=== PATIENT | female | born 1935 | race Caucasian/White ===

== ENCOUNTER 2016-07-31 12:46 | Inpatient (IN) | payer OTHER ==
--- NOTE | 2016-07-31 14:31 | PDOC ---
[id number], VOMITING Time Seen by Provider: 07/31/16 13:59 History Source: Patient Exam Limitations: No Limitations - History of Present Illness Initial Comments: 07/31/16 14:30 CHIEF COMPLAINT: Cough HISTORY OF PRESENT ILLNESS: This is an 81 year old female with a history of NIDDM, HTN, ovarian ca (s/p chemo in 2007 and 2011, s/p hysterectomy and bilateral oophrectomy), and anemia who presents complaining of cough since April and nausea/vomiting since June, with inability to eat or tolerate fluids over the weekend. She feels that her abdomen is distended. Last BM was 2 days ago (she states it is normal for her to go 2-3 days without a BM); she is able to pass flatus. She is complaining of generalized weakness and dyspnea on exertion. She is sent by her PCP for further workup and admission. V/s on arrival are unremarkable. PCP is Dr. Gonsalez Oncologist is Dr. Velarde REVIEW OF SYSTEMS: GENERAL/CONSTITUTIONAL: Chills, no fever. Generalized weakness. No weight change. HEAD, EYES, EARS, NOSE AND THROAT: No change in vision. No ear pain or discharge. No sore throat. CARDIOVASCULAR: No chest pain or palpitations. Dyspnea on exertion. RESPIRATORY: No cough, wheezing, or shortness of breath. GASTROINTESTINAL: Nausea/vomiting, abdominal "bloating". Last BM 2 days ago. + Flatus. GENITOURINARY: No dysuria, frequency, or change in urination. MUSCULOSKELETAL: No joint or muscle swelling or pain. No neck or back pain. SKIN: No rash or easy bruising. NEUROLOGIC: No headache, vertigo, loss of consciousness, or loss of sensation. PSYCHIATRIC: No depression or anxiety. ENDOCRINE: No increased thirst. No abnormal weight change. HEMATOLOGIC/LYMPHATIC: No anemia, easy bleeding, or history of blood clots. ALLERGIC/IMMUNOLOGIC: No hives or skin allergy. No latex allergy. PHYSICAL EXAM: GENERAL: The patient is awake, alert, and fully oriented, in no acute distress. HEAD: Normal with no signs of trauma. ENT: Pupils equal, round and reactive to light, extraocular movements intact, sclera anicteric, conjunctiva clear. Neck supple. LUNGS: Clear to auscultation bilaterally. Normal excursion. No respiratory distress or use of accessory muscles. CV: RRR, S1/S2, no MRG. Cap refill < 2 sec. ABDOMEN: Soft, non-distended, non-tender. EXTREMITIES: Normal range of motion. Trace LE edema bilaterally. NEUROLOGICAL: Normal speech, normal gait. CN II-XII grossly intact. PSYCH: Normal mood, normal affect. SKIN: Warm, dry, normal turgor, no rashes or lesions noted. RECTAL: Normal external exam. One small internal mass at 12 o'clock position. Guaiac negative light brown stool. Past History - Past Medical History Allergies/Adverse Reactions: Allergies Allergy/AdvReac Type Severity Reaction Status Date / Time No Known Drug Allergies Allergy Verified 07/31/16 13:12 Home Medications: Ambulatory Orders Acetaminophen [Tylenol .Regular Strength -] 650 mg PO Q6H PRN #0 tablet Furosemide [Lasix -] 40 mg PO DAILY tablet 08/22/16 Magnesium Oxide [Mag-Ox -] 400 mg PO BID tablet 08/22/16 Metoclopramide HCl [Reglan -] 10 mg PO TIDAC tablet 08/22/16 Polyethylene Glycol 3350 [Miralax 119 gm Btl -] 17 gm PO DAILY bottle 08/22/16 Potassium Chloride [K-Dur -] 20 meq PO DAILY tab.sr 08/22/16 Ranitidine [Zantac -] 150 mg PO BID tablet 08/22/16 Aa/Hydrolyzed Collagen, Whey [Lps 15-30 Liquid] 30 ml PO TID 08/26/16 Allopurinol 300 mg PO DAILY 08/26/16 Imatinib Mesylate [Gleevec] 100 mg PO DAILY 08/26/16 Multivitamin [Poly-Vitamin] 1 each PO DAILY 08/26/16 Anemia: Yes (H/O) Asthma: No Cancer: Yes (OVARIAN AND SKIN CA) Cardiac Disorders: No CVA: No COPD: No CHF: No Dementia: No Diabetes: No GI Disorders: Yes (hernia) Disorders: Yes HTN: Yes Hypercholesterolemia: No Liver Disease: No Seizures: No Thyroid Disease: No - Surgical History Abdominal Surgery: Yes (COLONOSCOPY) Appendectomy: No Cardiac Surgery: No Cholecystectomy: No Lung Surgery: No Neurologic Surgery: No Orthopedic Surgery: No - Psycho/Social/Smoking Cessation Hx Anxiety: No Suicidal Ideation: No Smoking History: Never smoked Have you smoked in the past 12 months: No Information on smoking cessation initiated: No Hx Alcohol Use: No Drug/Substance Use Hx: No Substance Use Type: None Hx Substance Use Treatment: No *Physical Exam - Vital Signs Last Vital Signs Temp Pulse Resp BP Pulse Ox 98.5 F 84 18 131/57 95 07/31/16 13:09 07/31/16 13:09 07/31/16 13:09 07/31/16 13:09 07/31/16 13:09 Heart Score/ECG Review - ECG Intrepretation Comment:: 07/31/16 14:31 EKG: NSR at 74bpm, no ST or T wave changes ED Treatment Course - LABORATORY CBC & Chemistry Diagram: 08/22/16 06:00 08/21/16 06:50 - RADIOLOGY Radiology Studies Ordered: Category Date Time Status CHEST PA & LAT [RAD] Stat Radiology 07/31/16 13:59 Completed Medical Decision Making - Medical Decision Making 07/31/16 14:30 A/P: 81 year old female with history of ovarian ca presenting with abdominal bloating, nausea/vomiting/inability to tolerate po, and dyspnea on exertion. 1. EKG: NSR 2. CXR: no infiltrate 3. Cardiac and abdominal labs 4. Zofran 4mg IVP 5. CTAP with PO/IV contrast 07/31/16 15:41 Hgb today is 8.2; discussed with Dr. Gonsalez and was 10.5 on 06/26 Will give 1 unit PRBCs since patient is symptomatic (PACHECO) Plt 98 INR 1.3 Stool for occult blood is negative BUN Cr 23/0.7 - gentle IV hydration *DC/Admit/Observation/Transfer Diagnosis at time of Disposition: Abdominal pain Qualifiers: Abdominal location: generalized Qualified Code(s): R10.84 - Generalized abdominal pain Anemia Qualifiers: Anemia type: unspecified type Qualified Code(s): D64.9 - Anemia, unspecified - Discharge Dispostion [facility]position[facility] Condition at time of disposition: Stable
[2016-07-31 15:08] LABS: BASOPHIL 0.6 % (0-2.0); EOSINOPHIL 0.5 % (0-4.5); MCH 33.8 pg (25.7-33.7); MCHC 34.2 g/dl (32.0-36.0); MEAN CELL VOLUME 98.9 fl (80-96); MEAN PLT VOLUME 7.1 fl (7.5-11.1); NEUTROPHILS 64.2 % (42.8-82.8); PLATELET COUNT 98 K/MM3 (134-434); WHITE BLOOD COUNT 5.1 K/mm3 (4.0-10.0)
[2016-07-31 15:18] LABS: URINE APPEARANCE CLEAR; URINE BILIRUBIN NEGATIVE (NEGATIVE); URINE BLOOD NEGATIVE (NEGATIVE); URINE COLOR YELLOW; URINE GLUCOSE (UA) NEGATIVE (NEGATIVE); URINE KETONE NEGATIVE (NEGATIVE); URINE LEUK ESTERASE NEGATIVE (NEGATIVE); URINE NITRITE NEGATIVE (NEGATIVE); URINE PROTEIN NEGATIVE (NEGATIVE); URINE UROBILINOGEN 2.0 E.U/dl E.U./dl (0.2-1.0)
[2016-07-31 15:24] LABS: INR 1.31 (0.82-1.09); PROTHROMBIN TIME (PATIENT) 14.5 SEC (9.98-11.88)
[2016-07-31 15:31] LABS: ALBUMIN 3.3 g/dl (3.4-5.0); ANION GAP 9 (8-16); CALCIUM 8.8 mg/dL (8.5-10.1); CO2 30 mmol/L (21-32); CREATININE 0.7 mg/dL (0.55-1.02); GLUCOSE,RANDOM 98 mg/dL (74-106); SGOT/AST 22 U/L (15-37); SGPT/ALT 32 U/L (12-78); TOT PROT 6.2 g/dl (6.4-8.2)
[2016-07-31 15:34] LABS: TROPONIN I < 0.02 ng/ml (0.00-0.05)
[2016-07-31 15:36] LABS: ALK PHOS 121 U/L (45-117); BILIRUBIN,TOTAL 0.9 mg/dL (0.2-1.0)
[2016-07-31] MEDS ORDERED: ONDANSETRON 4 MG/2 ML VIAL IVPUSH ONE (15:43)
[2016-07-31] MEDS ORDERED: SODIUM CHLORIDE 1,000 ML IV SCH ×2 (15:45→23:30)
[2016-07-31] MEDS ORDERED: ONDANSETRON 4 MG/2 ML VIAL ONE (16:30)
--- NOTE | 2016-07-31 20:50 | PDOC ---
*Physical Exam - Vital Signs Last Vital Signs Temp Pulse Resp BP Pulse Ox 98.5 F 84 18 131/57 95 07/31/16 13:09 07/31/16 13:09 07/31/16 13:09 07/31/16 13:09 07/31/16 13:09 ED Treatment Course - LABORATORY CBC & Chemistry Diagram: 08/03/16 06:00 08/03/16 08:10 - ADDITIONAL ORDERS Additional order review: Laboratory Results 07/31/16 07/31/16 07/31/16 14:53 14:46 14:46 INR 1.31 H Sodium Potassium Chloride Carbon Dioxide Anion Gap BUN Creatinine Creat Clearance w eGFR Random Glucose Calcium Total Bilirubin AST ALT Alkaline Phosphatase Creatine Kinase 31 Troponin I < 0.02 B-Natriuretic Peptide 455.26 H Total Protein Albumin Lipase 336 Urine Color Urine Appearance Urine pH Ur Specific Holcomb Urine Protein Urine Glucose (UA) Urine Ketones Urine Blood Urine Nitrite Urine Bilirubin Urine Urobilinogen Ur Leukocyte Esterase Stool Occult Blood Negative 07/31/16 07/31/16 14:46 14:46 INR Sodium 133 L Potassium 3.9 Chloride 94 L Carbon Dioxide 30 Anion Gap 9 BUN 23 H D Creatinine 0.7 Creat Clearance w eGFR > 60 Random Glucose 98 D Calcium 8.8 Total Bilirubin 0.9 D AST 22 D ALT 32 D Alkaline Phosphatase 121 H Creatine Kinase Troponin I B-Natriuretic Peptide Total Protein 6.2 L Albumin 3.3 L Lipase Urine Color Yellow Urine Appearance Clear Urine pH 5.0 D Ur Specific Holcomb 1.017 Urine Protein Negative Urine Glucose (UA) Negative Urine Ketones Negative Urine Blood Negative Urine Nitrite Negative Urine Bilirubin Negative Urine Urobilinogen 2.0 e.u/dl H Ur Leukocyte Esterase Negative Stool Occult Blood 07/31/16 14:46 RBC 2.43 L D MCV 98.9 H MCHC 34.2 RDW 15.0 MPV 7.1 L Neutrophils % 64.2 D Lymphocytes % 26.9 D Monocytes % 7.8 Eosinophils % 0.5 D Basophils % 0.6 - Medications Given in the ED: ED Medications Discontinued Medications Generic Name Dose Route Start Last Admin Trade Name Freq PRN Reason Stop Dose Admin Ondansetron HCl 4 mg 07/31/16 15:43 07/31/16 16:33 Zofran Injection IVPUSH 07/31/16 15:44 4 mg ONCE ONE Administration Medical Decision Making - Medical Decision Making 07/31/16 20:24 CT AP : Several Mildly dilated bowel loops within the abdomen and pelvis. it is uncertain whether this finding is due to early/d developing SBO vs ileus. Hospitalist paged. Patient is c/o generalized abdominal pain Left > right. 07/31/16 21:22 patient signed out to Dr. farah for further management of care. *DC/Admit/Observation/Transfer Diagnosis at time of Disposition: Abdominal pain Qualifiers: Abdominal location: generalized Qualified Code(s): R10.84 - Generalized abdominal pain Anemia Qualifiers: Anemia type: unspecified type Qualified Code(s): D64.9 - Anemia, unspecified - Discharge Dispostion Admit: Yes - Referrals
--- NOTE | 2016-07-31 23:21 | HP ---
CHIEF COMPLAINT: "Vomiting x 3 weeks and abdominal pain" PCP: Dr. Wallace Merrill HISTORY OF PRESENT ILLNESS: Patient is a 81-year-old female presented with the chief complaints of vomiting x 3 weeks and abdominal pain. As per the patient, she has been having nausea associated with vomiting since 3 weeks, non projectile, non bilious, mainly containing food particles, mostly 3times/day or less; not related to food. Has had decreased appetite and not tolerating food, even water. Has had dry cough on/off since April. Was given Robitussin in April which didn't help. No h/o chest pain, palpitation. Has Shortness of breath at baseline and able to walk 10 blocks without SOB. Denies orthopnea and PND. Complaints of left upper quadrant pain, dull aching in nature, since 3 weeks, non radiating, 5/10 in intensity, intermittent, aggravated on coughing, no relieving factors. Has bloating of abdomen since admission. Last bowel movements 3 days ago. Has been passing flatus. Patient has a h/o hiatal hernia diagnosed in [facility] and work up was done last year. Bladder habit normal. No urinary symptoms. Sleep normal. ED physician spoke with patient's primary physician and found out patient's hemoglobin in 06/26/2016 was 10.5 and which dropped to 8.2/24.1 today. ER course was notable for: (1) Afebrile, hemodynamically stable, hyponatremia 133; Troponin x 1 negative, stool occult blood negative; H/H 8.2/24.1 (2) Abdominal/Pelvic CT scan: SBO vs Ileus. (3) IV NS @ 125ml/hr; Zofran Recent Travel: PAST MEDICAL HISTORY: NIDDM, HTN, ovarian ca (s/p chemo in 2007 and 2012, s/p hysterectomy and bilateral oophrectomy 2007), and anemia; Hiatal hernia, osteoarthritis, Macular degeneration, cataract removal; Hernia repair PAST SURGICAL HISTORY: As mentioned above Social History: Smoking: Denies Alcohol:Denies Drugs: Denies Family History: Unknown Allergies No Known Drug Allergies Allergy (Verified 07/31/16 13:12) HOME MEDICATIONS: Home Medications Medication Instructions Recorded Amlodipine Besylate 5 mg PO DAILY 07/31/16 Atenolol [Tenormin -] 50 mg PO DAILY 07/31/16 Chlorthalidone 25 mg PO DAILY 07/31/16 Glipizide [Glipizide ER] 2.5 mg PO DAILY 07/31/16 Metformin HCl 500 mg PO DAILY 07/31/16 Ondansetron HCl [Zofran] 8 mg PO PRN PRN 07/31/16 REVIEW OF SYSTEMS CONSTITUTIONAL: Present: generalized weakness, loss of appetite Absent: fever, chills, diaphoresis, malaise,weight change HEENT: Absent: rhinorrhea, nasal congestion, throat pain, throat swelling, difficulty swallowing, mouth swelling, ear pain, eye pain, visual changes CARDIOVASCULAR: Absent: chest pain, syncope, palpitations, irregular heart rate, lightheadedness , peripheral edema RESPIRATORY: Present: cough, shortness of breath, dyspnea with exertion Absent: orthopnea, wheezing, stridor, hemoptysis GASTROINTESTINAL: Present: abdominal pain, abdominal distension, nausea, vomiting Absent: diarrhea, constipation, melena, hematochezia GENITOURINARY: Absent: dysuria, frequency, urgency, hesitancy, hematuria, flank pain, genital pain MUSCULOSKELETAL: Absent: myalgia, arthralgia, joint swelling, back pain, neck pain SKIN: Absent: rash, itching, pallor HEMATOLOGIC/IMMUNOLOGIC: Absent: easy bleeding, easy bruising, lymphadenopathy, frequent infections ENDOCRINE: Absent: unexplained weight gain, unexplained weight loss, heat intolerance, cold intolerance NEUROLOGIC: Absent: headache, focal weakness or paresthesias, dizziness, unsteady gait, seizure, mental status changes, bladder or bowel incontinence PSYCHIATRIC: Absent: anxiety, depression, suicidal or homicidal ideation, hallucinations. PHYSICAL EXAMINATION GENERAL: Elderly female, lying comfortably in bed, Awake, alert, and fully oriented, in no acute distress. HEAD: Normal with no signs of trauma. EYES: EOM intact, no pallor or icterus. EARS, NOSE, THROAT: Ears normal. Moist mucous membranes. NECK: Supple LUNGS: Breath sounds equal, clear to auscultation bilaterally. No wheezes, and no crackles. No accessory muscle use. HEART: Regular rate and rhythm, normal S1 and S2 without murmur, rub or gallop. ABDOMEN: Soft, nontender, not distended, normoactive bowel sounds, no guarding, no rebound, no masses. No hepatomegaly or splenomegaly. MUSCULOSKELETAL: Normal range of motion at all joints. No bony deformities or tenderness. No CVA tenderness. UPPER EXTREMITIES: 2+ pulses, warm, well-perfused. No cyanosis. No clubbing. No peripheral edema. LOWER EXTREMITIES: 2+ pulses, warm, well-perfused. No calf tenderness. No peripheral edema. NEUROLOGICAL: Cranial nerves II-XII intact. Normal speech. Gait not observed. PSYCHIATRIC: Cooperative. Good eye contact. Appropriate mood and affect. SKIN: Warm, dry, normal turgor, no rashes or lesions noted, normal capillary refill. Abdominal/Pelvic CT scan IMPRESSION: Several mildly dilated bowel loops are seen within the abdomen and pelvis as discussed. On the basis of this exam it is uncertain whether this finding due to early/developing small bowel obstruction versus an ileus. Correlate clinically and with close follow-up CT or radiography. Interval development of splenomegaly is noted. Partial resolution of diffuse hepatic steatosis is seen. The remainder of the study demonstrates no definite interval change. Stable mildly enlarged 1.9 cm left inguinal lymph node. 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 Small midline supraumbilical hernia containing fat only. Small stable right lower lung field pulmonary nodules. ASSESSMENT/PLAN: Patient is a 81-year-old female with significant past medical history of NIDDM, HTN, ovarian ca (s/p chemo in 2007 and 2012, s/p hysterectomy and bilateral oophrectomy 2007), and anemia; osteoarthritis, Macular degeneration, cataract removal; Hernia repair presented with the chief complaints of vomiting x 3 weeks and abdominal pain. # Abdominal pain-Small Bowel Obstruction vs Ileus Patient presented with Left upper quadrant pain, 5/10 in intensity, intermittent, aggravated on coughing, associated with nausea and vomiting x 3 weeks. On arrival, Afebrile, hemodynamically stable, no leukocytosis CT abdomen/pelvis report mentioned as above In the ED, patient was given IV NS @ 125ml/hr; Zofran Admitted in Med-Surg NPO IV NS @ 100mls/hr IV Reglan 10mg PRN No pain medication as patient hasn't complained of abdominal pain # Macrocytic anemia Patient's recent Hb in May was 10.5 and today's H/H H/H 8.2/24.1 1 PRBC transfused, repeat CBC tomorrow morning Monitor H/H No signs of bleeding and asymptomatic anemia at this time. Heme/Onc consult placed # Hypertension 5mg Amlodipine, 50mg Atenolol on Hold # Hyponatremia IV NS continued # Hiatal hernia IV Protonix Please kindly try to get reports from [facility] Most likely dry cough due to reflux # Diabetes Mellitus Insulin sliding scale Finger stick glucose monitoring Monitor hypoglycemic symptoms HbA1c ordered # FEN IV NS @ 100mls/hr Electrolytes to be repeated tomorrow NPO # Prophylaxis For DVT- On SCD's For GI- On protonix # Code status: Full code # Dispo: Admitted in Med-Surg. Duration of stay unknown. Illness, Investigation and Plan of care explained to the patient. She verbalized understanding. Case seen and discussed with Dr. Rodriguez. Visit type - Emergency Visit Emergency Visit: Yes ED Registration Date: 07/31/16 Care time: The patient presented to the Emergency Department on the above date and was hospitalized for further evaluation of their emergent condition. - New Patient This patient is new to me today: Yes Date on this admission: 07/31/16 - Critical Care Critical Care patient: No
--- NOTE | 2016-08-01 00:40 | PN ---
<Home Rodriguez - Last Filed: 08/01/16 00:39> Teaching Attending Note Name of Resident: Chela Crocker ATTENDING PHYSICIAN STATEMENT I saw and evaluated the patient. I reviewed the resident's note and discussed the case with the resident. I agree with the resident's findings and plan as documented. SUBJECTIVE: OBJECTIVE: ASSESSMENT AND PLAN: <DiamondCameron - Last Filed: 08/01/16 00:42> Teaching Attending Note ATTENDING PHYSICIAN STATEMENT I saw and evaluated the patient. I reviewed the resident's note and discussed the case with the resident. I agree with the resident's findings and plan as documented. SUBJECTIVE: This is an 81 year old female with a history of NIDDM, HTN, ovarian ca (s/p chemo in 2007 and 2011, s/p hysterectomy and bilateral oophorectomy), and anemia who presented to the emergency department for further evaluation of cough since April and nausea/vomiting since June with inability to eat or tolerate fluids for 3 days. The patient described her cough as dry and noted that her vomit is clear, sour, and contains food. She reported left upper quadrant pain and noted it was 5/10 in severity, non-radiating, and not related to movement or eating but exacerbated by her cough. Last BM was 2 days ago (she stated it is normal for her to go 2-3 days without a BM); she is able to pass flatus. She is complained of generalized weakness and dyspnea on exertion. She is sent by her PCP for further workup and admission. OBJECTIVE: Vital Signs: Last Vital Signs Temp Pulse Resp BP Pulse Ox 98.5 F 84 18 131/57 95 07/31/16 13:09 07/31/16 13:09 07/31/16 13:09 07/31/16 13:09 07/31/16 13:09 GENERAL: Elderly lady lying comfortably in bed Awake, A&O x3, in no acute distress HEENT: Atraumatic. PERRLA, EOMI. Moist mucosa. No JVD LUNGS: No distress, speaks full sentences, clear to auscultation bilaterally HEART: Regular rate and rhythm, normal S1 and S2, no murmurs, rubs or gallops, peripheral pulses normal and equal bilaterally. ABDOMEN: (+) Tympanitic abdomen. Soft, nontender, No guarding, no rebound. No masses EXTREMITIES: Normal inspection, Normal range of motion, no edema. No clubbing or cyanosis. NEUROLOGICAL: Cranial nerves II through XII grossly intact. Normal speech, no focal sensorimotor deficits SKIN: Warm, Dry, normal turgor, no rashes or lesions noted. Labs: CBCD WBC 5.1 K/mm3 (4.0-10.0) 07/31/16 14:46 RBC 2.43 M/mm3 (3.60-5.2) L D 07/31/16 14:46 Hgb 8.2 GM/dL (10.7-15.3) L D 07/31/16 14:46 Hct 24.1 % (32.4-45.2) L D 07/31/16 14:46 MCV 98.9 fl (80-96) H 07/31/16 14:46 MCHC 34.2 g/dl (32.0-36.0) 07/31/16 14:46 RDW 15.0 % (11.6-15.6) 07/31/16 14:46 Plt Count 98 K/MM3 (134-434) L D 07/31/16 14:46 MPV 7.1 fl (7.5-11.1) L 07/31/16 14:46 CMP Sodium 133 mmol/L (136-145) L 07/31/16 14:46 Potassium 3.9 mmol/L (3.5-5.1) 07/31/16 14:46 Chloride 94 mmol/L (98-107) L 07/31/16 14:46 Carbon Dioxide 30 mmol/L (21-32) 07/31/16 14:46 Anion Gap 9 (8-16) 07/31/16 14:46 BUN 23 mg/dL (7-18) H D 07/31/16 14:46 Creatinine 0.7 mg/dL (0.55-1.02) 07/31/16 14:46 Creat Clearance w eGFR > 60 (>60) 07/31/16 14:46 Calcium 8.8 mg/dL (8.5-10.1) 07/31/16 14:46 Total Bilirubin 0.9 mg/dL (0.2-1.0) D 07/31/16 14:46 AST 22 U/L (15-37) D 07/31/16 14:46 ALT 32 U/L (12-78) D 07/31/16 14:46 Alkaline Phosphatase 121 U/L (45-117) H 07/31/16 14:46 Total Protein 6.2 g/dl (6.4-8.2) L 07/31/16 14:46 Albumin 3.3 g/dl (3.4-5.0) L 07/31/16 14:46 Imaging: EXAM#: TYPE/EXAM: RESULT: [id number] RAD/CHEST PA LAT Chest: Cough 2 views reveal minimal degenerative changes and wedging, prominent knob, normal brian and normal heart. The lungs are clear. The angles are sharp. Soft tissues are intact. An acute process is not seen. Since 08/16/2015, there is no change of an adverse nature. IMPRESSION: No acute pathology. No significant change. Reported By: Fritz Granger MD 07/31/16 1426 EXAM#: TYPE/EXAM: RESULT: [id number] CT/ABDOMEN PELVIS CT WITH CONTR Abdomen and pelvis CT with intravenous contrast CLINICAL INFORMATION: evaluate for small bowel obstruction Multiplanar imaging was performed utilizing intravenous and oral contrast. Note is made of several nonspecific mildly dilated small bowel loops within the upper abdomen centrally and the right lower abdomen. No discrete transition zone can be identified. There is no gross mass lesion. There is no evidence of free intraperitoneal fluid or pneumoperitoneum. In comparison to MRI and CT exams performed on 07/21/2015 and 02/22/2015, respectively, interval development of splenomegaly is noted. The current splenic length is 15.4 cm, previously 7.7 cm. The splenic vein as well as the portomesenteric venous system appears patent. Partial resolution of diffuse fatty infiltration of the liver is seen. No discrete hepatic mass lesion is identified. The remainder of the study demonstrates no definite interval change. A stable mildly enlarged 1.9 cm left inguinal lymph node is noted. There is no definite intra-abdominal/pelvic lymphadenopathy. Note is again made of numerous cysts within the pancreatic head and body of the most prominent measuring 2.7 cm in diameter suggestive of intraductal papillary mucinous tumors. There is no obvious associated soft tissue nodularity. No definite dilatation of the main pancreatic duct is seen. The adrenal glands and kidneys demonstrate no discrete abnormality. There is no aortic aneurysm. There is no definite pelvic pathology. Small midline supraumbilical hernia containing fat only. Stable adjacent 0.5 cm and 0.2 cm right middle lobe nodules are noted. IMPRESSION: Several mildly dilated bowel loops are seen within the abdomen and pelvis as discussed. On the basis of this exam it is uncertain whether this finding due to early/developing small bowel obstruction versus an ileus. Correlate clinically and with close follow-up CT or radiography. Interval development of splenomegaly is noted. Partial resolution of diffuse hepatic steatosis is seen. The remainder of the study demonstrates no definite interval change. Stable mildly enlarged 1.9 cm left inguinal lymph node. 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 Small midline supraumbilical hernia containing fat only. Small stable right lower lung field pulmonary nodules. Reported By: Conor Velasquez MD ASSESSMENT AND PLAN : The patient is an 81 year old female with past medical history of NIDDM, HTN, ovarian ca (s/p chemo in 2007 and 2011, s/p hysterectomy and bilateral oophorectomy), hiatal hernia, osteoarthritis, cataract repair, and anemia presented with nausea and vomiting. Patient symptoms of sour taste in mouth and spitting up first thing in the morning as well as occasionally with food in setting of normal bowel movements and no hiatal hernia are likely secondary to reflux. Reflux may also explain patients chronic cough. CT with mildly dilated bowel loops but, patient passing gas and having normal bowel movements. Will challenge with diet will give zofran for nausea and proton pump inhibitor + H2 elvie for acid suppression. Admit to med surg. Documentation prepared by Cameron Fields, acting as director biomedical engineering for Dr. Home Rodriguez MD.
[2016-08-01 02:03] VITALS: BMI 22.6
[2016-08-01] MEDS ORDERED: INSULIN SLIDING SCALE (NOVOLOG) 1 VIAL SQ SCH (07:00)
[2016-08-01] MEDS: INSULIN SLIDING SCALE (NOVOLOG) 1 VIAL SQ SCH ×4 (07:00→21:09)
[2016-08-01 07:47] LABS: MCH 33.2 pg (25.7-33.7); MCHC 34.5 g/dl (32.0-36.0); MEAN CELL VOLUME 96.3 fl (80-96); MEAN PLT VOLUME 7.1 fl (7.5-11.1); PLATELET COUNT 84 K/MM3 (134-434); RDW 16.5 % (11.6-15.6)
[2016-08-01 08:11] LABS: INR 1.34 (0.82-1.09); PROTHROMBIN TIME (PATIENT) 14.8 SEC (9.98-11.88)
[2016-08-01 08:14] LABS: ACTIVATED PTT 30.1 SECONDS (26.9-34.4)
[2016-08-01 08:37] LABS: ANION GAP 12 (8-16); CALCIUM 8.2 mg/dL (8.5-10.1); CO2 25 mmol/L (21-32); GLUCOSE,RANDOM 78 mg/dL (74-106); MAGNESIUM 1.6 mg/dL (1.8-2.4)
[2016-08-01 08:40] LABS: ALK PHOS 108 U/L (45-117); BILIRUBIN,TOTAL 1.2 mg/dL (0.2-1.0); CREATININE 0.4 mg/dL (0.55-1.02); PHOSPHOROUS 2.9 mg/dL (2.5-4.9); SGOT/AST 21 U/L (15-37); SGPT/ALT 28 U/L (12-78); TOT PROT 5.5 g/dl (6.4-8.2)
[2016-08-01] MEDS: PANTOPRAZOLE SODIUM 100 ML IVPB SCH (09:50)
--- NOTE | 2016-08-01 11:56 | PN ---
Progress Note, Physician Chief Complaint: Vomiting and nause and abdominal pain for several days at home with cough. History of Present Illness: Patient with a past history of Ovarian Ca with surgical and followup chemotherapy, BDM, Hypertension and Pancreatic Cysts and LS disc disease comes to the hospital with several days of vomiting; nausea and some coughing. CAT scan of Abd: Ileus VS beginning of SBO. The later is a worry because of post surgical adhesion issues. Had a non bloody BM Sunday. Mild discomfort on exam; nausea better. Patient's HB about 10-11GM; was 8.2 GM on admission and given 1 unit of blood but / source. - Current Medication List Current Medications: Active Medications Pantoprazole Sodium (Protonix 40mg Ivpb (Pre-Docked)) 100 mls @ 200 mls/hr IVPB DAILY [facility] Last Admin: 08/01/16 09:50 Dose: 200 mls/hr Potassium Chloride (Potassium Chloride 10 Meq Premix Ivpb -) 100 mls @ 100 mls/ hr IVPB Q60M [facility] Stop: 08/01/16 13:59 Potassium Chloride/Dextrose/Sod Cl (D5-1/2ns+10 Meq Kcl -) 1,000 mls @ 75 mls/ hr IV ASDIR JOVANA Insulin Aspart (Novolog Vial Sliding Scale -) 1 vial SQ ACHS JOVANA PRN Reason: Protocol Last Admin: 08/01/16 07:00 Dose: Not Given Magnesium Sulfate (Magnesium Sulfate) 2 gm IVPB ONCE ONE Stop: 08/01/16 13:01 Ondansetron HCl (Zofran Injection) 4 mg IVPB Q8H PRN PRN Reason: NAUSEA - Objective Vital Signs: Vital Signs Temperature 98.1 F 08/01/16 09:58 Pulse Rate 77 08/01/16 09:58 Respiratory Rate 18 08/01/16 09:58 Blood Pressure 121/66 08/01/16 09:58 O2 Sat by Pulse Oximetry (%) 92 L 08/01/16 02:05 Constitutional: Yes: Calm, Pallor Eyes: Yes: Conjunctiva Clear HENT: Yes: Normocephalic Cardiovascular: Yes: Regular Rate and Rhythm Respiratory: Yes: Rhonchi (few at both bases) Gastrointestinal: Yes: Hyperactive Bowel Sounds, Tenderness (slight tenderness RLQ and LLQ), Other (old surgical scars) Genitourinary: No: Bladder Distention Edema: No Neurological: Yes: Alert, Oriented Labs: CBC, BMP 08/01/16 06:00 08/01/16 06:00 INR, PTT INR 1.34 (0.82-1.09) H 08/01/16 06:00 - ....Imaging Cat Scan: Report Reviewed Problem List - Problems (1) Abdominal pain Assessment/Plan: Mild due to ileus vs SBO Code(s): R10.9 - UNSPECIFIED ABDOMINAL PAIN Qualifiers: Abdominal location: generalized Qualified Code(s): R10.84 - Generalized abdominal pain (2) Anemia Assessment/Plan: ??drop of Hb to 8.2; given 1 unit packed cells here; no hematemesis and stool guiac negative. Code(s): D64.9 - ANEMIA, UNSPECIFIED Qualifiers: Anemia type: unspecified type Qualified Code(s): D64.9 - Anemia, unspecified (3) Cough Assessment/Plan: Possibly aspiration from home vomiting. CXR WNL; afeb May Rx with cough syrup and observe for now. Code(s): R05 - COUGH (4) Diabetes mellitus, new onset Assessment/Plan: BGM ordered; IV changed to D5W 1/2 NS due to NPO. Code(s): E11.9 - TYPE 2 DIABETES MELLITUS WITHOUT COMPLICATIONS (5) Ileus Assessment/Plan: VS SBO GI consult placed Code(s): K56.7 - ILEUS, UNSPECIFIED (6) History of ovarian cancer Assessment/Plan: S/P Surgical Rx and F/U Chemorx. Code(s): Z85.43 - PERSONAL HISTORY OF MALIGNANT NEOPLASM OF OVARY (7) Hypomagnesemia Assessment/Plan: 1.6; Mag IV X1 ordered F/U lab ordered Code(s): E83.42 - HYPOMAGNESEMIA (8) Hypokalemia Assessment/Plan: K 3.2; Rx ordered F/U lab AM Code(s): E87.6 - HYPOKALEMIA
[2016-08-01] MEDS: KCL 10 MEQ IVPB 100 ML IVPB SCH ×2 (11:57→13:03)
[2016-08-01] MEDS: D5-1/2NS+10 MEQ KCL - 1,000 ML IV SCH (12:21)
[2016-08-01] MEDS ORDERED: MAGNESIUM SULF 50% (8.12 MEQ/2 ML-1 GM VIAL) IVPB ONE (13:00)
--- NOTE | 2016-08-01 16:39 | PN ---
Progress Note (short form) - Note Progress Note: Full consult dictated
--- NOTE | 2016-08-01 17:37 | EKG ---
Test Reason : Blood Pressure : / mmHG Vent. Rate : 074 BPM Atrial Rate : 074 BPM P-R Int : 162 ms QRS Dur : 088 ms QT Int : 394 ms P-R-T Axes : 025 017 031 degrees QTc Int : 437 ms NORMAL SINUS RHYTHM NORMAL ECG WHEN COMPARED WITH ECG OF 16-AUG-2015 09:46, NO SIGNIFICANT CHANGE WAS FOUND Confirmed by YURIDIA DAMICO MD ([id number]) on 08/01/2016 5:36:42 PM Referred By: Confirmed By:YURIDIA DAMICO MD
--- NOTE | 2016-08-01 18:32 | CONSULT ---
Consult Consult Specialty:: Dr. Gonsalez Referred by:: Oncology Reason for Consultation:: Nausea, vomining, bloating, fall in Hct /. Past history of Ovarian ca (2007) - s/p TAHBSO treated with taxol/carboplatinum x 6 with taxol maintence. Deveoped recurrence in 2011 treated once again with similar chemotherapy. Has had pancreatic cysts followed by GI at [facility]. Recent fall in Hct. - History Source History Provided By: Patient Limitations to Obtaining History: No Limitations - Past Medical History Cardio/Vascular: Yes: HTN Pulmonary: Yes: Cancer Gastrointestinal: Yes: Other (pancreatic cysts) Musculoskeletal: Yes: Osteoarthritis - Past Surgical History Past Surgical History: Yes: Cataract Removal, Hernia Repair - Alcohol/Substance Use Hx Alcohol Use: No History of Substance Use: reports: None - Smoking History Smoking history: Never smoked Have you smoked in the past 12 months: No Aproximately how many cigarettes per day: 0 - Social History ADL: Independent History of Recent Travel: No Home Medications - Allergies Allergies/Adverse Reactions: Allergies Allergy/AdvReac Type Severity Reaction Status Date / Time No Known Drug Allergies Allergy Verified 07/31/16 13:12 - Home Medications Home Medications: Ambulatory Orders Amlodipine Besylate 5 mg PO DAILY 07/31/16 Atenolol [Tenormin -] 50 mg PO DAILY 07/31/16 Chlorthalidone 25 mg PO DAILY 07/31/16 Glipizide [Glipizide ER] 2.5 mg PO DAILY 07/31/16 Metformin HCl 500 mg PO DAILY 07/31/16 Review of Systems - Review of Systems Constitutional: reports: Chills, Loss of Appetite, Unintentional Wgt. Loss. denies: Night Sweats Eyes: denies: Blind Spots, Blurred Vision, Double Vision, Photophobia HENT: denies: Difficult Swallowing, Epistaxis, Throat Pain Neck: denies: No Symptoms, Pain on Movement, Stiffness, Tenderness Cardiovascular: reports: Shortness of Breath. denies: Chest Pain, Palpitations Respiratory: reports: Cough, SOB, SOB on Exertion Gastrointestinal: reports: Bloating, Constipation, Nausea, Vomiting. denies: Vomiting Blood Genitourinary: denies: Burning, Dysuria, Flank Pain, Frequency Breasts: reports: No Symptoms Reported Musculoskeletal: reports: Back Pain Integumentary: denies: Blister, Bruising, Eczema, Erythema Neurological: reports: No Symptoms Endocrine: reports: No Symptoms Hematology/Lymphatic: reports: No Symptoms Psychiatric: reports: No Symptoms Physical Exam Vital Signs: Vital Signs Temperature 98.3 F 08/01/16 17:23 Pulse Rate 85 08/01/16 17:23 Respiratory Rate 18 08/01/16 17:23 Blood Pressure 110/57 08/01/16 17:23 O2 Sat by Pulse Oximetry (%) 95 08/01/16 09:00 Constitutional: Yes: Mild Distress Eyes: Yes: EOM Intact, PERRL. No: Ptosis, Sclera Icterus HENT: Yes: Atraumatic, Normocephalic. No: Hoarseness, Pharyngeal Erythema, Tonsillar Exudate Neck: Yes: Supple, Trachea Midline. No: Tenderness, Thyromegaly Cardiovascular: Yes: Regular Rate and Rhythm Respiratory: Yes: CTA Bilaterally, Cough Gastrointestinal: Yes: Normal Bowel Sounds, Soft. No: Ascites, Hepatomegaly, Melena, Splenomegaly Renal/: No: CVA Tenderness - Left, CVA Tenderness - Right Breast(s): Yes: WNL, Left, Right Musculoskeletal: No: Joint Stiffness, Joint Swelling, Muscle Pain Extremities: No: Cold, Cool, Cyanosis Edema: No Integumentary: Yes: WNL Wound/Incision: Yes: Excoriated ...Motor Strength: WNL Psychiatric: Yes: WNL Labs: CBC, BMP 08/01/16 06:00 08/01/16 06:00 Imaging - Results Chest X-ray: Report Reviewed Cat Scan: Report Reviewed Problem List - Problems (1) History of ovarian cancer Assessment/Plan: 2007- Stage 3 ovarian ca treated with TAHBSO followed by 6 cycles of carboplatinum, taxol chemotheapy and then maintenace therapy . Developed neuropathy with taxol and it weas discontinued. In 2011, recurrence treated once again with similar chemotherapy. Has been clinically ISAAC. Code(s): Z85.43 - PERSONAL HISTORY OF MALIGNANT NEOPLASM OF OVARY (2) Abdominal pain Assessment/Plan: Nausea, vomiting, abdominal pain Hx of RONNELL,BSO and pancreatic cysts. CT with ileus vs early SBO. GI to assess. Code(s): R10.9 - UNSPECIFIED ABDOMINAL PAIN Qualifiers: Abdominal location: generalized Qualified Code(s): R10.84 - Generalized abdominal pain (3) Anemia Assessment/Plan: Fall in Hct. For GI assessment. Check labs. Code(s): D64.9 - ANEMIA, UNSPECIFIED Qualifiers: Anemia type: unspecified type Qualified Code(s): D64.9 - Anemia, unspecified
[2016-08-02] MEDS: D5-1/2NS+10 MEQ KCL - 1,000 ML IV SCH (02:40)
[2016-08-02] MEDS: INSULIN SLIDING SCALE (NOVOLOG) 1 VIAL SQ SCH ×4 (06:25→21:15)
[2016-08-02 07:25] LABS: MEAN CELL VOLUME 96.9 fl (80-96); MEAN PLT VOLUME 6.8 fl (7.5-11.1); PLATELET COUNT 80 K/MM3 (134-434); RDW 16.4 % (11.6-15.6); WHITE BLOOD COUNT 5.2 K/mm3 (4.0-10.0)
[2016-08-02 07:47] LABS: CALCIUM 8.3 mg/dL (8.5-10.1); CREATININE 0.5 mg/dL (0.55-1.02); MAGNESIUM 1.8 mg/dL (1.8-2.4)
[2016-08-02 07:56] LABS: FERRITIN 483.6 ng/ml (6.9-282.5); THYROID STIMULATING HORMONE 3.25 uIU/ml (0.358-3.74)
--- NOTE | 2016-08-02 08:13 | PN ---
Progress Note (short form) - Note Progress Note: Patient seen by GI and Oncology MD's. Consult from GI MD not avaialble to see yet. Patient had nausea overnite and still has a cough; Original CXR OK; to repeat ? Aspiration from Vomiting at home. No hemoptysis; no chest pain; some LUQ abdominal discomfort this AM. On Exam: Vital Signs Period Temp Pulse Resp BP Sys/Belle Pulse Ox Last 24 Hr 98 F-98.9 F 74-101 18-20 106-121/50-66 95-95 Alert Pale Chest: Clear Cor Reg Abd: Increased bowels sounds with some mild tenderness LUQ Ext: No edema Abnormal Lab Results 08/01/16 08/01/16 08/02/16 06:00 06:00 06:00 RBC 2.99 L Hgb 9.9 L Hct 29.0 L MCV 96.9 H RDW 16.4 H Plt Count 80 L MPV 6.8 L INR 1.34 H Potassium 3.2 L Creatinine 0.4 L D Random Glucose Calcium 8.2 L Magnesium 1.6 L Total Bilirubin 1.2 H D Total Protein 5.5 L Albumin 3.0 L 08/02/16 06:00 RBC Hgb Hct MCV RDW Plt Count MPV INR Potassium Creatinine 0.5 L D Random Glucose 155 H D Calcium 8.3 L Magnesium Total Bilirubin Total Protein Albumin Imp: Partial SBO Hx: Ovarian CA S/P surgery and ChemoRx. Pancreatic Cysts DM HTN Cough? reason Hyokalemia and Hypomagnesemia; await AM Lab Plan: As per GI F/U Lab Repeat CXR Await any procedures then Heparin SQ Problem List - Problems (1) Abdominal pain Code(s): R10.9 - UNSPECIFIED ABDOMINAL PAIN Qualifiers: Abdominal location: generalized Qualified Code(s): R10.84 - Generalized abdominal pain (2) Anemia Code(s): D64.9 - ANEMIA, UNSPECIFIED Qualifiers: Anemia type: unspecified type Qualified Code(s): D64.9 - Anemia, unspecified (3) Cough Code(s): R05 - COUGH (4) Diabetes mellitus, new onset Code(s): E11.9 - TYPE 2 DIABETES MELLITUS WITHOUT COMPLICATIONS (5) Ileus Code(s): K56.7 - ILEUS, UNSPECIFIED (6) History of ovarian cancer Code(s): Z85.43 - PERSONAL HISTORY OF MALIGNANT NEOPLASM OF OVARY (7) Hypomagnesemia Code(s): E83.42 - HYPOMAGNESEMIA (8) Hypokalemia Code(s): E87.6 - HYPOKALEMIA
[2016-08-02 08:50] LABS: METAMYELOCYTE 2 % (0-2)
[2016-08-02 09:13] LABS: PLATELET ESTIMATE DECREASED (NORMAL)
[2016-08-02] MEDS: PANTOPRAZOLE SODIUM 100 ML IVPB SCH (09:16)
--- NOTE | 2016-08-02 11:22 | CONS ---
DATE OF CONSULTATION: 08/01/2016 REQUESTING PHYSICIAN: Rupesh Gonsalez MD HISTORY: Patient is an 81-year-old woman admitted through [facility] for evaluation of generalized weakness, nausea, and vomiting, which occurred this past Sunday and Sunday. Given the persistence of her symptoms, she came to the emergency room. She was noted to have a hemoglobin of 8.2. She was transfused a unit of blood. She denied any rectal bleeding, melena and she was noted to be guaiac-negative on examination. The MCV was 98.9. I was asked to evaluate her abdominal pain. She denies any abdominal pain currently. There has been no reported nausea and vomiting. She is followed by my colleague, Dr. Shaun Choudhary. Last seen here in the office on September 17, 2014. At that time, she was experiencing chronic constipation. Her colonoscopy prior to that visit was August of 2009, revealing mild diverticulosis in the sigmoid colon. A repeat examination was recommended for 5 years. She did give a history of colon polyps that were removed by prior to that. Her brother also of colon cancer at age 74. Her father of stomach cancer. She had a repeat EGD/colonoscopy performed October 23, 2014. EGD revealed a small sliding hiatal hernia with an otherwise normal appearing esophagus, flat polyp in the gastric fundus, and polypectomy was performed revealing the polyp to be a fundic gland polyp without evidence of dysplasia or adenoma. It also appears as though he performed biopsies of the duodenum that failed to reveal evidence of celiac disease and biopsies in the antrum were negative for helicobacter pylori. He recommended a repeat EGD in 3 years. Colonoscopy revealed a 3-mm flap polyp at the appendiceal orifice. This revealed to be a lymphoid aggregate and not a polyp with surface hyperplastic change; otherwise, there was mild diverticulosis and medium-sized internal hemorrhoids. He advised a repeat colonoscopy in 3 years. PAST MEDICAL HISTORY: Includes hypertension; ovarian cancer, status post chemotherapy, ending in 2008; chemotherapy-related neuropathy; colonic polyps; status post laparotomy in January of 2008 to debulk ovarian cancer, which was 90% excised; status post ventral hernia repair in February of 2009. She was born in [place]. She came to the [place] at age 21. She is . She is retired. No history of tobacco, intravenous drug abuse, or alcohol consumption. She has a history of IPMN of the pancreas and states being followed by Dr. Moira Franco at [facility]. FAMILY HISTORY: Paternal aunt had a GI cancer of unknown etiology. Father at age 56 of stomach cancer. Mother lived to . She had a brother who of colon cancer at age 75 and a sister who had breast cancer. No children. MEDICATIONS: Prior to admission include Tenormin, metformin, glipizide, and chlorthalidone as well as amlodipine. She denies any recent change in her medication regimen. ALLERGIES: No known drug allergies. REVIEW OF SYSTEMS: She denies any fevers or chills, cough, sputum production. She denied any chest pain or shortness of breath. She denied any luz maria diarrhea, rectal bleeding, or melena. She denied any lower extremity swelling, any urinary frequency, urgency, or dysuria. PHYSICAL EXAMINATION: General: Patient is found lying comfortably in her bed. She appeared to be in no apparent distress. Vital signs: Afebrile with a pulse of 74, blood pressure 111/61. HEENT: Her sclerae are anicteric. Neck: Supple. Heart: Examination of the heart revealed a regular rate and rhythm. No murmurs are appreciated. Lungs: Clear to auscultation bilaterally. Abdomen: The abdomen was nondistended. She had normoactive bowel sounds. She had a vertical midline abdominal pelvic surgical scar with mild tympany noted. No tenderness elicited. No hepatosplenomegaly is appreciated. Extremities: Revealed no lower extremity edema. Rectal: Digital rectal examination showed no external lesions and no masses. She had light brown stool in the rectal vault, which was guaiac-negative. LABORATORY EVALUATION: White blood count 5.0, hemoglobin 9.7, hematocrit 28.1, MCV 96.3, platelets of 84, sodium 137, potassium 3.2, chloride 100, bicarbonate 25, BUN 15, creatinine 0.4, glucose of 93. AST of 21, ALT of 28, alkaline phosphatase of 108, total bilirubin 1.2, albumin 3.0. INR is 1.34. RADIOLOGY REPORTS: CT scan of the abdomen and pelvis performed with IV and oral contrast revealed several nonspecific mildly dilated small bowel loops within the upper abdomen and centrally in the right lower abdomen without a discrete transition zone, splenomegaly with patent portosystemic venous system, partial resolution of diffuse fatty infiltration of the liver. No discrete hepatic masses were identified. 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 IMPRESSION: This is an 81-year-old female with resolved nausea, vomiting. Given the CT scan findings, the possibility of an ileus or a partial small bowel obstruction, she is also anemic, but also noted to be thrombocytopenic as well and coagulopathic with a macrocytic anemia. This raises the question of an alternate cause of etiology of her anemia and hematology evaluation could be considered. The possibility of underlying liver disease would also need to be considered as well given her coagulopathy, hypoalbuminemia, and splenomegaly. However, she denies any toxic habits that could be contributing to this. I have ordered hepatitis serologies to screen for hepatitis B and C as well as iron studies. I have ordered an FUA for the morning and put her on a clear liquid diet. If vomiting continues and depending on the results of her FUA, then surgical consultation should be considered if there is suggestion of an evolving small bowel obstruction, other recommendations pending the above. I thank you for this consultative opportunity. CHING LEMON DO [id number]
[2016-08-02] MEDS ORDERED: INSULIN (NOVOLOG) ASPART 100 UNITS/ML 10ML VIAL ONE (20:20)
[2016-08-02] MEDS: guaiFENesin 200 MG/10 ML 10 ML UNIT-DOSE CUPS PO PRN (21:15)
[2016-08-03] MEDS: guaiFENesin 200 MG/10 ML 10 ML UNIT-DOSE CUPS PO PRN (05:35)
[2016-08-03] MEDS: INSULIN SLIDING SCALE (NOVOLOG) 1 VIAL SQ SCH ×4 (06:14→22:08)
[2016-08-03] MEDS: D5-1/2NS+10 MEQ KCL - 1,000 ML IV SCH ×3 (06:53→22:10)
[2016-08-03 07:19] LABS: MCH 32.8 pg (25.7-33.7); MCHC 33.5 g/dl (32.0-36.0); MEAN PLT VOLUME 7.1 fl (7.5-11.1); PLATELET COUNT 64 K/MM3 (134-434); RDW 16.3 % (11.6-15.6); WHITE BLOOD COUNT 3.7 K/mm3 (4.0-10.0)
[2016-08-03 08:07] LABS: SERUM IRON 46 ug/dL (27-139); TOTAL IRON BINDING CAPACITY 174 ug/dL (250-450); UIBC 128 ug/dL (118-369)
[2016-08-03 08:50] LABS: CALCIUM 8.3 mg/dL (8.5-10.1); CREATININE 0.5 mg/dL (0.55-1.02)
[2016-08-03 09:03] LABS: METAMYELOCYTE 1 % (0-2)
--- NOTE | 2016-08-03 09:21 | PN ---
Progress Note (short form) - Note Progress Note: Patient anxious this AM. Repeat flat plate shows improved ileus except for LUQ. With the fact that she has developed low platelets, WBC and anemia with negative stool guiac and new Splenomegaly on ABd CAT can points to a new hematologic process. ?? the slenomegaly could be causing her LUQ tenderness. Emily SCHMIDT to re-evaluate. On Exam: Vital Signs Period Temp Pulse Resp BP Sys/Belle Pulse Ox Last 24 Hr 98.2 F-98.9 F 80-82 18-20 108-126/55-76 95 Alert Pale Chest Clear Abnormal Lab Results 08/02/16 08/03/16 08/03/16 06:00 06:00 08:10 WBC 3.7 L RBC 2.74 L Hgb 9.0 L Hct 26.8 L MCV 98.0 H RDW 16.3 H Plt Count 64 L MPV 7.1 L BUN 6 L D Creatinine 0.5 L Random Glucose 140 H Calcium 8.3 L TIBC 174 L Cor reg Abd; Not distended but LUQ tenderness Imp: Abd ileus Thrombocytopenia and leukopenia Hx: Ovarian Ca DM Hypertension Plan: F/U Abd Xray Emily SCHMIDT F/U repeat lab Problem List - Problems (1) Abdominal pain Code(s): R10.9 - UNSPECIFIED ABDOMINAL PAIN Qualifiers: Abdominal location: generalized Qualified Code(s): R10.84 - Generalized abdominal pain (2) Anemia Code(s): D64.9 - ANEMIA, UNSPECIFIED Qualifiers: Anemia type: unspecified type Qualified Code(s): D64.9 - Anemia, unspecified (3) Cough Code(s): R05 - COUGH (4) Diabetes mellitus, new onset Code(s): E11.9 - TYPE 2 DIABETES MELLITUS WITHOUT COMPLICATIONS (5) Ileus Code(s): K56.7 - ILEUS, UNSPECIFIED (6) History of ovarian cancer Code(s): Z85.43 - PERSONAL HISTORY OF MALIGNANT NEOPLASM OF OVARY (7) Hypomagnesemia Code(s): E83.42 - HYPOMAGNESEMIA (8) Hypokalemia Code(s): E87.6 - HYPOKALEMIA
[2016-08-03 09:48] LABS: ANISOCYTOSIS 1+; MICROCYTOSIS FEW; PLATELET ESTIMATE DECREASED (NORMAL); POLYCHROMASIA 1+
[2016-08-03 09:49] LABS: TEAR DROP CELLS RARE
[2016-08-03] MEDS: PANTOPRAZOLE SODIUM 100 ML IVPB SCH (10:59)
--- NOTE | 2016-08-03 12:27 | PN ---
Progress Note (short form) - Note Progress Note: Patient seen and examined Feels slightly better. On a liquid diet some abdominal discomfort, bloating , distention Last Vital Signs Temp Pulse Resp BP Pulse Ox 98.1 F 78 18 122/74 95 08/03/16 10:30 08/03/16 10:30 08/03/16 10:30 08/03/16 10:30 08/02/16 21:00 Cor: RSR, No murmurs, No gallops Lungs: Clear to P&A Abd: Soft, BS+, mild abdominal distention Ext:No significant edema Abnormal Lab Results 08/02/16 08/03/16 08/03/16 06:00 06:00 08:10 WBC 3.7 L RBC 2.74 L Hgb 9.0 L Hct 26.8 L MCV 98.0 H RDW 16.3 H Plt Count 64 L MPV 7.1 L BUN 6 L D Creatinine 0.5 L Random Glucose 140 H Calcium 8.3 L TIBC 174 L Current Medications Guaifenesin (Robitussin -) 10 ml PO Q6H PRN PRN Reason: COUGH Last Admin: 08/03/16 05:35 Dose: 10 ml Pantoprazole Sodium (Protonix 40mg Ivpb (Pre-Docked)) 100 mls @ 200 mls/hr IVPB DAILY [facility] Last Admin: 08/03/16 10:59 Dose: 200 mls/hr Potassium Chloride/Dextrose/Sod Cl (D5-1/2ns+10 Meq Kcl -) 1,000 mls @ 75 mls/ hr IV ASDIR [facility] Last Admin: 08/03/16 06:53 Dose: 75 mls/hr Insulin Aspart (Novolog Vial Sliding Scale -) 1 vial SQ ACHS [facility] PRN Reason: Protocol Last Admin: 08/03/16 11:04 Dose: Not Given Ondansetron HCl (Zofran Injection) 4 mg IVPB Q8H PRN PRN Reason: NAUSEA A/P 81 y/o patient with h/o ovarian cancer, in remission after 1st recurrence, in 2011, comes in with vominting, abdominal distention, pancytopenia Pancytopenia -- macrocytosis check B12/folate/RtSH ? marrow pathology ---MDS? atypical lymphocytes/splenomegaly check flowcytometry/cytogentics/FISH will discuss bone marrow evaluation, based on flow results--available tomorrow ?acute worsening --r/o superimposed infection ILeus :?obstruction on liquid diet gi following up
--- NOTE | 2016-08-03 14:57 | PN ---
GI Progress Note Subjective: No vomiting AXR reveals ? ileus. Contrast reached colon Being evaluated by hematology given pancytopenia and splenomegaly No overt / Occult bleeding detected - Objective Vital Signs: Vital Signs Temperature 98.1 F 08/03/16 13:47 Pulse Rate 87 08/03/16 13:47 Respiratory Rate 20 08/03/16 13:47 Blood Pressure 147/58 08/03/16 13:47 O2 Sat by Pulse Oximetry (%) 95 08/03/16 09:00 Constitutional: Calm Eyes: No: Sclera Icterus Cardiovascular: Yes: Regular Rate and Rhythm Respiratory: Yes: CTA Bilaterally Gastrointestinal Inspection: No: Distention ...Auscultate: Yes: Normoactive Bowel Sounds ...Palpate: No: Tenderness ...Percussion: Yes: Tympanitic (mild tympany) Neurological: Yes: Alert, Oriented Labs: CBC, BMP 08/03/16 08:10 INR, PTT INR 1.34 (0.82-1.09) H 08/01/16 06:00 Hepatic Panel Total Bilirubin 1.2 mg/dL (0.2-1.0) H D 08/01/16 06:00 AST 21 U/L (15-37) 08/01/16 06:00 ALT 28 U/L (12-78) 08/01/16 06:00 Alkaline Phosphatase 108 U/L (45-117) 08/01/16 06:00 Albumin 3.0 g/dl (3.4-5.0) L 08/01/16 06:00 Problem List - Problems (1) Pancytopenia Assessment/Plan: Being evaluated by hematology. If unrevealing heme eval and platelets permit, repeat endoscopic evaluations can be considered Code(s): D61.818 - OTHER PANCYTOPENIA (2) Ileus Assessment/Plan: Vs. ? PSBO. Contrast in colon on follow-up AXR When able, small bowel series can be undertaken to eval small bowel more closely Full liquids Added miralax 17g PO TID to regimen andordered fleet enema Code(s): K56.7 - ILEUS, UNSPECIFIED
[2016-08-03] MEDS: POLYETHYLENE GLYCOL 3350 119 GM BTL PO SCH ×2 (15:25→22:05)
[2016-08-03] MEDS ORDERED: PT OWN MED DRAWER 7, Y5N ONE (21:29)
[2016-08-03] MEDS ORDERED: INSULIN (NOVOLOG) ASPART 100 UNITS/ML 10ML VIAL ONE (22:22)
[2016-08-04 00:07] LABS: HEP B SURFACE AB Non Reactive (.)
[2016-08-04 04:32] LABS: FREE T4 0.93 ng/dl (0.76-1.46); THYROID STIMULATING HORMONE 2.98 uIU/ml (0.358-3.74)
[2016-08-04] MEDS: POLYETHYLENE GLYCOL 3350 119 GM BTL PO SCH ×3 (05:54→22:09)
[2016-08-04] MEDS: INSULIN SLIDING SCALE (NOVOLOG) 1 VIAL SQ SCH ×4 (06:00→22:09)
[2016-08-04] MEDS ORDERED: INSULIN (NOVOLOG) ASPART 100 UNITS/ML 10ML VIAL ONE (06:20)
[2016-08-04 07:43] LABS: MCH 32.9 pg (25.7-33.7); MCHC 33.5 g/dl (32.0-36.0); MEAN CELL VOLUME 98.3 fl (80-96); MEAN PLT VOLUME 6.9 fl (7.5-11.1); PLATELET COUNT 54 K/MM3 (134-434); RDW 16.4 % (11.6-15.6); WHITE BLOOD COUNT 3.5 K/mm3 (4.0-10.0)
[2016-08-04 08:03] LABS: CALCIUM 8.4 mg/dL (8.5-10.1)
[2016-08-04 08:06] LABS: COCKROFT - GAULT 104.4055; CREATININE 0.4 mg/dL (0.55-1.02)
[2016-08-04] MEDS: PANTOPRAZOLE SODIUM 100 ML IVPB SCH (09:48)
[2016-08-04 10:10] LABS: PLATELET ESTIMATE DECREASED (NORMAL)
[2016-08-04] MEDS ORDERED: D5-1/2NS+10 MEQ KCL - 1,000 ML IV SCH (11:22)
--- NOTE | 2016-08-04 12:27 | PATH ---
Surgical Pathology Report Patient Name: ANNA VERMA [facility]. Rec. #: [id number] /Age/Gender: 1935 (Age: 81) / F Account: [id number] Location: [facility] MED/SURG Taken: 08/03/2016 Received: 08/03/2016 Reported: 08/04/2016 Physicians: Prachi Wadsworth M.D. 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 Slightly left shifted granulocytes. Comment: FISH and cytogenetics are pending, and reports will follow. Electronically Signed Nahun Muhammad M.D. Addendum Reported: 08/07/2016 Addendum Diagnosis MDS FISH STUDIES PERFORMED AND INTERPRETED AT [place], [place] ([id number]) ARE FOLLOWS: INTERPRETATION: No evidence of deletion 5q or monosomy 5 is present. No evidence of deletion 7q or monosomy 7 is present. No evidence of trisomy 8 (+8) is present. No evidence of deletion 13q14 is present. No evidence of a rearrangement of 11q23. No evidence of a deletion of the p53 (17p13) locus. No evidence of deletion 20q12 is present. Comments: The study is negative for many of the most common recurrent genetic abnormalities in Myelodysplastic Syndrome. Correlation with pending cytogenetics ([id number]) is recommended. Cain Rivas M.D. Addendum Reported: 08/14/2016 Addendum Diagnosis CYTOGENETIC KARYOTYPE ANALYSIS PERFORMED AND INTERPRETED AT [place], [place] ([id number]) SHOWED THE FOLLOWING: RESULTS: 46,XX [20] INTERPRETATION: Normal Female Karyotype. No consistent numerical or structural chromosome abnormalities were observed. Cain Rivas M.D. Gross Description Received are 2 green top tubes of peripheral blood which are sent to [facility]. DL/08/03/2016 saudi/08/03/2016
--- NOTE | 2016-08-04 15:21 | PN ---
GI Progress Note Subjective: GI NOte: No BM yet. FUA reveals retained contrast in the colon precluding a small bowel series. No nausea or vomiting. LUQ pain unchanged. Tolerating liquids. - Objective Vital Signs: Vital Signs Temperature 98.5 F 08/04/16 06:00 Pulse Rate 95 H 08/04/16 14:02 Respiratory Rate 20 08/04/16 14:02 Blood Pressure 105/56 08/04/16 14:02 O2 Sat by Pulse Oximetry (%) 95 08/04/16 12:10 CBC,CMP WBC 3.5 K/mm3 (4.0-10.0) L 08/04/16 06:30 RBC 2.52 M/mm3 (3.60-5.2) L 08/04/16 06:30 Hgb 8.3 GM/dL (10.7-15.3) L 08/04/16 06:30 Hct 24.7 % (32.4-45.2) L 08/04/16 06:30 MCV 98.3 fl (80-96) H 08/04/16 06:30 MCHC 33.5 g/dl (32.0-36.0) 08/04/16 06:30 RDW 16.4 % (11.6-15.6) H 08/04/16 06:30 Plt Count 54 K/MM3 (134-434) L 08/04/16 06:30 MPV 6.9 fl (7.5-11.1) L 08/04/16 06:30 Neutrophils % 64.0 % (42.8-82.8) 08/04/16 06:30 Lymphocytes % 29.0 % (8-40) D 08/04/16 06:30 Monocytes % 2.0 % (3.8-10.2) L 08/04/16 06:30 Eosinophils % 1.0 % (0-4.5) D 08/01/16 06:00 Basophils % 2.0 % (0-2.0) 08/04/16 06:30 Band Neutrophils 2.0 % (0-10) 08/04/16 06:30 Metamyelocytes 1 % (0-2) D 08/03/16 06:00 Myelocytes 1 % (0-2) D 08/04/16 06:30 Differential Comment Manual diff done 08/04/16 06:30 Reactive Lymphocytes 3 % (0-80) 08/03/16 06:00 Platelet Estimate Decreased (NORMAL) 08/04/16 06:30 Polychromasia 1+ 08/03/16 06:00 Basophilic Stippling 1+ 08/03/16 06:00 Anisocytosis 1+ 08/03/16 06:00 Microcytosis Few 08/03/16 06:00 Macrocytosis Few 08/03/16 06:00 Tear Drop Cells Rare 08/03/16 06:00 ESR 30 mm/hr (0-30) 08/04/16 06:30 Retic Count 2.09 % (0.5-1.5) H 08/03/16 13:30 Sodium 142 mmol/L (136-145) 08/04/16 06:30 Potassium 4.0 mmol/L (3.5-5.1) 08/04/16 06:30 Chloride 106 mmol/L (98-107) 08/04/16 06:30 Carbon Dioxide 27 mmol/L (21-32) 08/04/16 06:30 Anion Gap 9 (8-16) 08/04/16 06:30 BUN 4 mg/dL (7-18) L D 08/04/16 06:30 Creatinine 0.4 mg/dL (0.55-1.02) L 08/04/16 06:30 Creat Clearance w eGFR > 60 (>60) 08/01/16 06:00 POC Glucometer 132 UNITS (()) 08/04/16 05:53 Random Glucose 121 mg/dL (74-106) H 08/04/16 06:30 Hemoglobin A1c % 5.4 % (4.8-6.0) D 08/01/16 06:00 Calcium 8.4 mg/dL (8.5-10.1) L 08/04/16 06:30 Phosphorus 2.9 mg/dL (2.5-4.9) 08/01/16 06:00 Magnesium 1.8 mg/dL (1.8-2.4) 08/02/16 06:00 Iron 46 ug/dL (27-139) 08/02/16 06:00 TIBC 174 ug/dL (250-450) L 08/02/16 06:00 Iron Saturation 26 % (15-55) 08/02/16 06:00 Ferritin 483.600 ng/ml (6.9-282.5) H 08/02/16 06:00 Total Bilirubin 1.2 mg/dL (0.2-1.0) H D 08/01/16 06:00 AST 21 U/L (15-37) 08/01/16 06:00 ALT 28 U/L (12-78) 08/01/16 06:00 Alkaline Phosphatase 108 U/L (45-117) 08/01/16 06:00 LD Total 125 U/L (84-246) 08/04/16 06:30 Creatine Kinase 31 IU/L (26-192) 07/31/16 14:46 Troponin I < 0.02 ng/ml (0.00-0.05) 07/31/16 14:46 B-Natriuretic Peptide 455.26 pg/ml (5-450) H 07/31/16 14:46 Total Protein 5.5 g/dl (6.4-8.2) L 08/01/16 06:00 Albumin 3.0 g/dl (3.4-5.0) L 08/01/16 06:00 Lipase 336 U/L (73-393) 07/31/16 14:46 Carcinoembryonic Ag 1.1 ng/mL (0.0-4.7) 08/02/16 06:00 CA 19-9 Antigen 14 U/mL (0-35) 08/02/16 06:00 CA 125 Antigen 7.6 U/mL (0.0-38.1) 08/02/16 06:00 Vitamin B12 1057 pg/ml (180-914) H 08/03/16 13:30 TSH 2.98 uIU/ml (0.358-3.74) D 08/03/16 13:30 Free T4 0.93 ng/dl (0.76-1.46) 08/03/16 13:30 Constitutional: Anxious Gastrointestinal Inspection: Yes: Distention ...Auscultate: Yes: Hypoactive Bowel Sounds ...Palpate: Yes: Soft, Other (mild LUQ tenderness) Labs: CBC, BMP 08/04/16 06:30 08/04/16 06:30 INR, PTT INR 1.34 (0.82-1.09) H 08/01/16 06:00 Assessment/Plan Doubt SBO. Suspect intestinal colic due to fecal impaction/constipation. Continue Miralax TID but will try a soft diet. Ambulation encouraged.
--- NOTE | 2016-08-04 16:00 | PN ---
Progress Note (short form) - Note Progress Note: Patient seen and examined some abdominal discomfort, bloating , distention,constipation Also with LUQ pain/tenderness Last Vital Signs Temp Pulse Resp BP Pulse Ox 98.5 F 95 H 20 105/56 95 08/04/16 06:00 08/04/16 14:02 08/04/16 14:02 08/04/16 14:02 08/04/16 12:10 Cor: RSR, No murmurs, No gallops Lungs: Clear to P&A Abd: Soft, BS+, LUQ tenderness Ext:No significant edema Abnormal Lab Results 07/31/16 08/02/16 08/04/16 20:30 06:00 06:30 WBC 3.5 L RBC 2.52 L Hgb 8.3 L Hct 24.7 L MCV 98.3 H RDW 16.4 H Plt Count 54 L MPV 6.9 L Monocytes % 2.0 L BUN Creatinine Random Glucose Calcium Hepatitis A Ab Total Positive H Crossmatch See Detail 08/04/16 06:30 WBC RBC Hgb Hct MCV RDW Plt Count MPV Monocytes % BUN 4 L D Creatinine 0.4 L Random Glucose 121 H Calcium 8.4 L Hepatitis A Ab Total Crossmatch Home Medication List Medication Instructions Recorded Confirmed Type Amlodipine Besylate 5 mg PO DAILY 07/31/16 08/01/16 History Atenolol [Tenormin -] 50 mg PO DAILY 07/31/16 08/01/16 History Chlorthalidone 25 mg PO DAILY 07/31/16 08/01/16 History Glipizide [Glipizide ER] 2.5 mg PO DAILY 07/31/16 08/01/16 History Metformin HCl 500 mg PO DAILY 07/31/16 08/01/16 History Active Medications Generic Name Dose Route Start Last Admin Trade Name Freq PRN Reason Stop Dose Admin Guaifenesin 10 ml 08/02/16 20:40 08/03/16 05:35 Robitussin - PO 10 ml Q6H PRN Administration COUGH Potassium Chloride 10 meq/ 1,005 mls @ 75 mls/hr 08/04/16 11:30 08/04/16 16:09 Dextrose/Sodium Chloride IVPB 75 mls/hr Q13H JOVANA Administration Insulin Aspart 1 vial 08/01/16 07:00 08/04/16 12:40 Novolog Vial Sliding Scale - SQ Not Given ACHS JOVANA Protocol Ondansetron HCl 4 mg 07/31/16 23:25 Zofran Injection IVPB Q8H PRN NAUSEA Polyethylene Glycol 17 gm 08/03/16 15:00 08/04/16 16:09 Miralax (For Daily Use) - PO 08/05/16 14:59 17 gm TID JOVANA Administration A/P 81 y/o patient with h/o ovarian cancer, in remission after 1st recurrence, in 2011, comes in with vomiting, abdominal distention, pancytopenia Pancytopenia -- macrocytosis and splenomegaly B12/folate/TSH --nl ? marrow pathology ---MDS? atypical lymphocytes/splenomegaly flow was unrevealing discussed bone marrow biopsy with patient --plan for sunday new onset splenomegaly ILeus : on liquid diet gi following up ? ba follow through
[2016-08-04] MEDS: POTASSIUM CHLORIDE 10 MEQ in DEXTROSE 5%-0.45% SALINE 1,000 ML IVPB SCH (16:09)
--- NOTE | 2016-08-04 18:25 | PN ---
Progress Note (short form) - Note Progress Note: followup visit for patient admitted with vomiting and nausea for several days and found to have an ileus versus small bowel obstruction on initial abdominal x -rays. Still has not had aa satisfactory bowel movement. Some residual ileus on followup x-ray of the abdomen. Of note was a new pancytopenia and in fact the patient has required a unit of blood on this admission with a guaiac- negative stool. She is being evaluated by the hematology service. Patient is very alert and anxious and has a past history of hypertension, diabetes mellitus type 2 controlled, ovarian cancer with surgery and chemotherapy and pancreatic cysts. No complaints of chest pain No shortness of breath Some intermittent abdominal pain mostly in the left upper quadrant for the last 2 days Anxiety Occasional cough nonproductive On exam: Vital Signs Period Temp Pulse Resp BP Sys/Belle Pulse Ox Last 24 Hr 98.4 F-98.8 F 82-100 18-20 105-125/56-75 95-96 she is pale but alert Chest was clear Heart regular Abdomen mildly distended with increased bowel sounds Definitely left upper quadrant tenderness to palpation possibly secondary to splenomegaly Extremities no pedal edema Impression: Abdominal ileus versus small bowel obstruction Constipation Pancytopenia of unknown origin History of ovarian cancer with surgery and chemotherapy History of pancreas is Diabetes mellitus type 2 controlled Hypertension controlled Plan: Followup lab test Followup GI and hematology physician Continue laxatives and increase diet Followup abdominal x-rays Problem List - Problems (1) Abdominal pain Code(s): R10.9 - UNSPECIFIED ABDOMINAL PAIN Qualifiers: Abdominal location: generalized Qualified Code(s): R10.84 - Generalized abdominal pain (2) Anemia Code(s): D64.9 - ANEMIA, UNSPECIFIED Qualifiers: Anemia type: unspecified type Qualified Code(s): D64.9 - Anemia, unspecified (3) Cough Code(s): R05 - COUGH (4) Diabetes mellitus, new onset Code(s): E11.9 - TYPE 2 DIABETES MELLITUS WITHOUT COMPLICATIONS (5) Ileus Code(s): K56.7 - ILEUS, UNSPECIFIED (6) History of ovarian cancer Code(s): Z85.43 - PERSONAL HISTORY OF MALIGNANT NEOPLASM OF OVARY (7) Hypomagnesemia Code(s): E83.42 - HYPOMAGNESEMIA (8) Hypokalemia Code(s): E87.6 - HYPOKALEMIA
[2016-08-04] MEDS: guaiFENesin 200 MG/10 ML 10 ML UNIT-DOSE CUPS PO PRN (22:18)
[2016-08-05] MEDS: POTASSIUM CHLORIDE 10 MEQ in DEXTROSE 5%-0.45% SALINE 1,000 ML IVPB SCH ×3 (01:08→13:31)
[2016-08-05] MEDS: POLYETHYLENE GLYCOL 3350 119 GM BTL PO SCH ×3 (07:03→21:26)
[2016-08-05] MEDS: INSULIN SLIDING SCALE (NOVOLOG) 1 VIAL SQ SCH ×4 (07:04→21:28)
[2016-08-05 08:07] LABS: HEMATOCRIT 26.1 % (34.0-46.6)
[2016-08-05 08:08] LABS: BASOPHIL 0.4 % (0-2.0); EOSINOPHIL 0.7 % (0-4.5); MCHC 33.8 g/dl (32.0-36.0); MEAN CELL VOLUME 97.6 fl (80-96); MEAN PLT VOLUME 7.5 fl (7.5-11.1); NEUTROPHILS 61.9 % (42.8-82.8); PLATELET COUNT 50 K/MM3 (134-434); RDW 16.1 % (11.6-15.6); WHITE BLOOD COUNT 3.4 K/mm3 (4.0-10.0)
[2016-08-05 08:26] LABS: CALCIUM 8.1 mg/dL (8.5-10.1); MAGNESIUM 1.5 mg/dL (1.8-2.4)
[2016-08-05 08:29] LABS: COCKROFT - GAULT 83.521; CREATININE 0.5 mg/dL (0.55-1.02)
--- NOTE | 2016-08-05 11:40 | PN ---
Physical Exam: SUBJECTIVE: Patient seen and examined. Denies chest pain, shortness of breath. OBJECTIVE: slightly distended, + bowel sounds, had small BM, part solid, part diarrhea, denies nausea hmg dropped to 7.5, pt having increased weakness while ambulating, dyspnea on exertion - on 2 liters of NC will order 1 unit of blood since she is symptomatic. Vital Signs Period Temp Pulse Resp BP Sys/Belle Pulse Ox Last 24 Hr 98.2 F-98.8 F 80-100 18-20 105-117/56-70 95-95 GENERAL: The patient is awake, alert, and fully oriented, in no acute distress. HEAD: Normal with no signs of trauma. EYES: PERRL, extraocular movements intact, sclera anicteric, conjunctiva clear. No ptosis. ENT: Ears normal, nares patent, oropharynx clear without exudates, moist mucous membranes. NECK: Trachea midline, full range of motion, supple. LUNGS: Breath sounds equal, clear to auscultation bilaterally HEART: Regular rate and rhythm, ABDOMEN: slightly distended, + bowel sounds, had small BM, part solid, part diarrhea, denies nausea EXTREMITIES: 2+ pulses, warm, well-perfused, no edema. NEUROLOGICAL: Cranial nerves II through XII grossly intact. Normal speech, gait not observed. PSYCH: Normal mood, normal affect. SKIN: Warm, dry, normal turgor, no rashes or lesions noted Laboratory Results - last 24 hr 08/03/16 08/04/16 08/04/16 13:30 12:30 17:17 WBC RBC Hgb Hct 26.1 L MCV MCHC RDW Plt Count MPV Neutrophils % Lymphocytes % Monocytes % Eosinophils % Basophils % Sodium Potassium Chloride Carbon Dioxide Anion Gap BUN Creatinine POC Glucometer 122 114 Random Glucose Calcium Magnesium Total Amylase Lipase Folate 1973 Folate Hemolysate 515.0 08/04/16 08/05/16 08/05/16 22:07 06:00 06:00 WBC 3.4 L RBC 2.28 L Hgb 7.5 L Hct 22.3 L MCV 97.6 H MCHC 33.8 RDW 16.1 H Plt Count 50 L MPV 7.5 Neutrophils % 61.9 Lymphocytes % 30.5 Monocytes % 6.5 D Eosinophils % 0.7 Basophils % 0.4 Sodium 139 Potassium 4.0 Chloride 102 Carbon Dioxide 27 Anion Gap 10 BUN 6 L D Creatinine 0.5 L D POC Glucometer 158 Random Glucose 117 H Calcium 8.1 L Magnesium 1.5 L Total Amylase 19 L Lipase 69 L Folate Folate Hemolysate 08/05/16 07:02 WBC RBC Hgb Hct MCV MCHC RDW Plt Count MPV Neutrophils % Lymphocytes % Monocytes % Eosinophils % Basophils % Sodium Potassium Chloride Carbon Dioxide Anion Gap BUN Creatinine POC Glucometer 122 Random Glucose Calcium Magnesium Total Amylase Lipase Folate Folate Hemolysate Active Medications Generic Name Dose Route Start Last Admin Trade Name Freq PRN Reason Stop Dose Admin Guaifenesin 10 ml 08/02/16 20:40 08/04/16 22:18 Robitussin - PO 10 ml Q6H PRN Administration COUGH Potassium Chloride 10 meq/ 1,005 mls @ 75 mls/hr 08/04/16 11:30 08/05/16 04:16 Dextrose/Sodium Chloride IVPB 75 mls/hr Q13H JOVANA Administration Insulin Aspart 1 vial 08/01/16 07:00 08/05/16 11:35 Novolog Vial Sliding Scale - SQ Not Given ACHS JOVANA Protocol Ondansetron HCl 4 mg 07/31/16 23:25 Zofran Injection IVPB Q8H PRN NAUSEA Polyethylene Glycol 17 gm 08/03/16 15:00 08/05/16 07:03 Miralax (For Daily Use) - PO 08/05/16 14:59 17 gm TID JOVANA Administration ASSESSMENT/PLAN: Patient is a 81 year-old female with significant past medical history of diabetes mellitus, hypertension, ovarian cancer s/p chemotherapy (chemo in 2007 , 2012, s/p hysterectomy and bilateral oophrectomy 2007), anemia, osteoarthritis , macular degeneration, cataract removal and hernia repair She presented to the ED on 07/31/2016 with vomiting for apx 3 weeks with abdominal pain. Imaging: Abd CT: SBO vs. ileus Abd xray: abdominal xray 08/05: retained contrast in colon with general distention, no free air GI: Abdominal pain/vomiting SBO vs. Ileus - resolving Assessment/Plan: on CT scan SBO vs. ileius abdominal xray 08/05: retained contrast in colon with general distention, no free air Has miralax TID ordered, dulcolax PO x 1 ordered tolerating sips of water, denies pain, denies vomiting abdomen, slightly distended but soft and non tender, + bowel sounds had small BM today, part solid, part diarrhea, denies nausea Hematology: Macrocytic anemia Assessment/Plan: Hematology following Had symptomatic anemia, 1 unit PRBC ordered monitor cbc in a.m. F.E.N. Fluids: soft diet Electrolytes: bmp in a.m. Nutrition: soft diet as per GI Prophylaxis DVT: SCDs GI: Miralax TID Disposition: Full Code. Requires inpatient hospitalization. Visit type - Emergency Visit Emergency Visit: Yes ED Registration Date: 07/31/16 Care time: The patient presented to the Emergency Department on the above date and was hospitalized for further evaluation of their emergent condition. - New Patient This patient is new to me today: Yes Date on this admission: 08/05/16 - Critical Care Critical Care patient: No - Discharge Referral Referred to [facility] Med P.C.: No
[2016-08-05] MEDS ORDERED: BISACODYL 5 MG TABLET.DR (FP) PO ONE (12:00)
--- NOTE | 2016-08-05 15:18 | PN ---
Progress Note (short form) - Note Progress Note: Hematology/Oncology Follow-up Note S : Patient is pleasant and conversant when visited today. She was just about to get a blood transfusion. She is eager to know what is wrong with her and on board with the plan for bone marrow biopsy on Sunday. Last Vital Signs Temp Pulse Resp BP Pulse Ox 99 F 100 H 20 134/75 95 08/05/16 13:35 08/05/16 13:35 04/0 A/P 12/14 13:35 08/05/16 13:35 08/04/16 21:00 Physical exam AOx3, pleasant Cor: RSR, No murmurs, No gallops Lungs: Clear to P&A Abd: Soft, BS+, LUQ tenderness Ext:No significant edema CBC, BMP 08/05/16 06:00 08/05/16 06:00 Current Medications Generic Name Dose Route Start Last Admin Trade Name Freq PRN Reason Stop Dose Admin Guaifenesin 10 ml 08/02/16 20:40 08/04/16 22:18 Robitussin - PO 10 ml Q6H PRN Administration COUGH Potassium Chloride 10 meq/ 1,005 mls @ 75 mls/hr 08/04/16 11:30 08/05/16 13:31 Dextrose/Sodium Chloride IVPB Not Given Q13H [facility] Insulin Aspart 1 vial 08/01/16 07:00 08/05/16 11:35 Novolog Vial Sliding Scale - SQ Not Given ACHS JOVANA Protocol Ondansetron HCl 4 mg 07/31/16 23:25 Zofran Injection IVPB Q8H PRN NAUSEA A/P : 81 y/o female with Hx of ovrarian cancer, recurrence in 2011 s/p treatment now presenting with new onset splenomegaly, pancytopenia and vomitting 1.Pancytopenia - plan for bone marrow biopsy on Sunday for further work-up -send MPN NGS panel to work-up for MDS/MPN overlap -supportive transfusions for Hgb < 8, plt < 10 2.Vomitting, concern for ilieus -patient tolerated food today, she is also passing gas -continue to observe & advance diet as tolerated
--- NOTE | 2016-08-05 15:41 | PN ---
GI Progress Note Subjective: GI Note; Tolerating solids which excludes SBO so will cancer SBS. Fecal impaction persists. FUA unchanged. Requiring blood transfusion. - Objective Vital Signs: Vital Signs Temperature 99 F 08/05/16 13:35 Pulse Rate 100 H 08/05/16 13:35 Respiratory Rate 20 08/05/16 13:35 Blood Pressure 134/75 08/05/16 13:35 O2 Sat by Pulse Oximetry (%) 95 08/04/16 21:00 Gastrointestinal Inspection: Yes: Distention ...Auscultate: Yes: Hypoactive Bowel Sounds ...Palpate: Yes: Soft, Other (nontender) Labs: CBC, BMP 08/05/16 06:00 08/05/16 06:00 INR, PTT INR 1.34 (0.82-1.09) H 08/01/16 06:00 Laboratory Tests 08/05/16 06:00 WBC 3.4 L Hgb 7.5 L Plt Count 50 L Assessment/Plan Fecal impaction due to functional constipation. Will continue Miralax and cancel small bowel series. Anticipate bone marrow biopsy.
[2016-08-05] MEDS ORDERED: MAGNESIUM OXIDE 400 MG TABLET (FP) PO ONE (17:36)
[2016-08-06] MEDS: ONDANSETRON 4 MG/2 ML VIAL IVPB PRN ×2 (00:59→12:32)
[2016-08-06] MEDS: POLYETHYLENE GLYCOL 3350 119 GM BTL PO SCH ×3 (05:33→21:17)
[2016-08-06] MEDS: INSULIN SLIDING SCALE (NOVOLOG) 1 VIAL SQ SCH ×4 (06:12→21:17)
[2016-08-06] MEDS ORDERED: ACETAMINOPHEN 325 MG TABLET (FP) PO PRN (06:40)
[2016-08-06 07:40] LABS: MCH 33.1 pg (25.7-33.7); MCHC 34.5 g/dl (32.0-36.0); MEAN CELL VOLUME 96.1 fl (80-96); MEAN PLT VOLUME 7.6 fl (7.5-11.1); PLATELET COUNT 51 K/MM3 (134-434); RDW 16.5 % (11.6-15.6); WHITE BLOOD COUNT 4.8 K/mm3 (4.0-10.0)
[2016-08-06 08:09] LABS: ALBUMIN 2.8 g/dl (3.4-5.0); ANION GAP 10 (8-16); CO2 30 mmol/L (21-32); GLUCOSE,RANDOM 119 mg/dL (74-106)
[2016-08-06 08:13] LABS: ALK PHOS 125 U/L (45-117); BILIRUBIN,TOTAL 2.9 mg/dL (0.2-1.0); CREATININE 0.5 mg/dL (0.55-1.02); SGOT/AST 12 U/L (15-37); SGPT/ALT 17 U/L (12-78); TOT PROT 5.5 g/dl (6.4-8.2)
--- NOTE | 2016-08-06 11:05 | PN ---
GI Progress Note Subjective: GI NOte: Has bloating discomfort today bit did have a diarrheal BM last night and again today. She believes that her ovarian cancer has recurred. FUA reveals SB distension and retained contrast in colon. - Objective Vital Signs: Vital Signs Temperature 98.5 F 08/06/16 05:48 Pulse Rate 87 08/06/16 05:48 Respiratory Rate 20 08/06/16 05:48 Blood Pressure 124/67 08/06/16 05:48 O2 Sat by Pulse Oximetry (%) 96 08/05/16 21:00 Constitutional: Anxious Gastrointestinal Inspection: Yes: Distention ...Auscultate: Yes: Hypoactive Bowel Sounds ...Palpate: Yes: Soft, Other (nontender) Labs: CBC, BMP 08/06/16 06:00 08/06/16 06:00 INR, PTT INR 1.34 (0.82-1.09) H 08/01/16 06:00 Laboratory Tests 08/02/16 08/05/16 06:00 06:00 Lipase 69 L Carcinoembryonic Ag 1.1 CA 19-9 Antigen 14 CA 125 Antigen 7.6 - ....Imaging Chest X-ray: Image Reviewed (see above) Assessment/Plan Fecal impaction due to functional constipation. Will continue Miralax. Will obtain sonogram to exclude ascites. Suspect bilirubin reflects hemolyzed transfused blood.
--- NOTE | 2016-08-06 11:08 | PN ---
Progress Note (short form) - Note Progress Note: Hematology/Oncology Follow-up Note S : Patient is pleasant and conversant when visited today. She has been having increased bloating, belching today. Has had a decrease in her appetite. Last Vital Signs Temp Pulse Resp BP Pulse Ox 98.5 F 87 20 124/67 96 08/06/16 05:48 08/06/16 05:48 08/06/16 05:48 08/06/16 05:48 08/05/16 21:00 Physical exam AOx3, pleasant Cor: RSR, No murmurs, No gallops Lungs: Clear to P&A Abd: Soft, BS+, LUQ tenderness Ext:No significant edema CBC, BMP 08/06/16 06:00 08/06/16 06:00 Current Medications Generic Name Dose Route Start Last Admin Trade Name Freq PRN Reason Stop Dose Admin Acetaminophen 650 mg 08/06/16 06:40 Tylenol - PO 08/06/16 23:59 Q4H PRN FEVER OR PAIN Guaifenesin 10 ml 08/02/16 20:40 08/04/16 22:18 Robitussin - PO 10 ml Q6H PRN Administration COUGH Insulin Aspart 1 vial 08/01/16 07:00 08/06/16 06:12 Novolog Vial Sliding Scale - SQ Not Given ACHS JOVANA Protocol Ondansetron HCl 4 mg 07/31/16 23:25 08/06/16 00:59 Zofran Injection IVPB 4 mg Q8H PRN Administration NAUSEA Polyethylene Glycol 17 gm 08/05/16 22:00 08/06/16 05:33 Miralax (For Daily Use) - PO 17 gm TID JOVANA Administration A/P : 81 y/o female with Hx of ovrarian cancer, recurrence in 2011 s/p treatment now presenting with new onset splenomegaly, pancytopenia and vomitting 1.Pancytopenia - plan for bone marrow biopsy on Sunday for further work-up -send MPN NGS panel to work-up for MDS/MPN overlap -supportive transfusions for Hgb < 8, plt < 10 2.Vomitting, concern for ilieus -patient more symptomatic today, can consider inserting NG tube & KUB tomorrow if she continues to have worsening symptoms -hold off advancing diet for today
[2016-08-06] MEDS ORDERED: PT OWN MED DRAWER 7, Y5N ONE (13:22)
[2016-08-06] MEDS: METOCLOPRAMIDE HCL 5 MG/5 ML UNIT DOSE CUP PO SCH ×2 (13:23→17:36)
[2016-08-06 15:29] LABS: HYPOCHROMIA 1+; PLATELET ESTIMATE DECREASED (NORMAL); POLYCHROMASIA 1+
--- NOTE | 2016-08-06 15:30 | PN ---
Physical Exam: SUBJECTIVE: Patient seen and examined. States she had an episode of diarrhea this morning. OBJECTIVE Vital Signs Period Temp Pulse Resp BP Sys/Belle Pulse Ox Last 24 Hr 97.9 F-99.1 F 84-104 18-22 106-131/61-80 93-96 GENERAL: The patient is awake, alert, and fully oriented, in no acute distress. HEAD: Normal with no signs of trauma. EYES: PERRL, extraocular movements intact, sclera anicteric, conjunctiva clear. No ptosis. ENT: Ears normal, nares patent, oropharynx clear without exudates, moist mucous membranes. NECK: Trachea midline, full range of motion, supple. LUNGS: Breath sounds equal, clear to auscultation bilaterally HEART: Regular rate and rhythm, ABDOMEN: slightly distended, + bowel sounds, had small BM today: diarrhea, denies nausea - will order Reglan EXTREMITIES: 2+ pulses, warm, well-perfused, no edema. NEUROLOGICAL: Cranial nerves II through XII grossly intact. Normal speech, steady gait PSYCH: Normal mood, normal affect. SKIN: Warm, dry, normal turgor, no rashes or lesions noted Laboratory Results - last 24 hr 08/04/16 08/05/16 08/05/16 06:30 17:31 21:24 WBC RBC Hgb Hct MCV MCHC RDW Plt Count MPV Neutrophils % Lymphocytes % Sodium Potassium Chloride Carbon Dioxide Anion Gap BUN Creatinine Creat Clearance w eGFR POC Glucometer 113 135 Random Glucose Calcium Total Bilirubin AST ALT Alkaline Phosphatase Total Protein Albumin ADIEL Screen Negative 08/06/16 08/06/16 08/06/16 05:27 06:00 06:00 WBC 4.8 D RBC 3.02 L D Hgb 10.0 L D Hct 29.0 L D MCV 96.1 H MCHC 34.5 RDW 16.5 H Plt Count 51 L MPV 7.6 Neutrophils % Y Lymphocytes % Y Sodium 136 Potassium 3.9 Chloride 96 L Carbon Dioxide 30 Anion Gap 10 BUN 7 Creatinine 0.5 L Creat Clearance w eGFR > 60 POC Glucometer 123 Random Glucose 119 H Calcium 9.0 Total Bilirubin 2.9 H D AST 12 L D ALT 17 D Alkaline Phosphatase 125 H Total Protein 5.5 L Albumin 2.8 L ADIEL Screen 08/06/16 11:24 WBC RBC Hgb Hct MCV MCHC RDW Plt Count MPV Neutrophils % Lymphocytes % Sodium Potassium Chloride Carbon Dioxide Anion Gap BUN Creatinine Creat Clearance w eGFR POC Glucometer 131 Random Glucose Calcium Total Bilirubin AST ALT Alkaline Phosphatase Total Protein Albumin ADIEL Screen Active Medications Generic Name Dose Route Start Last Admin Trade Name Freq PRN Reason Stop Dose Admin Acetaminophen 650 mg 08/06/16 06:40 Tylenol - PO 08/06/16 23:59 Q4H PRN FEVER OR PAIN Guaifenesin 10 ml 08/02/16 20:40 08/04/16 22:18 Robitussin - PO 10 ml Q6H PRN Administration COUGH Insulin Aspart 1 vial 08/01/16 07:00 08/06/16 12:38 Novolog Vial Sliding Scale - SQ Not Given ACHS JOVANA Protocol Metoclopramide HCl 10 mg 08/06/16 12:00 08/06/16 13:23 Reglan Oral Solution - PO 10 mg Q6HPO JOVANA Administration Ondansetron HCl 4 mg 07/31/16 23:25 08/06/16 12:32 Zofran Injection IVPB 4 mg Q8H PRN Administration NAUSEA Polyethylene Glycol 17 gm 08/05/16 22:00 08/06/16 13:07 Miralax (For Daily Use) - PO Not Given TID JOVANA ASSESSMENT/PLAN: Patient is a 81 year-old female with significant past medical history of diabetes mellitus, hypertension, ovarian cancer s/p chemotherapy (chemo in 2007 , 2012, s/p hysterectomy and bilateral oophrectomy 2007), anemia, osteoarthritis , macular degeneration, cataract removal and hernia repair. She presented to the ED on 07/31/2016 with vomiting for apx 3 weeks with abdominal pain. Imaging: Abd CT: SBO vs. ileus Abd xray: abdominal xray 08/05: retained contrast in colon with general distention, no free air Abd xray: abdominal xray 08/06: retained contrast in colon with distended colonic and small bowel loops, no free air, probable ileus GI: Abdominal pain/vomiting SBO vs. Ileus Assessment/Plan: on CT scan SBO vs. ileius abdominal xray 08/05: retained contrast in colon with general distention, no free air abdominal xray 08/06: retained contrast in colon with distended colonic and small bowel loops, no free air, probable ileus Had BM last night and again today, Has miralax TID ordered, Will add Reglan 10mg q6 PO and monitor tolerating sips of water, denies pain, denies vomiting abdomen, slightly distended but soft and non tender, + bowel sounds Hematology: Macrocytic anemia Assessment/Plan: Hematology following Had symptomatic anemia, 1 unit PRBC yesterday, h/h 02/25 monitor cbc in a.m. For bone biopsy in a.m. F.E.N. Fluids: soft diet Electrolytes: bmp in a.m. Nutrition: soft diet as per GI Prophylaxis DVT: SCDs GI: Miralax TID Disposition: Full Code. Requires inpatient hospitalization. Visit type - Emergency Visit Emergency Visit: Yes ED Registration Date: 07/31/16 Care time: The patient presented to the Emergency Department on the above date and was hospitalized for further evaluation of their emergent condition. - New Patient This patient is new to me today: No - Critical Care Critical Care patient: No - Discharge Referral Referred to [facility] Med P.C.: No
[2016-08-07] MEDS ORDERED: PT OWN MED DRAWER 7, Y5N ONE ×3 (00:56→17:30)
[2016-08-07] MEDS: METOCLOPRAMIDE HCL 5 MG/5 ML UNIT DOSE CUP PO SCH ×4 (01:25→17:37)
[2016-08-07] MEDS: POLYETHYLENE GLYCOL 3350 119 GM BTL PO SCH ×3 (05:55→21:49)
[2016-08-07] MEDS: INSULIN SLIDING SCALE (NOVOLOG) 1 VIAL SQ SCH ×4 (06:05→21:53)
[2016-08-07 07:49] LABS: MCH 32.8 pg (25.7-33.7); MEAN CELL VOLUME 96.5 fl (80-96); MEAN PLT VOLUME 7.7 fl (7.5-11.1); PLATELET COUNT 42 K/MM3 (134-434); RDW 16.2 % (11.6-15.6); WHITE BLOOD COUNT 4.2 K/mm3 (4.0-10.0)
[2016-08-07 08:11] LABS: ALBUMIN 2.5 g/dl (3.4-5.0); ALK PHOS 111 U/L (45-117); ANION GAP 10 (8-16); BILIRUBIN,TOTAL 1.6 mg/dL (0.2-1.0); CALCIUM 8.5 mg/dL (8.5-10.1); CO2 27 mmol/L (21-32); COCKROFT - GAULT 104.4055; CREATININE 0.4 mg/dL (0.55-1.02); GLUCOSE,RANDOM 144 mg/dL (74-106); SGOT/AST 16 U/L (15-37); TOT PROT 4.9 g/dl (6.4-8.2)
[2016-08-07 08:17] LABS: SGPT/ALT 18 U/L (12-78)
[2016-08-07 09:26] LABS: MAGNESIUM 1.6 mg/dL (1.8-2.4)
[2016-08-07] MEDS ORDERED: MAGNESIUM OXIDE 400 MG TABLET (FP) PO ONE ×3 (10:00→23:15)
[2016-08-07] MEDS ORDERED: INSULIN (NOVOLOG) ASPART 100 UNITS/ML 10ML VIAL ONE ×2 (11:30→21:38)
--- NOTE | 2016-08-07 11:42 | PN ---
Physical Exam: SUBJECTIVE: Patient seen and examined. Denies chest pain. States she had about 4 episodes of diarrhea in last 24 hours. OBJECTIVE: Continues to have abdominal pain with explosive diarrhea, will order cdiff test No vomiting but having nausea, + bowel sounds, abdomen less distended. Bilateral Lower ext +2 pitting edema Vital Signs Period Temp Pulse Resp BP Sys/Belle Pulse Ox Last 24 Hr 97.9 F-98.9 F 93-98 18-20 120-133/62-80 94 GENERAL: The patient is awake, alert, and fully oriented, in no acute distress. HEAD: Normal with no signs of trauma. EYES: PERRL, extraocular movements intact, sclera anicteric, conjunctiva clear. No ptosis. ENT: Ears normal, nares patent, oropharynx clear without exudates, moist mucous membranes. NECK: Trachea midline, full range of motion, supple. LUNGS: Breath sounds equal, clear to auscultation bilaterally HEART: Regular rate and rhythm, ABDOMEN: slightly distended, + bowel sounds, frequent episodes of diarrhea, will r/o c diff. EXTREMITIES: 2+ pulses, warm, well-perfused, no edema. NEUROLOGICAL: Cranial nerves II through XII grossly intact. Normal speech, steady gait PSYCH: Normal mood, normal affect. SKIN: Warm, dry, normal turgor, no rashes or lesions noted Laboratory Results - last 24 hr 08/06/16 08/06/16 08/06/16 06:00 11:24 17:28 WBC RBC Hgb Hct MCV MCHC RDW Plt Count MPV Neutrophils % 74.0 Lymphocytes % 13.0 D Monocytes % 7.0 Basophils % 1.0 Band Neutrophils 1.0 D Differential Comment Manual diff done Reactive Lymphocytes 4 D Platelet Estimate Decreased Polychromasia 1+ Hypochromic-Microcytic 1+ Macrocytosis 1+ Morphology Comment Slide scanned Sodium Potassium Chloride Carbon Dioxide Anion Gap BUN Creatinine Creat Clearance w eGFR POC Glucometer 131 178 Random Glucose Calcium Magnesium Total Bilirubin AST ALT Alkaline Phosphatase Total Protein Albumin 08/06/16 08/07/16 08/07/16 20:49 05:53 06:15 WBC 4.2 RBC 2.67 L Hgb 8.8 L D Hct 25.8 L MCV 96.5 H MCHC 34.0 RDW 16.2 H Plt Count 42 L MPV 7.7 Neutrophils % Y Lymphocytes % Y Monocytes % Basophils % Band Neutrophils Differential Comment Reactive Lymphocytes Platelet Estimate Polychromasia Hypochromic-Microcytic Macrocytosis Morphology Comment Sodium Potassium Chloride Carbon Dioxide Anion Gap BUN Creatinine Creat Clearance w eGFR POC Glucometer 132 148 Random Glucose Calcium Magnesium Total Bilirubin AST ALT Alkaline Phosphatase Total Protein Albumin 08/07/16 08/07/16 06:15 06:15 WBC RBC Hgb Hct MCV MCHC RDW Plt Count MPV Neutrophils % Lymphocytes % Monocytes % Basophils % Band Neutrophils Differential Comment Reactive Lymphocytes Platelet Estimate Polychromasia Hypochromic-Microcytic Macrocytosis Morphology Comment Sodium 136 Potassium 4.0 Chloride 99 Carbon Dioxide 27 Anion Gap 10 BUN 11 D Creatinine 0.4 L Creat Clearance w eGFR > 60 POC Glucometer Random Glucose 144 H D Calcium 8.5 Magnesium 1.6 L Cancelled Total Bilirubin 1.6 H D AST 16 D ALT 18 Alkaline Phosphatase 111 Total Protein 4.9 L Albumin 2.5 L Active Medications Generic Name Dose Route Start Last Admin Trade Name Freq PRN Reason Stop Dose Admin Guaifenesin 10 ml 08/02/16 20:40 08/04/16 22:18 Robitussin - PO 10 ml Q6H PRN Administration COUGH Insulin Aspart 1 vial 08/01/16 07:00 08/07/16 11:34 Novolog Vial Sliding Scale - SQ 2 unit ACHS JOVANA Administration Protocol Metoclopramide HCl 10 mg 08/06/16 12:00 08/07/16 05:55 Reglan Oral Solution - PO 10 mg Q6HPO JOVANA Administration Ondansetron HCl 4 mg 07/31/16 23:25 08/06/16 12:32 Zofran Injection IVPB 4 mg Q8H PRN Administration NAUSEA Polyethylene Glycol 17 gm 08/05/16 22:00 08/07/16 05:55 Miralax (For Daily Use) - PO 17 gm TID JOVANA Administration ASSESSMENT/PLAN: Patient is a 81 year-old female with significant past medical history of diabetes mellitus, hypertension, ovarian cancer s/p chemotherapy (chemo in 2007 , 2012, s/p hysterectomy and bilateral oophrectomy 2007), anemia, osteoarthritis , macular degeneration, cataract removal and hernia repair. She presented to the ED on 07/31/2016 with vomiting for apx 3 weeks with abdominal pain. Imaging: Abd CT: SBO vs. ileus Abd xray: abdominal xray 08/05: retained contrast in colon with general distention, no free air Abd xray: abdominal xray 08/06: retained contrast in colon with distended colonic and small bowel loops, no free air, probable ileus GI: Abdominal pain/vomiting SBO vs. Ileus Assessment/Plan: on CT scan SBO vs. ileius abdominal xray 08/05: retained contrast in colon with general distention, no free air abdominal xray 08/06: retained contrast in colon with distended colonic and small bowel loops, no free air, probable ileus Had BM last night and again today. Seems to be having explosive diarrhea - apx 4 episodes overnight Will order C. diff antigen/toxin tolerating sips of water, denies pain, denies vomiting abdomen, slightly distended but soft and non tender, + bowel sounds Hematology: Macrocytic anemia Assessment/Plan: Hematology following Had symptomatic anemia, s/p 1 unit PRBC on 08/05 , h/h low stable For bone biopsy today. F.E.N. Fluids: soft diet Electrolytes: bmp in a.m. Nutrition: soft diet as per GI Prophylaxis DVT: SCDs GI: Miralax TID Disposition: Full Code. Requires inpatient hospitalization. Visit type - Emergency Visit Emergency Visit: Yes ED Registration Date: 07/31/16 Care time: The patient presented to the Emergency Department on the above date and was hospitalized for further evaluation of their emergent condition. - New Patient This patient is new to me today: No - Critical Care Critical Care patient: No - Discharge Referral Referred to [facility] Med P.C.: No
[2016-08-07 11:58] LABS: METAMYELOCYTE 3 % (0-2); PLATELET ESTIMATE DECREASED (NORMAL)
[2016-08-07] MEDS ORDERED: LIDOCAINE HCL 1%, 10 MG/ML (20ML VIAL) ONE ×2 (14:51→15:00)
--- NOTE | 2016-08-07 17:43 | PROC ---
Bone Marrow Aspiration/Biopsy - Consent Risks and Benefits Explained: Yes Consent on Chart: Yes - Procedure Location: Left Iliac Crest Anesthesia: 1% Lidocaine Sterile Technique: Yes Specimen: Obtained Position: Other (right latera;) Patient tolerated procedure: Well with minimal pain Sterile Dressing Applied: Yes
[2016-08-07 18:47] LABS: MCH 32.2 pg (25.7-33.7); MCHC 33.2 g/dl (32.0-36.0); MEAN PLT VOLUME 8.5 fl (7.5-11.1); RDW 16.3 % (11.6-15.6)
[2016-08-07 20:32] LABS: PLATELET COUNT 48 K/MM3 (134-434)
[2016-08-07 20:40] LABS: ANISOCYTOSIS 2+; HYPOCHROMIA 1+; PLATELET ESTIMATE MOD DECREASED (NORMAL)
[2016-08-07] MEDS: guaiFENesin 200 MG/10 ML 10 ML UNIT-DOSE CUPS PO PRN (21:48)
--- NOTE | 2016-08-07 22:11 | PN ---
Progress Note (short form) - Note Progress Note: Patient seen and examined Had bowel movements on miralax still with mild LUQ pain abdominal distention improved Last Vital Signs Temp Pulse Resp BP Pulse Ox 99.1 F 96 H 20 125/60 96 08/07/16 22:00 08/07/16 22:00 08/07/16 22:00 08/07/16 22:00 08/07/16 21:00 Cor: RSR, No murmurs, No gallops Lungs: Clear to P&A Abd: Soft, BS+, LUQ tenderness Ext:No significant edema Abnormal Lab Results 08/05/16 08/07/16 08/07/16 11:50 06:15 06:15 RBC 2.67 L Hgb 8.8 L D Hct 25.8 L MCV 96.5 H RDW 16.2 H Plt Count 42 L Metamyelocytes 3 H D Creatinine 0.4 L Random Glucose 144 H D Magnesium 1.6 L Total Bilirubin 1.6 H D Total Protein 4.9 L Albumin 2.5 L Crossmatch See Detail 08/07/16 18:00 RBC 2.47 L Hgb 8.0 L Hct 24.0 L MCV 97.0 H RDW 16.3 H Plt Count 48 L Metamyelocytes Creatinine Random Glucose Magnesium Total Bilirubin Total Protein Albumin Crossmatch Active Medications Generic Name Dose Route Start Last Admin Trade Name Freq PRN Reason Stop Dose Admin Guaifenesin 10 ml 08/02/16 20:40 08/07/16 21:48 Robitussin - PO 10 ml Q6H PRN Administration COUGH Insulin Aspart 1 vial 08/01/16 07:00 08/08/16 06:00 Novolog Vial Sliding Scale - SQ Not Given ACHS [facility] Protocol Metoclopramide HCl 10 mg 08/06/16 12:00 08/08/16 05:58 Reglan Oral Solution - PO 10 mg Q6HPO JOVANA Administration Ondansetron HCl 4 mg 07/31/16 23:25 08/06/16 12:32 Zofran Injection IVPB 4 mg Q8H PRN Administration NAUSEA Polyethylene Glycol 17 gm 08/05/16 22:00 08/08/16 05:58 Miralax (For Daily Use) - PO 17 gm TID JOVANA Administration A/P 81 y/o patient with h/o ovarian cancer, in remission after 1st recurrence, in 2012, comes in with vomiting, abdominal distention, pancytopenia Pancytopenia -- macrocytosis and splenomegaly B12/folate/TSH --nl ? marrow pathology ---MDS? atypical lymphocytes/splenomegaly flow was unrevealing s/p bone marrow bx some oozing at the marrow site--controlled with pressure. monitor cbc
[2016-08-08] MEDS: METOCLOPRAMIDE HCL 5 MG/5 ML UNIT DOSE CUP PO SCH ×3 (00:15→13:13)
[2016-08-08] MEDS: POLYETHYLENE GLYCOL 3350 119 GM BTL PO SCH ×3 (05:58→21:27)
[2016-08-08] MEDS: INSULIN SLIDING SCALE (NOVOLOG) 1 VIAL SQ SCH ×4 (06:00→21:28)
[2016-08-08 08:04] LABS: MCH 32.8 pg (25.7-33.7); MCHC 33.7 g/dl (32.0-36.0); MEAN CELL VOLUME 97.2 fl (80-96); MEAN PLT VOLUME 8.1 fl (7.5-11.1); PLATELET COUNT 41 K/MM3 (134-434); RDW 15.9 % (11.6-15.6); WHITE BLOOD COUNT 4.2 K/mm3 (4.0-10.0)
[2016-08-08 08:26] LABS: ALBUMIN 2.5 g/dl (3.4-5.0); ANION GAP 10 (8-16); CALCIUM 8.1 mg/dL (8.5-10.1); CO2 29 mmol/L (21-32); GLUCOSE,RANDOM 142 mg/dL (74-106); SGOT/AST 13 U/L (15-37); SGPT/ALT 18 U/L (12-78)
[2016-08-08 08:28] LABS: ALK PHOS 118 U/L (45-117); BILIRUBIN,TOTAL 1.4 mg/dL (0.2-1.0); COCKROFT - GAULT 104.4055; CREATININE 0.4 mg/dL (0.55-1.02); TOT PROT 4.8 g/dl (6.4-8.2)
[2016-08-08 09:49] LABS: METAMYELOCYTE 1 % (0-2); PLATELET ESTIMATE MARKEDLY DECREASED (NORMAL); POLYCHROMASIA FEW
[2016-08-08 09:50] LABS: TEAR DROP CELLS 1+
[2016-08-08] MEDS ORDERED: INSULIN (NOVOLOG) ASPART 100 UNITS/ML 10ML VIAL ONE ×2 (12:13→21:08)
--- NOTE | 2016-08-08 12:26 | PN ---
Physical Exam: SUBJECTIVE: Patient seen and examined. States she has no appetite, is still has nausea and vomited twice this morning. She states she had very soft loose stool this morning. OBJECTIVE: Abdomen slightly more distended today, she denies abdominal cramping but has nausea and no appetite. + bowel sounds Repeat abdominal xray Clear liquids diet for now Thrombocytopenia s/p 1 unit of platelets C-diff negative Vital Signs Period Temp Pulse Resp BP Sys/Belle Pulse Ox Last 24 Hr 97 F-99.1 F 93-97 20-20 118-137/60-70 94-96 GENERAL: The patient is awake, alert, and fully oriented, in no acute distress. HEAD: Normal with no signs of trauma. EYES: PERRL, extraocular movements intact, sclera anicteric, conjunctiva clear. No ptosis. ENT: Ears normal, nares patent, oropharynx clear without exudates, moist mucous membranes. NECK: Trachea midline, full range of motion, supple. LUNGS: Breath sounds equal, clear to auscultation bilaterally HEART: Regular rate and rhythm, ABDOMEN: distended, + bowel sounds, frequent episodes of diarrhea, c diff negative, repeat abdominal xray EXTREMITIES: +2 edema bilateral lower ext.. NEUROLOGICAL: Cranial nerves II through XII grossly intact. Normal speech, steady gait PSYCH: Normal mood, normal affect. SKIN: s/p post biopsy on iliac crest, site c/d/i Laboratory Results - last 24 hr 08/05/16 08/07/16 08/07/16 11:50 11:15 11:17 WBC RBC Hgb Hct MCV MCHC RDW Plt Count MPV Neutrophils % Lymphocytes % Monocytes % Eosinophils % Band Neutrophils Metamyelocytes Myelocytes Differential Comment Reactive Lymphocytes Plasma Cells Platelet Estimate Polychromasia Hypochromic-Microcytic Anisocytosis Macrocytosis Tear Drop Cells Morphology Comment Sodium Potassium Chloride Carbon Dioxide Anion Gap BUN Creatinine Creat Clearance w eGFR POC Glucometer 334 185 Random Glucose Calcium Total Bilirubin AST ALT Alkaline Phosphatase Total Protein Albumin Crossmatch See Detail 08/07/16 08/07/16 08/07/16 17:14 18:00 21:52 WBC 4.0 RBC 2.47 L Hgb 8.0 L Hct 24.0 L MCV 97.0 H MCHC 33.2 RDW 16.3 H Plt Count 48 L MPV 8.5 D Neutrophils % 63.0 Lymphocytes % 29.0 D Monocytes % 7.0 Eosinophils % Band Neutrophils Metamyelocytes Myelocytes Differential Comment Reactive Lymphocytes 1 D Plasma Cells Platelet Estimate Mod decreased Polychromasia Hypochromic-Microcytic 1+ Anisocytosis 2+ Macrocytosis Tear Drop Cells Morphology Comment Sodium Potassium Chloride Carbon Dioxide Anion Gap BUN Creatinine Creat Clearance w eGFR POC Glucometer 123 151 Random Glucose Calcium Total Bilirubin AST ALT Alkaline Phosphatase Total Protein Albumin Crossmatch 08/08/16 08/08/16 08/08/16 05:48 06:00 06:00 WBC 4.2 RBC 2.63 L Hgb 8.6 L Hct 25.5 L MCV 97.2 H MCHC 33.7 RDW 15.9 H Plt Count 41 L MPV 8.1 Neutrophils % 69.0 Lymphocytes % 18.0 D Monocytes % 5.0 Eosinophils % 1.0 Band Neutrophils 3.0 D Metamyelocytes 1 D Myelocytes 2 D Differential Comment Manual diff done Reactive Lymphocytes Plasma Cells 1 Platelet Estimate Markedly decreased Polychromasia Few Hypochromic-Microcytic Anisocytosis Macrocytosis Few Tear Drop Cells 1+ Morphology Comment Slide scanned Sodium 137 Potassium 3.7 Chloride 98 Carbon Dioxide 29 Anion Gap 10 BUN 13 Creatinine 0.4 L Creat Clearance w eGFR > 60 POC Glucometer 148 Random Glucose 142 H Calcium 8.1 L Total Bilirubin 1.4 H AST 13 L ALT 18 Alkaline Phosphatase 118 H Total Protein 4.8 L Albumin 2.5 L Crossmatch Active Medications Generic Name Dose Route Start Last Admin Trade Name Freq PRN Reason Stop Dose Admin Guaifenesin 10 ml 08/02/16 20:40 08/07/16 21:48 Robitussin - PO 10 ml Q6H PRN Administration COUGH Insulin Aspart 1 vial 08/01/16 07:00 08/08/16 12:13 Novolog Vial Sliding Scale - SQ 2 unit ACHS JOVANA Administration Protocol Metoclopramide HCl 10 mg 08/08/16 16:30 Reglan - PO TIDAC JOVANA Ondansetron HCl 4 mg 07/31/16 23:25 08/06/16 12:32 Zofran Injection IVPB 4 mg Q8H PRN Administration NAUSEA Polyethylene Glycol 17 gm 08/05/16 22:00 08/08/16 05:58 Miralax (For Daily Use) - PO 17 gm TID JOVANA Administration ASSESSMENT/PLAN: Patient is a 81 year-old female with significant past medical history of diabetes mellitus, hypertension, ovarian cancer s/p chemotherapy (chemo in 2007 , 2012, s/p hysterectomy and bilateral oophrectomy 2007), anemia, osteoarthritis , macular degeneration, cataract removal and hernia repair. She presented to the ED on 07/31/2016 with vomiting for apx 3 weeks with abdominal pain. Imaging: Abd CT: SBO vs. ileus Abd xray: abdominal xray 08/05: retained contrast in colon with general distention, no free air Abd xray: abdominal xray 08/06: retained contrast in colon with distended colonic and small bowel loops, no free air, probable ileus Abd xray: abdominal xray 08/08: pending GI: Abdominal pain/vomiting with nausea - SBO vs. Ileus Assessment/Plan: on CT scan SBO vs. ileius abdominal xray 08/05: retained contrast in colon with general distention, no free air abdominal xray 08/06: retained contrast in colon with distended colonic and small bowel loops, no free air, probable ileus Seems to be having explosive diarrhea - apx 2 episodes overnight associated with nausea and vomiting C diff negative tolerating sips of water but poor appetite abdomen, distended but soft and non tender, + bowel sounds On scheduled Reglan repeating abdominal xray GI following Hematology: Macrocytic anemia Assessment/Plan: Hematology following Had symptomatic anemia, s/p 1 unit PRBC on 08/05 , h/h low stable S/p bone biopsy yesterday Thrombocytopenia: Assessment/Plan: s/p 1unit of platelets yesterday, monitor cbc transfuse if thrombocytopenia persists or if any signs of bleeding Hematology following F.E.N. Fluids: soft diet Electrolytes: bmp in a.m. Nutrition: advance diet as tolerated Prophylaxis: DVT: SCDs, no AC secondary to thrombocytopenia and anemia GI: Miralax TID Disposition: Full Code. Requires inpatient hospitalization. Visit type - Emergency Visit Emergency Visit: Yes ED Registration Date: 07/31/16 Care time: The patient presented to the Emergency Department on the above date and was hospitalized for further evaluation of their emergent condition. - New Patient This patient is new to me today: No - Critical Care Critical Care patient: No - Discharge Referral Referred to [facility] Med P.C.: No
[2016-08-08] MEDS: METOCLOPRAMIDE HCL 10 MG TABLET (FP) PO SCH (17:19)
--- NOTE | 2016-08-08 19:28 | PN ---
Progress Note (short form) - Note Progress Note: Patient seen and examined. Some abdominal distension and having diarrhea Some LE swelling Last Vital Signs Temp Pulse Resp BP Pulse Ox 98.7 F 98 H 20 142/79 94 L 08/08/16 18:00 08/08/16 18:00 08/08/16 18:00 08/08/16 18:00 08/08/16 09:00 HEENT: KARL, EOM Intact Oropharynx: No thrush, No mucositis Neck: Supple Nodes: Without adenopathy Breasts: Without masses Cor: RSR, No murmurs, No gallops Lungs: Clear to P&A Abd: Soft, Normal bowel sounds, No organomegaly Ext:LE edema Skin: No rashes, Integument intact CBC, BMP 08/08/16 06:00 08/08/16 06:00 Current Medications Generic Name Dose Route Start Last Admin Trade Name Freq PRN Reason Stop Dose Admin Guaifenesin 10 ml 08/02/16 20:40 08/07/16 21:48 Robitussin - PO 10 ml Q6H PRN Administration COUGH Insulin Aspart 1 vial 08/01/16 07:00 08/08/16 18:29 Novolog Vial Sliding Scale - SQ Not Given ACHS JOVANA Protocol Metoclopramide HCl 10 mg 08/08/16 16:30 08/08/16 17:19 Reglan - PO 10 mg TIDAC JOVANA Administration Ondansetron HCl 4 mg 07/31/16 23:25 08/06/16 12:32 Zofran Injection IVPB 4 mg Q8H PRN Administration NAUSEA Polyethylene Glycol 17 gm 08/05/16 22:00 08/08/16 14:48 Miralax (For Daily Use) - PO Not Given TID JOVANA Impression: History of ovarian ca Abdominal pains ?? etiology Pancytopenia LE swelling. Plan:: GI follow up Duplex LE's Await bone marrow Problem List - Problems (1) History of ovarian cancer Code(s): Z85.43 - PERSONAL HISTORY OF MALIGNANT NEOPLASM OF OVARY (2) Abdominal pain Code(s): R10.9 - UNSPECIFIED ABDOMINAL PAIN Qualifiers: Abdominal location: generalized Qualified Code(s): R10.84 - Generalized abdominal pain (3) Anemia Code(s): D64.9 - ANEMIA, UNSPECIFIED Qualifiers: Anemia type: unspecified type Qualified Code(s): D64.9 - Anemia, unspecified
[2016-08-08] MEDS ORDERED: PT OWN MED DRAWER 7, Y5N ONE (21:09)
[2016-08-09] MEDS: METOCLOPRAMIDE HCL 10 MG TABLET (FP) PO SCH ×3 (06:39→18:00)
[2016-08-09] MEDS: INSULIN SLIDING SCALE (NOVOLOG) 1 VIAL SQ SCH ×4 (06:41→21:56)
[2016-08-09] MEDS: POLYETHYLENE GLYCOL 3350 119 GM BTL PO SCH ×3 (06:41→21:39)
[2016-08-09] MEDS ORDERED: INSULIN (NOVOLOG) ASPART 100 UNITS/ML 10ML VIAL ONE (06:53)
[2016-08-09 07:23] LABS: MCH 32.8 pg (25.7-33.7); MCHC 33.5 g/dl (32.0-36.0); MEAN CELL VOLUME 97.7 fl (80-96); MEAN PLT VOLUME 7.9 fl (7.5-11.1); PLATELET COUNT 37 K/MM3 (134-434); RDW 15.9 % (11.6-15.6); WHITE BLOOD COUNT 5.5 K/mm3 (4.0-10.0)
[2016-08-09 07:43] LABS: ALBUMIN 2.4 g/dl (3.4-5.0); ANION GAP 10 (8-16); CALCIUM 8.1 mg/dL (8.5-10.1); CO2 29 mmol/L (21-32); COCKROFT - GAULT 104.4055; CREATININE 0.4 mg/dL (0.55-1.02); GLUCOSE,RANDOM 143 mg/dL (74-106); SGOT/AST 15 U/L (15-37); SGPT/ALT 18 U/L (12-78)
[2016-08-09 07:45] LABS: ALK PHOS 110 U/L (45-117); BILIRUBIN,TOTAL 1.3 mg/dL (0.2-1.0); TOT PROT 4.7 g/dl (6.4-8.2)
[2016-08-09 07:52] LABS: INR 1.55 (0.82-1.09); PROTHROMBIN TIME (PATIENT) 17.2 SEC (9.98-11.88)
[2016-08-09 07:55] LABS: ACTIVATED PTT 31.8 SECONDS (26.9-34.4)
[2016-08-09 09:54] LABS: HYPOCHROMIA 1+; PLATELET ESTIMATE MARKEDLY DECREASED (NORMAL); POLYCHROMASIA 1+
--- NOTE | 2016-08-09 17:23 | PN ---
Progress Note, Physician Chief Complaint: Ms Fisher says she is feeling better, but with nausea and vomiting. Also with diarrhea but improved. No cp or sob. - Current Medication List Current Medications: Active Medications Guaifenesin (Robitussin -) 10 ml PO Q6H PRN PRN Reason: COUGH Last Admin: 08/07/16 21:48 Dose: 10 ml Insulin Aspart (Novolog Vial Sliding Scale -) 1 vial SQ ACHS [facility] PRN Reason: Protocol Last Admin: 08/09/16 11:48 Dose: 2 unit Metoclopramide HCl (Reglan -) 10 mg PO TIDAC [facility] Last Admin: 08/09/16 11:48 Dose: 10 mg Ondansetron HCl (Zofran Injection) 4 mg IVPB Q8H PRN PRN Reason: NAUSEA Last Admin: 08/06/16 12:32 Dose: 4 mg Polyethylene Glycol (Miralax (For Daily Use) -) 17 gm PO TID [facility] Last Admin: 08/09/16 15:21 Dose: 17 gm - Objective Vital Signs: Vital Signs Temperature 98 F 08/09/16 14:56 Pulse Rate 101 H 08/09/16 14:56 Respiratory Rate 20 08/09/16 14:56 Blood Pressure 141/74 08/09/16 14:56 O2 Sat by Pulse Oximetry (%) 94 L 08/09/16 09:00 Constitutional: Yes: Well Nourished, No Distress, Calm Cardiovascular: Yes: Regular Rate and Rhythm. No: Gallop, Murmur, Rub Respiratory: Yes: Regular, CTA Bilaterally. No: Rales, Rhonchi, Wheezes Gastrointestinal: Yes: Normal Bowel Sounds, Soft. No: Distention, Tenderness Extremities: Yes: WNL Edema: No Labs: CBC, BMP 08/09/16 06:10 08/09/16 06:10 INR, PTT INR 1.55 (0.82-1.09) H 08/09/16 06:10 Problem List - Problems (1) Abdominal pain Assessment/Plan: -improved, but with n/v/d -seen by GI, on reglan and miralax -improving Code(s): R10.9 - UNSPECIFIED ABDOMINAL PAIN Qualifiers: Abdominal location: generalized Qualified Code(s): R10.84 - Generalized abdominal pain (2) Pancytopenia Assessment/Plan: -case d/w Dr Velarde -concern for possible malignancy on bone marrow biopsy -await results Code(s): D61.818 - OTHER PANCYTOPENIA (3) Diabetes mellitus, new onset Assessment/Plan: -continue SSI Code(s): E11.9 - TYPE 2 DIABETES MELLITUS WITHOUT COMPLICATIONS (4) HTN (hypertension) Assessment/Plan: -controlled -not needing medications Code(s): I10 - ESSENTIAL (PRIMARY) HYPERTENSION
--- NOTE | 2016-08-09 22:38 | PN ---
Progress Note (short form) - Note Progress Note: Patient seen and examined Had bowel movements on miralax still with mild LUQ pain abdominal distention improved AFVSS Cor: RSR, No murmurs, No gallops Lungs: Clear to P&A Abd: Soft, BS+, LUQ tenderness Ext:No significant edema Labs reviewed A/P 81 y/o patient with h/o ovarian cancer, in remission after 1st recurrence, in 2011, comes in with vomiting, abdominal distention, pancytopenia Pancytopenia -- macrocytosis and splenomegaly B12/folate/TSH --nl ? marrow pathology ---preliminarily---mast cells in the marrow awaiting pathology constipation resolved
[2016-08-10] MEDS: METOCLOPRAMIDE HCL 10 MG TABLET (FP) PO SCH ×3 (06:36→15:56)
[2016-08-10] MEDS: POLYETHYLENE GLYCOL 3350 119 GM BTL PO SCH ×3 (06:36→22:32)
[2016-08-10] MEDS: INSULIN SLIDING SCALE (NOVOLOG) 1 VIAL SQ SCH ×4 (06:46→22:33)
[2016-08-10 07:26] LABS: BASOPHIL 0.1 % (0-2.0); EOSINOPHIL 0.2 % (0-4.5); MCH 33.2 pg (25.7-33.7); MCHC 33.9 g/dl (32.0-36.0); MEAN CELL VOLUME 97.8 fl (80-96); MEAN PLT VOLUME 8.4 fl (7.5-11.1); NEUTROPHILS 72.6 % (42.8-82.8); RDW 16.2 % (11.6-15.6)
[2016-08-10 07:42] LABS: CALCIUM 7.7 mg/dL (8.5-10.1); COCKROFT - GAULT 104.4055; CREATININE 0.4 mg/dL (0.55-1.02); MAGNESIUM 1.6 mg/dL (1.8-2.4); PHOSPHOROUS 3.2 mg/dL (2.5-4.9); PLATELET COUNT 32 K/MM3 (134-434)
[2016-08-10] MEDS ORDERED: PT OWN MED DRAWER 7, Y5N ONE (09:04)
[2016-08-10] MEDS ORDERED: MAGNESIUM SULF 50% (8.12 MEQ/2 ML-1 GM VIAL) IVPB ONE (11:30)
--- NOTE | 2016-08-10 11:31 | PN ---
Progress Note, Physician Chief Complaint: Ms Fisher still having nausea today. No cp or sob. - Current Medication List Current Medications: Active Medications Guaifenesin (Robitussin -) 10 ml PO Q6H PRN PRN Reason: COUGH Last Admin: 08/07/16 21:48 Dose: 10 ml Insulin Aspart (Novolog Vial Sliding Scale -) 1 vial SQ ACHS JOVANA PRN Reason: Protocol Last Admin: 08/10/16 06:46 Dose: Not Given Magnesium Sulfate (Magnesium Sulfate) 1 gm IVPB ONCE ONE Stop: 08/10/16 11:31 Metoclopramide HCl (Reglan -) 10 mg PO TIDAC JOVANA Last Admin: 08/10/16 06:36 Dose: 10 mg Ondansetron HCl (Zofran Injection) 4 mg IVPB Q8H PRN PRN Reason: NAUSEA Last Admin: 08/06/16 12:32 Dose: 4 mg Polyethylene Glycol (Miralax (For Daily Use) -) 17 gm PO TID JOVANA Last Admin: 08/10/16 06:36 Dose: 17 gm - Objective Vital Signs: Vital Signs Temperature 97.9 F 08/10/16 06:00 Pulse Rate 97 H 08/10/16 06:00 Respiratory Rate 20 08/10/16 06:00 Blood Pressure 139/71 08/10/16 06:00 O2 Sat by Pulse Oximetry (%) 94 L 08/09/16 21:00 Constitutional: Yes: Well Nourished, No Distress, Calm Cardiovascular: Yes: Regular Rate and Rhythm. No: Gallop, Murmur, Rub Respiratory: Yes: Regular, CTA Bilaterally. No: Rales, Rhonchi, Wheezes Gastrointestinal: Yes: Normal Bowel Sounds, Soft. No: Distention, Tenderness Extremities: Yes: WNL Edema: Yes Edema: LLE: 1+, RLE: 1+ Labs: CBC, BMP 08/10/16 06:00 08/10/16 06:00 INR, PTT INR 1.55 (0.82-1.09) H 08/09/16 06:10 Problem List - Problems (1) Abdominal pain Code(s): R10.9 - UNSPECIFIED ABDOMINAL PAIN Qualifiers: Abdominal location: generalized Qualified Code(s): R10.84 - Generalized abdominal pain (2) Pancytopenia Code(s): D61.818 - OTHER PANCYTOPENIA (3) Diabetes mellitus, new onset Code(s): E11.9 - TYPE 2 DIABETES MELLITUS WITHOUT COMPLICATIONS (4) HTN (hypertension) Code(s): I10 - ESSENTIAL (PRIMARY) HYPERTENSION Assessment/Plan (1) Abdominal pain Assessment/Plan: -abdominal pain resolved -continue reglan and prn zofran -continue miralax, suspect patient still with fecal impaction -if persistent, will d/w GI again Code(s): R10.9 - UNSPECIFIED ABDOMINAL PAIN Qualifiers: Abdominal location: generalized Qualified Code(s): R10.84 - Generalized abdominal pain (2) Pancytopenia Assessment/Plan: -case d/w Dr Velarde -concern for possible malignancy on bone marrow biopsy -await results Code(s): D61.818 - OTHER PANCYTOPENIA (3) Diabetes mellitus, new onset Assessment/Plan: -continue SSI Code(s): E11.9 - TYPE 2 DIABETES MELLITUS WITHOUT COMPLICATIONS (4) HTN (hypertension) Assessment/Plan: -controlled -not needing medications Code(s): I10 - ESSENTIAL (PRIMARY) HYPERTENSION (5) Hypomagnesemia -replace with IV magnesium
--- NOTE | 2016-08-10 16:58 | PN ---
Progress Note (short form) - Note Progress Note: Patient seen and examined Had bowel movements on miralax still with mild LUQ pain abdominal distention improved Last Vital Signs Temp Pulse Resp BP Pulse Ox 97.7 F 104 H 20 124/73 95 08/10/16 13:43 08/10/16 13:43 08/10/16 13:43 08/10/16 13:43 08/10/16 12:16 Cor: RSR, No murmurs, No gallops Lungs: Clear to P&A Abd: Soft, BS+, LUQ tenderness Ext:No significant edema Labs reviewed A/P 81 y/o patient with h/o ovarian cancer, in remission after 1st recurrence, in 2011, comes in with vomiting, abdominal distention, pancytopenia Pancytopenia -- macrocytosis and splenomegaly B12/folate/TSH --nl ? marrow pathology ---preliminarily---mast cells in the marrow,?? MDS awaiting pathology constipation resolved will consult director china-onc regarding ongoing abdominal symptoms
[2016-08-11] MEDS: POLYETHYLENE GLYCOL 3350 119 GM BTL PO SCH ×3 (06:09→21:42)
[2016-08-11] MEDS: INSULIN SLIDING SCALE (NOVOLOG) 1 VIAL SQ SCH ×4 (06:10→21:42)
[2016-08-11] MEDS: METOCLOPRAMIDE HCL 10 MG TABLET (FP) PO SCH ×3 (06:10→17:30)
[2016-08-11 07:10] LABS: MCH 33.4 pg (25.7-33.7); MCHC 34.1 g/dl (32.0-36.0); MEAN CELL VOLUME 97.8 fl (80-96); MEAN PLT VOLUME 9.4 fl (7.5-11.1); RDW 15.9 % (11.6-15.6)
[2016-08-11 07:19] LABS: PLATELET COUNT 35 K/MM3 (134-434)
[2016-08-11 07:34] LABS: CALCIUM 7.6 mg/dL (8.5-10.1); COCKROFT - GAULT 104.4055; CREATININE 0.4 mg/dL (0.55-1.02); MAGNESIUM 1.8 mg/dL (1.8-2.4); PHOSPHOROUS 3.1 mg/dL (2.5-4.9)
--- NOTE | 2016-08-11 09:33 | PN ---
Progress Note (short form) - Note Progress Note: Patient seen and examined Complains of nausea, anorexia. Complains of LE edema. Last Vital Signs Temp Pulse Resp BP Pulse Ox 97.8 F 111 H 18 120/62 95 08/11/16 05:59 08/11/16 05:59 08/11/16 05:59 08/11/16 05:59 08/10/16 21:00 HEENT: KARL, EOM Intact, lid lag, widened palpebral fissure Oropharynx: No thrush, No mucositis Neck: Supple Cor: RSR, No murmurs, No gallops Lungs: Clear to P&A Abd: Soft, No organomegaly, hyperactive bowel sounds Ext:No significant edema Skin: No rashes, Integument intact CBC, BMP 08/11/16 05:35 08/11/16 05:35 Current Medications Generic Name Dose Route Start Last Admin Trade Name Freq PRN Reason Stop Dose Admin Guaifenesin 10 ml 08/02/16 20:40 08/07/16 21:48 Robitussin - PO 10 ml Q6H PRN Administration COUGH Insulin Aspart 1 vial 08/01/16 07:00 08/11/16 06:10 Novolog Vial Sliding Scale - SQ Not Given ACHS JOVANA Protocol Metoclopramide HCl 10 mg 08/08/16 16:30 08/11/16 06:10 Reglan - PO 10 mg TIDAC JOVANA Administration Ondansetron HCl 4 mg 07/31/16 23:25 08/06/16 12:32 Zofran Injection IVPB 4 mg Q8H PRN Administration NAUSEA Polyethylene Glycol 17 gm 08/05/16 22:00 08/11/16 06:09 Miralax (For Daily Use) - PO 17 gm TID JOVANA Administration Impression: GI distress ?? etiology-- anorexia, nausea, abdominal discomfort, impaction Anemia Thrombocytopenia Bone marrow has been sent out to hematopathologist for further clarification. Will transfuse one unit of packed cells Will ask GI to follow up. Problem List - Problems (1) History of ovarian cancer Code(s): Z85.43 - PERSONAL HISTORY OF MALIGNANT NEOPLASM OF OVARY (2) Abdominal pain Code(s): R10.9 - UNSPECIFIED ABDOMINAL PAIN Qualifiers: Abdominal location: generalized Qualified Code(s): R10.84 - Generalized abdominal pain (3) Anemia Code(s): D64.9 - ANEMIA, UNSPECIFIED Qualifiers: Anemia type: unspecified type Qualified Code(s): D64.9 - Anemia, unspecified
[2016-08-11 10:16] LABS: PLATELET ESTIMATE MARKEDLY DECREASED (NORMAL)
--- NOTE | 2016-08-11 19:12 | PN ---
Progress Note, Physician Chief Complaint: Ms Fisher still having nausea today but improved. No cp or sob. - Current Medication List Current Medications: Active Medications Guaifenesin (Robitussin -) 10 ml PO Q6H PRN PRN Reason: COUGH Last Admin: 08/07/16 21:48 Dose: 10 ml Insulin Aspart (Novolog Vial Sliding Scale -) 1 vial SQ ACHS COUNTS INCLUDE 234 BEDS AT THE [facility] PRN Reason: Protocol Last Admin: 08/11/16 17:31 Dose: Not Given Metoclopramide HCl (Reglan -) 10 mg PO TIDAC COUNTS INCLUDE 234 BEDS AT THE [facility] Last Admin: 08/11/16 17:30 Dose: 10 mg Ondansetron HCl (Zofran Injection) 4 mg IVPB Q8H PRN PRN Reason: NAUSEA Last Admin: 08/06/16 12:32 Dose: 4 mg Polyethylene Glycol (Miralax (For Daily Use) -) 17 gm PO TID COUNTS INCLUDE 234 BEDS AT THE [facility] Last Admin: 08/11/16 13:10 Dose: Not Given - Objective Vital Signs: Vital Signs Temperature 97.7 F 08/11/16 18:19 Pulse Rate 112 H 08/11/16 18:19 Respiratory Rate 20 08/11/16 18:19 Blood Pressure 127/70 08/11/16 18:19 O2 Sat by Pulse Oximetry (%) 95 08/11/16 09:00 Constitutional: Yes: Well Nourished, No Distress, Calm Cardiovascular: Yes: Regular Rate and Rhythm. No: Gallop, Murmur, Rub Respiratory: Yes: Regular, CTA Bilaterally. No: Rales, Rhonchi, Wheezes Gastrointestinal: Yes: Normal Bowel Sounds, Soft. No: Distention, Tenderness Extremities: Yes: WNL Edema: No Labs: CBC, BMP 08/11/16 05:35 08/11/16 05:35 INR, PTT INR 1.55 (0.82-1.09) H 08/09/16 06:10 Problem List - Problems (1) Abdominal pain Code(s): R10.9 - UNSPECIFIED ABDOMINAL PAIN Qualifiers: Abdominal location: generalized Qualified Code(s): R10.84 - Generalized abdominal pain (2) Pancytopenia Code(s): D61.818 - OTHER PANCYTOPENIA (3) Diabetes mellitus, new onset Code(s): E11.9 - TYPE 2 DIABETES MELLITUS WITHOUT COMPLICATIONS (4) HTN (hypertension) Code(s): I10 - ESSENTIAL (PRIMARY) HYPERTENSION Assessment/Plan (1) Abdominal pain Assessment/Plan: -abdominal pain resolved -continue reglan and prn zofran -continue miralax Code(s): R10.9 - UNSPECIFIED ABDOMINAL PAIN Qualifiers: Abdominal location: generalized Qualified Code(s): R10.84 - Generalized abdominal pain (2) Pancytopenia Assessment/Plan: -case d/w Dr Velarde -concern for possible malignancy on bone marrow biopsy -await results -transfusion per Dr Merrill Code(s): D61.818 - OTHER PANCYTOPENIA (3) Diabetes mellitus, new onset Assessment/Plan: -continue SSI Code(s): E11.9 - TYPE 2 DIABETES MELLITUS WITHOUT COMPLICATIONS (4) HTN (hypertension) Assessment/Plan: -controlled -not needing medications Code(s): I10 - ESSENTIAL (PRIMARY) HYPERTENSION (5) Hypomagnesemia -replaced Dispo -possible discharge tomorrow
[2016-08-12] MEDS: POLYETHYLENE GLYCOL 3350 119 GM BTL PO SCH ×3 (05:40→21:25)
[2016-08-12] MEDS: METOCLOPRAMIDE HCL 10 MG TABLET (FP) PO SCH ×3 (06:24→17:23)
[2016-08-12] MEDS: INSULIN SLIDING SCALE (NOVOLOG) 1 VIAL SQ SCH ×4 (06:28→21:25)
[2016-08-12 07:43] LABS: MEAN CELL VOLUME 94.4 fl (80-96); RDW 17.2 % (11.6-15.6); WHITE BLOOD COUNT 5.8 K/mm3 (4.0-10.0)
[2016-08-12 08:13] LABS: PLATELET COUNT 23 K/MM3 (134-434)
--- NOTE | 2016-08-12 10:22 | PN ---
GI Progress Note Subjective: Still complains that she can't eat. the smell of food makes her want to vomit Being evaluated for ? MDS - Objective Vital Signs: Vital Signs Temperature 98.6 F 08/12/16 06:39 Pulse Rate 96 H 08/12/16 06:39 Respiratory Rate 20 08/12/16 06:39 Blood Pressure 132/59 08/12/16 06:39 O2 Sat by Pulse Oximetry (%) 95 08/11/16 09:00 Constitutional: Calm Eyes: No: Sclera Icterus Cardiovascular: Yes: Regular Rate and Rhythm Respiratory: Yes: CTA Bilaterally Gastrointestinal Inspection: Yes: Distention (protuberant abdomen) ...Auscultate: Yes: Normoactive Bowel Sounds ...Palpate: No: Tenderness ...Percussion: No: Tympanitic Edema: Yes (trace LE edema) Labs: CBC, BMP 08/12/16 06:00 08/11/16 05:35 INR, PTT INR 1.55 (0.82-1.09) H 08/09/16 06:10 Problem List - Problems (1) Pancytopenia Assessment/Plan: Being evaluated by hematology Code(s): D61.818 - OTHER PANCYTOPENIA (2) Ileus Assessment/Plan: Appears resolved on recent AXR however still with abdominal complaints ? if previously described IMPN of the pancreas playing a role. Ordered CT scan of the abdomen and pelvis with PO/IV contrast with pancreatic protocol Code(s): K56.7 - ILEUS, UNSPECIFIED
[2016-08-12] MEDS ORDERED: INSULIN (NOVOLOG) ASPART 100 UNITS/ML 10ML VIAL ONE (12:01)
[2016-08-12 13:19] LABS: ANISOCYTOSIS 2+; HYPOCHROMIA 2+; PLATELET COMMENT2 NO CLOTTING DETECTED; PLATELET ESTIMATE MARKEDLY DECREASED (NORMAL); POLYCHROMASIA 1+
[2016-08-12] MEDS ORDERED: SODIUM CHLORIDE 0.45% 1,000 ML IV SCH ×2 (13:30)
[2016-08-12] MEDS ORDERED: DEXTROSE 5%-0.45% SALINE 1,000 ML IV SCH (13:30)
--- NOTE | 2016-08-12 13:33 | PN ---
Progress Note, Physician History of Present Illness: Notes still with decreased appetite. - Current Medication List Current Medications: Active Medications Guaifenesin (Robitussin -) 10 ml PO Q6H PRN PRN Reason: COUGH Last Admin: 08/07/16 21:48 Dose: 10 ml Sodium Chloride (1/2 Normal Saline) 1,000 mls @ 75 mls/hr IV ASDIR [facility] Stop: 08/13/16 02:49 Insulin Aspart (Novolog Vial Sliding Scale -) 1 vial SQ ACHS JOVANA PRN Reason: Protocol Last Admin: 08/12/16 12:18 Dose: Not Given Metoclopramide HCl (Reglan -) 10 mg PO TIDAC [facility] Last Admin: 08/12/16 12:19 Dose: 10 mg Ondansetron HCl (Zofran Injection) 4 mg IVPB Q8H PRN PRN Reason: NAUSEA Last Admin: 08/06/16 12:32 Dose: 4 mg Polyethylene Glycol (Miralax (For Daily Use) -) 17 gm PO TID [facility] Last Admin: 08/12/16 13:10 Dose: Not Given - Objective Vital Signs: Vital Signs Temperature 98.2 F 08/12/16 10:00 Pulse Rate 104 H 08/12/16 10:00 Respiratory Rate 20 08/12/16 10:00 Blood Pressure 117/58 08/12/16 10:00 O2 Sat by Pulse Oximetry (%) 95 08/12/16 09:00 Constitutional: Yes: No Distress, Calm Neck: Yes: Supple, Trachea Midline Cardiovascular: Yes: Regular Rate and Rhythm, S1, S2. No: Murmur Respiratory: Yes: Regular, CTA Bilaterally. No: Rales, Rhonchi, Wheezes Gastrointestinal: Yes: Normal Bowel Sounds, Soft. No: Distention, Tenderness Edema: Yes Edema: LLE: Trace, RLE: Trace Neurological: Yes: Alert, Oriented Labs: CBC, BMP 08/12/16 06:00 08/11/16 05:35 INR, PTT INR 1.55 (0.82-1.09) H 08/09/16 06:10 Assessment/Plan All Active Problems Abdominal pain (Acute) Anemia (Acute) History of ovarian cancer (Acute) Hypokalemia (Acute) Hypomagnesemia (Acute) Ileus (Acute) Pancytopenia (Acute) Cough (Acute) Diabetes mellitus, new onset (Acute) HTN (hypertension) (Acute) Hoarseness (Acute) Hyperglycemia (Acute) Lactic acid increased (Acute) Upper respiratory infection (Acute) -awaiting further bone marrow biopsy results -to be evaluated for pancreatitis as well -will start light IVF as eating poorly and feeling weak
--- NOTE | 2016-08-12 16:37 | PN ---
Progress Note (short form) - Note Progress Note: Patient seen and examined Progressive cytopenias with platelets at 23K Reviewed bone marrow with Dr Rivas on 08/11. Extensive mast cells raising possibility of systemic mastocytosis or mast cells associated with MPD/MDS. Awaiting cytogenetics. Last Vital Signs Temp Pulse Resp BP Pulse Ox 98.3 F 95 H 20 117/58 95 08/12/16 13:49 08/12/16 13:49 08/12/16 13:49 08/12/16 10:00 08/12/16 09:00 HEENT: KARL, EOM Intact,widened palpebral fissure Oropharynx: No thrush, No mucositis Cor: RSR, systolic murmur Lungs: Clear to P&A Abd: Soft, ? fluid wave Ext:No significant edema Skin: No rashes, Integument intact CBC, BMP 08/12/16 06:00 08/11/16 05:35 Received one unit of packed cells-tolerated Current Medications Generic Name Dose Route Start Last Admin Trade Name Freq PRN Reason Stop Dose Admin Guaifenesin 10 ml 08/02/16 20:40 08/07/16 21:48 Robitussin - PO 10 ml Q6H PRN Administration COUGH Sodium Chloride 1,000 mls @ 75 mls/hr 08/12/16 13:30 1/2 Normal Saline IV 08/13/16 02:49 ASDIR JOVANA Insulin Aspart 1 vial 08/01/16 07:00 08/12/16 12:18 Novolog Vial Sliding Scale - SQ Not Given ACHS JOVANA Protocol Metoclopramide HCl 10 mg 08/08/16 16:30 08/12/16 12:19 Reglan - PO 10 mg TIDAC JOVANA Administration Ondansetron HCl 4 mg 07/31/16 23:25 08/06/16 12:32 Zofran Injection IVPB 4 mg Q8H PRN Administration NAUSEA Polyethylene Glycol 17 gm 08/05/16 22:00 08/12/16 13:10 Miralax (For Daily Use) - PO Not Given TID JOVANA Impression Abdominal complaints- for f/u Ct Anemia/thrombocytopenia-- awaiating cytogenetics to hep clarify. Increased mast cells in marrow ?? systemic mastocytosis vs MDS/MPL associated with mast cells Hx of ovarian ca s/p chemotherapy Hx of IMPN Plan CT scan await cytogenetics Monitor CBC Blood products prn. Problem List - Problems (1) History of ovarian cancer Code(s): Z85.43 - PERSONAL HISTORY OF MALIGNANT NEOPLASM OF OVARY (2) Abdominal pain Code(s): R10.9 - UNSPECIFIED ABDOMINAL PAIN Qualifiers: Abdominal location: generalized Qualified Code(s): R10.84 - Generalized abdominal pain (3) Anemia Code(s): D64.9 - ANEMIA, UNSPECIFIED Qualifiers: Anemia type: unspecified type Qualified Code(s): D64.9 - Anemia, unspecified
[2016-08-13] MEDS: POLYETHYLENE GLYCOL 3350 119 GM BTL PO SCH ×3 (06:42→21:17)
[2016-08-13] MEDS: METOCLOPRAMIDE HCL 10 MG TABLET (FP) PO SCH ×3 (06:43→18:38)
[2016-08-13] MEDS: INSULIN SLIDING SCALE (NOVOLOG) 1 VIAL SQ SCH ×4 (06:44→21:17)
[2016-08-13 07:26] LABS: MCH 32.5 pg (25.7-33.7); MCHC 33.9 g/dl (32.0-36.0); MEAN CELL VOLUME 95.9 fl (80-96); MEAN PLT VOLUME 8.6 fl (7.5-11.1); RDW 17.1 % (11.6-15.6); WHITE BLOOD COUNT 6.2 K/mm3 (4.0-10.0)
[2016-08-13 07:37] LABS: PLATELET COUNT 26 K/MM3 (134-434)
[2016-08-13 07:56] LABS: ALBUMIN 2.1 g/dl (3.4-5.0); ANION GAP 11 (8-16); CALCIUM 7.7 mg/dL (8.5-10.1); CO2 25 mmol/L (21-32); GLUCOSE,RANDOM 120 mg/dL (74-106)
[2016-08-13 08:00] LABS: ALK PHOS 90 U/L (45-117); BILIRUBIN,TOTAL 1.4 mg/dL (0.2-1.0); COCKROFT - GAULT 139.2045; CREATININE 0.3 mg/dL (0.55-1.02); SGOT/AST 14 U/L (15-37); SGPT/ALT 18 U/L (12-78)
--- NOTE | 2016-08-13 09:34 | PN ---
GI Progress Note Subjective: No acute events Still feeling nauseated with poor appetite Repeat CT scan revealed new b/l pleural effusions, moderate ascites, spleen size has increased and there is distention of the mid/proximal small bowel. The radiologist commented that there is no clear source of transition however he did note a small umbilical hernia at that area. He also raised the possibility of peritoneal implants in the differential. the pancreatic cysts appear unchanged and CEA level this admission was 14. - Objective Vital Signs: Vital Signs Temperature 98.6 F 08/13/16 05:53 Pulse Rate 97 H 08/13/16 05:53 Respiratory Rate 20 08/13/16 05:53 Blood Pressure 126/62 08/13/16 05:53 O2 Sat by Pulse Oximetry (%) 95 08/12/16 21:00 Constitutional: Calm Eyes: No: Sclera Icterus Cardiovascular: Yes: Regular Rate and Rhythm Respiratory: Yes: Diminished (at bases) ...Auscultate: Yes: Normoactive Bowel Sounds ...Palpate: No: Tenderness ...Percussion: No: Tympanitic Edema: Yes Neurological: Yes: Alert, Oriented Labs: CBC, BMP 08/13/16 06:25 08/13/16 06:25 INR, PTT INR 1.55 (0.82-1.09) H 08/09/16 06:10 Hepatic Panel Total Bilirubin 1.4 mg/dL (0.2-1.0) H 08/13/16 06:25 AST 14 U/L (15-37) L 08/13/16 06:25 ALT 18 U/L (12-78) 08/13/16 06:25 Alkaline Phosphatase 90 U/L (45-117) 08/13/16 06:25 Albumin 2.1 g/dl (3.4-5.0) L 08/13/16 06:25 Problem List - Problems (1) Pancytopenia Assessment/Plan: with enlarging spleen Being evaluated by hematology Code(s): D61.818 - OTHER PANCYTOPENIA (2) Ileus Assessment/Plan: ? if there is an extrinsic etiology to this as the radiologist described such as peritoneal involvement a of a cancerous process. An attempt at sampling the fluid could be attempted via paracentesis however there would be a higher bleeding risk given her coagulopathy and thrombocytopenia. Concern would be of an aspiration risk / bleeding risk with attempt at upper endoscopy. Will wait to see what hematologic testing yields. Mastocytosis is being considered in the differential Code(s): K56.7 - ILEUS, UNSPECIFIED
[2016-08-13 10:21] LABS: METAMYELOCYTE 2 % (0-2)
[2016-08-13 10:22] LABS: ANISOCYTOSIS 2+; HYPOCHROMIA 2+; PLATELET COMMENT2 NO CLOTTING DETECTED; PLATELET ESTIMATE MARKEDLY DECREASED (NORMAL); POIKILOCYTOSIS 2+
--- NOTE | 2016-08-13 11:19 | PN ---
Progress Note, Physician History of Present Illness: Still having decreased appetite and nausea. CT yesterday showed dilated small bowel (?partial obstruction) and ascites. Platelets low, but stable from yesterday. Still with LE edema - Current Medication List Current Medications: Active Medications Guaifenesin (Robitussin -) 10 ml PO Q6H PRN PRN Reason: COUGH Last Admin: 08/07/16 21:48 Dose: 10 ml Insulin Aspart (Novolog Vial Sliding Scale -) 1 vial SQ ACHS [facility] PRN Reason: Protocol Last Admin: 08/13/16 06:44 Dose: Not Given Metoclopramide HCl (Reglan -) 10 mg PO TIDAC JOVANA Last Admin: 08/13/16 11:09 Dose: 10 mg Ondansetron HCl (Zofran Injection) 4 mg IVPB Q8H PRN PRN Reason: NAUSEA Last Admin: 08/06/16 12:32 Dose: 4 mg Polyethylene Glycol (Miralax (For Daily Use) -) 17 gm PO TID [facility] Last Admin: 08/13/16 06:42 Dose: Not Given - Objective Vital Signs: Vital Signs Temperature 98.6 F 08/13/16 05:53 Pulse Rate 97 H 08/13/16 05:53 Respiratory Rate 20 08/13/16 05:53 Blood Pressure 126/62 08/13/16 05:53 O2 Sat by Pulse Oximetry (%) 95 08/12/16 21:00 Constitutional: Yes: No Distress, Calm Neck: Yes: Supple, Trachea Midline Cardiovascular: Yes: Regular Rate and Rhythm, S1, S2. No: Murmur Respiratory: Yes: Regular, CTA Bilaterally. No: Rales, Rhonchi, Wheezes Gastrointestinal: Yes: Normal Bowel Sounds, Soft, Distention (mildly). No: Tenderness Edema: Yes Edema: LLE: Trace, RLE: Trace Neurological: Yes: Alert, Oriented Labs: CBC, BMP 08/13/16 06:25 08/13/16 06:25 INR, PTT INR 1.55 (0.82-1.09) H 08/09/16 06:10 Assessment/Plan All Active Problems Abdominal pain (Acute) Anemia (Acute) History of ovarian cancer (Acute) Hypokalemia (Acute) Hypomagnesemia (Acute) Ileus (Acute) Pancytopenia (Acute) Cough (Acute) Diabetes mellitus, new onset (Acute) HTN (hypertension) (Acute) Hoarseness (Acute) Hyperglycemia (Acute) Lactic acid increased (Acute) Upper respiratory infection (Acute) -restart IVF, as diet will be limited with partial SBO (due to metastatic implants?) -ascites fluid may give an etiology as to the abdominal findings on CT scan, but high risk of bleeding with any procedure currently with platelets 23,000 -awaiting further report from bone marrow biopsy to further determine treatment options (?will need a systemic treatment for mastocytosis or steroid treatment?)
--- NOTE | 2016-08-13 13:21 | PN ---
Progress Note (short form) - Note Progress Note: [facility] *LIVE* Progress Note (short form) - Note Progress Note: No new complaints Vital Signs Period Temp Pulse Resp BP Sys/Belle Pulse Ox Last 24 Hr 98 F-98.6 F 92-99 20-20 115-126/62-67 95 HEENT: KARL, EOM Intact,widened palpebral fissure Oropharynx: No thrush, No mucositis Cor: RSR, systolic murmur Lungs: Clear to P&A Abd: Soft, Ext:No significant edema Skin: No rashes, Integument intact CBC, BMP 08/13/16 06:25 08/13/16 06:25 Re Active Medications Generic Name Dose Route Start Last Admin Trade Name Freq PRN Reason Stop Dose Admin Guaifenesin 10 ml 08/02/16 20:40 08/07/16 21:48 Robitussin - PO 10 ml Q6H PRN Administration COUGH Insulin Aspart 1 vial 08/01/16 07:00 08/13/16 06:44 Novolog Vial Sliding Scale - SQ Not Given ACHS JOVANA Protocol Metoclopramide HCl 10 mg 08/08/16 16:30 08/13/16 11:09 Reglan - PO 10 mg TIDAC JOVANA Administration Ondansetron HCl 4 mg 07/31/16 23:25 08/06/16 12:32 Zofran Injection IVPB 4 mg Q8H PRN Administration NAUSEA Polyethylene Glycol 17 gm 08/05/16 22:00 08/13/16 06:42 Miralax (For Daily Use) - PO Not Given TID JOVANA Impression Increased mast cells in marrow ?? systemic mastocytosis vs MDS/MPL/AML associated with mast cells Hx of ovarian ca s/p chemotherapy Hx of IMPN Plan CT scan await ckit mutation and full BM report Monitor CBC Blood products prn. Problem List - Problems (1) History of ovarian cancer Code(s): Z85.43 - PERSONAL HISTORY OF MALIGNANT NEOPLASM OF OVARY (2) Abdominal pain Code(s): R10.9 - UNSPECIFIED ABDOMINAL PAIN Qualifiers: Abdominal location: generalized Qualified Code(s): R10.84 - Generalized abdominal pain (3) Anemia Code(s): D64.9 - ANEMIA, UNSPECIFIED Qualifiers: Anemia type: unspecified type Qualified Code(s): D64.9 - Anemia, unspecified
[2016-08-14] MEDS: INSULIN SLIDING SCALE (NOVOLOG) 1 VIAL SQ SCH ×4 (06:03→21:30)
[2016-08-14] MEDS: POLYETHYLENE GLYCOL 3350 119 GM BTL PO SCH ×3 (06:03→21:28)
[2016-08-14] MEDS: METOCLOPRAMIDE HCL 10 MG TABLET (FP) PO SCH ×3 (06:04→17:30)
[2016-08-14 08:21] LABS: MCH 32.6 pg (25.7-33.7); MCHC 33.7 g/dl (32.0-36.0); MEAN CELL VOLUME 96.7 fl (80-96); MEAN PLT VOLUME 8.8 fl (7.5-11.1); RDW 16.8 % (11.6-15.6); WHITE BLOOD COUNT 5.5 K/mm3 (4.0-10.0)
[2016-08-14 08:41] LABS: PLATELET COUNT 22 K/MM3 (134-434)
[2016-08-14 08:49] LABS: ALK PHOS 81 U/L (45-117); ANION GAP 11 (8-16); BILIRUBIN,TOTAL 1.3 mg/dL (0.2-1.0); CALCIUM 7.9 mg/dL (8.5-10.1); CO2 27 mmol/L (21-32); COCKROFT - GAULT 104.4055; CREATININE 0.4 mg/dL (0.55-1.02); GLUCOSE,RANDOM 130 mg/dL (74-106); SGOT/AST 9 U/L (15-37); SGPT/ALT 12 U/L (12-78); TOT PROT 3.9 g/dl (6.4-8.2)
--- NOTE | 2016-08-14 10:05 | PN ---
Progress Note (short form) - Note Progress Note: Very confusing picture with recurrent pleural effusions, now ascites and possible small bowel obstruction. In addition platelets even lower today at 22, 000 and yet final Dx. not in place. She has some oral pain and poor appetite. No cough. On Exam: Vital Signs Period Temp Pulse Resp BP Sys/Belle Pulse Ox Last 24 Hr 97.1 F-98.3 F 100-111 18-20 117-147/62-80 94 Pale Alert Chest: Decreased breath sounds at bases Cor Reg Abd: LUQ tenderness Ext 2-3+ edema Abnormal Lab Results 08/13/16 08/14/16 08/14/16 06:25 06:00 06:00 RBC 2.32 L Hgb 7.5 L D Hct 22.4 L MCV 96.7 H RDW 16.8 H Plt Count 22 L* Nucleated RBCs 1 H Sodium 133 L Potassium 3.4 L Chloride 95 L BUN 21 H D Creatinine 0.4 L D Random Glucose 130 H Calcium 7.9 L Total Bilirubin 1.3 H AST 9 L D Total Protein 3.9 L Albumin 2.0 L IMP: Thrombocytopenia Possible SBO Hx: Ovarian Ca with mets Hypertension DM Pleuaral effusions and increasing pedal edema Plan: F/U Lab IV Lasix for a few day Potassium replacement F/U Heme visit Problem List - Problems (1) Abdominal pain Code(s): R10.9 - UNSPECIFIED ABDOMINAL PAIN Qualifiers: Abdominal location: generalized Qualified Code(s): R10.84 - Generalized abdominal pain (2) Anemia Code(s): D64.9 - ANEMIA, UNSPECIFIED Qualifiers: Anemia type: unspecified type Qualified Code(s): D64.9 - Anemia, unspecified (3) Cough Code(s): R05 - COUGH (4) Diabetes mellitus, new onset Code(s): E11.9 - TYPE 2 DIABETES MELLITUS WITHOUT COMPLICATIONS (5) Ileus Code(s): K56.7 - ILEUS, UNSPECIFIED (6) History of ovarian cancer Code(s): Z85.43 - PERSONAL HISTORY OF MALIGNANT NEOPLASM OF OVARY (7) Hypomagnesemia Code(s): E83.42 - HYPOMAGNESEMIA (8) Hypokalemia Code(s): E87.6 - HYPOKALEMIA
[2016-08-14 11:45] LABS: METAMYELOCYTE 1 % (0-2); PLATELET ESTIMATE MARKEDLY DECREASED (NORMAL)
[2016-08-14] MEDS ORDERED: INSULIN (NOVOLOG) ASPART 100 UNITS/ML 10ML VIAL ONE (11:50)
[2016-08-14] MEDS: FUROSEMIDE 40 MG/4 ML INJECTABLE VIAL IVPUSH SCH (11:55)
[2016-08-14] MEDS: POTASSIUM CHLORIDE TABS 10 MEQ TABLET.ER (FP) PO SCH ×2 (11:55→21:28)
--- NOTE | 2016-08-14 13:38 | PATH ---
Surgical Pathology Report Patient Name: ANNA VERMA [facility]. Rec. #: [id number] /Age/Gender: 1935 (Age: 81) / F Account: [id number] Location: [facility] MED/SURG Taken: 08/07/2016 Received: 08/07/2016 Reported: 08/14/2016 Physicians: Abby Flowers M.D. Specimen(s) Received A: BONE MARROW BIOPSY B: BONE MARROW CLOT C: BONE MARROW ASPIRATION SMEARS 10 SLIDES D: BONE MARROW BLOOD 2 GREEN TOPS Clinical History Pancytopenia post chemotherapy 7 years ago Rule out MDS/AML Final Diagnosis A,B.C. BONE MARROW, BIOPSY CLOT AND ASPIRATE SMEARS: SYSTEMIC MASTOCYTOSIS (SM), EXTENSIVE BONE MARROW INVOLVEMENT (SEE COMMENT). 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 NO EVIDENCE OF METASTATIC CARCINOMA. PROMINENT ERYTHROID AND MEGAKARYOCYTIC HYPOPLASIA. MAST CELLS WITH ERYTHROPHAGOCYTOSIS. Comment: The significance of cytogenetic aberrations is uncertain. Concurrent myelodysplastic process cannot be ruled out. This case was seen in consultation with hematopathology service at the [facility], [place], [place] ([id number], Dr. Khan). The diagnosis above reflects the consultation opinion. The biopsy (limited) and the aspirate show hypercellular bone marrow with overall cellularity of 90%. Maturing myeloid elements are markedly decreased. Erythroid precursors and megakaryocytes are rare; there is prominent erythroid and megakaryocytic hypoplasia. There is no overt lymphocytosis and plasmacytosis. The intertrabecular space in the biopsy is filled with sheets of medium-sized cells with abundant eosinophilic cytoplasm; the aspirate smears show sheets clusters and single scattered mast cells with abundant granularity. Mast cells exhibiting erythrophagocytosis are easily identifiable. Reticulin stain shows slightly increased reticulin fibers. Iron stain shows 2+/3+ stainable iron. Immunohistochemical stains performed and interpreted with [facility] show the following: CD117 highlights mast cells (>90%); mast cell tryptase is positive in mast cells; mast cells are positive for CD2 and focally positive for CD25 immunostains. Myeloperoxidase highlights rare myeloid elements; CD71 highlights very rare erythroid precursors; CD61 highlights very rare megacaryocytes. CD3 is positive in T-cells; CD138 is positive in plasma cells CD20 is positive in B-cells; CD34 is positive in immature cells; CAM5.2 is negative. D. BONE MARROW, FLOW CYTOMETRY: Flow Cytometry performed and interpreted on the concurrent bone marrow specimen at the [place], [place] ([id number]) shows the following: Interpretation: A population of CD117+/CD34-/CD2+/CD25+ events, 55% of total, is detected (See comment). Comment: The findings are suggestive of an atypical mast cell population. Phenotype: Atypical CD117+, CD34-, HLA-DR-, CD16-, CD11b-, CD11c-, RE76mih, CD33+, CD2+, CD25+, CD56- population, 55% of total events, is detected. The CD34+ myeloblasts are less than 1% of total events. The B-cells (< 1% of total) are polytypic. The T-cells (3% of total) show no perry T-cell antigenic deletion. The CD4:CD8 ratio is 0.1:1. FISH Studies performed and interpreted at the [place], [place] ([id number]) shows the following: Interpretation: MLL gene rearrangement is detected. No evidence of deletion 5q or monosomy 5 is present. However, one copy of 5p15 and three copies of 5q31.2 are seen in 45.5%. No evidence of deletion 7q or monosomy 7 is present. No evidence of trisomy8 (+8) is present. No evidence of deletion 13q14 is present. No evidence of a rearrangement of 11q23. No evidence of a deletion of the p53 (17p13) locus. No evidence of deletion 20q12 is present. PML/BRIAN rearrangement is not detected. No BCR/ABL1 t(9;22) translocation is detected. Comments: Abnormalities of the MLL gene are found in approximately 15% of patients with AML and ALL. AML patients with MLL rearrangement have a poor prognosis despite treatment with aggressive multiagent chemotherapy. MLL is also reported in a subset of MDS. Cytogenetic Karyotype Analysis performed and interpreted at [place], [place] ([id number]) shows the following: Result: 46,XX,add(2)(p21),add(5)(p11),+add(5),-11,add(17)(p13),+2mar[2]/46,XX[20] Diagnostic interpretation: Abnormal Female Karyotype. Two of twenty two analyzed metaphase cells exhibited the following numerical and structural abnormalities: -unidentified chromatin added to the short arms of one chromosome 2 and one chromosome 17 (resulting is loss of one copy of p53), - three copies of chromosome 5, two of which had unidentified chromatin replacing the short arms, resulting in the presence of one copy of the short arm and three copies of the long arm, as was observed by FISH, -loss of one copy of chromosome 11, resulting in loss of one copy of MARCELLA, -two marker chromosomes. The remaining twenty cells exhibit a normal chromosome complement. 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 The complexity of the abnormalities, with loss of MARCELLA and p53, may portend an aggressive clinical course. No other numerical or structural chromosomal abnormalities were observed. Analysis was performed on cells from an unstimulated tissue culture and a tissue culture that stimulated with lymphoid mitogens. Note: c-kit rearrangement analysis by FISH is pending; results will be reported in an addendum. The case was preliminary discussed with Dr. Merrill on 08/11/[address] Wadsworth on 08/10/16. Electronically Signed Cain Rivas M.D. Amendments Amended: 08/14/2016 Previous Signout Date: 08/14/2016 Comment: Karyotype analysis was added incorrectly. Addendum Reported: 08/18/2016 Addendum Diagnosis Hypereosinophilic syndrome FISH panel (PDGFR and PDGFR) performed and interpreted at [facility] [place], [place] ([id number]) shows the following: The PDGFR rearrangement is not detected. However, three copies of PDGFR (4q12) are seen in 24% of cells. The PDGFR rearrangement is not detected. However, three copies of PDGFR (5q32) are seen in 49% of cells Cain Rivas M.D. Addendum Reported: 08/21/2016 Addendum Diagnosis cKIT (D816V) MUTATION ANALYSIS PERFORMED AND INTERPRETED AT [place], [place] ([id number]) SHOWED THE FOLLOWING: RESULTS: No c-KIT mutation was identified in the provided specimen of this individual. INTERPRETATION: No c-KIT mutation was identified in the provided specimen of this individual. Results should be interpreted in conjunction with clinical and other laboratory findings for the most accurate interpretation. Cain Rivas M.D. Addendum Reported: 08/24/2016 Addendum Diagnosis BCR-ABL GENE REARRANGEMENT-QUANTITATIVE REAL TIME PCR ANALYSIS (IS) PERFORMED AND INTERPRETED AT [place], [place] ([id number]) SHOWED THE FOLLOWING: RESULTS: NEGATIVE BCR/ABL MAJOR BREAKPOINTS (b2a2 AND b3a2): NOT DETECTED. BCR/ABL MINOR BREAKPOINT (e1a2): NOT DETECTED. INTERPRETATION: NO BCR-ABL TRANSLOCATION WAS DETECTED IN THIS SAMPLE. JAK2 V617F MUTATION ANALYSIS BY PCR PERFORMED AND INTERPRETED AT [place], [place] ([id number]) SHOWED THE FOLLOWING: RESULTS: ONLY THE WILD-TYPE JAK2 SEQUENCE WAS DETECTED. INTERPRETATION: NEGATIVE FOR JAK2 V617F MUTATION. Cain Rivas M.D. Gross Description A. Received in formalin labeled with the patient's name and indicated on the requisition to be a bone marrow biopsy, is a 0.3 cm in length x 0.2 cm in diameter griffin, cylindrical portion of bone with attached blood clot. The specimen is submitted in toto in one cassette, following decalcification. B. Received in formalin labeled with the patient's name and indicated on the requisition to be bone marrow clot, is a bloody fluid. No solid clot is identified. A cell block is attempted. C. Received are 10 bone marrow aspiration smear slides. D. Received are 2 green top tubes of bone marrow blood which are sent to [facility]. 08/08/2016 [facility]08/08/2016
[2016-08-15] MEDS: POLYETHYLENE GLYCOL 3350 119 GM BTL PO SCH ×3 (05:44→21:18)
[2016-08-15] MEDS: METOCLOPRAMIDE HCL 10 MG TABLET (FP) PO SCH ×3 (05:59→17:19)
[2016-08-15] MEDS: INSULIN SLIDING SCALE (NOVOLOG) 1 VIAL SQ SCH ×4 (06:15→21:18)
[2016-08-15 08:14] LABS: MCH 33.1 pg (25.7-33.7); MEAN CELL VOLUME 97.4 fl (80-96); RDW 16.9 % (11.6-15.6); WHITE BLOOD COUNT 5.5 K/mm3 (4.0-10.0)
[2016-08-15 08:19] LABS: PLATELET COUNT 22 K/MM3 (134-434)
[2016-08-15 08:36] LABS: CALCIUM 7.8 mg/dL (8.5-10.1); COCKROFT - GAULT 104.4055; CREATININE 0.4 mg/dL (0.55-1.02); MAGNESIUM 1.6 mg/dL (1.8-2.4)
[2016-08-15] MEDS: FUROSEMIDE 40 MG/4 ML INJECTABLE VIAL IVPUSH SCH (09:04)
[2016-08-15] MEDS: POTASSIUM CHLORIDE TABS 10 MEQ TABLET.ER (FP) PO SCH ×2 (09:04→21:18)
[2016-08-15 09:40] LABS: MCH 33.1 pg (25.7-33.7); MCHC 33.8 g/dl (32.0-36.0); MEAN CELL VOLUME 97.9 fl (80-96); MEAN PLT VOLUME 7.8 fl (7.5-11.1)
[2016-08-15 09:56] LABS: PLATELET COUNT 20 K/MM3 (134-434)
[2016-08-15 10:13] LABS: ALBUMIN 1.9 g/dl (3.4-5.0); ANION GAP 11 (8-16); CALCIUM 7.7 mg/dL (8.5-10.1); CO2 26 mmol/L (21-32); COCKROFT - GAULT 104.4055; CREATININE 0.4 mg/dL (0.55-1.02); GLUCOSE,RANDOM 190 mg/dL (74-106); SGOT/AST 10 U/L (15-37)
[2016-08-15 10:18] LABS: ALK PHOS 82 U/L (45-117); BILIRUBIN,TOTAL 1.2 mg/dL (0.2-1.0); SGPT/ALT 13 U/L (12-78); TOT PROT 3.9 g/dl (6.4-8.2)
[2016-08-15 11:43] LABS: ANISOCYTOSIS 1+; METAMYELOCYTE 2 % (0-2); MICROCYTOSIS FEW; PLATELET ESTIMATE MARKEDLY DECREASED (NORMAL); POLYCHROMASIA 1+
[2016-08-15 12:56] LABS: METAMYELOCYTE 1 % (0-2); PLATELET ESTIMATE MARKEDLY DECREASED (NORMAL)
--- NOTE | 2016-08-15 13:41 | PN ---
Progress Note, Physician Chief Complaint: Worried about the continuing lower platelet counts and possible rare form of Leukemia History of Present Illness: Dr. Velarde called me yesterday to discuss her hematological diagnosis. 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 The patients platelets continue to drift down to a current level of 20,000. Appetite is fair at best and no BM for a few days but no vomiting. No actual pain or SOB. Awaiting final bone marrow report. Will reorder lab abd do F/U Abdominal Xray. - Current Medication List Current Medications: Active Medications Furosemide (Lasix Injection -) 40 mg IVPUSH DAILY [facility] Last Admin: 08/15/16 09:04 Dose: 40 mg Guaifenesin (Robitussin -) 10 ml PO Q6H PRN PRN Reason: COUGH Last Admin: 08/07/16 21:48 Dose: 10 ml Insulin Aspart (Novolog Vial Sliding Scale -) 1 vial SQ ACHS JOVANA PRN Reason: Protocol Last Admin: 08/15/16 12:09 Dose: 4 unit Metoclopramide HCl (Reglan -) 10 mg PO TIDAC [facility] Last Admin: 08/15/16 12:09 Dose: 10 mg Ondansetron HCl (Zofran Injection) 4 mg IVPB Q8H PRN PRN Reason: NAUSEA Last Admin: 08/06/16 12:32 Dose: 4 mg Polyethylene Glycol (Miralax (For Daily Use) -) 17 gm PO TID [facility] Last Admin: 08/15/16 05:44 Dose: Not Given Potassium Chloride (K-Dur -) 10 meq PO BID [facility] Last Admin: 08/15/16 09:04 Dose: 10 meq - Objective Vital Signs: Vital Signs Temperature 97.9 F 08/15/16 10:00 Pulse Rate 107 H 08/15/16 10:00 Respiratory Rate 20 08/15/16 10:00 Blood Pressure 104/58 08/15/16 10:00 O2 Sat by Pulse Oximetry (%) 93 L 08/15/16 09:00 Constitutional: Yes: Calm, Pallor Cardiovascular: Yes: Tachycardia Respiratory: Yes: Diminished. No: Rales Gastrointestinal: Yes: Distention, Hyperactive Bowel Sounds, Tenderness (slight LUQ tenderness) Genitourinary: No: Campbell Present Edema: LLE: 1+, RLE: 1+ Wound/Incision: No: Unapproximated Neurological: Yes: Alert, Oriented Labs: CBC, BMP 08/15/16 08:55 08/15/16 08:55 INR, PTT INR 1.55 (0.82-1.09) H 08/09/16 06:10 Problem List - Problems (1) Thrombocytopenia Assessment/Plan: Level down to 20,000. ? transfusion will be ordered by Emily SCHMIDT. Code(s): D69.6 - THROMBOCYTOPENIA, UNSPECIFIED (2) Abdominal pain Assessment/Plan: some LUQ abd tenderness only on palpation. To repeat Abd XRay today Code(s): R10.9 - UNSPECIFIED ABDOMINAL PAIN Qualifiers: Abdominal location: generalized Qualified Code(s): R10.84 - Generalized abdominal pain (3) Anemia Assessment/Plan: Hb 7.6 today. Code(s): D64.9 - ANEMIA, UNSPECIFIED Qualifiers: Anemia type: unspecified type Qualified Code(s): D64.9 - Anemia, unspecified (4) Cough Code(s): R05 - COUGH (5) Diabetes mellitus, new onset Assessment/Plan: BGM 190 Code(s): E11.9 - TYPE 2 DIABETES MELLITUS WITHOUT COMPLICATIONS (6) Ileus Assessment/Plan: Repeat Flat plate of abdomen pending Code(s): K56.7 - ILEUS, UNSPECIFIED (7) History of ovarian cancer Assessment/Plan: ?? recurrence causing abdominal ascites Code(s): Z85.43 - PERSONAL HISTORY OF MALIGNANT NEOPLASM OF OVARY (8) Hypomagnesemia Code(s): E83.42 - HYPOMAGNESEMIA (9) Hypokalemia Assessment/Plan: On Rx; repeat lab AM Code(s): E87.6 - HYPOKALEMIA
[2016-08-15] MEDS ORDERED: MINERAL OIL ENEMA 133 ML ENEMA PR ONE (14:46)
--- NOTE | 2016-08-15 19:59 | PN ---
Progress Note (short form) - Note Progress Note: Patient seen and examined Last Vital Signs Temp Pulse Resp BP Pulse Ox 97.4 F L 94 H 18 114/66 100 08/15/16 17:41 08/15/16 17:41 08/15/16 17:41 08/15/16 17:41 08/15/16 09:20 Continues with abdominal discomfort and constipation. HEENT: KARL, EOM Intact, widened palpebral fissure Oropharynx: No thrush, No mucositis Cor: RSR, No murmurs, No gallops Lungs: Clear to P&A Abd: Soft,distended < Bowel sounds present Ext:LE edema edema Skin: No rashes, Integument intact CBC, BMP 08/15/16 08:55 08/15/16 08:55 Current Medications Generic Name Dose Route Start Last Admin Trade Name Freq PRN Reason Stop Dose Admin Furosemide 40 mg 08/14/16 10:00 08/15/16 09:04 Lasix Injection - IVPUSH 40 mg DAILY JOVANA Administration Guaifenesin 10 ml 08/02/16 20:40 08/07/16 21:48 Robitussin - PO 10 ml Q6H PRN Administration COUGH Insulin Aspart 1 vial 08/01/16 07:00 08/15/16 17:00 Novolog Vial Sliding Scale - SQ Not Given ACHS JOVANA Protocol Metoclopramide HCl 10 mg 08/08/16 16:30 08/15/16 17:19 Reglan - PO 10 mg TIDAC JOVANA Administration Ondansetron HCl 4 mg 07/31/16 23:25 08/06/16 12:32 Zofran Injection IVPB 4 mg Q8H PRN Administration NAUSEA Polyethylene Glycol 17 gm 08/05/16 22:00 08/15/16 16:59 Miralax (For Daily Use) - PO Not Given TID JOVANA Potassium Chloride 10 meq 08/14/16 10:00 08/15/16 09:04 K-Dur - PO 10 meq BID JOVANA Administration Impression Abdominal complaints ?? uncertain etiology Anemia Thrombocytopenia Seems relatively comfortable despite Hct of 22% Plan: Awaiting cytogenetics Greater than 50 % mast cells in bone marrow. Differential systemic mastocytosis vs. MDS/MPL with mastocytosis If cKIT positive can consider trial of Gleevac If not present would assume latter diagnosis and consider hypomethylating agent for therapy. Problem List - Problems (1) History of ovarian cancer Code(s): Z85.43 - PERSONAL HISTORY OF MALIGNANT NEOPLASM OF OVARY (2) Abdominal pain Code(s): R10.9 - UNSPECIFIED ABDOMINAL PAIN Qualifiers: Abdominal location: generalized Qualified Code(s): R10.84 - Generalized abdominal pain (3) Anemia Code(s): D64.9 - ANEMIA, UNSPECIFIED Qualifiers: Anemia type: unspecified type Qualified Code(s): D64.9 - Anemia, unspecified
[2016-08-16] MEDS: POLYETHYLENE GLYCOL 3350 119 GM BTL PO SCH ×3 (06:41→21:52)
[2016-08-16] MEDS: METOCLOPRAMIDE HCL 10 MG TABLET (FP) PO SCH ×3 (06:41→16:38)
[2016-08-16] MEDS: INSULIN SLIDING SCALE (NOVOLOG) 1 VIAL SQ SCH ×4 (06:42→21:52)
[2016-08-16 07:27] LABS: MCH 33.6 pg (25.7-33.7); MCHC 34.4 g/dl (32.0-36.0); MEAN CELL VOLUME 97.8 fl (80-96); RDW 17.2 % (11.6-15.6); WHITE BLOOD COUNT 6.7 K/mm3 (4.0-10.0)
[2016-08-16 07:35] LABS: PLATELET COUNT 19 K/MM3 (134-434)
[2016-08-16 07:40] LABS: CALCIUM 7.5 mg/dL (8.5-10.1); COCKROFT - GAULT 104.4055; CREATININE 0.4 mg/dL (0.55-1.02)
--- NOTE | 2016-08-16 08:35 | PN ---
Progress Note (short form) - Note Progress Note: SOB today and weak and not sleeping. Patient is still having to wait for a final Bone Marrow study so as decide more definitive treatment but her Hb and platelets are both falling each day. Hb down to 7.3 and Platelets 19,00. She is SOB most likely from Anemia but I will order CXR and venous duplex of legs. Await decision of Emily SCHMIDT re: ? platelet Rx. On Exam: Vital Signs Period Temp Pulse Resp BP Sys/Belle Pulse Ox Last 24 Hr 97.3 F-98.3 F 92-115 18-20 104-141/52-66 93-100 Anxious Pale Chest: A few Rhonchi Cor; tachycardia Abd; Slightly distended Ext 2+ edema Abnormal Lab Results 08/15/16 08/15/16 08/15/16 06:00 08:55 08:55 RBC 2.28 L Hgb 7.6 L Hct 22.3 L MCV 97.9 H RDW 17.0 H Plt Count 20 L* Neutrophils % 88.0 H Monocytes % 2.0 L Nucleated RBCs 1 H Sodium 134 L 132 L Potassium 3.4 L 3.4 L Chloride 94 L 95 L BUN 20 H 21 H Creatinine 0.4 L 0.4 L Random Glucose 120 H 190 H D Calcium 7.8 L 7.7 L Magnesium 1.6 L Total Bilirubin 1.2 H AST 10 L Total Protein 3.9 L Albumin 1.9 L 08/16/16 08/16/16 06:00 06:00 RBC 2.16 L Hgb 7.3 L Hct 21.1 L MCV 97.8 H RDW 17.2 H Plt Count 19 L* Neutrophils % Monocytes % Nucleated RBCs Sodium 131 L Potassium 3.4 L Chloride 93 L BUN 21 H Creatinine 0.4 L Random Glucose 118 H D Calcium 7.5 L Magnesium Total Bilirubin AST Total Protein Albumin IMP: Pancytopenia Mastocytosis Hx Ovarian CA SOB Anxiety Plan: As discussed above Problem List - Problems (1) Thrombocytopenia Code(s): D69.6 - THROMBOCYTOPENIA, UNSPECIFIED (2) Abdominal pain Code(s): R10.9 - UNSPECIFIED ABDOMINAL PAIN Qualifiers: Abdominal location: generalized Qualified Code(s): R10.84 - Generalized abdominal pain (3) Anemia Code(s): D64.9 - ANEMIA, UNSPECIFIED Qualifiers: Anemia type: unspecified type Qualified Code(s): D64.9 - Anemia, unspecified (4) Cough Code(s): R05 - COUGH (5) Diabetes mellitus, new onset Code(s): E11.9 - TYPE 2 DIABETES MELLITUS WITHOUT COMPLICATIONS (6) Ileus Code(s): K56.7 - ILEUS, UNSPECIFIED (7) History of ovarian cancer Code(s): Z85.43 - PERSONAL HISTORY OF MALIGNANT NEOPLASM OF OVARY (8) Hypomagnesemia Code(s): E83.42 - HYPOMAGNESEMIA (9) Hypokalemia Code(s): E87.6 - HYPOKALEMIA
[2016-08-16 09:25] LABS: METAMYELOCYTE 2 % (0-2); PLATELET ESTIMATE MARKEDLY DECREASED (NORMAL)
[2016-08-16] MEDS: FUROSEMIDE 40 MG/4 ML INJECTABLE VIAL IVPUSH SCH (09:32)
[2016-08-16] MEDS: POTASSIUM CHLORIDE TABS 10 MEQ TABLET.ER (FP) PO SCH ×2 (09:32→21:52)
[2016-08-16] MEDS ORDERED: INSULIN (NOVOLOG) ASPART 100 UNITS/ML 10ML VIAL ONE (18:55)
--- NOTE | 2016-08-16 21:33 | PN ---
Progress Note (short form) - Note Progress Note: Patient seen and examined still with mild LUQ pain Last Vital Signs Temp Pulse Resp BP Pulse Ox 98.0 F 93 H 18 107/64 97 08/16/16 18:23 08/16/16 18:23 08/16/16 18:23 08/16/16 18:23 08/16/16 09:00 Cor: RSR, No murmurs, No gallops Lungs: Clear to P&A Abd: Soft, BS+, LUQ tenderness Ext:No significant edema Labs reviewed A/P 81 y/o patient with h/o ovarian cancer, in remission after 1st recurrence, in 2011, comes in with vomiting, abdominal distention, pancytopenia Pancytopenia -- macrocytosis and splenomegaly B12/folate/TSH --nl ? 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 considering vidaza transfusion support
[2016-08-17] MEDS: POLYETHYLENE GLYCOL 3350 119 GM BTL PO SCH ×3 (05:43→22:27)
[2016-08-17] MEDS: METOCLOPRAMIDE HCL 10 MG TABLET (FP) PO SCH ×3 (06:15→17:25)
[2016-08-17] MEDS: INSULIN SLIDING SCALE (NOVOLOG) 1 VIAL SQ SCH ×4 (06:15→22:26)
[2016-08-17 07:08] LABS: MCH 32.4 pg (25.7-33.7); MCHC 34.6 g/dl (32.0-36.0); MEAN CELL VOLUME 93.6 fl (80-96); MEAN PLT VOLUME 7.7 fl (7.5-11.1); RDW 19.4 % (11.6-15.6); WHITE BLOOD COUNT 7.1 K/mm3 (4.0-10.0)
[2016-08-17 07:18] LABS: PLATELET COUNT 17 K/MM3 (134-434)
[2016-08-17 07:27] LABS: CALCIUM 7.7 mg/dL (8.5-10.1); COCKROFT - GAULT 104.4055; CREATININE 0.4 mg/dL (0.55-1.02)
[2016-08-17 08:56] LABS: ANISOCYTOSIS 1+; PLATELET ESTIMATE MARKEDLY DECREASED (NORMAL); POLYCHROMASIA 1+
--- NOTE | 2016-08-17 08:57 | PN ---
Progress Note, Physician Chief Complaint: less weak and SOB today after 1 unit packed cells. History of Present Illness: Patient still in limbo waiting for final report from Bone Marrow study. [place] SOB today after 1 unit of packed cells but platelets down to 17,000. Some bruising no active bleeding. fair appetite; scant BM. Some epigastric discomfort overnite. - Current Medication List Current Medications: Active Medications Furosemide (Lasix Injection -) 40 mg IVPUSH DAILY [facility] Last Admin: 08/16/16 09:32 Dose: 40 mg Guaifenesin (Robitussin -) 10 ml PO Q6H PRN PRN Reason: COUGH Last Admin: 08/07/16 21:48 Dose: 10 ml Insulin Aspart (Novolog Vial Sliding Scale -) 1 vial SQ ACHS JOVANA PRN Reason: Protocol Last Admin: 08/17/16 06:15 Dose: Not Given Metoclopramide HCl (Reglan -) 10 mg PO TIDAC [facility] Last Admin: 08/17/16 06:15 Dose: 10 mg Ondansetron HCl (Zofran Injection) 4 mg IVPB Q8H PRN PRN Reason: NAUSEA Last Admin: 08/06/16 12:32 Dose: 4 mg Polyethylene Glycol (Miralax (For Daily Use) -) 17 gm PO TID [facility] Last Admin: 08/17/16 05:43 Dose: Not Given Potassium Chloride (K-Dur -) 10 meq PO BID [facility] Last Admin: 08/16/16 21:52 Dose: 10 meq - Objective Vital Signs: Vital Signs Temperature 97.8 F 08/17/16 05:46 Pulse Rate 82 08/17/16 05:46 Respiratory Rate 20 08/17/16 05:46 Blood Pressure 123/64 08/17/16 05:46 O2 Sat by Pulse Oximetry (%) 97 08/16/16 21:00 Constitutional: Yes: Anxious, Pallor Cardiovascular: Yes: Tachycardia Respiratory: Yes: Diminished. No: Rales, Wheezes Gastrointestinal: Yes: Soft, Distention, Hypoactive Bowel Sounds, Tenderness, Epigastrium (slight epigastric tenderness) Genitourinary: No: Campbell Present Edema: LLE: 2+, RLE: 2+ Neurological: Yes: Alert, Oriented Labs: CBC, BMP 08/17/16 06:00 08/17/16 06:00 INR, PTT INR 1.55 (0.82-1.09) H 08/09/16 06:10 Problem List - Problems (1) Thrombocytopenia Assessment/Plan: Down to 17,000; await Heme decision on Platelet transfusion Code(s): D69.6 - THROMBOCYTOPENIA, UNSPECIFIED (2) Abdominal pain Assessment/Plan: today epigastric area; will add Famotidine and EKG Code(s): R10.9 - UNSPECIFIED ABDOMINAL PAIN Qualifiers: Abdominal location: generalized Qualified Code(s): R10.84 - Generalized abdominal pain (3) Anemia Assessment/Plan: Up to 8.3 GM after 1 unit packed cells. Code(s): D64.9 - ANEMIA, UNSPECIFIED Qualifiers: Anemia type: unspecified type Qualified Code(s): D64.9 - Anemia, unspecified (4) Cough Assessment/Plan: Not preent today. Code(s): R05 - COUGH (5) Diabetes mellitus, new onset Assessment/Plan: [facility]'s stable. Code(s): E11.9 - TYPE 2 DIABETES MELLITUS WITHOUT COMPLICATIONS (6) Ileus Code(s): K56.7 - ILEUS, UNSPECIFIED (7) History of ovarian cancer Code(s): Z85.43 - PERSONAL HISTORY OF MALIGNANT NEOPLASM OF OVARY (8) Hypomagnesemia Code(s): E83.42 - HYPOMAGNESEMIA (9) Hypokalemia Code(s): E87.6 - HYPOKALEMIA
[2016-08-17] MEDS: POTASSIUM CHLORIDE TABS 10 MEQ TABLET.ER (FP) PO SCH ×2 (10:16→22:28)
[2016-08-17] MEDS: FUROSEMIDE 40 MG/4 ML INJECTABLE VIAL IVPUSH SCH (10:17)
[2016-08-17] MEDS: RANITIDINE HCL 150 MG TABLET (FP) PO SCH ×2 (10:17→22:27)
[2016-08-17] MEDS ORDERED: INSULIN (NOVOLOG) ASPART 100 UNITS/ML 10ML VIAL ONE (11:43)
--- NOTE | 2016-08-17 12:20 | EKG ---
Test Reason : Blood Pressure : / mmHG Vent. Rate : 088 BPM Atrial Rate : 088 BPM P-R Int : 162 ms QRS Dur : 090 ms QT Int : 378 ms P-R-T Axes : 054 016 037 degrees QTc Int : 457 ms NORMAL SINUS RHYTHM NORMAL ECG WHEN COMPARED WITH ECG OF 31-JUL-2016 14:11, NO SIGNIFICANT CHANGE WAS FOUND Confirmed by HIPOLITO HUNTLEY MD ([id number]) on 08/17/2016 12:19:48 PM Referred By: Confirmed By:HIPOLITO HUNTLEY MD
--- NOTE | 2016-08-17 15:31 | PN ---
Progress Note (short form) - Note Progress Note: Patient seen and examined still with mild LUQ pain weak Last Vital Signs Temp Pulse Resp BP Pulse Ox 97.6 F 96 H 22 113/72 100 08/17/16 14:18 08/17/16 14:18 08/17/16 14:18 08/17/16 14:18 08/17/16 09:00 Cor: RSR, No murmurs, No gallops Lungs: Clear to P&A Abd: Soft, BS+, LUQ tenderness Ext:No significant edema Abnormal Lab Results 08/15/16 08/17/16 08/17/16 06:00 06:00 06:00 RBC 2.54 L Hgb 8.2 L D Hct 23.8 L RDW 19.4 H D Plt Count 17 L* Neutrophils % 93.0 H Lymphocytes % 6.0 L D Monocytes % 1.0 L Sodium 129 L Chloride 91 L BUN 21 H Creatinine 0.4 L Random Glucose 129 H Calcium 7.7 L Tryptase 5430.0 H Home Medication List Medication Instructions Recorded Confirmed Type Amlodipine Besylate 5 mg PO DAILY 07/31/16 08/01/16 History Atenolol [Tenormin -] 50 mg PO DAILY 07/31/16 08/01/16 History Chlorthalidone 25 mg PO DAILY 07/31/16 08/01/16 History Glipizide [Glipizide ER] 2.5 mg PO DAILY 07/31/16 08/01/16 History Metformin HCl 500 mg PO DAILY 07/31/16 08/01/16 History Active Medications Generic Name Dose Route Start Last Admin Trade Name Oliverio PRN Reason Stop Dose Admin Furosemide 40 mg 08/14/16 10:00 08/17/16 10:17 Lasix Injection - IVPUSH 40 mg DAILY JOVANA Administration Guaifenesin 10 ml 08/02/16 20:40 08/07/16 21:48 Robitussin - PO 10 ml Q6H PRN Administration COUGH Insulin Aspart 1 vial 08/01/16 07:00 08/17/16 12:13 Novolog Vial Sliding Scale - SQ 2 unit ACHS JOVANA Administration Protocol Metoclopramide HCl 10 mg 08/08/16 16:30 08/17/16 10:17 Reglan - PO 10 mg TIDAC JOVANA Administration Ondansetron HCl 4 mg 07/31/16 23:25 08/06/16 12:32 Zofran Injection IVPB 4 mg Q8H PRN Administration NAUSEA Polyethylene Glycol 17 gm 08/05/16 22:00 08/17/16 05:43 Miralax (For Daily Use) - PO Not Given TID JOVANA Potassium Chloride 10 meq 08/14/16 10:00 08/17/16 10:16 K-Dur - PO 10 meq BID JOVANA Administration Ranitidine HCl 150 mg 08/17/16 10:00 08/17/16 10:17 Zantac - PO 150 mg BID JOVANA Administration A/P 81 y/o patient with h/o ovarian cancer, in remission after 1st recurrence, in 2011, comes in with vomiting, abdominal distention, pancytopenia Pancytopenia -- macrocytosis and splenomegaly B12/folate/TSH --nl marrow pathology ---mast cells in the marrow_ MLL gene and 5p---- and 2 cells with multiple cytogenetic 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 But not a candidate given her age awaiting CKIT mutation--if negative may consider gleevec 100mg/day ? carine in adition transfusion support PAtient keen on going home. Will arrange for d/c early next week. discussed with her niece in great detail
[2016-08-18] MEDS: INSULIN SLIDING SCALE (NOVOLOG) 1 VIAL SQ SCH ×4 (06:18→21:23)
[2016-08-18] MEDS: METOCLOPRAMIDE HCL 10 MG TABLET (FP) PO SCH ×3 (06:19→16:41)
[2016-08-18] MEDS: POLYETHYLENE GLYCOL 3350 119 GM BTL PO SCH ×3 (06:19→21:20)
[2016-08-18 07:26] LABS: MCH 32.4 pg (25.7-33.7); MEAN CELL VOLUME 95.3 fl (80-96); MEAN PLT VOLUME 8.3 fl (7.5-11.1); RDW 19.2 % (11.6-15.6); WHITE BLOOD COUNT 6.7 K/mm3 (4.0-10.0)
[2016-08-18 07:37] LABS: PLATELET COUNT 19 K/MM3 (134-434)
[2016-08-18 07:55] LABS: CALCIUM 7.3 mg/dL (8.5-10.1); COCKROFT - GAULT 104.4055; CREATININE 0.4 mg/dL (0.55-1.02)
[2016-08-18 09:19] LABS: PLATELET ESTIMATE MARKEDLY DECREASED (NORMAL)
--- NOTE | 2016-08-18 09:53 | PN ---
Progress Note (short form) - Note Progress Note: Patient feels weak and worried but understands we are waiting for 1 more gene mutation study CKIT. If it is negative we will begin Gleevac. I have already gotten pharmacy approval from [employer] if she needs the Rx. No cough Tolerated diet well No chest pain On Exam: Vital Signs Period Temp Pulse Resp BP Sys/Belle Pulse Ox Last 24 Hr 97.2 F-98.8 F 83-98 18-22 101-121/55-72 100 Alert Pale 2+ edema Abd slightly distended but soft Cor: reg Abnormal Lab Results 08/16/16 08/18/16 08/18/16 09:13 06:15 06:15 RBC 2.28 L Hgb 7.4 L Hct 21.7 L RDW 19.2 H Plt Count 19 L* Monocytes % 2.0 L D Myelocytes 3 H D Nucleated RBCs 1 H Sodium 131 L Chloride 95 L Creatinine 0.4 L Calcium 7.3 L Crossmatch See Detail IMP: Mastocytosis +/- Leukemia Hypertension Pancytopenia DM controlled Plan: Transfuse 1 unit PC F/U Lab Await final genetic study. Problem List - Problems (1) Thrombocytopenia Code(s): D69.6 - THROMBOCYTOPENIA, UNSPECIFIED (2) Abdominal pain Code(s): R10.9 - UNSPECIFIED ABDOMINAL PAIN Qualifiers: Abdominal location: generalized Qualified Code(s): R10.84 - Generalized abdominal pain (3) Anemia Code(s): D64.9 - ANEMIA, UNSPECIFIED Qualifiers: Anemia type: unspecified type Qualified Code(s): D64.9 - Anemia, unspecified (4) Cough Code(s): R05 - COUGH (5) Diabetes mellitus, new onset Code(s): E11.9 - TYPE 2 DIABETES MELLITUS WITHOUT COMPLICATIONS (6) Ileus Code(s): K56.7 - ILEUS, UNSPECIFIED (7) History of ovarian cancer Code(s): Z85.43 - PERSONAL HISTORY OF MALIGNANT NEOPLASM OF OVARY (8) Hypomagnesemia Code(s): E83.42 - HYPOMAGNESEMIA (9) Hypokalemia Code(s): E87.6 - HYPOKALEMIA
[2016-08-18] MEDS ORDERED: POTASSIUM CHLORIDE TABS 10 MEQ TABLET.ER (FP) PO SCH (10:00)
[2016-08-18] MEDS: RANITIDINE HCL 150 MG TABLET (FP) PO SCH ×2 (10:29→21:20)
[2016-08-18] MEDS: FUROSEMIDE 40 MG TABLET (FP) PO SCH (10:29)
--- NOTE | 2016-08-18 23:42 | PN ---
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 But not a candidate given her age awaiting CKIT mutation--if negative may consider gleevec 100mg/day ? carine in adition transfusion support PAtient keen on going home. Will arrange for d/c early next week. discussed with her niece in great detail
[2016-08-19] MEDS: POLYETHYLENE GLYCOL 3350 119 GM BTL PO SCH ×4 (06:01→23:46)
[2016-08-19] MEDS: METOCLOPRAMIDE HCL 10 MG TABLET (FP) PO SCH ×3 (06:01→16:34)
[2016-08-19] MEDS: INSULIN SLIDING SCALE (NOVOLOG) 1 VIAL SQ SCH ×4 (06:06→23:32)
[2016-08-19 07:28] LABS: MCH 31.6 pg (25.7-33.7); MCHC 33.8 g/dl (32.0-36.0); MEAN CELL VOLUME 93.3 fl (80-96); PLATELET COUNT 19 K/MM3 (134-434); WHITE BLOOD COUNT 6.3 K/mm3 (4.0-10.0)
[2016-08-19 07:47] LABS: CALCIUM 7.9 mg/dL (8.5-10.1); COCKROFT - GAULT 104.4055; CREATININE 0.4 mg/dL (0.55-1.02)
[2016-08-19 08:38] LABS: HYPOCHROMIA 1+; METAMYELOCYTE 2 % (0-2); PLATELET ESTIMATE DECREASED (NORMAL); POLYCHROMASIA 1+
[2016-08-19 08:39] LABS: ANISOCYTOSIS 1+
--- NOTE | 2016-08-19 08:51 | PN ---
Progress Note (short form) - Note Progress Note: Patient seen and examined Chart reviewed at length. Currently awake,alert and appropriate, sitting up in bed in no acute distress. Feels stronger today after receiving a transfusion. Abdominal distention persists. Labs and fitness consultant notes reviewed Awaiting further analysis of labwork in regard to identifying specifics of the pathology Selected Entries 08/19/16 06:00 Temperature 98.6 F Pulse Rate 86 Respiratory 18 Rate Blood Pressure 100/51 Laboratory Tests 08/19/16 08/19/16 06:00 06:00 WBC 6.3 Hgb 9.0 L D Hct 26.5 L D Plt Count 19 L* Sodium 135 L Potassium 3.4 L Chloride 96 L Carbon Dioxide 31 BUN 13 Creatinine 0.4 L Random Glucose 92 Calcium 7.9 L Chest Clear Cor RRR Abd Soft distended BS positive No mass or tenderness Ext Mild peripheral edema Neuro No new focal deficit Assessment and Plan Leukemia/Mastocytosis Awaiting further gene data Anemia Transfuse as needed Thrombocytopenia 19K Abdominal pain and distention Pain improved currently Monitor ileus H/O Ovarian Cancer Monitor in light of distention Hypomagnesemia Monitor Hypokalemia 3.4 DM controlled Continue current Rx Await lab data
[2016-08-19] MEDS: RANITIDINE HCL 150 MG TABLET (FP) PO SCH ×2 (09:09→23:32)
[2016-08-19] MEDS: POTASSIUM CHLORIDE TABS 20 MEQ TABLET.ER (FP) PO SCH (09:10)
[2016-08-19] MEDS: FUROSEMIDE 40 MG TABLET (FP) PO SCH (09:10)
[2016-08-19] MEDS ORDERED: ACETAMINOPHEN 325 MG TABLET (FP) PO PRN (14:27)
[2016-08-19] MEDS ORDERED: INSULIN (NOVOLOG) ASPART 100 UNITS/ML 10ML VIAL ONE ×2 (16:30→23:28)
--- NOTE | 2016-08-19 22:19 | PN ---
Progress Note (short form) - Note Progress Note: Patient seen and examined ambulating Last Vital Signs Temp Pulse Resp BP Pulse Ox 98.1 F 86 18 100/56 90 L 08/19/16 18:18 08/19/16 18:18 08/19/16 18:18 08/19/16 18:18 08/19/16 09:14 Cor: RSR, No murmurs, No gallops Lungs: Clear to P&A Abd: Soft, BS+, LUQ tenderness Ext:No significant edema Abnormal Lab Results 08/16/16 08/19/16 08/19/16 09:13 06:00 06:00 RBC 2.84 L D Hgb 9.0 L D Hct 26.5 L D RDW 20.0 H Plt Count 19 L* Sodium 135 L Potassium 3.4 L Chloride 96 L Creatinine 0.4 L Calcium 7.9 L Crossmatch See Detail Active Medications Generic Name Dose Route Start Last Admin Trade Name Freq PRN Reason Stop Dose Admin Acetaminophen 650 mg 08/19/16 14:27 08/19/16 14:32 Tylenol - PO 650 mg Q6H PRN Administration PAIN Furosemide 40 mg 08/18/16 10:00 08/19/16 09:10 Lasix - PO 40 mg DAILY JOVANA Administration Guaifenesin 10 ml 08/02/16 20:40 08/07/16 21:48 Robitussin - PO 10 ml Q6H PRN Administration COUGH Insulin Aspart 1 vial 08/01/16 07:00 08/19/16 16:38 Novolog Vial Sliding Scale - SQ Not Given ACHS JOVANA Protocol Metoclopramide HCl 10 mg 08/08/16 16:30 08/19/16 16:34 Reglan - PO 10 mg TIDAC JOVANA Administration Ondansetron HCl 4 mg 07/31/16 23:25 08/06/16 12:32 Zofran Injection IVPB 4 mg Q8H PRN Administration NAUSEA Polyethylene Glycol 17 gm 08/05/16 22:00 08/19/16 13:10 Miralax (For Daily Use) - PO Not Given TID JOVANA Potassium Chloride 20 meq 08/19/16 08:53 08/19/16 09:10 K-Dur - PO 20 meq DAILY JOVANA Administration Ranitidine HCl 150 mg 08/17/16 10:00 08/19/16 09:09 Zantac - PO 150 mg BID JOVANA Administration A/P 81 y/o patient with h/o ovarian cancer, in remission after 1st recurrence, in 2011, comes in with vomiting, abdominal distention, pancytopenia Pancytopenia -- macrocytosis and splenomegaly B12/folate/TSH --nl marrow pathology ---mast cells in the marrow_ MLL gene and 5p---- and 2 cells with multiple cytogenetic 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 But not a candidate given her age awaiting CKIT mutation--if negative may consider gleevec 100mg/day ? carine in adition transfusion support PAtient keen on going home. Will arrange for d/c early next week. discussed with her niece in great detail
[2016-08-20] MEDS: INSULIN SLIDING SCALE (NOVOLOG) 1 VIAL SQ SCH ×4 (06:24→21:35)
[2016-08-20] MEDS: METOCLOPRAMIDE HCL 10 MG TABLET (FP) PO SCH ×3 (06:24→16:30)
[2016-08-20] MEDS: POLYETHYLENE GLYCOL 3350 119 GM BTL PO SCH ×3 (06:24→21:35)
[2016-08-20 07:15] LABS: MCH 32.6 pg (25.7-33.7); MCHC 34.7 g/dl (32.0-36.0); MEAN CELL VOLUME 94.1 fl (80-96); MEAN PLT VOLUME 8.6 fl (7.5-11.1); RDW 19.2 % (11.6-15.6); WHITE BLOOD COUNT 7.4 K/mm3 (4.0-10.0)
[2016-08-20 07:20] LABS: PLATELET COUNT 32 K/MM3 (134-434)
[2016-08-20 07:49] LABS: ALBUMIN 2.3 g/dl (3.4-5.0); ALK PHOS 131 U/L (45-117); ANION GAP 8 (8-16); BILIRUBIN,TOTAL 1.1 mg/dL (0.2-1.0); CALCIUM 8.2 mg/dL (8.5-10.1); CO2 31 mmol/L (21-32); CREATININE 0.5 mg/dL (0.55-1.02); GLUCOSE,RANDOM 107 mg/dL (74-106); MAGNESIUM 1.6 mg/dL (1.8-2.4); SGOT/AST 14 U/L (15-37); SGPT/ALT 17 U/L (12-78); TOT PROT 4.6 g/dl (6.4-8.2)
--- NOTE | 2016-08-20 08:40 | PN ---
Progress Note (short form) - Note Progress Note: Patient seen and examined Chart reviewed. Currently awake,alert and appropriate , sitting up in chair, in no acute distress. Continues to feel stronger after having received a transfusion. Abdominal distention persists and patient notes less LUQ discomfort despite ongoing constipation. Labs and independent marketing consultant notes reviewed Awaiting further analysis of lab work in regard to identifying specifics of the pathology. Selected Entries 08/19/16 08/20/16 21:00 04:44 Temperature 96.4 F L Pulse Rate 82 Respiratory 18 Rate Blood Pressure 104/58 O2 Sat by Pulse 90 L Oximetry (%) Oxygen Delivery Room Air Method Oxygen Flow 21 Rate Laboratory Tests 08/20/16 08/20/16 06:00 06:00 WBC 7.4 Hgb 9.9 L Hct 28.4 L Plt Count 32 L* D Sodium 135 L Potassium 3.8 Chloride 96 L Carbon Dioxide 31 BUN 14 Creatinine 0.5 L D Random Glucose 107 H Calcium 8.2 L Magnesium 1.6 L Total Bilirubin 1.1 H AST 14 L D ALT 17 D Alkaline Phosphatase 131 H D Total Protein 4.6 L Albumin 2.3 L D Chest Clear Cor RRR Abd Soft distended BS positive No mass appreciated Mild tenderness in LUQ Ext Mild peripheral edema in feet and ankles Neuro No new focal deficit Assessment and Plan Leukemia/Mastocytosis Awaiting further gene data Anemia Transfuse as needed Thrombocytopenia 19>>32K Abdominal pain and distention Pain improved currently Monitor ileus H/O Ovarian Cancer Monitor in light of distention Hypomagnesemia Monitor Hypokalemia 3.4>>3.8 Hypomagnesemia 1.6 Replete DM controlled Constipation Poor past response to bid Miralax Try enema in addition Continue current Rx Await lab data
[2016-08-20] MEDS ORDERED: SODIUM PHOSPHATE/NA BIPHOS 133 ML ENEMA PR PRN (09:33)
[2016-08-20] MEDS: FUROSEMIDE 40 MG TABLET (FP) PO SCH (09:40)
[2016-08-20] MEDS: RANITIDINE HCL 150 MG TABLET (FP) PO SCH ×2 (09:40→21:35)
[2016-08-20] MEDS: MAGNESIUM OXIDE 400 MG TABLET (FP) PO SCH ×2 (09:40→21:35)
[2016-08-20] MEDS: POTASSIUM CHLORIDE TABS 20 MEQ TABLET.ER (FP) PO SCH (09:40)
--- NOTE | 2016-08-20 11:48 | PN ---
Progress Note (short form) - Note Progress Note: Patient seen and examined ambulating [employer] about diagnosis inc. systemic mastocytosis for 20 minutes to the patient Vital Signs Period Temp Pulse Resp BP Sys/Belle Pulse Ox Last 24 Hr 96.4 F-98.3 F 82-103 18-20 99-105/56-64 90 Cor: RSR, No murmurs, No gallops Lungs: Clear to P&A Abd: Soft, BS+, LUQ tenderness Ext:No significant edema CBC, BMP 08/20/16 06:00 08/20/16 06:00 Active Medications Generic Name Dose Route Start Last Admin Trade Name Freq PRN Reason Stop Dose Admin Acetaminophen 650 mg 08/19/16 14:27 08/19/16 14:32 Tylenol - PO 650 mg Q6H PRN Administration PAIN Furosemide 40 mg 08/18/16 10:00 08/20/16 09:40 Lasix - PO 40 mg DAILY JOVANA Administration Guaifenesin 10 ml 08/02/16 20:40 08/07/16 21:48 Robitussin - PO 10 ml Q6H PRN Administration COUGH Insulin Aspart 1 vial 08/01/16 07:00 08/20/16 06:24 Novolog Vial Sliding Scale - SQ Not Given ACHS JOVANA Protocol Magnesium Oxide 400 mg 08/20/16 10:00 08/20/16 09:40 Mag-Ox - PO 400 mg BID JOVANA Administration Metoclopramide HCl 10 mg 08/08/16 16:30 08/20/16 06:24 Reglan - PO 10 mg TIDAC JOVANA Administration Ondansetron HCl 4 mg 07/31/16 23:25 08/06/16 12:32 Zofran Injection IVPB 4 mg Q8H PRN Administration NAUSEA Polyethylene Glycol 17 gm 08/05/16 22:00 08/20/16 06:24 Miralax (For Daily Use) - PO 17 gm TID JOVANA Administration Potassium Chloride 20 meq 08/19/16 08:53 08/20/16 09:40 K-Dur - PO 20 meq DAILY JOVANA Administration Ranitidine HCl 150 mg 08/17/16 10:00 08/20/16 09:40 Zantac - PO 150 mg BID JOVANA Administration Sodium Phosphate 133 ml 08/20/16 09:33 08/20/16 09:54 Fleet Adult Rectal Enema - MD 08/20/16 23:59 133 ml ONCE PRN Administration CONSTIPATION A/P 81 y/o patient with h/o ovarian cancer, in remission after 1st recurrence, in 2011, comes in with vomiting, abdominal distention, pancytopenia Pancytopenia -- macrocytosis and splenomegaly B12/folate/TSH --nl marrow pathology ---mast cells in the marrow_ MLL gene and 5p---- and 2 cells with multiple cytogenetic 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 But not a candidate given her age awaiting CKIT mutation--if negative may consider gleevec 100mg/day ? vidaza in addition transfusion support as needed
[2016-08-21] MEDS: INSULIN SLIDING SCALE (NOVOLOG) 1 VIAL SQ SCH ×4 (06:04→21:17)
[2016-08-21] MEDS: METOCLOPRAMIDE HCL 10 MG TABLET (FP) PO SCH ×3 (06:08→16:53)
[2016-08-21] MEDS: POLYETHYLENE GLYCOL 3350 119 GM BTL PO SCH ×3 (06:08→21:15)
[2016-08-21 08:03] LABS: MCH 32.5 pg (25.7-33.7); MEAN CELL VOLUME 95.4 fl (80-96); MEAN PLT VOLUME 8.6 fl (7.5-11.1); RDW 19.3 % (11.6-15.6); WHITE BLOOD COUNT 7.4 K/mm3 (4.0-10.0)
[2016-08-21 08:29] LABS: ANION GAP 12 (8-16); CO2 29 mmol/L (21-32); GLUCOSE,RANDOM 97 mg/dL (74-106)
[2016-08-21 08:33] LABS: ALK PHOS 135 U/L (45-117); BILIRUBIN,TOTAL 1.1 mg/dL (0.2-1.0); COCKROFT - GAULT 104.4055; CREATININE 0.4 mg/dL (0.55-1.02); SGOT/AST 13 U/L (15-37); SGPT/ALT 14 U/L (12-78); TOT PROT 4.2 g/dl (6.4-8.2)
[2016-08-21 08:35] LABS: PLATELET COUNT 27 K/MM3 (134-434)
--- NOTE | 2016-08-21 10:02 | PN ---
Progress Note (short form) - Note Progress Note: Still waiting for final abalysis of CKIT gene mutation and I cant understand the delay as it may mean Gleevac RX if negative! Epigastric pain Sunday but better now; had BM No SOB or cough. Anxious On Exam: Vital Signs Period Temp Pulse Resp BP Sys/Belle Pulse Ox Last 24 Hr 98.1 F-99 F 82-109 18-20 98-119/53-66 94 Alert pale Anxious Chest: Clear Abd: distended but non tender Ext:1+ Edema Abnormal Lab Results 08/21/16 08/21/16 06:50 06:50 RBC 2.80 L Hgb 9.1 L Hct 26.7 L RDW 19.3 H Plt Count 27 L* Chloride 95 L Creatinine 0.4 L Calcium 8.0 L Total Bilirubin 1.1 H AST 13 L Alkaline Phosphatase 135 H Total Protein 4.2 L Albumin 2.0 L IMP: Mastocytosis +/- MGUS or leukemia Pancytopenia Ileus Hyertension NIDDM Plan: Await final Bone Marrow report F/U lab PT Problem List - Problems (1) Thrombocytopenia Code(s): D69.6 - THROMBOCYTOPENIA, UNSPECIFIED (2) Abdominal pain Code(s): R10.9 - UNSPECIFIED ABDOMINAL PAIN Qualifiers: Abdominal location: generalized Qualified Code(s): R10.84 - Generalized abdominal pain (3) Anemia Code(s): D64.9 - ANEMIA, UNSPECIFIED Qualifiers: Anemia type: unspecified type Qualified Code(s): D64.9 - Anemia, unspecified (4) Cough Code(s): R05 - COUGH (5) Diabetes mellitus, new onset Code(s): E11.9 - TYPE 2 DIABETES MELLITUS WITHOUT COMPLICATIONS (6) Ileus Code(s): K56.7 - ILEUS, UNSPECIFIED (7) History of ovarian cancer Code(s): Z85.43 - PERSONAL HISTORY OF MALIGNANT NEOPLASM OF OVARY (8) Hypomagnesemia Code(s): E83.42 - HYPOMAGNESEMIA (9) Hypokalemia Code(s): E87.6 - HYPOKALEMIA
[2016-08-21 10:34] LABS: METAMYELOCYTE 2 % (0-2)
[2016-08-21 10:35] LABS: PLATELET ESTIMATE MARKEDLY DECREASED (NORMAL)
[2016-08-21] MEDS: FUROSEMIDE 40 MG TABLET (FP) PO SCH (10:46)
[2016-08-21] MEDS: MAGNESIUM OXIDE 400 MG TABLET (FP) PO SCH ×2 (10:46→21:16)
[2016-08-21] MEDS: POTASSIUM CHLORIDE TABS 20 MEQ TABLET.ER (FP) PO SCH (10:46)
[2016-08-21] MEDS: RANITIDINE HCL 150 MG TABLET (FP) PO SCH ×2 (10:47→21:16)
[2016-08-21] MEDS ORDERED: INSULIN (NOVOLOG) ASPART 100 UNITS/ML 10ML VIAL ONE (12:13)
[2016-08-21] MEDS: guaiFENesin 200 MG/10 ML 10 ML UNIT-DOSE CUPS PO PRN (12:22)
--- NOTE | 2016-08-21 22:06 | PN ---
Progress Note (short form) - Note Progress Note: Patient seen and examined ambulating Last Vital Signs Temp Pulse Resp BP Pulse Ox 97.8 F 88 20 107/52 91 L 08/21/16 18:00 08/21/16 18:00 08/21/16 18:00 08/21/16 18:00 08/21/16 09:00 Cor: RSR, No murmurs, No gallops Lungs: Clear to P&A Abd: Soft, BS+, LUQ tenderness Ext:No significant edema Abnormal Lab Results 08/16/16 08/21/16 08/21/16 09:13 06:50 06:50 RBC 2.80 L Hgb 9.1 L Hct 26.7 L RDW 19.3 H Plt Count 27 L* Monocytes % 3.0 L Nucleated RBCs 1 H Chloride 95 L Creatinine 0.4 L Calcium 8.0 L Total Bilirubin 1.1 H AST 13 L Alkaline Phosphatase 135 H Total Protein 4.2 L Albumin 2.0 L Crossmatch See Detail Home Medication List Medication Instructions Recorded Confirmed Type Amlodipine Besylate 5 mg PO DAILY 07/31/16 08/01/16 History Atenolol [Tenormin -] 50 mg PO DAILY 07/31/16 08/01/16 History Chlorthalidone 25 mg PO DAILY 07/31/16 08/01/16 History Glipizide [Glipizide ER] 2.5 mg PO DAILY 07/31/16 08/01/16 History Metformin HCl 500 mg PO DAILY 07/31/16 08/01/16 History Active Medications Generic Name Dose Route Start Last Admin Trade Name Freq PRN Reason Stop Dose Admin Acetaminophen 650 mg 08/19/16 14:27 08/19/16 14:32 Tylenol - PO 650 mg Q6H PRN Administration PAIN Furosemide 40 mg 08/18/16 10:00 08/21/16 10:46 Lasix - PO 40 mg DAILY JOVANA Administration Guaifenesin 10 ml 08/02/16 20:40 08/21/16 12:22 Robitussin - PO 10 ml Q6H PRN Administration COUGH Insulin Aspart 1 vial 08/01/16 07:00 08/21/16 21:17 Novolog Vial Sliding Scale - SQ Not Given ACHS JOVANA Protocol Magnesium Oxide 400 mg 08/20/16 10:00 08/21/16 21:16 Mag-Ox - PO 400 mg BID JOVANA Administration Metoclopramide HCl 10 mg 08/08/16 16:30 08/21/16 16:53 Reglan - PO 10 mg TIDAC JOVANA Administration Ondansetron HCl 4 mg 07/31/16 23:25 08/06/16 12:32 Zofran Injection IVPB 4 mg Q8H PRN Administration NAUSEA Polyethylene Glycol 17 gm 08/05/16 22:00 08/21/16 21:15 Miralax (For Daily Use) - PO 17 gm TID JOVANA Administration Potassium Chloride 20 meq 08/19/16 08:53 08/21/16 10:46 K-Dur - PO 20 meq DAILY JOVANA Administration Ranitidine HCl 150 mg 08/17/16 10:00 08/21/16 21:16 Zantac - PO 150 mg BID JOVANA Administration A/P 81 y/o patient with h/o ovarian cancer, in remission after 1st recurrence, in 2011, comes in with vomiting, abdominal distention, pancytopenia Pancytopenia -- macrocytosis and splenomegaly B12/folate/TSH --nl marrow pathology ---mast cells in the marrow_ MLL gene and 5p---- and 2 cells with multiple cytogenetic 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 Had discussed with her niece last week and patient, aswell as primary team. Plan on d/c plaaning with close outpatient follow up if feasible
[2016-08-22] MEDS: POLYETHYLENE GLYCOL 3350 119 GM BTL PO SCH (06:21)
[2016-08-22] MEDS: METOCLOPRAMIDE HCL 10 MG TABLET (FP) PO SCH ×3 (06:21→16:47)
[2016-08-22] MEDS: INSULIN SLIDING SCALE (NOVOLOG) 1 VIAL SQ SCH ×3 (06:58→16:47)
[2016-08-22 07:35] LABS: MCH 31.5 pg (25.7-33.7); MCHC 32.8 g/dl (32.0-36.0); MEAN CELL VOLUME 96.1 fl (80-96); MEAN PLT VOLUME 8.2 fl (7.5-11.1); RDW 20.8 % (11.6-15.6); WHITE BLOOD COUNT 6.3 K/mm3 (4.0-10.0)
[2016-08-22 07:44] LABS: PLATELET COUNT 24 K/MM3 (134-434)
[2016-08-22 09:17] LABS: METAMYELOCYTE 2 % (0-2)
[2016-08-22] MEDS: MAGNESIUM OXIDE 400 MG TABLET (FP) PO SCH (09:48)
[2016-08-22] MEDS: POTASSIUM CHLORIDE TABS 20 MEQ TABLET.ER (FP) PO SCH (09:48)
[2016-08-22] MEDS: RANITIDINE HCL 150 MG TABLET (FP) PO SCH (09:48)
[2016-08-22] MEDS: FUROSEMIDE 40 MG TABLET (FP) PO SCH (09:48)
[2016-08-22] MEDS: guaiFENesin 200 MG/10 ML 10 ML UNIT-DOSE CUPS PO PRN (11:45)
[2016-08-22] MEDS ORDERED: INSULIN (NOVOLOG) ASPART 100 UNITS/ML 10ML VIAL ONE (12:17)
[2016-08-22 13:45] VITALS: BP 116/63; PULSE 105; TEMP 97.3
--- NOTE | 2016-08-22 13:52 | DS ---
Physical Examination Vital Signs: Vital Signs Temperature 97.3 F L 08/22/16 13:40 Pulse Rate 105 H 08/22/16 13:40 Respiratory Rate 20 08/22/16 13:40 Blood Pressure 116/63 08/22/16 13:40 O2 Sat by Pulse Oximetry (%) 96 08/22/16 09:00 Constitutional: Yes: Calm, Pallor HENT: No: Thrush Cardiovascular: Yes: Regular Rate and Rhythm Respiratory: Yes: Diminished. No: Rales Gastrointestinal: Yes: Soft, Distention, Hyperactive Bowel Sounds Edema: LLE: 1+, RLE: 1+ Neurological: Yes: Alert, Oriented Labs: CBC, BMP 08/22/16 06:00 08/21/16 06:50 Discharge Summary Reason For Visit: ABD PAIN Current Active Problems Acute svere Mastocytosis Acute Myelogenous Leukemia Abdominal pain (Acute) Anemia (Acute) History of ovarian cancer (Acute) Hypokalemia (Acute) Hypomagnesemia (Acute) Ileus (Acute) Pancytopenia (Acute) Thrombocytopenia (Acute) NIDDM Hypertension Procedures: Principal: Cat Scan to evaluate cause of SBO. IV RX. Bone Marrow Bx to R/O Acute Leukemia Other Procedures: Followup blood counts and 2 transfusions of packed cells. Hospital Course: Ill but stable and final genetic study in Bone Marrow makes her a candidate for Gleevac 100mg a day. SNF post hospital and the hopefully home. Orders for CBC TIW written Condition: Stable - Instructions Diet, Activity, Other Instructions: Soft diet with limiting of concentrated sweets. CBC's every Sunday and Sunday to check Hb , WBC and platelets. PT for ambulation. Gleevac 100mg to be taken daily; patient to bring with her to SNF. Shw was on Metformin, Atenolol and amodipine in the past but not on currently. Please do BGM each AM Referrals: Rupesh Gonsalez MD [Primary Care Provider] - Jesse Merrill MD [Staff Physician] - Disposition: CUSTODIAL FACILITY - Home Medications Comprehensive Discharge Medication List: Ambulatory Orders Acetaminophen [Tylenol .Regular Strength -] 650 mg PO Q6H PRN #0 tablet Furosemide [Lasix -] 40 mg PO DAILY tablet 08/22/16 Insulin Sliding Scale [Novolog Vial Sliding Scale -] 1 vial SQ ACHS units 08/22 Magnesium Oxide [Mag-Ox -] 400 mg PO BID tablet 08/22/16 Metoclopramide HCl [Reglan -] 10 mg PO TIDAC tablet 08/22/16 Polyethylene Glycol 3350 [Miralax 119 gm Btl -] 17 gm PO DAILY bottle 08/22/16 Potassium Chloride [K-Dur -] 20 meq PO DAILY tab.sr 08/22/16 Ranitidine [Zantac -] 150 mg PO BID tablet 08/22/16
--- NOTE | 2016-08-22 16:40 | PN ---
Progress Note (short form) - Note Progress Note: Patient seen and examined Scheduled for NE trnsfer. 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 Will need to discuss this with patient in future. Last Vital Signs Temp Pulse Resp BP Pulse Ox 97.3 F L 105 H 20 116/63 96 08/22/16 13:40 08/22/16 13:40 08/22/16 13:40 08/22/16 13:40 08/22/16 09:00 HEENT: KARL, EOM Intact Oropharynx: No thrush, No mucositis Breasts: Without masses Cor: RSR, No murmurs, No gallops Lungs: Clear to P&A Abd: Soft, Normal bowel sounds, No organomegaly Ext:LE edema --R>L edema Skin: No rashes, Integument intact CBC, BMP 08/22/16 06:00 08/21/16 06:50 Impression: Mastocytosis with MDS For Gleevac therapy Anemia Thrombocytopenia Consideration for hypomethylating agent in future. Problem List - Problems (1) History of ovarian cancer Code(s): Z85.43 - PERSONAL HISTORY OF MALIGNANT NEOPLASM OF OVARY (2) Abdominal pain Code(s): R10.9 - UNSPECIFIED ABDOMINAL PAIN Qualifiers: Abdominal location: generalized Qualified Code(s): R10.84 - Generalized abdominal pain (3) Anemia Code(s): D64.9 - ANEMIA, UNSPECIFIED Qualifiers: Anemia type: unspecified type Qualified Code(s): D64.9 - Anemia, unspecified
[2016-08-23] MEDS ORDERED: POLYETHYLENE GLYCOL 3350 119 GM BTL PO SCH (10:00)
== END 2016-08-22 18:37 | DRG 835 ==
LOC: JER 12:46 → JERBED 21:07 → UNDOADMIN 22:51 → JERBED 22:51 → J7W 08-01 00:56
PROVIDERS: ADMIT Internal Medicine; ATTEND Internal Medicine
PROC: 30233N1 Transfusion of Nonautologous Red Blood Cells into Peripheral Vein, Percutaneous Approach (ICD-10-PCS; principal; 2016-07-31)
PROC: 07DR3ZX Extraction of Iliac Bone Marrow, Percutaneous Approach, Diagnostic (ICD-10-PCS; 2016-08-07)
DX: C92.00 Acute myeloblastic leukemia, not having achieved remission (principal); E87.1 Hypo-osmolality and hyponatremia; K86.2 Cyst of pancreas; K56.7 Ileus, unspecified; D61.818 Other pancytopenia; K56.60 Unspecified intestinal obstruction; R18.8 Other ascites; J90 Pleural effusion, not elsewhere classified; D47.0 Mast cell neoplasms of uncertain behavior; E11.9 Type 2 diabetes mellitus without complications; I10 Essential (primary) hypertension; Z85.43 Personal history of malignant neoplasm of ovary; D50.9 Iron deficiency anemia, unspecified; E83.42 Hypomagnesemia; D69.6 Thrombocytopenia, unspecified; D46.9 Myelodysplastic syndrome, unspecified; R16.1 Splenomegaly, not elsewhere classified; K59.04 Chronic idiopathic constipation
CPT/HCPCS: 36415; 36430; 71020-TC; 74000-TC; 74020-TC; 74177-TC; 74178-TC; 80048; 80053; 81003; 82150; 82272; 82378; 82550; 82607; 82728; 82747; 83036; 83520; 83540; 83550; 83615; 83690; 83735; 83880; 84100; 84439; 84443; 84484; 85014; 85025; 85044; 85610; 85651; 85730; 86038; 86301; 86304; 86431; 86704; 86706; 86708; 86850; 86900; 86901; 86922; 87040; 87086; 87324; 87340; 87449; 88300-TC; 88305-TC; 88311-TC; 88313-TC; 93005; 93010; 93970-TC; 97116-GP; 97162-PG; 99285-25; P9038; P9058; Q9967

== ENCOUNTER 2016-08-26 09:14 | Inpatient (IN) | payer OTHER ==
[2016-08-26 09:24] VITALS: BMI 23.0
--- NOTE | 2016-08-26 09:34 | PDOC ---
History of Present Illness - General Chief Complaint: Revisit, Lab Variance Stated Complaint: ABD LAB Time Seen by Provider: 08/26/16 09:17 Past History - Past Medical History Allergies/Adverse Reactions: Allergies Allergy/AdvReac Type Severity Reaction Status Date / Time No Known Drug Allergies Allergy Verified 08/26/16 09:24 Home Medications: Ambulatory Orders Acetaminophen [Tylenol .Regular Strength -] 650 mg PO Q6H PRN #0 tablet Furosemide [Lasix -] 40 mg PO DAILY tablet 08/22/16 Magnesium Oxide [Mag-Ox -] 400 mg PO BID tablet 08/22/16 Metoclopramide HCl [Reglan -] 10 mg PO TIDAC tablet 08/22/16 Polyethylene Glycol 3350 [Miralax 119 gm Btl -] 17 gm PO DAILY bottle 08/22/16 Potassium Chloride [K-Dur -] 20 meq PO DAILY tab.sr 08/22/16 Ranitidine [Zantac -] 150 mg PO BID tablet 08/22/16 Aa/Hydrolyzed Collagen, Whey [Lps 15-30 Liquid] 30 ml PO TID 08/26/16 Allopurinol 300 mg PO DAILY 08/26/16 Imatinib Mesylate [Gleevec] 100 mg PO DAILY 08/26/16 Multivitamin [Poly-Vitamin] 1 each PO DAILY 08/26/16 Anemia: Yes Cancer: Yes (OVARIAN AND SKIN CA) Diabetes: Yes GI Disorders: Yes (hernia, constipation) Disorders: Yes HTN: Yes Other medical history: magnesium deficiency, hypokalemia, hyperurecemia - Surgical History Abdominal Surgery: Yes (HYSTERECTOMY) - Psycho/Social/Smoking Cessation Hx Anxiety: No Suicidal Ideation: No Smoking History: Never smoked Have you smoked in the past 12 months: No Number of Cigarettes Smoked Daily: 0 Cigars Per Day: 0 Information on smoking cessation initiated: No Hx Alcohol Use: No Drug/Substance Use Hx: No Substance Use Type: None Hx Substance Use Treatment: No *Physical Exam - Vital Signs Last Vital Signs Temp Pulse Resp BP Pulse Ox 98.1 F 88 18 122/56 95 08/26/16 09:18 08/26/16 09:18 08/26/16 09:18 08/26/16 09:18 08/26/16 09:18 Heart Score/ECG Review - ECG Intrepretation Rhythm: Regular Rhythm (nsr at 90 nl axis) ED Treatment Course - LABORATORY CBC & Chemistry Diagram: 08/26/16 09:50 08/26/16 09:50 Medical Decision Making - Medical Decision Making 08/26/16 09:56 The patient was seen and evaluated in conjunction with AMANDEEP Arguelles under my direct supervision, ancillary studies were reviewed. I independently interviewed and evaluated the patient and I agree with the plan as outlined by AMANDEEP Arguelles. 08/26/16 12:45 Pt's labs noted, pt has agreed to admission for blood transfusion and platelets , pt stable at time of this note. *DC/Admit/Observation/Transfer Diagnosis at time of Disposition: Anemia, GI bleed - Referrals Referrals: Andrei Baker MD [Primary Care Provider] -
[2016-08-26 10:08] LABS: MCH 32.5 pg (25.7-33.7); MCHC 32.7 g/dl (32.0-36.0); MEAN CELL VOLUME 99.1 fl (80-96); MEAN PLT VOLUME 8.7 fl (7.5-11.1); RDW 23.6 % (11.6-15.6); WHITE BLOOD COUNT 6.8 K/mm3 (4.0-10.0)
[2016-08-26 10:11] LABS: PLATELET COUNT 14 K/MM3 (134-434)
[2016-08-26 10:20] LABS: INR 1.39 (0.82-1.09); PROTHROMBIN TIME (PATIENT) 15.4 SEC (9.98-11.88)
[2016-08-26 10:27] LABS: ALBUMIN 2.2 g/dl (3.4-5.0); ANION GAP 9 (8-16); BILIRUBIN,TOTAL 1.3 mg/dL (0.2-1.0); CO2 30 mmol/L (21-32); COCKROFT - GAULT 70.5585; CREATININE 0.6 mg/dL (0.55-1.02); GLUCOSE,RANDOM 102 mg/dL (74-106); SGOT/AST 10 U/L (15-37); SGPT/ALT 12 U/L (12-78); TOT PROT 4.3 g/dl (6.4-8.2)
[2016-08-26 10:30] LABS: ALK PHOS 118 U/L (45-117); TROPONIN I < 0.02 ng/ml (0.00-0.05)
[2016-08-26 10:43] LABS: METAMYELOCYTE 3 % (0-2)
[2016-08-26 10:44] LABS: ANISOCYTOSIS 2+; HYPOCHROMIA 2+; MICROCYTOSIS 1+; PLATELET COMMENT2 NO CLOTTING DETECTED; PLATELET ESTIMATE MARKEDLY DECREASED (NORMAL); POIKILOCYTOSIS 2+; POLYCHROMASIA 2+
--- NOTE | 2016-08-26 10:49 | PDOC ---
History of Present Illness - General Chief Complaint: Revisit, Lab Variance Stated Complaint: ABD LAB Time Seen by Provider: 08/26/16 09:17 - History of Present Illness Initial Comments: 08/26/16 10:45 CHIEF COMPLAINT: sent via [place] for labs HISTORY OF PRESENT ILLNESS: 81 year old female with a history of NIDDM, HTN, ovarian ca (s/p chemo in 2007 and 2011, s/p hysterectomy and bilateral oophrectomy), and anemia sent from [facility] for Hg of 6.9. Patient reports mild SOB but denies any chest pain. Patient denies any abdominal pain but reports "a little lightheadedness" upon waking this morning. Patient denies fever, chills, nausea, vomiting, diarrhea, or blood in urine or stool. No recent travel or sick contacts. PAST MEDICAL HISTORY: as per HPI FAMILY HISTORY: Denies SOCIAL HISTORY: Lives at [facility] Denies tobacco, alcohol, illicit drug use. SURGICAL HISTORY: Denies ALLERGIES: No known drug allergies REVIEW OF SYSTEMS General/Constitutional: Denies fever or chills. Denies weakness, weight change. HEENT: Denies change in vision. Denies ear pain or discharge. Denies sore throat. Cardiovascular: "I feel a little short of breath." Denies chest pain or shortness of breath. Respiratory: Denies cough, wheezing, or hemoptysis. Gastrointestinal: Denies nausea, vomiting, diarrhea or constipation. Denies rectal bleeding. Genitourinary: Denies dysuria, frequency, or change in urination. Musculoskeletal: Denies joint or muscle swelling or pain. Denies neck or back pain. Skin and breasts: Denies rash or easy bruising. Neurologic: "I felt a little lightheaded this morning." Denies headache, vertigo , loss of consciousness, or loss of sensation. PHYSICAL EXAM General Appearance: Well-appearing, appropriately dressed. No apparent distress. HEENT: EOMI, PERRLA, normal ENT inspection, normal voice, TMs normal, pharynx normal. No conjunctival pallor. No photophobia, scleral icterus. Neck: Supple. Trachea midline. No tenderness, rigidity, carotid bruit, stridor , lymphadenopathy, or thyromegaly. Respiratory/Chest: Lungs CTAB. No shortness of breath, chest tenderness, respiratory distress, accessory muscle use. No crackles, rales, rhonchi, stridor , wheezing, dullness Cardiovascular: RRR. S1, S2. Vascular Pulses: Dorsalis-Pedis (R): 2+, Dorsalis-Pedis (L): 2+ Gastrointestinal/Abdominal: LUQ tenderness on palpation, splenomegaly appreciated. Normal bowel sounds. Abdomen soft, non-distended. No organomegaly, pulsatile mass, guarding, hernia, hepatomegaly, splenomegaly. Lymphatic: No adenopathy, tenderness. Musculoskeletal/Extremities: 2+ pitting edema to LE b/l. No erythema, tenderness. Normal inspection. FROM of all extremities, normal capillary refill. Pelvis Stable. No CVA tenderness. No tenderness to extremities, pedal edema, swelling, erythema or deformity. Integumentary: Marked ecchymosis to previous IV insertion sites to forearms bilaterally. Appropriate color, dry, warm. 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 Fully oriented, alert. Appropriate mood/affect. Motor strength 5/5. No appreciable EOM palsy, facial droop or sensory deficit. 08/26/16 10:51 08/26/16 10:55 Past History - Past Medical History Allergies/Adverse Reactions: Allergies Allergy/AdvReac Type Severity Reaction Status Date / Time No Known Drug Allergies Allergy Verified 08/26/16 09:24 Home Medications: Ambulatory Orders Acetaminophen [Tylenol .Regular Strength -] 650 mg PO Q6H PRN #0 tablet Allopurinol [Zyloprim -] 300 mg PO DAILY tablet 09/27/16 Dorzolamide HCl [Trusopt 2% -] 1 drop OU BID drop 09/27/16 Furosemide Injection [Lasix Injection -] 100 mg IVPUSH TID@0600,1400,1800 vial 09/27/16 Guaifenesin AC [Robitussin AC -] 5 ml PO QID PRN #0 bottle MDD 20ml 09/27/16 Imatinib Mesylate [Gleevec (Nf) -] 200 mg PO DAILY tablet 09/27/16 Magnesium Oxide [Mag-Ox -] 400 mg PO BID tablet 09/27/16 Metoclopramide HCl [Reglan -] 10 mg PO TIDAC tablet 09/27/16 Multivitamins [Multivit (RH Formulary)] 1 tab PO DAILY tab 09/27/16 Ondansetron Injection [Zofran Injection] 8 mg IVPB Q12H PRN #0 vial 09/27/16 Pantoprazole Sodium [Protonix -] 40 mg PO BID cap 09/27/16 Picc Line Flush [Picc Line Flush -] 8 ml IVPUSH PRN PRN #0 ml 09/27/16 Polyethylene Glycol 3350 [Miralax 119 gm Btl -] 17 gm PO BID bottle 09/27/16 Potassium Chloride [K-Dur -] 20 meq PO QID tab-cap 09/27/16 Prednisone [Deltasone -] 10 mg PO BID tablet 09/27/16 Simethicone [Mylicon -] 80 mg PO QID PRN #0 tab.chew 09/27/16 Timolol 0.5% [Timoptic 0.5%] 1 drop OU BID drop 09/27/16 Triamcinolone 0.1% Cream [Aristocort 0.1% Cream -] 1 applic TP BID applic 09/27 Anemia: Yes Cancer: Yes (OVARIAN AND SKIN CA) Diabetes: Yes GI Disorders: Yes (hernia, constipation) Disorders: Yes HTN: Yes Other medical history: magnesium deficiency, hypokalemia, hyperurecemia - Surgical History Abdominal Surgery: Yes (HYSTERECTOMY) - Psycho/Social/Smoking Cessation Hx Anxiety: No Suicidal Ideation: No Smoking History: Never smoked Have you smoked in the past 12 months: No Number of Cigarettes Smoked Daily: 0 Cigars Per Day: 0 Information on smoking cessation initiated: No Hx Alcohol Use: No Drug/Substance Use Hx: No Substance Use Type: None Hx Substance Use Treatment: No *Physical Exam - Vital Signs Last Vital Signs Temp Pulse Resp BP Pulse Ox 98.1 F 88 18 122/56 96 08/26/16 09:18 08/26/16 09:18 08/26/16 09:18 08/26/16 09:18 08/26/16 09:55 ED Treatment Course - LABORATORY CBC & Chemistry Diagram: 09/27/16 06:00 09/27/16 06:00 - ADDITIONAL ORDERS Additional order review: Laboratory Results 08/26/16 08/26/16 08/26/16 09:50 09:50 09:50 INR 1.39 H Sodium 137 Potassium 4.0 Chloride 98 Carbon Dioxide 30 Anion Gap 9 BUN 24 H D Creatinine 0.6 D Creat Clearance w eGFR > 60 Random Glucose 102 Calcium 8.0 L Magnesium 2.0 D Total Bilirubin 1.3 H AST 10 L D ALT 12 Alkaline Phosphatase 118 H Creatine Kinase 13 L Troponin I < 0.02 B-Natriuretic Peptide 1367.29 H Total Protein 4.3 L Albumin 2.2 L Stool Occult Blood Crossmatch See Detail 08/26/16 09:41 INR Sodium Potassium Chloride Carbon Dioxide Anion Gap BUN Creatinine Creat Clearance w eGFR Random Glucose Calcium Magnesium Total Bilirubin AST ALT Alkaline Phosphatase Creatine Kinase Troponin I B-Natriuretic Peptide Total Protein Albumin Stool Occult Blood Positive Crossmatch 08/26/16 09:50 RBC 2.12 L D MCV 99.1 H MCHC 32.7 RDW 23.6 H D MPV 8.7 Neutrophils % 65.0 Lymphocytes % 16.0 D Monocytes % 4.0 - RADIOLOGY Radiology Studies Ordered: Category Date Time Status CHEST PA & LAT [RAD] Stat Radiology 08/26/16 10:01 Ordered Medical Decision Making - Medical Decision Making 08/26/16 10:55 81 year old female with a history of NIDDM, HTN, ovarian ca (s/p chemo in 2007 and 2011, s/p hysterectomy and bilateral oophrectomy), and anemia sent from [facility] for Hg of 6.9. -EKG, CXR -CBC, CMP, PT/INR, Mg -Guaiac Labs: Hg 6.9, platelets 14 Guaiac positive GI consult paged Heme consult paged *DC/Admit/Observation/Transfer Diagnosis at time of Disposition: Anemia Qualifiers: Anemia type: unspecified type Qualified Code(s): D64.9 - Anemia, unspecified GI bleed Qualifiers: GI bleed type/associated pathology: unspecified gastrointestinal hemorrhage type Qualified Code(s): K92.2 - Gastrointestinal hemorrhage, unspecified - Discharge Dispostion Condition at time of disposition: Guarded Admit: Yes - Referrals
--- NOTE | 2016-08-26 11:17 | EKG ---
Test Reason : Blood Pressure : / mmHG Vent. Rate : 090 BPM Atrial Rate : 090 BPM P-R Int : 138 ms QRS Dur : 086 ms QT Int : 354 ms P-R-T Axes : 041 013 037 degrees QTc Int : 433 ms NORMAL SINUS RHYTHM NORMAL ECG WHEN COMPARED WITH ECG OF 17-AUG-2016 09:07, NO SIGNIFICANT CHANGE WAS FOUND Confirmed by HIPOLITO HUNTLEY MD ([id number]) on 08/26/2016 11:17:24 AM Referred By: Confirmed By:HIPOLITO HUNTLEY MD
[2016-08-26] MEDS ORDERED: PANTOPRAZOLE SODIUM 40 MG in SODIUM CHLORIDE 100 ML IVPB ONE (12:35)
[2016-08-26] MEDS ORDERED: PANTOPRAZOLE SODIUM 100 ML IVPB ONE (13:13)
--- NOTE | 2016-08-26 15:31 | CON.GI ---
Consult Consult Specialty:: Gastroenterology Referred by:: Dr. Gonsalez Reason for Consultation:: Anemia - History of Present Illness Chief Complaint: Weakness and light headed History of Present Illness: 81W recetly transferred to [facility] returns with a Hb 6.5. She denies any overt bleeding and in fact has been constipated. No abdominal pain or hematemesis. 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 She had an EGD and colonoscopy with ri on 10/23/14 which revealed a hiatal hernia and a fundic gland polyp which was removed. Colonoscopy led to the removal of a cecal polyp that proved to be a lymphoid aggregate. Mild diverticulosis and hemorrhoids were noted. 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) Musculoskeletal: Yes: Osteoarthritis Endocrine: Yes: Diabetes Mellitus (developed during stress of illness in 08/13, no longer requiring therapy) - Past Surgical History Past Surgical History: Yes: Cataract Removal, Hernia Repair Additional Surgical History: laparotomy to debulk ovarian cancer - Alcohol/Substance Use Hx Alcohol Use: No History of Substance Use: reports: None - Smoking History Smoking history: Never smoked Have you smoked in the past 12 months: No Aproximately how many cigarettes per day: 0 - Social History Usual Living Arrangement: Correction ADL: Support Services Place of : Other ([place]) History of Recent Travel: No Home Medications - Allergies Allergies/Adverse Reactions: Allergies Allergy/AdvReac Type Severity Reaction Status Date / Time No Known Drug Allergies Allergy Verified 08/26/16 09:24 - Home Medications Home Medications: Ambulatory Orders Acetaminophen [Tylenol .Regular Strength -] 650 mg PO Q6H PRN #0 tablet Furosemide [Lasix -] 40 mg PO DAILY tablet 08/22/16 Magnesium Oxide [Mag-Ox -] 400 mg PO BID tablet 08/22/16 Metoclopramide HCl [Reglan -] 10 mg PO TIDAC tablet 08/22/16 Polyethylene Glycol 3350 [Miralax 119 gm Btl -] 17 gm PO DAILY bottle 08/22/16 Potassium Chloride [K-Dur -] 20 meq PO DAILY tab.sr 08/22/16 Ranitidine [Zantac -] 150 mg PO BID tablet 08/22/16 Aa/Hydrolyzed Collagen, Whey [Lps 15-30 Liquid] 30 ml PO TID 08/26/16 Allopurinol 300 mg PO DAILY 08/26/16 Imatinib Mesylate [Gleevec] 100 mg PO DAILY 08/26/16 Multivitamin [Poly-Vitamin] 1 each PO DAILY 08/26/16 Family Disease History - Family Disease History Family Disease History: CA: Father ( 52 gastric cancer), Brother ( colon cancer age 75), Sister ( of breast cancer), Other: Mother (lived to 92 ) Review of Systems - Review of Systems Constitutional: reports: Loss of Appetite, Weakness Eyes: reports: No Symptoms HENT: reports: No Symptoms Neck: reports: No Symptoms Cardiovascular: reports: No Symptoms Respiratory: reports: No Symptoms Gastrointestinal: reports: Constipation Musculoskeletal: reports: Joint Pain Neurological: reports: No Symptoms Physical Exam-GI Vital Signs: Vital Signs Temperature 98.1 F 08/26/16 14:35 Pulse Rate 83 08/26/16 14:35 Respiratory Rate 14 08/26/16 14:35 Blood Pressure 110/54 08/26/16 14:35 O2 Sat by Pulse Oximetry (%) 95 08/26/16 14:35 CBC,CMP WBC 6.8 K/mm3 (4.0-10.0) 08/26/16 09:50 RBC 2.12 M/mm3 (3.60-5.2) L D 08/26/16 09:50 Hgb 6.9 GM/dL (10.7-15.3) L* D 08/26/16 09:50 Hct 21.0 % (32.4-45.2) L D 08/26/16 09:50 MCV 99.1 fl (80-96) H 08/26/16 09:50 MCHC 32.7 g/dl (32.0-36.0) 08/26/16 09:50 RDW 23.6 % (11.6-15.6) H D 08/26/16 09:50 Plt Count 14 K/MM3 (134-434) L* D 08/26/16 09:50 MPV 8.7 fl (7.5-11.1) 08/26/16 09:50 Neutrophils % 65.0 % (42.8-82.8) 08/26/16 09:50 Lymphocytes % 16.0 % (8-40) D 08/26/16 09:50 Monocytes % 4.0 % (3.8-10.2) 08/26/16 09:50 Band Neutrophils 12.0 % (0-10) H D 08/26/16 09:50 Metamyelocytes 3 % (0-2) H D 08/26/16 09:50 Nucleated RBCs 4 % (0-0) H 08/26/16 09:50 Differential Comment 08/26/16 09:50 Platelet Estimate Markedly decreased (NORMAL) 08/26/16 09:50 Platelet Comment No clumping noted 08/26/16 09:50 Platelet Comment No clotting detected 08/26/16 09:50 Polychromasia 2+ 08/26/16 09:50 Hypochromic-Microcytic 2+ 08/26/16 09:50 Poikilocytosis 2+ 08/26/16 09:50 Anisocytosis 2+ 08/26/16 09:50 Microcytosis 1+ 08/26/16 09:50 Macrocytosis 1+ 08/26/16 09:50 Sodium 137 mmol/L (136-145) 08/26/16 09:50 Potassium 4.0 mmol/L (3.5-5.1) 08/26/16 09:50 Chloride 98 mmol/L (98-107) 08/26/16 09:50 Carbon Dioxide 30 mmol/L (21-32) 08/26/16 09:50 Anion Gap 9 (8-16) 08/26/16 09:50 BUN 24 mg/dL (7-18) H D 08/26/16 09:50 Creatinine 0.6 mg/dL (0.55-1.02) D 08/26/16 09:50 Creat Clearance w eGFR > 60 (>60) 08/26/16 09:50 Random Glucose 102 mg/dL (74-106) 08/26/16 09:50 Calcium 8.0 mg/dL (8.5-10.1) L 08/26/16 09:50 Magnesium 2.0 mg/dL (1.8-2.4) D 08/26/16 09:50 Total Bilirubin 1.3 mg/dL (0.2-1.0) H 08/26/16 09:50 AST 10 U/L (15-37) L D 08/26/16 09:50 ALT 12 U/L (12-78) 08/26/16 09:50 Alkaline Phosphatase 118 U/L (45-117) H 08/26/16 09:50 Creatine Kinase 13 IU/L (26-192) L 08/26/16 09:50 Troponin I < 0.02 ng/ml (0.00-0.05) 08/26/16 09:50 B-Natriuretic Peptide 1367.29 pg/ml (5-450) H 08/26/16 09:50 Total Protein 4.3 g/dl (6.4-8.2) L 08/26/16 09:50 Albumin 2.2 g/dl (3.4-5.0) L 08/26/16 09:50 CBC,CMP WBC 6.8 K/mm3 (4.0-10.0) 08/26/16 09:50 RBC 2.12 M/mm3 (3.60-5.2) L D 08/26/16 09:50 Hgb 6.9 GM/dL (10.7-15.3) L* D 08/26/16 09:50 Hct 21.0 % (32.4-45.2) L D 08/26/16 09:50 MCV 99.1 fl (80-96) H 08/26/16 09:50 MCHC 32.7 g/dl (32.0-36.0) 08/26/16 09:50 RDW 23.6 % (11.6-15.6) H D 08/26/16 09:50 Plt Count 14 K/MM3 (134-434) L* D 08/26/16 09:50 MPV 8.7 fl (7.5-11.1) 08/26/16 09:50 Neutrophils % 65.0 % (42.8-82.8) 08/26/16 09:50 Lymphocytes % 16.0 % (8-40) D 08/26/16 09:50 Monocytes % 4.0 % (3.8-10.2) 08/26/16 09:50 Band Neutrophils 12.0 % (0-10) H D 08/26/16 09:50 Metamyelocytes 3 % (0-2) H D 08/26/16 09:50 Nucleated RBCs 4 % (0-0) H 08/26/16 09:50 Differential Comment 08/26/16 09:50 Platelet Estimate Markedly decreased (NORMAL) 08/26/16 09:50 Platelet Comment No clumping noted 08/26/16 09:50 Platelet Comment No clotting detected 08/26/16 09:50 Polychromasia 2+ 08/26/16 09:50 Hypochromic-Microcytic 2+ 08/26/16 09:50 Poikilocytosis 2+ 08/26/16 09:50 Anisocytosis 2+ 08/26/16 09:50 Microcytosis 1+ 08/26/16 09:50 Macrocytosis 1+ 08/26/16 09:50 Sodium 137 mmol/L (136-145) 08/26/16 09:50 Potassium 4.0 mmol/L (3.5-5.1) 08/26/16 09:50 Chloride 98 mmol/L (98-107) 08/26/16 09:50 Carbon Dioxide 30 mmol/L (21-32) 08/26/16 09:50 Anion Gap 9 (8-16) 08/26/16 09:50 BUN 24 mg/dL (7-18) H D 08/26/16 09:50 Creatinine 0.6 mg/dL (0.55-1.02) D 08/26/16 09:50 Creat Clearance w eGFR > 60 (>60) 08/26/16 09:50 Random Glucose 102 mg/dL (74-106) 08/26/16 09:50 Calcium 8.0 mg/dL (8.5-10.1) L 08/26/16 09:50 Magnesium 2.0 mg/dL (1.8-2.4) D 08/26/16 09:50 Total Bilirubin 1.3 mg/dL (0.2-1.0) H 08/26/16 09:50 AST 10 U/L (15-37) L D 08/26/16 09:50 ALT 12 U/L (12-78) 08/26/16 09:50 Alkaline Phosphatase 118 U/L (45-117) H 08/26/16 09:50 Creatine Kinase 13 IU/L (26-192) L 08/26/16 09:50 Troponin I < 0.02 ng/ml (0.00-0.05) 08/26/16 09:50 B-Natriuretic Peptide 1367.29 pg/ml (5-450) H 08/26/16 09:50 Total Protein 4.3 g/dl (6.4-8.2) L 08/26/16 09:50 Albumin 2.2 g/dl (3.4-5.0) L 08/26/16 09:50 Constitutional: Yes: Anxious, Thin Eyes: Yes: Conjunctiva Clear HENT: Yes: Normocephalic Neck: Yes: Supple Cardiovascular: Yes: Regular Rate and Rhythm Respiratory: Yes: CTA Bilaterally Gastrointestinal Inspection: Yes: Scars (healed vertical midline incision) ...Auscultate: Yes: Normoactive Bowel Sounds ...Palpate: Yes: Soft, Splenomegaly, Other (nontender) ...Rectal Exam: Yes: Guaiac Positive (brown g positive stool, no masses) Labs: INR, PTT INR 1.39 (0.82-1.09) H 08/26/16 09:50 Assessment/Plan Believe that bone marrow failure is the major contributor to this anemia and thrombocytopenia. Her occult positive stool is not surprising given her platelet count of 14K. Will empirically give PPI to protect against stress gastritis. Given that her EGD and colonoscopy are less than 2 years old do not feel that she would benefit from repeating them at this time but will reconsider as her situation dictates. Agree with need to transfuse PRBCs and platelets. Case discussed with Dr Merrill.
--- NOTE | 2016-08-26 15:31 | PN ---
Progress Note (short form) - Note Progress Note: Patient seen and examined. Recently discharged from [facility] with long and complicated course. Had 2 major problems during that admission 1) Abdominal pain for which no etiology found 2) mastocytosis associated with MDS Patient was cKIT negative and for the mast cell component of the disorder she is a candidate for Gleevec which was just begun. For the MDS component she has an unfavorable cytogenetics , but therapy would be with a hypomethylating agent. I discussed this at length with the patient . The risks , benefits, toxicities of therapy were discussed including at best a 20%-25% response with risk of bleeding, hemorrhage, infection including life threatening infection and possible from therapy.Patient to consider. No other option of treatment , but for chemotherapy. If patient declines, she will have progressive admission to the hospital for cytopenias and blood bank products. She would eventually develop acute myeloid leukemia. 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 Plan: Blood bank support Transfuse blood and platelets- 2 units of p.c. and 2 units of platelets. Lasix diuresis. Gleevec -100 mg daily
[2016-08-26] MEDS ORDERED: FUROSEMIDE 40 MG/4 ML INJECTABLE VIAL IVPUSH ONE (15:32)
[2016-08-26] MEDS ORDERED: POTASSIUM CHLORIDE TABS 20 MEQ TABLET.ER (FP) PO ONE (15:33)
[2016-08-26] MEDS ORDERED: PANTOPRAZOLE 40 MG TABLET (FP) PO SCH (16:00)
[2016-08-26 18:11] LABS: URINE APPEARANCE CLEAR; URINE BILIRUBIN NEGATIVE (NEGATIVE); URINE BLOOD NEGATIVE (NEGATIVE); URINE COLOR YELLOW; URINE GLUCOSE (UA) NEGATIVE (NEGATIVE); URINE KETONE TRACE (NEGATIVE); URINE LEUK ESTERASE NEGATIVE (NEGATIVE); URINE NITRITE NEGATIVE (NEGATIVE); URINE PROTEIN NEGATIVE (NEGATIVE); URINE UROBILINOGEN 4.0 E.U/dl E.U./dl (0.2-1.0)
[2016-08-26] MEDS: ACETAMINOPHEN 325 MG TABLET (FP) PO PRN (18:32)
--- NOTE | 2016-08-26 19:00 | HP ---
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) Musculoskeletal: Yes: Osteoarthritis Endocrine: Yes: Diabetes Mellitus (developed during stress of illness in 08/13, no longer requiring therapy) - Past Surgical History Past Surgical History: Yes: Cataract Removal, Hernia Repair - Smoking History Smoking history: Never smoked Have you smoked in the past 12 months: No Aproximately how many cigarettes per day: 0 - Alcohol/Substance Use Hx Alcohol Use: No History of Substance Use: reports: None - Social History ADL: Support Services History of Recent Travel: No Home Medications - Allergies Allergies/Adverse Reactions: Allergies Allergy/AdvReac Type Severity Reaction Status Date / Time No Known Drug Allergies Allergy Verified 08/26/16 09:24 - Home Medications Home Medications: Ambulatory Orders Acetaminophen [Tylenol .Regular Strength -] 650 mg PO Q6H PRN #0 tablet Furosemide [Lasix -] 40 mg PO DAILY tablet 08/22/16 Magnesium Oxide [Mag-Ox -] 400 mg PO BID tablet 08/22/16 Metoclopramide HCl [Reglan -] 10 mg PO TIDAC tablet 08/22/16 Polyethylene Glycol 3350 [Miralax 119 gm Btl -] 17 gm PO DAILY bottle 08/22/16 Potassium Chloride [K-Dur -] 20 meq PO DAILY tab.sr 08/22/16 Ranitidine [Zantac -] 150 mg PO BID tablet 08/22/16 Aa/Hydrolyzed Collagen, Whey [Lps 15-30 Liquid] 30 ml PO TID 08/26/16 Allopurinol 300 mg PO DAILY 08/26/16 Imatinib Mesylate [Gleevec] 100 mg PO DAILY 08/26/16 Multivitamin [Poly-Vitamin] 1 each PO DAILY 08/26/16 Family Disease History - Family Disease History Family Disease History: CA: Father ( 52 gastric cancer), Brother ( colon cancer age 75), Sister ( of breast cancer), Other: Mother (lived to 92 ) Review of Systems - Review of Systems Constitutional: reports: Malaise Eyes: reports: No Symptoms HENT: reports: No Symptoms Neck: reports: No Symptoms Cardiovascular: reports: No Symptoms Respiratory: reports: No Symptoms Gastrointestinal: reports: Abdominal Pain Genitourinary: reports: No Symptoms. denies: Burning, Discharge Musculoskeletal: reports: No Symptoms Integumentary: reports: Bruising Neurological: reports: No Symptoms Endocrine: reports: No Symptoms. denies: Excessive Sweating, Flushing Hematology/Lymphatic: reports: Easily Bruised. denies: Excessive Bleeding, Swollen Glands Psychiatric: reports: No Symptoms Physical Examination Vital Signs: Vital Signs Temperature 98.1 F 08/26/16 14:35 Pulse Rate 83 08/26/16 14:35 Respiratory Rate 14 08/26/16 14:35 Blood Pressure 110/54 08/26/16 14:35 O2 Sat by Pulse Oximetry (%) 95 08/26/16 14:35 Constitutional: Yes: Thin Eyes: Yes: WNL, Conjunctiva Clear, EOM Intact HENT: Yes: WNL, Atraumatic, Normocephalic. No: Thrush Neck: Yes: WNL, Supple, Trachea Midline Cardiovascular: Yes: WNL, Regular Rate and Rhythm. No: JVD, Gallop Respiratory: Yes: WNL, Regular, CTA Bilaterally Gastrointestinal: Yes: WNL, Normal Bowel Sounds, Soft, Palpable Mass, Other ( Spleeno megaly). No: Melena ...Rectal Exam: Yes: Deferred Renal/: Yes: WNL Musculoskeletal: Yes: Back Pain Edema: No Peripheral Pulses WNL: No Integumentary: Yes: Bruising Neurological: Yes: WNL, Alert, Oriented ...Motor Strength: WNL Psychiatric: Yes: WNL, Alert Labs: CBC, BMP 08/26/16 09:50 08/26/16 09:50 Problem List - Problems (1) Anemia Assessment/Plan: Patient is admitted with symptomatic anemia 6.01/16 significant drop from base line although H/o chronic anemia , but significant drop over 1 wk, Oncology and GI consulted, recommended 2 unit PRBC and 2 units platelet transfusion F/U serial H/H. Code(s): D64.9 - ANEMIA, UNSPECIFIED Qualifiers: Anemia type: unspecified type Qualified Code(s): D64.9 - Anemia, unspecified (2) GI bleed Assessment/Plan: Patient has drop in H./H with stool occult + with low platelet count will discuss with GI consult, mean time DC Ranitidine cont Protonix 40 mg IVSS BID Code(s): K92.2 - GASTROINTESTINAL HEMORRHAGE, UNSPECIFIED Qualifiers: GI bleed type/associated pathology: unspecified gastrointestinal hemorrhage type Qualified Code(s): K92.2 - Gastrointestinal hemorrhage, unspecified (3) Diabetes mellitus, new onset Assessment/Plan: FU FS and correction dose insulin Code(s): E11.9 - TYPE 2 DIABETES MELLITUS WITHOUT COMPLICATIONS (4) HTN (hypertension) Assessment/Plan: Well controlled cont Home medications Code(s): I10 - ESSENTIAL (PRIMARY) HYPERTENSION (5) Thrombocytopenia Assessment/Plan: Patient 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 Code(s): D69.6 - THROMBOCYTOPENIA, UNSPECIFIED (6) Mastocytosis Assessment/Plan: Spleenomegaly with Mastocytosis on Gleevec F/U oncology recpommondations Code(s): Q82.2 - MASTOCYTOSIS (7) History of ovarian cancer Assessment/Plan: S/P surgery and chemotherapy no active issue Code(s): Z85.43 - PERSONAL HISTORY OF MALIGNANT NEOPLASM OF OVARY
[2016-08-26] MEDS: PANTOPRAZOLE SODIUM 100 ML IVPB SCH (21:42)
[2016-08-26] MEDS: MAGNESIUM OXIDE 400 MG TABLET (FP) PO SCH (21:42)
[2016-08-27] MEDS: METOCLOPRAMIDE HCL 10 MG TABLET (FP) PO SCH ×3 (06:23→17:31)
[2016-08-27 08:34] LABS: MCH 31.4 pg (25.7-33.7); MCHC 33.7 g/dl (32.0-36.0); MEAN CELL VOLUME 93.3 fl (80-96); MEAN PLT VOLUME 8.4 fl (7.5-11.1); PLATELET COUNT 40 K/MM3 (134-434); RDW 20.2 % (11.6-15.6); WHITE BLOOD COUNT 6.9 K/mm3 (4.0-10.0)
[2016-08-27 09:06] LABS: ALK PHOS 113 U/L (45-117); ANION GAP 12 (8-16); BILIRUBIN,TOTAL 1.8 mg/dL (0.2-1.0); CO2 28 mmol/L (21-32); COCKROFT - GAULT 70.5585; CREATININE 0.6 mg/dL (0.55-1.02); GLUCOSE,RANDOM 96 mg/dL (74-106); LDH 112 U/L (84-246); SGOT/AST 7 U/L (15-37); SGPT/ALT 11 U/L (12-78); TOT PROT 3.9 g/dl (6.4-8.2)
[2016-08-27 09:51] LABS: URIC ACID 4.3 mg/dL (2.6-7.2)
[2016-08-27] MEDS ORDERED: PT OWN MED DRAWER 7, Y5N ONE (09:58)
[2016-08-27] MEDS: IMATINIB MESYLATE 100 MG TABLET PO SCH (10:00)
[2016-08-27] MEDS: MAGNESIUM OXIDE 400 MG TABLET (FP) PO SCH ×2 (10:01→21:31)
[2016-08-27] MEDS: MULTIVITAMINS (DAILY MVI) TABLET (FP) PO SCH (10:02)
[2016-08-27] MEDS: ALLOPURINOL 300 MG TABLET (FP) PO SCH (10:02)
[2016-08-27] MEDS: PANTOPRAZOLE SODIUM 100 ML IVPB SCH ×2 (10:03→21:31)
[2016-08-27 10:13] LABS: ANISOCYTOSIS 1+; HYPOCHROMIA 1+; PLATELET COMMENT2 NO CLOTTING DETECTED; PLATELET ESTIMATE MARKEDLY DECREASED (NORMAL); POIKILOCYTOSIS 2+; POLYCHROMASIA 1+
--- NOTE | 2016-08-27 11:34 | PN ---
Progress Note (short form) - Note Progress Note: Patient seen and examined Case discussed with Dr. Gonsalez Re-discussed options of therapy with patient --No therapy, [place], chemotherapy. Discussed change of therapy to400 mg of Gleevec. S/P 2 units of packed cells and 2 units of platelets. Last Vital Signs Temp Pulse Resp BP Pulse Ox 98.2 F 92 H 16 116/52 95 08/27/16 06:30 08/27/16 06:30 08/27/16 06:30 08/27/16 06:30 08/27/16 09:00 HEENT: KARL, EOM Intact Oropharynx: No thrush, No mucositis Neck: Supple Nodes: Without adenopathy Cor: RSR, No murmurs, No gallops Lungs: Clear to P&A Abd: Soft, Normal bowel sounds, No organomegaly Ext:No significant edema Skin: No rashes, Integument intact CBC, BMP 08/27/16 06:00 08/27/16 06:00 Current Medications Generic Name Dose Route Start Last Admin Trade Name Freq PRN Reason Stop Dose Admin Acetaminophen 650 mg 08/26/16 17:19 08/26/16 18:32 Tylenol - PO 650 mg Q6H PRN Administration PAIN Allopurinol 300 mg 08/27/16 10:00 08/27/16 10:02 Zyloprim - PO 300 mg DAILY JOVANA Administration Furosemide 40 mg 08/27/16 17:30 Lasix - PO DAILY JOVANA Pantoprazole Sodium 100 mls @ 200 mls/hr 08/26/16 22:00 08/27/16 10:03 Protonix 40mg Ivpb (Pre-Docked) IVPB 200 mls/hr BID JOVANA Administration Imatinib Mesylate 100 mg 08/27/16 10:00 08/27/16 10:00 Gleevec (Restricted To Oncology) - PO 100 mg DAILY JOVANA Administration Magnesium Oxide 400 mg 08/26/16 22:00 08/27/16 10:01 Mag-Ox - PO 400 mg BID JOVANA Administration Metoclopramide HCl 10 mg 08/27/16 07:00 08/27/16 06:23 Reglan - PO 10 mg TIDAC JOVANA Administration Multivitamins/Minerals/Vitamin C 1 tab 08/27/16 10:00 08/27/16 10:02 Tab-A-Vit - PO 1 tab DAILY JOVANA Administration Polyethylene Glycol 17 gm 08/27/16 17:15 Miralax (For Daily Use) - PO DAILY JOVANA Potassium Chloride 20 meq 08/27/16 17:15 K-Dur - PO DAILY JOVANA Impression: Mastocytosis Poor prognosis MDS Pancytopenia secondary to above GI bleeding Past history of Ovarian ca--s/p chemotherapy Past history of IPMN Plan: Increase Gleeved to 400 mg. Patient considering options of therapy.
--- NOTE | 2016-08-27 11:41 | PN ---
Progress Note, Physician Chief Complaint: Patient readmitted for severe anemia and thrombocytopenia. Feels better after 2 units of platelets and packed cells. History of Present Illness: Patient wih recent diagnosis of Acute Mastocytosis and MDS was sent to SNF post hospital last Sunday and Sunday AM shoed Hemoglobin under 7GM. Sent to ER and platelets 14,00 and Hb 6.9. Seen by Hematology MD and 2 units of packed cells and platelets given to the patient.Dr. Merrill has discussed adding ChemoRx because of worsening status and the patient has agreed but wants to discuss with her niece. and no children. Dr. Merrill also has suggested we increase the dose of Gleevac to 400mg a day and I spoke to her [facility]. If she finally agrees she will need Port placement and more platelets. 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 - Current Medication List Current Medications: Active Medications Acetaminophen (Tylenol -) 650 mg PO Q6H PRN PRN Reason: PAIN Last Admin: 08/26/16 18:32 Dose: 650 mg Allopurinol (Zyloprim -) 300 mg PO DAILY [facility] Last Admin: 08/27/16 10:02 Dose: 300 mg Furosemide (Lasix -) 40 mg PO DAILY [facility] Pantoprazole Sodium (Protonix 40mg Ivpb (Pre-Docked)) 100 mls @ 200 mls/hr IVPB BID [facility] Last Admin: 08/27/16 10:03 Dose: 200 mls/hr Imatinib Mesylate (Gleevec (Restricted To Oncology) -) 100 mg PO DAILY [facility] Last Admin: 08/27/16 10:00 Dose: 100 mg Magnesium Oxide (Mag-Ox -) 400 mg PO BID [facility] Last Admin: 08/27/16 10:01 Dose: 400 mg Metoclopramide HCl (Reglan -) 10 mg PO TIDAC [facility] Last Admin: 08/27/16 06:23 Dose: 10 mg Multivitamins/Minerals/Vitamin C (Tab-A-Vit -) 1 tab PO DAILY [facility] Last Admin: 08/27/16 10:02 Dose: 1 tab Polyethylene Glycol (Miralax (For Daily Use) -) 17 gm PO DAILY [facility] Potassium Chloride (K-Dur -) 20 meq PO DAILY [facility] - Objective Vital Signs: Vital Signs Temperature 98.2 F 08/27/16 06:30 Pulse Rate 92 H 08/27/16 06:30 Respiratory Rate 16 08/27/16 06:30 Blood Pressure 116/52 08/27/16 06:30 O2 Sat by Pulse Oximetry (%) 95 08/27/16 09:00 Constitutional: Yes: Anxious, Pallor Eyes: Yes: Conjunctiva Clear Cardiovascular: Yes: Tachycardia Respiratory: Yes: Diminished Gastrointestinal: Yes: Soft, Distention, Hyperactive Bowel Sounds. No: Tenderness Genitourinary: No: Campbell Present Edema: LLE: 1+, RLE: 1+ Neurological: Yes: Alert, Oriented Labs: CBC, BMP 08/27/16 06:00 08/27/16 06:00 INR, PTT INR 1.39 (0.82-1.09) H 08/26/16 09:50 Assessment/Plan Plan: If patient agrees with Starting Chemo rx she will need port placement. Pharmacy will cover Gleevac 400mg; niece will pick[employer] material [employer] Followup lab AM
[2016-08-27 14:14] LABS: URINE APPEARANCE CLEAR; URINE BILIRUBIN NEGATIVE (NEGATIVE); URINE BLOOD NEGATIVE (NEGATIVE); URINE COLOR DKYELLOW; URINE GLUCOSE (UA) NEGATIVE (NEGATIVE); URINE KETONE NEGATIVE (NEGATIVE); URINE LEUK ESTERASE NEGATIVE (NEGATIVE); URINE NITRITE NEGATIVE (NEGATIVE); URINE PROTEIN NEGATIVE (NEGATIVE); URINE UROBILINOGEN 2.0 E.U/dl E.U./dl (0.2-1.0)
--- NOTE | 2016-08-27 14:54 | PN ---
GI Progress Note Subjective: GI NOte: Feeling stronger after transfusions. NO bleeding. Has not had a BM in 2 days. Tolerating diet. No abdominal pain - Objective Vital Signs: Vital Signs Temperature 98.2 F 08/27/16 06:30 Pulse Rate 92 H 08/27/16 06:30 Respiratory Rate 16 08/27/16 06:30 Blood Pressure 116/52 08/27/16 06:30 O2 Sat by Pulse Oximetry (%) 95 08/27/16 09:00 Constitutional: Anxious ...Auscultate: Yes: Normoactive Bowel Sounds ...Palpate: Yes: Soft, Other (nontender) Labs: CBC, BMP 08/27/16 06:00 08/27/16 06:00 INR, PTT INR 1.39 (0.82-1.09) H 08/26/16 09:50 Assessment/Plan Chronic constipation. NO overt bleeding. Will resume Miralax.
--- NOTE | 2016-08-27 15:24 | PN ---
Progress Note (short form) - Note Progress Note: ID Consult dictated 81 y/o female PMH MDS admitted with symptomatic anemia. Developed temp 100.4 during transfusion PRBCs Blood c/s ordered Will observe off antibiotics for now
--- NOTE | 2016-08-27 17:15 | CONS ---
DATE OF CONSULTATION: DATE OF DICTATION: 08/27/2016 The patient is an 81-year-old female with a history of transfusion-dependent myelodysplastic syndrome, evaluated for fever. The patient was admitted to the hospital with symptomatic anemia. She was noted at the [facility] to be weak and dyspneic. Hemoglobin returned at 6.9. She was transfused packed red blood cells. During the transfusion of the packed cells, she developed fever to 100.4. The transfusion reaction protocol was initiated; however, it appears blood cultures were not sent. At the present time she is awake and alert, she has no focal complaint. She denies feeling feverish. No shaking chills. She has a dry cough. She denies any shortness of breath or purulent sputum production. No dysuria or hematuria. She has had chronically loose bowel movements. Past medical history positive for ovarian cancer, status post chemotherapy, with recurrence in 2011, history of diabetes mellitus, hypertension, myelodysplastic, and pancytopenia. PAST SURGICAL HISTORY: Status post hysterectomy, cataract surgery, and hernia. No known allergies. MEDICATIONS: Tylenol, Lasix, Reglan, K-Dur, Zantac, allopurinol. SOCIAL HISTORY: Negative for tobacco use. Recently hospitalized for a 3-week hospital stay and transferred to [facility] for short-term rehabilitation. LABORATORY DATA: White count 6.9, neutrophils 74, lymphocytes 18, monocytes 4, hematocrit 23.7, platelet count 40. BUN 21, creatinine 0.6. Chest x-ray negative. Urinalysis negative. PHYSICAL EXAMINATION: General: The patient is awake and alert, elderly, frail appearing and pale. Vital Signs: Temperature 98.2, T-max 100.4. Blood pressure 116/52. Pulse 60, regular. Respirations 20 per minute. Eyes: Sclerae anicteric. Heart Sounds: S1, S2. Lungs: Clear. Abdomen: Soft. No tenderness elicited. No mass, rebound or rigidity. Extremities: Positive for edema. IMPRESSION: 1. Low-grade fever, possible transfusion reaction. 2. Transfusion dependent myelodysplastic syndrome. 3. History of pancytopenia. The patient denies any recurrent fever. No clear infectious etiology. Will obtain blood cultures and observe off antibiotic therapy at this time should she have recurrent fever or change in her clinical condition, will empirically start antibiotics. For now will observe. Case was discussed with patient's niece present at the time of the examination. Thank you for the kind referral. EVERARDO ALVES M.D. [id number]
[2016-08-27] MEDS: POTASSIUM CHLORIDE TABS 20 MEQ TABLET.ER (FP) PO SCH (17:31)
[2016-08-27] MEDS: POLYETHYLENE GLYCOL 3350 119 GM BTL PO SCH (17:31)
[2016-08-27] MEDS: FUROSEMIDE 40 MG TABLET (FP) PO SCH (17:31)
[2016-08-28] MEDS: METOCLOPRAMIDE HCL 10 MG TABLET (FP) PO SCH ×3 (06:26→16:51)
[2016-08-28 07:32] LABS: MCH 31.9 pg (25.7-33.7); MCHC 33.4 g/dl (32.0-36.0); MEAN CELL VOLUME 95.4 fl (80-96); MEAN PLT VOLUME 7.9 fl (7.5-11.1); WHITE BLOOD COUNT 5.9 K/mm3 (4.0-10.0)
[2016-08-28 07:57] LABS: COCKROFT - GAULT 70.5585; CREATININE 0.6 mg/dL (0.55-1.02)
[2016-08-28 08:46] LABS: PLATELET COUNT 19 K/MM3 (134-434)
--- NOTE | 2016-08-28 09:52 | PN ---
Progress Note (short form) - Note Progress Note: Patient has now decided that she wants to go to either [facility] or hospice at home. She will agree to DNR/DNI Long discussion regarding her choices and decisions. Vital Signs Temp 98.6 F 08/28/16 06:00 Pulse 89 08/28/16 06:00 Resp 16 08/28/16 06:00 BP 115/59 08/28/16 06:00 Pulse Ox 98 08/27/16 21:00 Intake & Output 08/27/16 08/27/16 08/28/16 11:59 23:59 11:59 Intake Total 200 940 800 Balance 200 940 800 Intake: Oral 200 940 200 Packed Cells 350 Platelets 250 Other: Voiding Method Toilet Toilet Toilet # Unmeasured Voids Void 2 On Exam: Alert Cor reg ABD: slightly distended but soft Abnormal Lab Results 08/26/16 08/27/16 08/28/16 09:50 13:45 05:35 RBC 2.58 L Hgb 8.2 L Hct 24.6 L RDW 21.0 H Plt Count 19 L* D Random Glucose Calcium Urine Urobilinogen 2.0 e.u/dl H Crossmatch See Detail 08/28/16 05:35 RBC Hgb Hct RDW Plt Count Random Glucose 108 H Calcium 8.0 L Urine Urobilinogen Crossmatch Imp: All Active Problems Anemia (Acute) GI bleed (Acute) Mastocytosis (Acute) Abdominal pain (Acute) Cough (Acute) Diabetes mellitus, new onset (Acute) HTN (hypertension) (Acute) History of ovarian cancer (Acute) Hoarseness (Acute) Hyperglycemia (Acute) Hypokalemia (Acute) Hypomagnesemia (Acute) Ileus (Acute) Lactic acid increased (Acute) Pancytopenia (Acute) Thrombocytopenia (Acute) Upper respiratory infection (Acute) Plan: [facility] [place] Re: her choices F/U Lab DNR/DNI
[2016-08-28] MEDS: FUROSEMIDE 40 MG TABLET (FP) PO SCH (10:24)
[2016-08-28] MEDS: ALLOPURINOL 300 MG TABLET (FP) PO SCH (10:24)
[2016-08-28] MEDS: MAGNESIUM OXIDE 400 MG TABLET (FP) PO SCH ×2 (10:24→22:09)
[2016-08-28] MEDS: MULTIVITAMINS (DAILY MVI) TABLET (FP) PO SCH (10:24)
[2016-08-28] MEDS: POTASSIUM CHLORIDE TABS 20 MEQ TABLET.ER (FP) PO SCH (10:24)
[2016-08-28] MEDS: PANTOPRAZOLE SODIUM 100 ML IVPB SCH ×2 (10:24→22:10)
[2016-08-28] MEDS ORDERED: PT OWN MED DRAWER 7, Y5N ONE (10:25)
[2016-08-28] MEDS: IMATINIB MESYLATE 100 MG TABLET PO SCH (10:26)
[2016-08-28] MEDS: POLYETHYLENE GLYCOL 3350 119 GM BTL PO SCH (10:26)
[2016-08-28 10:29] LABS: METAMYELOCYTE 2 % (0-2); PLATELET ESTIMATE MARKEDLY DECREASED (NORMAL)
[2016-08-28] MEDS ORDERED: TUBERCULIN PPD 5 TU/0.1ML SYRINGE (IN PATIENT USE ONLY) ID ONE (11:00)
--- NOTE | 2016-08-28 14:41 | PN ---
Progress Note (short form) - Note Progress Note: Patient seen and examined Feels OK Last Vital Signs Temp Pulse Resp BP Pulse Ox 99.2 F 101 H 18 113/61 98 08/28/16 09:00 08/28/16 09:00 08/28/16 09:00 08/28/16 09:00 08/28/16 09:00 Lungs: Clear to P&A Abd: Soft, Normal bowel sounds, No organomegaly Ext:No significant edema Skin: No rashes, Integument intact Abnormal Lab Results 08/26/16 08/28/16 08/28/16 09:50 05:35 05:35 RBC 2.58 L Hgb 8.2 L Hct 24.6 L RDW 21.0 H Plt Count 19 L* D Nucleated RBCs 3 H Random Glucose 108 H Calcium 8.0 L Crossmatch See Detail Active Medications Acetaminophen (Tylenol -) 650 mg PO Q6H PRN PRN Reason: PAIN Last Admin: 08/26/16 18:32 Dose: 650 mg Allopurinol (Zyloprim -) 300 mg PO DAILY [facility] Last Admin: 08/28/16 10:24 Dose: 300 mg Furosemide (Lasix -) 40 mg PO DAILY [facility] Last Admin: 08/28/16 10:24 Dose: 40 mg Pantoprazole Sodium (Protonix 40mg Ivpb (Pre-Docked)) 100 mls @ 200 mls/hr IVPB BID [facility] Last Admin: 08/28/16 10:24 Dose: 200 mls/hr Imatinib Mesylate (Gleevec (Restricted To Oncology) -) 100 mg PO DAILY [facility] Last Admin: 08/28/16 10:26 Dose: 100 mg Magnesium Oxide (Mag-Ox -) 400 mg PO BID [facility] Last Admin: 08/28/16 10:24 Dose: 400 mg Metoclopramide HCl (Reglan -) 10 mg PO TIDAC [facility] Last Admin: 08/28/16 11:44 Dose: 10 mg Multivitamins/Minerals/Vitamin C (Tab-A-Vit -) 1 tab PO DAILY [facility] Last Admin: 08/28/16 10:24 Dose: 1 tab Polyethylene Glycol (Miralax (For Daily Use) -) 17 gm PO DAILY [facility] Last Admin: 08/28/16 10:26 Dose: 17 grams Potassium Chloride (K-Dur -) 20 meq PO DAILY [facility] Last Admin: 08/28/16 10:24 Dose: 20 meq A/P 81 y/o patient with systemic mastocytosis with associated hematologic neoplasm on gleevec transfusion support Patient to consider hospice per primary team
[2016-08-28] MEDS ORDERED: IMATINIB MESYLATE 100 MG TABLET PO SCH (15:20)
--- NOTE | 2016-08-28 15:56 | PN ---
Progress Note, Physician History of Present Illness: Awake, alert No c/o fever/chills No recurrent fever Blood c/s no growth - Current Medication List Current Medications: Active Medications Acetaminophen (Tylenol -) 650 mg PO Q6H PRN PRN Reason: PAIN Last Admin: 08/26/16 18:32 Dose: 650 mg Allopurinol (Zyloprim -) 300 mg PO DAILY [facility] Last Admin: 08/28/16 10:24 Dose: 300 mg Furosemide (Lasix -) 40 mg PO DAILY [facility] Last Admin: 08/28/16 10:24 Dose: 40 mg Pantoprazole Sodium (Protonix 40mg Ivpb (Pre-Docked)) 100 mls @ 200 mls/hr IVPB BID [facility] Last Admin: 08/28/16 10:24 Dose: 200 mls/hr Imatinib Mesylate (Gleevec (Restricted To Oncology) -) 1 mg PO DAILY [facility] Magnesium Oxide (Mag-Ox -) 400 mg PO BID [facility] Last Admin: 08/28/16 10:24 Dose: 400 mg Metoclopramide HCl (Reglan -) 10 mg PO TIDAC [facility] Last Admin: 08/28/16 11:44 Dose: 10 mg Multivitamins/Minerals/Vitamin C (Tab-A-Vit -) 1 tab PO DAILY [facility] Last Admin: 08/28/16 10:24 Dose: 1 tab Polyethylene Glycol (Miralax (For Daily Use) -) 17 gm PO DAILY [facility] Last Admin: 08/28/16 10:26 Dose: 17 grams Potassium Chloride (K-Dur -) 20 meq PO DAILY [facility] Last Admin: 08/28/16 10:24 Dose: 20 meq - Objective Vital Signs: Vital Signs Temperature 99.2 F 08/28/16 09:00 Pulse Rate 101 H 08/28/16 09:00 Respiratory Rate 18 08/28/16 09:00 Blood Pressure 113/61 08/28/16 09:00 O2 Sat by Pulse Oximetry (%) 97 08/28/16 13:40 Constitutional: Yes: No Distress, Pallor Eyes: Yes: Conjunctiva Clear Cardiovascular: Yes: Regular Rate and Rhythm, S1, S2 Respiratory: Yes: Diminished Gastrointestinal: Yes: Normal Bowel Sounds, Soft, Splenomegaly. No: Tenderness Edema: No Labs: CBC, BMP 08/28/16 05:35 08/28/16 05:35 INR, PTT INR 1.39 (0.82-1.09) H 08/26/16 09:50 Assessment/Plan S/P low grade temp, possibly transfusion-related No recurrent temp Cultures negative Observe off antibiotics
[2016-08-29] MEDS: METOCLOPRAMIDE HCL 10 MG TABLET (FP) PO SCH ×3 (06:17→17:28)
[2016-08-29 07:55] LABS: MCH 32.1 pg (25.7-33.7); MCHC 32.9 g/dl (32.0-36.0); MEAN CELL VOLUME 97.3 fl (80-96); RDW 20.2 % (11.6-15.6); WHITE BLOOD COUNT 5.6 K/mm3 (4.0-10.0)
[2016-08-29 08:27] LABS: PLATELET COUNT 20 K/MM3 (134-434)
[2016-08-29] MEDS ORDERED: IMATINIB MESYLATE 100 MG TABLET PO SCH (10:00)
[2016-08-29] MEDS ORDERED: PT OWN MED DRAWER 7, Y5N ONE (10:12)
[2016-08-29] MEDS: PANTOPRAZOLE SODIUM 100 ML IVPB SCH ×2 (10:25→21:06)
[2016-08-29] MEDS: POTASSIUM CHLORIDE TABS 20 MEQ TABLET.ER (FP) PO SCH (10:26)
[2016-08-29] MEDS: MAGNESIUM OXIDE 400 MG TABLET (FP) PO SCH ×2 (10:27→21:05)
[2016-08-29] MEDS: MULTIVITAMINS (DAILY MVI) TABLET (FP) PO SCH (10:27)
[2016-08-29] MEDS: FUROSEMIDE 40 MG TABLET (FP) PO SCH (10:27)
[2016-08-29] MEDS: ALLOPURINOL 300 MG TABLET (FP) PO SCH (10:28)
[2016-08-29] MEDS: IMATINIB 400 MG PO SCH (10:28)
[2016-08-29] MEDS: POLYETHYLENE GLYCOL 3350 119 GM BTL PO SCH (10:31)
[2016-08-29 11:41] LABS: ANISOCYTOSIS 1+; METAMYELOCYTE 1 % (0-2); PLATELET ESTIMATE MARKEDLY DECREASED (NORMAL); POLYCHROMASIA 1+
--- NOTE | 2016-08-29 14:32 | PN ---
Progress Note, Physician Chief Complaint: Patient still having problems making decisions Re: treatment choices. History of Present Illness: Patient with a diagnosis of Acute Mastocytosis and MDS ? leukemia is now on Gleevac 400mg a day. Her Oncologist still feels that IV Chemo may be necessary for the patient who is weighing the risks and benefits of the treatment. It may require a return to SNF for a few weeks on Gleevac 400mg and see if she improves or returns too frequently for Platelets and blood transfusions. - Current Medication List Current Medications: Active Medications Acetaminophen (Tylenol -) 650 mg PO Q6H PRN PRN Reason: PAIN Last Admin: 08/26/16 18:32 Dose: 650 mg Allopurinol (Zyloprim -) 300 mg PO DAILY [facility] Last Admin: 08/29/16 10:28 Dose: 300 mg Furosemide (Lasix -) 40 mg PO DAILY [facility] Last Admin: 08/29/16 10:27 Dose: 40 mg Pantoprazole Sodium (Protonix 40mg Ivpb (Pre-Docked)) 100 mls @ 200 mls/hr IVPB BID [facility] Last Admin: 08/29/16 10:25 Dose: 200 mls/hr Magnesium Oxide (Mag-Ox -) 400 mg PO BID [facility] Last Admin: 08/29/16 10:27 Dose: 400 mg Metoclopramide HCl (Reglan -) 10 mg PO TIDAC [facility] Last Admin: 08/29/16 10:28 Dose: 10 mg Multivitamins/Minerals/Vitamin C (Tab-A-Vit -) 1 tab PO DAILY [facility] Last Admin: 08/29/16 10:27 Dose: 1 tab Non-Formulary Med ( Imatinib [Gleevec] 100mg Tab) 1 each PO DAILY [facility] Last Admin: 08/29/16 10:28 Dose: 1 each Polyethylene Glycol (Miralax (For Daily Use) -) 17 gm PO DAILY [facility] Last Admin: 08/29/16 10:31 Dose: 17 grams Potassium Chloride (K-Dur -) 20 meq PO DAILY [facility] Last Admin: 08/29/16 10:26 Dose: 20 meq - Objective Vital Signs: Vital Signs Temperature 98 F 08/29/16 05:23 Pulse Rate 87 08/29/16 05:23 Respiratory Rate 20 08/29/16 05:23 Blood Pressure 104/52 08/29/16 05:23 O2 Sat by Pulse Oximetry (%) 95 08/29/16 09:00 Constitutional: Yes: Anxious Eyes: Yes: Conjunctiva Clear Cardiovascular: Yes: Tachycardia Respiratory: Yes: Rhonchi (few at bases) Gastrointestinal: Yes: Soft, Distention, Hyperactive Bowel Sounds Genitourinary: No: Campbell Present Edema: LLE: 1+, RLE: 1+ Integumentary: Yes: WNL Neurological: Yes: Alert, Oriented Labs: CBC, BMP 08/29/16 06:00 08/28/16 05:35 INR, PTT INR 1.39 (0.82-1.09) H 08/26/16 09:50 Problem List - Problems (1) Anemia Assessment/Plan: Hb 8Gm, Platelets 20,000. Had 2 units of packed cells on admission Code(s): D64.9 - ANEMIA, UNSPECIFIED Qualifiers: Anemia type: unspecified type Qualified Code(s): D64.9 - Anemia, unspecified (2) Mastocytosis Assessment/Plan: On [id number] daily Code(s): Q82.2 - MASTOCYTOSIS (3) Cough Assessment/Plan: CXR OK; to add cough syrup Code(s): R05 - COUGH (4) Diabetes mellitus, new onset Assessment/Plan: Stable glucose Code(s): E11.9 - TYPE 2 DIABETES MELLITUS WITHOUT COMPLICATIONS (5) HTN (hypertension) Code(s): I10 - ESSENTIAL (PRIMARY) HYPERTENSION (6) History of ovarian cancer Code(s): Z85.43 - PERSONAL HISTORY OF MALIGNANT NEOPLASM OF OVARY (7) Thrombocytopenia Assessment/Plan: 20,000 received 2 units on admission repeat lab AM Code(s): D69.6 - THROMBOCYTOPENIA, UNSPECIFIED
--- NOTE | 2016-08-29 15:20 | PN ---
Progress Note (short form) - Note Progress Note: Patient seen and examined Lengthy discussion with patient Spoke with Dr. Gonsalez. Patient willing to accept Gleevec. Reluctant at this time to go for chemotherapy. Would therefore give patient trial of Gleevec and support with blood bank products. Based upon response will determine further course. Last Vital Signs Temp Pulse Resp BP Pulse Ox 98.0 F 105 H 20 124/61 95 08/29/16 14:46 08/29/16 14:46 08/29/16 14:46 08/29/16 14:46 08/29/16 09:00 HEENT: KARL, EOM Intact Oropharynx: No thrush, No mucositis Cor: RSR, No murmurs, No gallops Lungs: diminished breath sounds bilaterally Abd: Soft, Normal bowel sounds, No organomegaly Ext:LE edema Skin: No rashes, Integument intact CBC, BMP 08/29/16 06:00 08/28/16 05:35 Current Medications Generic Name Dose Route Start Last Admin Trade Name Freq PRN Reason Stop Dose Admin Acetaminophen 650 mg 08/26/16 17:19 08/26/16 18:32 Tylenol - PO 650 mg Q6H PRN Administration PAIN Allopurinol 300 mg 08/27/16 10:00 08/29/16 10:28 Zyloprim - PO 300 mg DAILY [facility] Administration Furosemide 40 mg 08/27/16 17:30 08/29/16 10:27 Lasix - PO 40 mg DAILY [facility] Administration Guaifenesin 5 ml 08/29/16 14:52 Diabetic Tussin Dm - PO Q6H PRN COUGH Pantoprazole Sodium 100 mls @ 200 mls/hr 08/26/16 22:00 08/29/16 10:25 Protonix 40mg Ivpb (Pre-Docked) IVPB 200 mls/hr BID [facility] Administration Magnesium Oxide 400 mg 08/26/16 22:00 08/29/16 10:27 Mag-Ox - PO 400 mg BID [facility] Administration Metoclopramide HCl 10 mg 08/27/16 07:00 08/29/16 10:28 Reglan - PO 10 mg TIDAC [facility] Administration Multivitamins/Minerals/Vitamin C 1 tab 08/27/16 10:00 08/29/16 10:27 Tab-A-Vit - PO 1 tab DAILY [facility] Administration Non-Formulary Med ( 1 each 08/29/16 10:00 08/29/16 10:28 Imatinib [Gleevec] PO 1 each 100mg Tab) DAILY [facility] Administration Polyethylene Glycol 17 gm 08/27/16 17:15 08/29/16 10:31 Miralax (For Daily Use) - PO 17 grams DAILY [facility] Administration Potassium Chloride 20 meq 08/27/16 17:15 08/29/16 10:26 K-Dur - PO 20 meq DAILY [facility] Administration 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
[2016-08-29] MEDS: guaiFENesin/D-M SUGAR-FREE/ACLHOL-FREE 118 ML BOTTLE PO PRN (18:04)
[2016-08-30] MEDS: METOCLOPRAMIDE HCL 10 MG TABLET (FP) PO SCH ×3 (06:00→18:32)
[2016-08-30 07:05] LABS: MCH 32.7 pg (25.7-33.7); MCHC 33.4 g/dl (32.0-36.0); MEAN CELL VOLUME 97.9 fl (80-96); MEAN PLT VOLUME 7.8 fl (7.5-11.1); RDW 19.9 % (11.6-15.6); WHITE BLOOD COUNT 3.6 K/mm3 (4.0-10.0)
[2016-08-30 07:38] LABS: PLATELET COUNT 12 K/MM3 (134-434)
--- NOTE | 2016-08-30 08:44 | PN ---
Progress Note, Physician Chief Complaint: Very weak this AM when she attempted to sit up in bed. 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 Today Hb down to 6.3GM and Platelets down to 12,000. 2 units of packed cells and 2 units platelets to be given. Patient now saying that if Chemo Rx may help her she may decide to agree to it. - Current Medication List Current Medications: Active Medications Acetaminophen (Tylenol -) 650 mg PO Q6H PRN PRN Reason: PAIN Last Admin: 08/26/16 18:32 Dose: 650 mg Allopurinol (Zyloprim -) 300 mg PO DAILY [facility] Last Admin: 08/29/16 10:28 Dose: 300 mg Furosemide (Lasix -) 40 mg PO DAILY [facility] Last Admin: 08/29/16 10:27 Dose: 40 mg Guaifenesin (Diabetic Tussin Dm -) 5 ml PO Q6H PRN PRN Reason: COUGH Last Admin: 08/29/16 18:04 Dose: 5 ml Pantoprazole Sodium (Protonix 40mg Ivpb (Pre-Docked)) 100 mls @ 200 mls/hr IVPB BID [facility] Last Admin: 08/29/16 21:06 Dose: 200 mls/hr Magnesium Oxide (Mag-Ox -) 400 mg PO BID [facility] Last Admin: 08/29/16 21:05 Dose: 400 mg Metoclopramide HCl (Reglan -) 10 mg PO TIDAC [facility] Last Admin: 08/30/16 06:00 Dose: 10 mg Multivitamins/Minerals/Vitamin C (Tab-A-Vit -) 1 tab PO DAILY [facility] Last Admin: 08/29/16 10:27 Dose: 1 tab Non-Formulary Med ( Imatinib [Gleevec] 400mg Tab) 1 each PO DAILY [facility] Last Admin: 08/29/16 10:28 Dose: 1 each Polyethylene Glycol (Miralax (For Daily Use) -) 17 gm PO DAILY [facility] Last Admin: 08/29/16 10:31 Dose: 17 grams Potassium Chloride (K-Dur -) 20 meq PO DAILY [facility] Last Admin: 08/29/16 10:26 Dose: 20 meq - Objective Vital Signs: Vital Signs Temperature 98.1 F 08/30/16 05:35 Pulse Rate 95 H 08/30/16 05:35 Respiratory Rate 20 08/30/16 05:35 Blood Pressure 98/53 08/30/16 05:35 O2 Sat by Pulse Oximetry (%) 90 L 08/29/16 20:40 Constitutional: Yes: Anxious, Pallor Eyes: Yes: Conjunctiva Clear Cardiovascular: Yes: Tachycardia Respiratory: Yes: Diminished Gastrointestinal: Yes: Soft. No: Tenderness (Had BM this AM.) Genitourinary: No: Campbell Present Edema: LLE: 1+, RLE: 1+ Neurological: Yes: Alert, Oriented Labs: CBC, BMP 08/30/16 06:00 08/28/16 05:35 INR, PTT INR 1.39 (0.82-1.09) H 08/26/16 09:50 Problem List - Problems (1) Anemia Assessment/Plan: Hb 6.3 GM For 2 units packed cells. Code(s): D64.9 - ANEMIA, UNSPECIFIED Qualifiers: Anemia type: unspecified type Qualified Code(s): D64.9 - Anemia, unspecified (2) Mastocytosis Assessment/Plan: On Gleevac 400mg/day Code(s): Q82.2 - MASTOCYTOSIS (3) Cough Assessment/Plan: On cough Rx Lungs sound clear to auscultation. Code(s): R05 - COUGH (4) Diabetes mellitus, new onset Assessment/Plan: BGM stable Code(s): E11.9 - TYPE 2 DIABETES MELLITUS WITHOUT COMPLICATIONS (5) HTN (hypertension) Assessment/Plan: BP under 100 systolic. Code(s): I10 - ESSENTIAL (PRIMARY) HYPERTENSION (6) History of ovarian cancer Code(s): Z85.43 - PERSONAL HISTORY OF MALIGNANT NEOPLASM OF OVARY (7) Thrombocytopenia Assessment/Plan: Down to 12,000 today. Last tome 3 units platelets given and count went up to 40, 000 but fell to 19,000 the next day. Will give 2 units. Code(s): D69.6 - THROMBOCYTOPENIA, UNSPECIFIED
[2016-08-30] MEDS: PANTOPRAZOLE SODIUM 100 ML IVPB SCH ×2 (10:16→23:40)
[2016-08-30] MEDS: FUROSEMIDE 40 MG TABLET (FP) PO SCH (10:19)
[2016-08-30] MEDS: MAGNESIUM OXIDE 400 MG TABLET (FP) PO SCH ×2 (10:19→21:56)
[2016-08-30] MEDS: POTASSIUM CHLORIDE TABS 20 MEQ TABLET.ER (FP) PO SCH (10:19)
[2016-08-30] MEDS: MULTIVITAMINS (DAILY MVI) TABLET (FP) PO SCH (10:20)
[2016-08-30] MEDS: ALLOPURINOL 300 MG TABLET (FP) PO SCH (10:20)
[2016-08-30] MEDS ORDERED: PT OWN MED DRAWER 7, Y5N ONE ×2 (10:22→18:30)
[2016-08-30] MEDS: IMATINIB 400 MG PO SCH (10:27)
[2016-08-30] MEDS: POLYETHYLENE GLYCOL 3350 119 GM BTL PO SCH (10:30)
[2016-08-30 11:58] LABS: METAMYELOCYTE 6 % (0-2)
[2016-08-30 11:59] LABS: PLATELET ESTIMATE MARKEDLY DECREASED (NORMAL)
[2016-08-30] MEDS: guaiFENesin/D-M SUGAR-FREE/ACLHOL-FREE 118 ML BOTTLE PO PRN (18:32)
--- NOTE | 2016-08-30 19:32 | PN ---
Progress Note (short form) - Note Progress Note: Patient seen and examined Feels OK Last Vital Signs Temp Pulse Resp BP Pulse Ox 99.2 F 101 H 18 113/61 98 08/28/16 09:00 08/28/16 09:00 08/28/16 09:00 08/28/16 09:00 08/28/16 09:00 Lungs: Clear to P&A Abd: Soft, Normal bowel sounds, No organomegaly Ext:No significant edema Skin: No rashes, Integument intact Abnormal Lab Results 08/26/16 08/28/16 08/28/16 09:50 05:35 05:35 RBC 2.58 L Hgb 8.2 L Hct 24.6 L RDW 21.0 H Plt Count 19 L* D Nucleated RBCs 3 H Random Glucose 108 H Calcium 8.0 L Crossmatch See Detail Active Medications Acetaminophen (Tylenol -) 650 mg PO Q6H PRN PRN Reason: PAIN Last Admin: 08/26/16 18:32 Dose: 650 mg Allopurinol (Zyloprim -) 300 mg PO DAILY [facility] Last Admin: 08/28/16 10:24 Dose: 300 mg Furosemide (Lasix -) 40 mg PO DAILY [facility] Last Admin: 08/28/16 10:24 Dose: 40 mg Pantoprazole Sodium (Protonix 40mg Ivpb (Pre-Docked)) 100 mls @ 200 mls/hr IVPB BID [facility] Last Admin: 08/28/16 10:24 Dose: 200 mls/hr Imatinib Mesylate (Gleevec (Restricted To Oncology) -) 100 mg PO DAILY [facility] Last Admin: 08/28/16 10:26 Dose: 100 mg Magnesium Oxide (Mag-Ox -) 400 mg PO BID [facility] Last Admin: 08/28/16 10:24 Dose: 400 mg Metoclopramide HCl (Reglan -) 10 mg PO TIDAC [facility] Last Admin: 08/28/16 11:44 Dose: 10 mg Multivitamins/Minerals/Vitamin C (Tab-A-Vit -) 1 tab PO DAILY [facility] Last Admin: 08/28/16 10:24 Dose: 1 tab Polyethylene Glycol (Miralax (For Daily Use) -) 17 gm PO DAILY [facility] Last Admin: 08/28/16 10:26 Dose: 17 grams Potassium Chloride (K-Dur -) 20 meq PO DAILY [facility] Last Admin: 08/28/16 10:24 Dose: 20 meq A/P 81 y/o patient with systemic mastocytosis with associated hematologic neoplasm on gleevec transfusion support Patient to consider hospice per primary team
[2016-08-30] MEDS: ACETAMINOPHEN 325 MG TABLET (FP) PO PRN (20:30)
--- NOTE | 2016-08-30 21:38 | PN ---
Progress Note (short form) - Note Progress Note: Patient seen and examined Feels mildly short of breath getting PRBCS Last Vital Signs Temp Pulse Resp BP Pulse Ox 98.9 F 99 H 20 112/76 93 L 08/30/16 20:23 08/30/16 20:23 08/30/16 20:38 08/30/16 20:23 08/30/16 20:38 Lungs: scattered wheezing b/l Abd: Soft, Normal bowel sounds, No organomegaly Ext:No significant edema Skin: No rashes, Integument intact Abnormal Lab Results 08/30/16 08/30/16 06:00 08:45 WBC 3.6 L D RBC 1.93 L D Hgb 6.3 L* D Hct 18.9 L D MCV 97.9 H RDW 19.9 H Plt Count 12 L* D Metamyelocytes 6 H D Nucleated RBCs 2 H Crossmatch See Detail Home Medication List Medication Instructions Recorded Confirmed Type Aa/Hydrolyzed Collagen, Whey [Lps 30 ml PO TID 08/26/16 08/26/16 History 15-30 Liquid] Allopurinol 300 mg PO DAILY 08/26/16 08/26/16 History Imatinib Mesylate [Gleevec] 100 mg PO DAILY 08/26/16 08/26/16 History Multivitamin [Poly-Vitamin] 1 each PO DAILY 08/26/16 08/26/16 History Active Medications Generic Name Dose Route Start Last Admin Trade Name Freq PRN Reason Stop Dose Admin Acetaminophen 650 mg 08/26/16 17:19 08/30/16 20:30 Tylenol - PO 650 mg Q6H PRN Administration PAIN Allopurinol 300 mg 08/27/16 10:00 08/30/16 10:20 Zyloprim - PO 300 mg DAILY [facility] Administration Furosemide 40 mg 08/27/16 17:30 08/30/16 10:19 Lasix - PO 40 mg DAILY [facility] Administration Guaifenesin 5 ml 08/29/16 14:52 08/30/16 18:32 Diabetic Tussin Dm - PO 5 ml Q6H PRN Administration COUGH Pantoprazole Sodium 100 mls @ 200 mls/hr 08/26/16 22:00 08/30/16 10:16 Protonix 40mg Ivpb (Pre-Docked) IVPB 200 mls/hr BID [facility] Administration Magnesium Oxide 400 mg 08/26/16 22:00 08/30/16 10:19 Mag-Ox - PO 400 mg BID [facility] Administration Metoclopramide HCl 10 mg 08/27/16 07:00 08/30/16 18:32 Reglan - PO 10 mg TIDAC [facility] Administration Multivitamins/Minerals/Vitamin C 1 tab 08/27/16 10:00 08/30/16 10:20 Tab-A-Vit - PO 1 tab DAILY [facility] Administration Non-Formulary Med ( 1 each 08/29/16 10:00 08/30/16 10:27 Imatinib [Gleevec] PO 1 each 400mg Tab) DAILY [facility] Administration Polyethylene Glycol 17 gm 08/27/16 17:15 08/30/16 10:30 Miralax (For Daily Use) - PO 17 grams DAILY [facility] Administration Potassium Chloride 20 meq 08/27/16 17:15 08/30/16 10:19 K-Dur - PO 20 meq DAILY [facility] Administration A/P 81 y/o patient with systemic mastocytosis with associated hematologic neoplasm on gleevec transfusion support will discuss with teams involved regarding vidaza inpatient Lasix 20mg IVP x1 dose
[2016-08-30] MEDS ORDERED: FUROSEMIDE 40 MG/4 ML INJECTABLE VIAL IVPB ONE (21:59)
[2016-08-31] MEDS: METOCLOPRAMIDE HCL 10 MG TABLET (FP) PO SCH ×3 (06:16→17:05)
[2016-08-31 07:57] LABS: MCH 32.6 pg (25.7-33.7); MCHC 34.3 g/dl (32.0-36.0); MEAN CELL VOLUME 95.3 fl (80-96); MEAN PLT VOLUME 8.5 fl (7.5-11.1); RDW 16.8 % (11.6-15.6); WHITE BLOOD COUNT 4.6 K/mm3 (4.0-10.0)
[2016-08-31 08:16] LABS: CALCIUM 8.1 mg/dL (8.5-10.1); COCKROFT - GAULT 60.4775; CREATININE 0.7 mg/dL (0.55-1.02); URIC ACID 3.6 mg/dL (2.6-7.2)
[2016-08-31 08:22] LABS: PLATELET COUNT 22 K/MM3 (134-434)
--- NOTE | 2016-08-31 08:35 | PN ---
Progress Note, Physician Chief Complaint: Patient feels better after blood products yesterday and seems to now agree to ChemoRx. History of Present Illness: Patient with acute Mastocytosis, MDS /AML required 2 units of packed cells and 2 units of platelets yesterday. Her weakness is improved and repeat platelet count has only risen to 22,000 this AM. Patient has had chemoRx before with Ovarian CA Rx and yet now seems agreeable to starting ChemoRx again even with the lower percentage of control of her disease and the multitude of burdens. At issue is port placement and her current hematological values and platelet counts.She also asked me today about whether she could go to [place] again and I am not sure she fully understands the gravity of her condition. I explained that a goal of possibly going home again was more realistic. Her functional status remains acceptable for Rx. - Current Medication List Current Medications: Active Medications Acetaminophen (Tylenol -) 650 mg PO Q6H PRN PRN Reason: PAIN Last Admin: 08/30/16 20:30 Dose: 650 mg Allopurinol (Zyloprim -) 300 mg PO DAILY [facility] Last Admin: 08/30/16 10:20 Dose: 300 mg Furosemide (Lasix -) 40 mg PO DAILY [facility] Last Admin: 08/30/16 10:19 Dose: 40 mg Guaifenesin (Diabetic Tussin Dm -) 5 ml PO Q6H PRN PRN Reason: COUGH Last Admin: 08/30/16 18:32 Dose: 5 ml Pantoprazole Sodium (Protonix 40mg Ivpb (Pre-Docked)) 100 mls @ 200 mls/hr IVPB BID [facility] Last Admin: 08/30/16 23:40 Dose: 200 mls/hr Magnesium Oxide (Mag-Ox -) 400 mg PO BID [facility] Last Admin: 08/30/16 21:56 Dose: 400 mg Metoclopramide HCl (Reglan -) 10 mg PO TIDAC [facility] Last Admin: 08/31/16 06:16 Dose: 10 mg Multivitamins/Minerals/Vitamin C (Tab-A-Vit -) 1 tab PO DAILY [facility] Last Admin: 08/30/16 10:20 Dose: 1 tab Non-Formulary Med ( Imatinib [Gleevec] 400mg Tab) 1 each PO DAILY [facility] Last Admin: 08/30/16 10:27 Dose: 1 each Polyethylene Glycol (Miralax (For Daily Use) -) 17 gm PO DAILY [facility] Last Admin: 08/30/16 10:30 Dose: 17 grams Potassium Chloride (K-Dur -) 20 meq PO DAILY [facility] Last Admin: 08/30/16 10:19 Dose: 20 meq - Objective Vital Signs: Vital Signs Temperature 98 F 08/31/16 05:51 Pulse Rate 96 H 08/31/16 05:51 Respiratory Rate 20 08/31/16 05:51 Blood Pressure 116/65 08/31/16 05:51 O2 Sat by Pulse Oximetry (%) 93 L 08/30/16 20:38 Constitutional: Yes: Calm, Pallor Cardiovascular: Yes: Tachycardia Respiratory: Yes: Diminished (bases) Gastrointestinal: Yes: Soft (had BM) Genitourinary: No: Campbell Present Edema: LLE: 1+, RLE: 1+ Neurological: Yes: Alert, Oriented Labs: CBC, BMP 08/31/16 06:00 08/31/16 06:00 INR, PTT INR 1.39 (0.82-1.09) H 08/26/16 09:50 Problem List - Problems (1) Thrombocytopenia Assessment/Plan: After 2 units Monodonor platelets platelets 22,000 today. Code(s): D69.6 - THROMBOCYTOPENIA, UNSPECIFIED (2) Anemia Assessment/Plan: Await AM Hemoglobin value after 2 units Packed Cells. Code(s): D64.9 - ANEMIA, UNSPECIFIED Qualifiers: Anemia type: unspecified type Qualified Code(s): D64.9 - Anemia, unspecified (3) Mastocytosis Assessment/Plan: On Gleevac 400mg a day PO Code(s): Q82.2 - MASTOCYTOSIS (4) Cough Assessment/Plan: Off and on; Rx ordered. Admission CXR: No acute infiltrate Code(s): R05 - COUGH (5) Diabetes mellitus, new onset Assessment/Plan: stable Code(s): E11.9 - TYPE 2 DIABETES MELLITUS WITHOUT COMPLICATIONS (6) HTN (hypertension) Assessment/Plan: Improve BP readings after transfusion. Code(s): I10 - ESSENTIAL (PRIMARY) HYPERTENSION (7) History of ovarian cancer Code(s): Z85.43 - PERSONAL HISTORY OF MALIGNANT NEOPLASM OF OVARY
[2016-08-31] MEDS ORDERED: PT OWN MED DRAWER 7, Y5N ONE (09:43)
[2016-08-31] MEDS: ALLOPURINOL 300 MG TABLET (FP) PO SCH (10:00)
[2016-08-31] MEDS: FUROSEMIDE 40 MG TABLET (FP) PO SCH (10:00)
[2016-08-31] MEDS: MAGNESIUM OXIDE 400 MG TABLET (FP) PO SCH ×2 (10:01→22:22)
[2016-08-31] MEDS: PANTOPRAZOLE 40 MG TABLET (FP) PO SCH ×2 (10:01→22:21)
[2016-08-31] MEDS: MULTIVITAMINS (DAILY MVI) TABLET (FP) PO SCH (10:01)
[2016-08-31] MEDS: IMATINIB 400 MG PO SCH (10:01)
[2016-08-31] MEDS: POTASSIUM CHLORIDE TABS 20 MEQ TABLET.ER (FP) PO SCH (10:02)
[2016-08-31] MEDS: POLYETHYLENE GLYCOL 3350 119 GM BTL PO SCH (10:02)
[2016-08-31] MEDS: guaiFENesin/D-M SUGAR-FREE/ACLHOL-FREE 118 ML BOTTLE PO PRN ×2 (10:02→17:05)
[2016-08-31 11:56] LABS: METAMYELOCYTE 3 % (0-2)
[2016-08-31] MEDS: ONDANSETRON INJECTION 8 MG in SODIUM CHLORIDE 50 ML IVPB SCH (17:04)
--- NOTE | 2016-08-31 17:05 | PN ---
Progress Note (short form) - Note Progress Note: Patient seen and examined Feels mildly short of breath getting PRBCS Last Vital Signs Temp Pulse Resp BP Pulse Ox 98.9 F 99 H 20 112/76 93 L 08/30/16 20:23 08/30/16 20:23 08/30/16 20:38 08/30/16 20:23 08/30/16 20:38 Lungs: scattered wheezing b/l Abd: Soft, Normal bowel sounds, No organomegaly Ext:No significant edema Skin: No rashes, Integument intact Abnormal Lab Results 08/30/16 08/30/16 06:00 08:45 WBC 3.6 L D RBC 1.93 L D Hgb 6.3 L* D Hct 18.9 L D MCV 97.9 H RDW 19.9 H Plt Count 12 L* D Metamyelocytes 6 H D Nucleated RBCs 2 H Crossmatch See Detail Home Medication List Medication Instructions Recorded Confirmed Type Aa/Hydrolyzed Collagen, Whey [Lps 30 ml PO TID 08/26/16 08/26/16 History 15-30 Liquid] Allopurinol 300 mg PO DAILY 08/26/16 08/26/16 History Imatinib Mesylate [Gleevec] 100 mg PO DAILY 08/26/16 08/26/16 History Multivitamin [Poly-Vitamin] 1 each PO DAILY 08/26/16 08/26/16 History Active Medications Generic Name Dose Route Start Last Admin Trade Name Freq PRN Reason Stop Dose Admin Acetaminophen 650 mg 08/26/16 17:19 08/30/16 20:30 Tylenol - PO 650 mg Q6H PRN Administration PAIN Allopurinol 300 mg 08/27/16 10:00 08/30/16 10:20 Zyloprim - PO 300 mg DAILY [facility] Administration Furosemide 40 mg 08/27/16 17:30 08/30/16 10:19 Lasix - PO 40 mg DAILY [facility] Administration Guaifenesin 5 ml 08/29/16 14:52 08/30/16 18:32 Diabetic Tussin Dm - PO 5 ml Q6H PRN Administration COUGH Pantoprazole Sodium 100 mls @ 200 mls/hr 08/26/16 22:00 08/30/16 10:16 Protonix 40mg Ivpb (Pre-Docked) IVPB 200 mls/hr BID [facility] Administration Magnesium Oxide 400 mg 08/26/16 22:00 08/30/16 10:19 Mag-Ox - PO 400 mg BID [facility] Administration Metoclopramide HCl 10 mg 08/27/16 07:00 08/30/16 18:32 Reglan - PO 10 mg TIDAC [facility] Administration Multivitamins/Minerals/Vitamin C 1 tab 08/27/16 10:00 08/30/16 10:20 Tab-A-Vit - PO 1 tab DAILY [facility] Administration Non-Formulary Med ( 1 each 08/29/16 10:00 08/30/16 10:27 Imatinib [Gleevec] PO 1 each 400mg Tab) DAILY [facility] Administration Polyethylene Glycol 17 gm 08/27/16 17:15 08/30/16 10:30 Miralax (For Daily Use) - PO 17 grams DAILY [facility] Administration Potassium Chloride 20 meq 08/27/16 17:15 08/30/16 10:19 K-Dur - PO 20 meq DAILY [facility] Administration A/P 81 y/o patient with systemic mastocytosis with associated hematologic neoplasm on gleevec transfusion support will start vidaza 75mg/m2 sc daily for 7 days discussed with all teams involved discussed in detail with patient --side effects , risks/benefits continue supportive care
[2016-08-31] MEDS: AZACITIDINE SQ SCH (17:51)
[2016-08-31] MEDS: [UNRECOGNIZED DRUG - OTHER] SQ SCH (17:51)
[2016-09-01] MEDS: METOCLOPRAMIDE HCL 10 MG TABLET (FP) PO SCH ×3 (06:47→17:07)
[2016-09-01 08:02] LABS: MCH 33.4 pg (25.7-33.7); MCHC 34.1 g/dl (32.0-36.0); MEAN CELL VOLUME 97.8 fl (80-96); MEAN PLT VOLUME 8.2 fl (7.5-11.1); RDW 17.8 % (11.6-15.6)
[2016-09-01 08:37] LABS: PLATELET COUNT 13 K/MM3 (134-434)
[2016-09-01 08:46] LABS: CALCIUM 8.4 mg/dL (8.5-10.1)
[2016-09-01 08:47] LABS: COCKROFT - GAULT 52.9125; CREATININE 0.8 mg/dL (0.55-1.02)
--- NOTE | 2016-09-01 09:22 | PN ---
Progress Note, Physician Chief Complaint: coughing and both legs feel weak History of Present Illness: Patient elected to start Vidaza yesterday and continues on PO Gleevac. Plalelets again fell today to 12,000. Will need platelet transfusion. Cough more and bilateral leg weakness and pain. No low back pain. Will need repeat CXR ; trial of PT and maybe venous duplex to R/O DVT. - Current Medication List Current Medications: Active Medications Acetaminophen (Tylenol -) 650 mg PO Q6H PRN PRN Reason: PAIN Last Admin: 08/30/16 20:30 Dose: 650 mg Allopurinol (Zyloprim -) 300 mg PO DAILY [facility] Last Admin: 08/31/16 10:00 Dose: 300 mg Azacitidine (Vidaza Subq) 120 mg SQ DAILY@1630 [facility] Stop: 09/06/16 16:31 Last Admin: 08/31/16 17:51 Dose: 120 mg Furosemide (Lasix -) 40 mg PO DAILY [facility] Last Admin: 08/31/16 10:00 Dose: 40 mg Guaifenesin (Diabetic Tussin Dm -) 5 ml PO Q6H PRN PRN Reason: COUGH Last Admin: 08/31/16 17:05 Dose: 5 ml Ondansetron HCl 8 mg/ Sodium (Chloride) 54 mls @ 216 mls/hr IVPB DAILY@1600 [facility] Stop: 09/06/16 16:14 Last Admin: 08/31/16 17:04 Dose: 216 mls/hr Magnesium Oxide (Mag-Ox -) 400 mg PO BID [facility] Last Admin: 08/31/16 22:22 Dose: 400 mg Metoclopramide HCl (Reglan -) 10 mg PO TIDAC [facility] Last Admin: 09/01/16 06:47 Dose: 10 mg Multivitamins/Minerals/Vitamin C (Tab-A-Vit -) 1 tab PO DAILY [facility] Last Admin: 08/31/16 10:01 Dose: 1 tab Non-Formulary Med ( Imatinib [Gleevec] 400mg Tab) 1 each PO DAILY [facility] Last Admin: 08/31/16 10:01 Dose: 1 each Pantoprazole Sodium (Protonix -) 40 mg PO BID [facility] Last Admin: 08/31/16 22:21 Dose: 40 mg Polyethylene Glycol (Miralax (For Daily Use) -) 17 gm PO DAILY [facility] Last Admin: 08/31/16 10:02 Dose: 17 grams Potassium Chloride (K-Dur -) 20 meq PO DAILY [facility] Last Admin: 08/31/16 10:02 Dose: 20 meq - Objective Vital Signs: Vital Signs Temperature 98.1 F 09/01/16 06:00 Pulse Rate 93 H 09/01/16 06:00 Respiratory Rate 20 09/01/16 06:00 Blood Pressure 109/53 09/01/16 06:00 O2 Sat by Pulse Oximetry (%) 94 L 08/31/16 21:00 Constitutional: Yes: Anxious, Pallor Eyes: Yes: Conjunctiva Clear Cardiovascular: Yes: Tachycardia Respiratory: Yes: Diminished, Rhonchi (right base) Gastrointestinal: Yes: Soft. No: Tenderness Genitourinary: No: Campbell Present Edema: LLE: 1+, RLE: 1+ Neurological: Yes: Alert, Oriented Labs: CBC, BMP 09/01/16 06:00 09/01/16 06:00 INR, PTT INR 1.39 (0.82-1.09) H 08/26/16 09:50 Problem List - Problems (1) Thrombocytopenia Assessment/Plan: again fell to 13,000 and will need platelets Code(s): D69.6 - THROMBOCYTOPENIA, UNSPECIFIED (2) Leg weakness, bilateral Assessment/Plan: Moves both equally in bed but for a patient who is always walking it is a setback for her performance if she now needs help for even getting on the commode. LS Xray ordered. Code(s): R29.898 - OTH SYMPTOMS AND SIGNS INVOLVING THE MUSCULOSKELETAL SYSTEM (3) Anemia Assessment/Plan: Hb stable at 8.2GM Code(s): D64.9 - ANEMIA, UNSPECIFIED Qualifiers: Anemia type: unspecified type Qualified Code(s): D64.9 - Anemia, unspecified (4) Mastocytosis Assessment/Plan: On Gleevac 400mg/day Code(s): Q82.2 - MASTOCYTOSIS (5) Cough Assessment/Plan: Worse; to repeat CXR and order venous duplex legs Code(s): R05 - COUGH (6) Diabetes mellitus, new onset Code(s): E11.9 - TYPE 2 DIABETES MELLITUS WITHOUT COMPLICATIONS (7) HTN (hypertension) Assessment/Plan: Stable. Code(s): I10 - ESSENTIAL (PRIMARY) HYPERTENSION (8) History of ovarian cancer Code(s): Z85.43 - PERSONAL HISTORY OF MALIGNANT NEOPLASM OF OVARY
[2016-09-01] MEDS ORDERED: PT OWN MED DRAWER 7, Y5N ONE ×2 (10:05→20:18)
[2016-09-01 10:06] LABS: PLATELET ESTIMATE MARKEDLY DECREASED (NORMAL)
--- NOTE | 2016-09-01 10:49 | PN ---
Progress Note (short form) - Note Progress Note: Patient seen and examined Feels mildly short of breath c/o lower ext. numbness/heaviness Last Vital Signs Temp Pulse Resp BP Pulse Ox 98.1 F 93 H 20 109/53 94 L 09/01/16 06:00 09/01/16 06:00 09/01/16 06:00 09/01/16 06:00 08/31/16 21:00 HEENT-nl Hear-S1, S2 regular Lungs: decreased at bases Abd: Soft, Normal bowel sounds, No organomegaly Ext:2+ edema b/l Abnormal Lab Results 08/26/16 08/30/16 08/31/16 09:50 08:45 06:00 RBC Hgb Hct MCV RDW Plt Count Monocytes % 2.0 L Metamyelocytes 3 H D Myelocytes 4 H D Nucleated RBCs 3 H BUN Random Glucose Calcium Crossmatch See Detail See Detail 09/01/16 09/01/16 06:00 06:00 RBC 2.45 L Hgb 8.2 L Hct 24.0 L MCV 97.8 H RDW 17.8 H Plt Count 13 L* D Monocytes % Metamyelocytes Myelocytes 3 H D Nucleated RBCs 4 H BUN 27 H D Random Glucose 149 H Calcium 8.4 L Crossmatch A/P 81 y/o patient with systemic mastocytosis with associated hematologic neoplasm on gleevec transfusion support C1D2 vidaza 75mg/m2 sc daily for 7 days getting w/u for lower ext. numbness/generalized weakness. --? fluid retention from gleevec on lasix--would closely watch her renal function Overall difficult case given her diagnosis/age etc. will get neurology consult to r/o neuropathy transfusion support for Hgb < 7, platelts < 10,[address] carlisle
[2016-09-01] MEDS: IMATINIB 400 MG PO SCH (11:49)
[2016-09-01] MEDS: MAGNESIUM OXIDE 400 MG TABLET (FP) PO SCH ×2 (12:03→22:30)
[2016-09-01] MEDS: FUROSEMIDE 40 MG TABLET (FP) PO SCH (12:03)
[2016-09-01] MEDS: POTASSIUM CHLORIDE TABS 20 MEQ TABLET.ER (FP) PO SCH (12:03)
[2016-09-01] MEDS: PANTOPRAZOLE 40 MG TABLET (FP) PO SCH ×2 (12:03→22:30)
[2016-09-01] MEDS: ALLOPURINOL 300 MG TABLET (FP) PO SCH (12:04)
[2016-09-01] MEDS: MULTIVITAMINS (DAILY MVI) TABLET (FP) PO SCH (12:04)
[2016-09-01] MEDS: POLYETHYLENE GLYCOL 3350 119 GM BTL PO SCH (12:04)
--- NOTE | 2016-09-01 13:00 | CONSULT ---
Consult - text type - Consultation Consultation Note: Neurology History of Present Illness 81 year old female with a history of NIDDM, HTN, ovarian ca (s/p chemo in 2007 and 2011, s/p hysterectomy and bilateral oophrectomy), and anemia sent from [facility] for Hg of 6.9. 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 There is concern for patient' s limited ability to move lower extremities and she reports ongoing fluid buildup. Patient reports this has been going and occuring since she has been in hospital. Onc consulted Neurology for peripheral neuropathy evaluation. Past History PAST MEDICAL HISTORY: as per HPI FAMILY HISTORY: Denies SOCIAL HISTORY: Lives at [facility] Denies tobacco, alcohol, illicit drug use. SURGICAL HISTORY: Denies ALLERGIES: No known drug allergies - Past Medical History Allergies/Adverse Reactions: Allergies Allergy/AdvReac Type Severity Reaction Status Date / Time No Known Drug Allergies Allergy Verified 08/26/16 09:24 Active Medications Acetaminophen (Tylenol -) 650 mg PO Q6H PRN PRN Reason: PAIN Last Admin: 08/30/16 20:30 Dose: 650 mg Allopurinol (Zyloprim -) 300 mg PO DAILY [facility] Last Admin: 09/01/16 12:04 Dose: 300 mg Azacitidine (Vidaza Subq) 120 mg SQ DAILY@1630 [facility] Stop: 09/06/16 16:31 Last Admin: 08/31/16 17:51 Dose: 120 mg Furosemide (Lasix -) 40 mg PO DAILY [facility] Last Admin: 09/01/16 12:03 Dose: 40 mg Guaifenesin (Diabetic Tussin Dm -) 5 ml PO Q6H PRN PRN Reason: COUGH Last Admin: 08/31/16 17:05 Dose: 5 ml Ondansetron HCl 8 mg/ Sodium (Chloride) 54 mls @ 216 mls/hr IVPB DAILY@1600 [facility] Stop: 09/06/16 16:14 Last Admin: 08/31/16 17:04 Dose: 216 mls/hr Magnesium Oxide (Mag-Ox -) 400 mg PO BID [facility] Last Admin: 09/01/16 12:03 Dose: 400 mg Metoclopramide HCl (Reglan -) 10 mg PO TIDAC [facility] Last Admin: 09/01/16 12:02 Dose: 10 mg Multivitamins/Minerals/Vitamin C (Tab-A-Vit -) 1 tab PO DAILY [facility] Last Admin: 09/01/16 12:04 Dose: 1 tab Non-Formulary Med ( Imatinib [Gleevec] 400mg Tab) 1 each PO DAILY [facility] Last Admin: 09/01/16 11:49 Dose: 1 each Pantoprazole Sodium (Protonix -) 40 mg PO BID [facility] Last Admin: 09/01/16 12:03 Dose: 40 mg Polyethylene Glycol (Miralax (For Daily Use) -) 17 gm PO DAILY [facility] Last Admin: 09/01/16 12:04 Dose: 17 grams Potassium Chloride (K-Dur -) 20 meq PO DAILY [facility] Last Admin: 09/01/16 12:03 Dose: 20 meq Anemia: Yes Cancer: Yes (OVARIAN AND SKIN CA) Diabetes: Yes GI Disorders: Yes (hernia, constipation) Disorders: Yes HTN: Yes Other medical history: magnesium deficiency, hypokalemia, hyperurecemia - Surgical History Abdominal Surgery: Yes (HYSTERECTOMY) - Psycho/Social/Smoking Cessation Hx Anxiety: No Suicidal Ideation: No Smoking History: Never smoked Have you smoked in the past 12 months: No Number of Cigarettes Smoked Daily: 0 Cigars Per Day: 0 Information on smoking cessation initiated: No Hx Alcohol Use: No Drug/Substance Use Hx: No Substance Use Type: None Hx Substance Use Treatment: No *Physical Exam - Vital Signs Vital Signs Period Temp Pulse Resp BP Sys/Belle Pulse Ox Last 24 Hr 98.1 F-98.4 F 93-102 18-20 109-124/53-77 94 PHYSICAL EXAM General Appearance: Well-appearing, appropriately dressed. No apparent distress. HEENT: EOMI, PERRLA, normal ENT inspection, normal voice, TMs normal, pharynx normal. No conjunctival pallor. No photophobia, scleral icterus. Neck: Supple. Trachea midline. No tenderness, rigidity, carotid bruit, stridor , lymphadenopathy, or thyromegaly. Respiratory/Chest: Lungs CTAB. No shortness of breath, chest tenderness, respiratory distress, accessory muscle use. No crackles, rales, rhonchi, stridor , wheezing, dullness Cardiovascular: RRR. S1, S2. Vascular Pulses: Dorsalis-Pedis (R): 2+, Dorsalis-Pedis (L): 2+ Gastrointestinal/Abdominal: LUQ tenderness on palpation, splenomegaly appreciated. Normal bowel sounds. Abdomen soft, non-distended. No organomegaly, pulsatile mass, guarding, hernia, hepatomegaly, splenomegaly. Lymphatic: No adenopathy, tenderness. Musculoskeletal/Extremities: 2+ pitting edema to LE b/l. No erythema, tenderness. Normal inspection. FROM of all extremities, normal capillary refill. Pelvis Stable. No CVA tenderness. No tenderness to extremities, pedal edema, swelling, erythema or deformity. Integumentary: Marked ecchymosis to previous IV insertion sites to forearms bilaterally. Appropriate color, dry, warm. No cyanosis, erythema, jaundice or rash Neurologic: wheat cleaner II-XII intact. Fully oriented, alert. Motor strength 5/5 in UE , 5-/5 in lower ext at best. CBCD WBC 4.0 K/mm3 (4.0-10.0) 09/01/16 06:00 RBC 2.45 M/mm3 (3.60-5.2) L 09/01/16 06:00 Hgb 8.2 GM/dL (10.7-15.3) L 09/01/16 06:00 Hct 24.0 % (32.4-45.2) L 09/01/16 06:00 MCV 97.8 fl (80-96) H 09/01/16 06:00 MCHC 34.1 g/dl (32.0-36.0) 09/01/16 06:00 RDW 17.8 % (11.6-15.6) H 09/01/16 06:00 Plt Count 13 K/MM3 (134-434) L* D 09/01/16 06:00 MPV 8.2 fl (7.5-11.1) 09/01/16 06:00 CMP Sodium 139 mmol/L (136-145) 09/01/16 06:00 Potassium 3.9 mmol/L (3.5-5.1) 09/01/16 06:00 Chloride 101 mmol/L (98-107) 09/01/16 06:00 Carbon Dioxide 30 mmol/L (21-32) 09/01/16 06:00 Anion Gap 8 (8-16) 09/01/16 06:00 BUN 27 mg/dL (7-18) H D 09/01/16 06:00 Creatinine 0.8 mg/dL (0.55-1.02) 09/01/16 06:00 Creat Clearance w eGFR > 60 (>60) 08/27/16 06:00 Calcium 8.4 mg/dL (8.5-10.1) L 09/01/16 06:00 Total Bilirubin 1.8 mg/dL (0.2-1.0) H D 08/27/16 06:00 AST 7 U/L (15-37) L D 08/27/16 06:00 ALT 11 U/L (12-78) L 08/27/16 06:00 Alkaline Phosphatase 113 U/L (45-117) 08/27/16 06:00 Total Protein 3.9 g/dl (6.4-8.2) L 08/27/16 06:00 Albumin 2.0 g/dl (3.4-5.0) L 08/27/16 06:00 Medical Decision Making 81 year old female with a history of NIDDM, HTN, ovarian ca (s/p chemo in 2007 and 2011, s/p hysterectomy and bilateral oophrectomy), and anemia sent from [facility] for Hg of 6.9, now improved. 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 There is concern for patient's limited ability to move lower extremities and she reports ongoing fluid buildup. Patient reports this has been going and occuring since she has been in hospital. Onc consulted Neurology for peripheral neuropathy evaluation. Will order B12 and folate check. Exam appears consistent with fluid building limiting movement. PT/OT would be recommended. EMG can be considered but not available on the weekend. Recommend further evaluation and management of fluid in lower extremities. Does not seem focal, not likely vascular/infarct Continue medical mgmt. Dr. Strickland will be covering if further questions
[2016-09-01] MEDS: ONDANSETRON INJECTION 8 MG in SODIUM CHLORIDE 50 ML IVPB SCH (16:10)
[2016-09-01] MEDS: [UNRECOGNIZED DRUG - OTHER] SQ SCH (17:06)
[2016-09-01] MEDS: AZACITIDINE SQ SCH (17:06)
[2016-09-01] MEDS: guaiFENesin/D-M SUGAR-FREE/ACLHOL-FREE 118 ML BOTTLE PO PRN (23:24)
[2016-09-02] MEDS: METOCLOPRAMIDE HCL 10 MG TABLET (FP) PO SCH ×3 (06:38→16:48)
[2016-09-02 07:42] LABS: MCH 33.3 pg (25.7-33.7); MCHC 33.5 g/dl (32.0-36.0); MEAN CELL VOLUME 99.5 fl (80-96); MEAN PLT VOLUME 8.1 fl (7.5-11.1); PLATELET COUNT 17 K/MM3 (134-434); WHITE BLOOD COUNT 3.9 K/mm3 (4.0-10.0)
[2016-09-02 07:59] LABS: ALBUMIN 2.2 g/dl (3.4-5.0); ANION GAP 10 (8-16); BILIRUBIN,TOTAL 1.7 mg/dL (0.2-1.0); CALCIUM 8.8 mg/dL (8.5-10.1); CO2 29 mmol/L (21-32); COCKROFT - GAULT 60.4775; CREATININE 0.7 mg/dL (0.55-1.02); GLUCOSE,RANDOM 141 mg/dL (74-106); MAGNESIUM 2.3 mg/dL (1.8-2.4); SGOT/AST 9 U/L (15-37); SGPT/ALT 11 U/L (12-78)
[2016-09-02 08:00] LABS: ALK PHOS 120 U/L (45-117); TOT PROT 4.4 g/dl (6.4-8.2)
[2016-09-02] MEDS ORDERED: PT OWN MED DRAWER 7, Y5N ONE ×2 (09:05→15:06)
[2016-09-02] MEDS: PANTOPRAZOLE 40 MG TABLET (FP) PO SCH ×2 (09:17→22:28)
[2016-09-02] MEDS: MULTIVITAMINS (DAILY MVI) TABLET (FP) PO SCH (09:17)
[2016-09-02] MEDS: FUROSEMIDE 40 MG TABLET (FP) PO SCH (09:17)
[2016-09-02] MEDS: MAGNESIUM OXIDE 400 MG TABLET (FP) PO SCH ×2 (11:11→22:28)
[2016-09-02] MEDS: POTASSIUM CHLORIDE TABS 20 MEQ TABLET.ER (FP) PO SCH (11:11)
[2016-09-02] MEDS: ALLOPURINOL 300 MG TABLET (FP) PO SCH (11:11)
[2016-09-02] MEDS: IMATINIB 400 MG PO SCH (11:12)
[2016-09-02 12:01] LABS: POLYCHROMASIA 1+
[2016-09-02 12:02] LABS: ANISOCYTOSIS 3+; MICROCYTOSIS 2+
--- NOTE | 2016-09-02 12:23 | PN ---
Progress Note (short form) - Note Progress Note: Patient seen and examined Feels mildly short of breath c/o lower ext. numbness/heaviness and edema Vital Signs Period Temp Pulse Resp BP Sys/Belle Pulse Ox Last 24 Hr 97.0 F-99 F 103-108 20-20 103-129/48-70 91 HEENT-nl Hear-S1, S2 regular Lungs: decreased at bases Abd: Soft, Normal bowel sounds, No organomegaly Ext:2+ edema b/l CBC, BMP 09/02/16 06:00 09/02/16 06:00 A/P 81 y/o patient with systemic mastocytosis with associated hematologic neoplasm on gleevec transfusion support C1D3 vidaza 75mg/m2 sc daily for 7 days getting w/u for lower ext. numbness/generalized weakness. --? fluid retention from gleevec hold gleevec and restart after vidaza transfusion support for Hgb < 7, platelts < 10,000
--- NOTE | 2016-09-02 12:37 | PN ---
Progress Note, Physician Chief Complaint: SOB; Weakness continues. 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 Weakness continues and seen by Neurology MD. - Current Medication List Current Medications: Active Medications Acetaminophen (Tylenol -) 650 mg PO Q6H PRN PRN Reason: PAIN Last Admin: 08/30/16 20:30 Dose: 650 mg Allopurinol (Zyloprim -) 300 mg PO DAILY [facility] [place] Last Admin: 09/02/16 11:11 Dose: 300 mg Azacitidine (Vidaza Subq) 120 mg SQ DAILY@1630 [facility] Stop: 09/06/16 16:31 Last Admin: 09/01/16 17:06 Dose: 120 mg Furosemide (Lasix Injection -) 40 mg IVPUSH DAILY [facility] Guaifenesin (Diabetic Tussin Dm -) 5 ml PO Q6H PRN PRN Reason: COUGH Last Admin: 09/01/16 23:24 Dose: 5 ml Ondansetron HCl 8 mg/ Sodium (Chloride) 54 mls @ 216 mls/hr IVPB DAILY@1600 [facility] Stop: 09/06/16 16:14 Last Admin: 09/01/16 16:10 Dose: 216 mls/hr Insulin Aspart (Novolog Vial Sliding Scale -) 1 vial SQ BIDAC [facility] PRN Reason: Protocol Magnesium Oxide (Mag-Ox -) 400 mg PO BID [facility] Last Admin: 09/02/16 11:11 Dose: 400 mg Metoclopramide HCl (Reglan -) 10 mg PO TIDAC [facility] Last Admin: 09/02/16 12:02 Dose: 10 mg Multivitamins/Minerals/Vitamin C (Tab-A-Vit -) 1 tab PO DAILY [facility] Last Admin: 09/02/16 09:17 Dose: 1 tab Pantoprazole Sodium (Protonix -) 40 mg PO BID [facility] Last Admin: 09/02/16 09:17 Dose: 40 mg Polyethylene Glycol (Miralax (For Daily Use) -) 17 gm PO DAILY [facility] Last Admin: 09/01/16 12:04 Dose: 17 grams Potassium Chloride (K-Dur -) 20 meq PO DAILY [facility] Last Admin: 09/02/16 11:11 Dose: 20 meq - Objective Vital Signs: Vital Signs Temperature 97.9 F 09/02/16 10:00 Pulse Rate 105 H 09/02/16 10:00 Respiratory Rate 20 09/02/16 10:00 Blood Pressure 114/58 09/02/16 10:00 O2 Sat by Pulse Oximetry (%) 93 L 09/02/16 09:00 Constitutional: Yes: Anxious, Pallor Cardiovascular: Yes: Tachycardia Respiratory: Yes: Rhonchi (at bases and cough), SOB Gastrointestinal: Yes: Soft, Distention, Hyperactive Bowel Sounds Genitourinary: No: Campbell Present Edema: LLE: 3+, RLE: 3+ Neurological: Yes: Alert, Oriented Labs: CBC, BMP 09/02/16 06:00 09/02/16 06:00 INR, PTT INR 1.39 (0.82-1.09) H 08/26/16 09:50 Problem List - Problems (1) Thrombocytopenia Assessment/Plan: 17,000 today. will follow. Code(s): D69.6 - THROMBOCYTOPENIA, UNSPECIFIED (2) Leg weakness, bilateral Code(s): R29.898 - OTH SYMPTOMS AND SIGNS INVOLVING THE MUSCULOSKELETAL SYSTEM (3) Anemia Assessment/Plan: HB 7.1 GM today. Hematology MD does not Rec: Transfusion unless count below 7GM. Code(s): D64.9 - ANEMIA, UNSPECIFIED Qualifiers: Anemia type: unspecified type Qualified Code(s): D64.9 - Anemia, unspecified (4) Mastocytosis Assessment/Plan: Gleevac being held due to edema side effects. Code(s): Q82.2 - MASTOCYTOSIS (5) Cough Assessment/Plan: ON RX Code(s): R05 - COUGH (6) Diabetes mellitus, new onset Assessment/Plan: BGM 169: To add BGM's. Code(s): E11.9 - TYPE 2 DIABETES MELLITUS WITHOUT COMPLICATIONS (7) HTN (hypertension) Code(s): I10 - ESSENTIAL (PRIMARY) HYPERTENSION (8) History of ovarian cancer Code(s): Z85.43 - PERSONAL HISTORY OF MALIGNANT NEOPLASM OF OVARY (9) CHF (congestive heart failure) Assessment/Plan: 3+ pedal edema and CHF changes on CXR. To add Lasix IV; teds; BNP. Code(s): I50.9 - HEART FAILURE, UNSPECIFIED
[2016-09-02] MEDS: guaiFENesin/D-M SUGAR-FREE/ACLHOL-FREE 118 ML BOTTLE PO PRN (15:10)
[2016-09-02] MEDS: ONDANSETRON INJECTION 8 MG in SODIUM CHLORIDE 50 ML IVPB SCH (15:11)
[2016-09-02] MEDS: AZACITIDINE SQ SCH (16:03)
[2016-09-02] MEDS: [UNRECOGNIZED DRUG - OTHER] SQ SCH (16:03)
[2016-09-02] MEDS: INSULIN SLIDING SCALE (NOVOLOG) 1 VIAL SQ SCH (17:38)
[2016-09-02] MEDS: POLYETHYLENE GLYCOL 3350 119 GM BTL PO SCH (19:01)
[2016-09-02] MEDS: FUROSEMIDE 40 MG/4 ML INJECTABLE VIAL IVPUSH SCH (19:01)
[2016-09-03] MEDS: METOCLOPRAMIDE HCL 10 MG TABLET (FP) PO SCH ×3 (06:38→17:31)
[2016-09-03] MEDS: INSULIN SLIDING SCALE (NOVOLOG) 1 VIAL SQ SCH ×2 (06:38→17:37)
[2016-09-03 08:01] LABS: MCHC 33.5 g/dl (32.0-36.0); MEAN CELL VOLUME 98.5 fl (80-96); MEAN PLT VOLUME 8.2 fl (7.5-11.1); RDW 18.6 % (11.6-15.6); WHITE BLOOD COUNT 3.4 K/mm3 (4.0-10.0)
[2016-09-03 08:09] LABS: CALCIUM 8.8 mg/dL (8.5-10.1); COCKROFT - GAULT 72.029; CREATININE 0.6 mg/dL (0.55-1.02)
[2016-09-03 09:02] LABS: PLATELET COUNT 11 K/MM3 (134-434)
[2016-09-03] MEDS: POTASSIUM CHLORIDE TABS 20 MEQ TABLET.ER (FP) PO SCH (10:42)
[2016-09-03] MEDS: PANTOPRAZOLE 40 MG TABLET (FP) PO SCH ×2 (10:43→21:48)
[2016-09-03] MEDS: MULTIVITAMINS (DAILY MVI) TABLET (FP) PO SCH (10:43)
[2016-09-03] MEDS: FUROSEMIDE 40 MG/4 ML INJECTABLE VIAL IVPUSH SCH (10:43)
[2016-09-03] MEDS: ALLOPURINOL 300 MG TABLET (FP) PO SCH (10:43)
[2016-09-03] MEDS: MAGNESIUM OXIDE 400 MG TABLET (FP) PO SCH ×2 (10:43→21:47)
--- NOTE | 2016-09-03 11:06 | PN ---
Progress Note, Physician Chief Complaint: SOB and coughing off and on. History of Present Illness: Patient with Acute Mastocytosis and Hematological Malignancy is still having some SOB and coughing in spite of IV Lasix and Cough Rx. CXR shows increased congestion but patient does say she had coughing and some pedal edema before gleevac Rx. BNP elevated and I will add low dose prednisone (on PPI) and change cough med to Robitussin with codeine and add small dose ARB to try to address all the issues she is distressed with. Although Emily SCHMIDT didnt want platelet Rx unless count below 10,000 I believe she has multiple petechia especially on abdominal wall and chest and todays count of 11,000 is her lowest ever. - Current Medication List Current Medications: Active Medications Acetaminophen (Tylenol -) 650 mg PO Q6H PRN PRN Reason: PAIN Last Admin: 08/30/16 20:30 Dose: 650 mg Allopurinol (Zyloprim -) 300 mg PO DAILY [facility] Last Admin: 09/03/16 10:43 Dose: 300 mg Azacitidine (Vidaza Subq) 120 mg SQ DAILY@1630 [facility] Stop: 09/06/16 16:31 Last Admin: 09/02/16 16:03 Dose: 120 mg Furosemide (Lasix Injection -) 40 mg IVPUSH DAILY [facility] Last Admin: 09/03/16 10:43 Dose: 40 mg Guaifenesin (Diabetic Tussin Dm -) 5 ml PO Q6H PRN PRN Reason: COUGH Last Admin: 09/02/16 15:10 Dose: 5 ml Ondansetron HCl 8 mg/ Sodium (Chloride) 54 mls @ 216 mls/hr IVPB DAILY@1600 [facility] Stop: 09/06/16 16:14 Last Admin: 09/02/16 15:11 Dose: 216 mls/hr Insulin Aspart (Novolog Vial Sliding Scale -) 1 vial SQ BIDAC [facility] PRN Reason: Protocol Last Admin: 09/03/16 06:38 Dose: Not Given Magnesium Oxide (Mag-Ox -) 400 mg PO BID [facility] Last Admin: 09/03/16 10:43 Dose: 400 mg Metoclopramide HCl (Reglan -) 10 mg PO TIDAC [facility] Last Admin: 09/03/16 10:43 Dose: 10 mg Multivitamins/Minerals/Vitamin C (Tab-A-Vit -) 1 tab PO DAILY [facility] Last Admin: 09/03/16 10:43 Dose: 1 tab Pantoprazole Sodium (Protonix -) 40 mg PO BID [facility] Last Admin: 09/03/16 10:43 Dose: 40 mg Polyethylene Glycol (Miralax (For Daily Use) -) 17 gm PO DAILY [facility] Last Admin: 09/02/16 19:01 Dose: Not Given Potassium Chloride (K-Dur -) 20 meq PO DAILY [facility] Last Admin: 09/03/16 10:42 Dose: 20 meq Prednisone (Deltasone -) 10 mg PO BID [facility] - Objective Vital Signs: Vital Signs Temperature 98.4 F 09/03/16 05:21 Pulse Rate 97 H 09/03/16 05:21 Respiratory Rate 20 09/03/16 05:21 Blood Pressure 92/44 09/03/16 05:21 O2 Sat by Pulse Oximetry (%) 96 09/02/16 21:00 Constitutional: Yes: Anxious, Mild Distress Eyes: Yes: Conjunctiva Clear Cardiovascular: Yes: Tachycardia Respiratory: Yes: Diminished, On Nasal O2 (worse a right base.), Rales, Rhonchi Gastrointestinal: Yes: Soft, Distention, Hyperactive Bowel Sounds Genitourinary: No: Campbell Present Edema: LLE: 2+ (teds on), RLE: 2+ Neurological: Yes: Alert, Oriented Labs: CBC, BMP 09/03/16 06:00 09/03/16 06:00 INR, PTT INR 1.39 (0.82-1.09) H 08/26/16 09:50 Problem List - Problems (1) Thrombocytopenia Assessment/Plan: Lowest value 11,000 with increased petechia noted. Emily SCHMIDT to be notified to see if ordering platelets should be allowed. Code(s): D69.6 - THROMBOCYTOPENIA, UNSPECIFIED (2) Leg weakness, bilateral Code(s): R29.898 - OTH SYMPTOMS AND SIGNS INVOLVING THE MUSCULOSKELETAL SYSTEM (3) Anemia Assessment/Plan: HB stable today at 8.2 GM but WBC falling to 3,400. Code(s): D64.9 - ANEMIA, UNSPECIFIED Qualifiers: Anemia type: unspecified type Qualified Code(s): D64.9 - Anemia, unspecified (4) Mastocytosis Assessment/Plan: Gleevac being held because of ? contribution to fluid overload. Code(s): Q82.2 - MASTOCYTOSIS (5) Cough Assessment/Plan: Will add codeine to cough Rx. Also will try to improve with low dose prednisone (on PPI) Code(s): R05 - COUGH (6) Diabetes mellitus, new onset Assessment/Plan: BGM 144. Code(s): E11.9 - TYPE 2 DIABETES MELLITUS WITHOUT COMPLICATIONS (7) HTN (hypertension) Assessment/Plan: Stable Code(s): I10 - ESSENTIAL (PRIMARY) HYPERTENSION (8) History of ovarian cancer Code(s): Z85.43 - PERSONAL HISTORY OF MALIGNANT NEOPLASM OF OVARY (9) CHF (congestive heart failure) Assessment/Plan: Will add ARB and continue IV Lasix. Code(s): I50.9 - HEART FAILURE, UNSPECIFIED
--- NOTE | 2016-09-03 12:05 | PN ---
Progress Note (short form) - Note Progress Note: Patient seen and examined She is ok today. Her feet are up.No signs of bleeding. constipation for 1 day. Poor appetite. She is tolerating the azacitidine well. c/o lower ext. numbness/heaviness and edema Vital Signs Period Temp Pulse Resp BP Sys/Belle Pulse Ox Last 24 Hr 97.9 F-98.7 F 97-105 20-20 92-115/44-77 96 HEENT-nl Hear-S1, S2 regular Lungs: decreased at bases Abd: Soft, Normal bowel sounds, No organomegaly Ext:2+ edema b/l CBC, BMP 09/03/16 06:00 09/03/16 06:00 Active Medications Generic Name Dose Route Start Last Admin Trade Name Freq PRN Reason Stop Dose Admin Acetaminophen 650 mg 08/26/16 17:19 08/30/16 20:30 Tylenol - PO 650 mg Q6H PRN Administration PAIN Allopurinol 300 mg 08/27/16 10:00 09/03/16 10:43 Zyloprim - PO 300 mg DAILY [facility] Administration Azacitidine 120 mg 08/31/16 16:30 09/02/16 16:03 Vidaza Subq SQ 09/06/16 16:31 120 mg DAILY@1630 [facility] Administration Furosemide 40 mg 09/02/16 13:00 09/03/16 10:43 Lasix Injection - IVPUSH 40 mg DAILY [facility] Administration Guaifenesin/Codeine Phosphate 5 ml 09/03/16 11:14 Robitussin Ac - PO TID PRN COUGH Ondansetron HCl 8 mg/ Sodium 54 mls @ 216 mls/hr 08/31/16 16:00 09/02/16 15:11 Chloride IVPB 09/06/16 16:14 216 mls/hr DAILY@1600 [facility] Administration Insulin Aspart 1 vial 09/02/16 16:30 09/03/16 06:38 Novolog Vial Sliding Scale - SQ Not Given BIDAC [facility] Protocol Losartan Potassium 25 mg 09/03/16 11:15 Cozaar - PO DAILY [facility] Magnesium Oxide 400 mg 08/26/16 22:00 09/03/16 10:43 Mag-Ox - PO 400 mg BID [facility] Administration Metoclopramide HCl 10 mg 08/27/16 07:00 09/03/16 10:43 Reglan - PO 10 mg TIDAC [facility] Administration Multivitamins/Minerals/Vitamin C 1 tab 08/27/16 10:00 09/03/16 10:43 Tab-A-Vit - PO 1 tab DAILY [facility] Administration Pantoprazole Sodium 40 mg 08/31/16 10:00 09/03/16 10:43 Protonix - PO 40 mg BID [facility] Administration Polyethylene Glycol 17 gm 08/27/16 17:15 09/02/16 19:01 Miralax (For Daily Use) - PO Not Given DAILY [facility] Potassium Chloride 20 meq 08/27/16 17:15 09/03/16 10:42 K-Dur - PO 20 meq DAILY [facility] Administration Prednisone 10 mg 09/03/16 22:00 Deltasone - PO BID [facility] A/P 81 y/o patient with systemic mastocytosis with associated hematologic neoplasm on gleevec and transfusion support C1D4 vidaza 75mg/m2 sc daily for 7 days getting w/u for lower ext. numbness/generalized weakness. --? fluid retention from gleevec Holding gleevec and restart after vidaza transfusion support for Hgb < 7, platelets < 10,000 can transfuse one unit of platelets and it is reasonable to transfuse between 10 -20 k.[We try and minimize it if possible to avoid platelet antibodies being formed]
[2016-09-03] MEDS: POLYETHYLENE GLYCOL 3350 119 GM BTL PO SCH (12:19)
[2016-09-03 12:31] LABS: METAMYELOCYTE 2 % (0-2); PLATELET ESTIMATE MARKEDLY DECREASED (NORMAL)
[2016-09-03 12:32] LABS: ANISOCYTOSIS 2+; POLYCHROMASIA 1+
[2016-09-03] MEDS: LOSARTAN POTASSIUM 50 MG TABLET (FP) PO SCH (13:29)
[2016-09-03] MEDS: guaiFENesin/CODEINE 5 ML UNIT-DOSE CUPS PO PRN (13:29)
[2016-09-03] MEDS: ONDANSETRON INJECTION 8 MG in SODIUM CHLORIDE 50 ML IVPB SCH (16:17)
[2016-09-03] MEDS: [UNRECOGNIZED DRUG - OTHER] SQ SCH (17:16)
[2016-09-03] MEDS: AZACITIDINE SQ SCH (17:16)
[2016-09-03] MEDS ORDERED: INSULIN (NOVOLOG) ASPART 100 UNITS/ML 10ML VIAL ONE (17:35)
[2016-09-03] MEDS: predniSONE 10 MG TABLET (UD) PO SCH (21:47)
[2016-09-04] MEDS: INSULIN SLIDING SCALE (NOVOLOG) 1 VIAL SQ SCH ×2 (06:19→18:17)
[2016-09-04] MEDS: METOCLOPRAMIDE HCL 10 MG TABLET (FP) PO SCH ×3 (06:20→18:18)
--- NOTE | 2016-09-04 09:42 | PN ---
Progress Note, Physician Chief Complaint: Slept better last nite. Still cough but better on low dose prednisone and cough Rx with codeine. History of Present Illness: Patient with Acute Mastocytosis and heme Malignancy was still coughing a great deal on the weekend but now improved on IV Lasix, Robitussin with codeine and prednisone 10mg BID. Last day of Chemo today and she is anxious to restart Gleevac. Await CBC. - Current Medication List Current Medications: Active Medications Acetaminophen (Tylenol -) 650 mg PO Q6H PRN PRN Reason: PAIN Last Admin: 08/30/16 20:30 Dose: 650 mg Albuterol Sulfate (Ventolin 0.083% Nebulizer Soln -) 1 amp NEB Q8H PRN PRN Reason: SHORT OF BREATH/WHEEZING Allopurinol (Zyloprim -) 300 mg PO DAILY [facility] Last Admin: 09/03/16 10:43 Dose: 300 mg Azacitidine (Vidaza Subq) 120 mg SQ DAILY@1630 [facility] Stop: 09/06/16 16:31 Last Admin: 09/03/16 17:16 Dose: 120 mg Furosemide (Lasix Injection -) 40 mg IVPUSH DAILY [facility] Last Admin: 09/03/16 10:43 Dose: 40 mg Guaifenesin/Codeine Phosphate (Robitussin Ac -) 5 ml PO TID PRN PRN Reason: COUGH Last Admin: 09/03/16 13:29 Dose: 5 ml Ondansetron HCl 8 mg/ Sodium (Chloride) 54 mls @ 216 mls/hr IVPB DAILY@1600 [facility] Stop: 09/06/16 16:14 Last Admin: 09/03/16 16:17 Dose: 216 mls/hr Insulin Aspart (Novolog Vial Sliding Scale -) 1 vial SQ BIDAC [facility] PRN Reason: Protocol Last Admin: 09/04/16 06:19 Dose: 2 units Losartan Potassium (Cozaar -) 25 mg PO DAILY [facility] Last Admin: 09/03/16 13:29 Dose: 25 mg Magnesium Oxide (Mag-Ox -) 400 mg PO BID [facility] Last Admin: 09/03/16 21:47 Dose: 400 mg Metoclopramide HCl (Reglan -) 10 mg PO TIDAC [facility] Last Admin: 09/04/16 06:20 Dose: 10 mg Multivitamins/Minerals/Vitamin C (Tab-A-Vit -) 1 tab PO DAILY [facility] Last Admin: 09/03/16 10:43 Dose: 1 tab Pantoprazole Sodium (Protonix -) 40 mg PO BID [facility] Last Admin: 09/03/16 21:48 Dose: 40 mg Polyethylene Glycol (Miralax (For Daily Use) -) 17 gm PO DAILY [facility] Last Admin: 09/03/16 12:19 Dose: 17 grams Potassium Chloride (K-Dur -) 20 meq PO DAILY [facility] Last Admin: 09/03/16 10:42 Dose: 20 meq Prednisone (Deltasone -) 10 mg PO BID [facility] Last Admin: 09/03/16 21:47 Dose: 10 mg - Objective Vital Signs: Vital Signs Temperature 99.6 F 09/04/16 02:00 Pulse Rate 99 H 09/04/16 06:00 Respiratory Rate 20 09/04/16 06:00 Blood Pressure 107/53 09/04/16 06:00 O2 Sat by Pulse Oximetry (%) 96 09/03/16 22:03 Constitutional: Yes: Calm, Pallor Cardiovascular: Yes: Tachycardia Respiratory: Yes: Diminished, Rhonchi (at bases), Wheezes Gastrointestinal: Yes: Soft Edema: LLE: 1+, RLE: 1+ Neurological: Yes: Alert, Oriented Labs: CBC, BMP 09/03/16 06:00 INR, PTT INR 1.39 (0.82-1.09) H 08/26/16 09:50 - ....Imaging Chest X-ray: Report Reviewed Problem List - Problems (1) Thrombocytopenia Assessment/Plan: Await AM lab; count was 11,000 on Sunday. 1 unit platelets given. Code(s): D69.6 - THROMBOCYTOPENIA, UNSPECIFIED (2) Leg weakness, bilateral Assessment/Plan: slightly improved and less edema. Code(s): R29.898 - OTH SYMPTOMS AND SIGNS INVOLVING THE MUSCULOSKELETAL SYSTEM (3) Anemia Assessment/Plan: Await AM Lab Code(s): D64.9 - ANEMIA, UNSPECIFIED Qualifiers: Anemia type: unspecified type Qualified Code(s): D64.9 - Anemia, unspecified (4) Mastocytosis Assessment/Plan: Await restart of Gleevac Code(s): Q82.2 - MASTOCYTOSIS (5) Cough Assessment/Plan: Better on codeine in cough syrup Code(s): R05 - COUGH (6) Diabetes mellitus, new onset Assessment/Plan: BGM higher due to prednisone. Code(s): E11.9 - TYPE 2 DIABETES MELLITUS WITHOUT COMPLICATIONS (7) HTN (hypertension) Code(s): I10 - ESSENTIAL (PRIMARY) HYPERTENSION (8) History of ovarian cancer Code(s): Z85.43 - PERSONAL HISTORY OF MALIGNANT NEOPLASM OF OVARY (9) CHF (congestive heart failure) Code(s): I50.9 - HEART FAILURE, UNSPECIFIED
[2016-09-04] MEDS ORDERED: PT OWN MED DRAWER 7, Y5N ONE (10:11)
[2016-09-04] MEDS: guaiFENesin/CODEINE 5 ML UNIT-DOSE CUPS PO PRN (10:18)
[2016-09-04] MEDS: LOSARTAN POTASSIUM 50 MG TABLET (FP) PO SCH (10:18)
[2016-09-04] MEDS: predniSONE 10 MG TABLET (UD) PO SCH ×2 (10:19→21:50)
[2016-09-04] MEDS: POTASSIUM CHLORIDE TABS 20 MEQ TABLET.ER (FP) PO SCH (10:20)
[2016-09-04] MEDS: FUROSEMIDE 40 MG/4 ML INJECTABLE VIAL IVPUSH SCH (10:20)
[2016-09-04] MEDS: MULTIVITAMINS (DAILY MVI) TABLET (FP) PO SCH (10:21)
[2016-09-04] MEDS: PANTOPRAZOLE 40 MG TABLET (FP) PO SCH ×2 (10:21→21:50)
[2016-09-04] MEDS: POLYETHYLENE GLYCOL 3350 119 GM BTL PO SCH (10:21)
[2016-09-04] MEDS: MAGNESIUM OXIDE 400 MG TABLET (FP) PO SCH ×2 (10:21→21:50)
[2016-09-04] MEDS: ALLOPURINOL 300 MG TABLET (FP) PO SCH (10:22)
[2016-09-04 10:35] LABS: MEAN CELL VOLUME 99.9 fl (80-96); MEAN PLT VOLUME 9.3 fl (7.5-11.1); RDW 20.4 % (11.6-15.6)
[2016-09-04] MEDS: ALBUTEROL SO4 0.083% IH SOL 2.5 MG/3 ML VIAL.NEB. NEB PRN ×2 (10:45→21:45)
[2016-09-04 16:01] LABS: PLATELET COUNT 22 K/MM3 (134-434)
[2016-09-04 16:03] LABS: PLATELET ESTIMATE MARKEDLY DECREASED (NORMAL)
--- NOTE | 2016-09-04 16:16 | PN ---
Progress Note (short form) - Note Progress Note: Patient seen and examined talking to her nephew c/o lower ext. heaviness Last Vital Signs Temp Pulse Resp BP Pulse Ox 97.8 F 97 H 20 97/50 96 09/04/16 15:16 09/04/16 15:16 09/04/16 15:16 09/04/16 15:16 09/04/16 10:45 HEENT-nl Heart-S1, S2 regular Lungs: decreased at bases Abd: Soft, Normal bowel sounds, No organomegaly Ext:2+ edema b/l Abnormal Lab Results 09/04/16 05:35 RBC 2.48 L Hgb 8.2 L Hct 24.8 L MCV 99.9 H RDW 20.4 H Plt Count 22 L* D Monocytes % 1.0 L Active Medications Generic Name Dose Route Start Last Admin Trade Name Freq PRN Reason Stop Dose Admin Acetaminophen 650 mg 08/26/16 17:19 08/30/16 20:30 Tylenol - PO 650 mg Q6H PRN Administration PAIN Albuterol Sulfate 1 amp 09/04/16 09:37 09/04/16 10:45 Ventolin 0.083% Nebulizer Soln - NEB 1 amp Q8H PRN Administration SHORT OF BREATH/WHEEZING Allopurinol 300 mg 08/27/16 10:00 09/04/16 10:22 Zyloprim - PO 300 mg DAILY JOVANA Administration Azacitidine 120 mg 08/31/16 16:30 09/03/16 17:16 Vidaza Subq SQ 09/06/16 16:31 120 mg DAILY@1630 JOVANA Administration Furosemide 40 mg 09/02/16 13:00 09/04/16 10:20 Lasix Injection - IVPUSH 40 mg DAILY JOVANA Administration Guaifenesin/Codeine Phosphate 5 ml 09/03/16 11:14 09/04/16 10:18 Robitussin Ac - PO 5 ml TID PRN Administration COUGH Ondansetron HCl 8 mg/ Sodium 54 mls @ 216 mls/hr 08/31/16 16:00 09/03/16 16:17 Chloride IVPB 09/06/16 16:14 216 mls/hr DAILY@1600 JOVANA Administration Insulin Aspart 1 vial 09/02/16 16:30 09/04/16 06:19 Novolog Vial Sliding Scale - SQ 2 units BIDAC JOVANA Administration Protocol Losartan Potassium 25 mg 09/03/16 11:15 09/04/16 10:18 Cozaar - PO 25 mg DAILY JOVANA Administration Magnesium Oxide 400 mg 08/26/16 22:00 09/04/16 10:21 Mag-Ox - PO 400 mg BID JOVANA Administration Metoclopramide HCl 10 mg 08/27/16 07:00 09/04/16 10:22 Reglan - PO 10 mg TIDAC JOVANA Administration Multivitamins/Minerals/Vitamin C 1 tab 08/27/16 10:00 09/04/16 10:21 Tab-A-Vit - PO 1 tab DAILY JOVANA Administration Pantoprazole Sodium 40 mg 08/31/16 10:00 09/04/16 10:21 Protonix - PO 40 mg BID JOVANA Administration Polyethylene Glycol 17 gm 08/27/16 17:15 09/04/16 10:21 Miralax (For Daily Use) - PO 17 grams DAILY J[facility]NA Administration Potassium Chloride 20 meq 08/27/16 17:15 09/04/16 10:20 K-Dur - PO 20 meq DAILY J[facility]NA Administration Prednisone 10 mg 09/03/16 22:00 09/04/16 10:19 Deltasone - PO 10 mg BID JOVANA Administration A/P 81 y/o patient with systemic mastocytosis with associated hematologic neoplasm transfusion support C1D5 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 numbness/generalized weakness. --? fluid retention from gleevec on lasix--would closely watch her renal function Overall difficult case given her diagnosis/age etc. will resume gleevec on transfusion support for Hgb < 7, platelts < 10,000 on prednisone 10mg bid/diuretics monitor CMP
[2016-09-04] MEDS: ONDANSETRON INJECTION 8 MG in SODIUM CHLORIDE 50 ML IVPB SCH (17:36)
[2016-09-04] MEDS ORDERED: INSULIN (NOVOLOG) ASPART 100 UNITS/ML 10ML VIAL ONE (18:09)
[2016-09-04] MEDS: AZACITIDINE SQ SCH (18:20)
[2016-09-04] MEDS: [UNRECOGNIZED DRUG - OTHER] SQ SCH (18:20)
[2016-09-05] MEDS: METOCLOPRAMIDE HCL 10 MG TABLET (FP) PO SCH ×3 (06:10→18:20)
[2016-09-05] MEDS: INSULIN SLIDING SCALE (NOVOLOG) 1 VIAL SQ SCH ×2 (06:10→17:32)
[2016-09-05] MEDS: ALBUTEROL SO4 0.083% IH SOL 2.5 MG/3 ML VIAL.NEB. NEB PRN (06:44)
[2016-09-05 07:22] LABS: MCH 33.2 pg (25.7-33.7); MCHC 33.2 g/dl (32.0-36.0); MEAN CELL VOLUME 100.1 fl (80-96); RDW 20.7 % (11.6-15.6); WHITE BLOOD COUNT 3.4 K/mm3 (4.0-10.0)
[2016-09-05 07:52] LABS: CALCIUM 8.2 mg/dL (8.5-10.1); COCKROFT - GAULT 54.1025; CREATININE 0.8 mg/dL (0.55-1.02)
[2016-09-05 07:54] LABS: PLATELET COUNT 11 K/MM3 (134-434)
[2016-09-05 10:15] LABS: METAMYELOCYTE 1 % (0-2)
[2016-09-05] MEDS ORDERED: FUROSEMIDE 40 MG TABLET (FP) PO SCH (10:15)
[2016-09-05] MEDS ORDERED: POTASSIUM CHLORIDE TABS 20 MEQ TABLET.ER (FP) PO SCH (10:15)
[2016-09-05 10:16] LABS: PLATELET ESTIMATE MARKEDLY DECREASED (NORMAL)
[2016-09-05] MEDS ORDERED: PT OWN MED DRAWER 7, Y5N ONE ×2 (10:50→20:57)
[2016-09-05] MEDS: POTASSIUM CHLORIDE TABS 20 MEQ TABLET.ER (FP) PO SCH (10:52)
[2016-09-05] MEDS: predniSONE 10 MG TABLET (UD) PO SCH (10:53)
[2016-09-05] MEDS: MULTIVITAMINS (DAILY MVI) TABLET (FP) PO SCH (10:53)
[2016-09-05] MEDS: MAGNESIUM OXIDE 400 MG TABLET (FP) PO SCH ×2 (10:54→21:22)
[2016-09-05] MEDS: LOSARTAN POTASSIUM 50 MG TABLET (FP) PO SCH (10:54)
[2016-09-05] MEDS: ALLOPURINOL 300 MG TABLET (FP) PO SCH (10:54)
[2016-09-05] MEDS: PANTOPRAZOLE 40 MG TABLET (FP) PO SCH ×2 (10:58→21:23)
--- NOTE | 2016-09-05 10:59 | PN ---
Progress Note, Physician Chief Complaint: Coughing off and on and tired. History of Present Illness: Patient with current Rx for Acute Mastocytosis and Hematological malignancy again has pancytopenia and with need repeat packed cells and platelet transfusion. On SQ Vidaza and holding Glevac for increased edema and cough but I still believe that was present before Gleevac started. I have put the patient on codeine cough syrup, Losartan, IV Lasix and low dose prednisone to help with the congestion. She did walk with PT yesterday. - Current Medication List Current Medications: Active Medications Acetaminophen (Tylenol -) 650 mg PO Q6H PRN PRN Reason: PAIN Last Admin: 08/30/16 20:30 Dose: 650 mg Albuterol Sulfate (Ventolin 0.083% Nebulizer Soln -) 1 amp NEB Q8H PRN PRN Reason: SHORT OF BREATH/WHEEZING Last Admin: 09/05/16 06:44 Dose: 1 amp Allopurinol (Zyloprim -) 300 mg PO DAILY [facility] Last Admin: 09/04/16 10:22 Dose: 300 mg Azacitidine (Vidaza Subq) 120 mg SQ DAILY@1630 [facility] Stop: 09/06/16 16:31 Last Admin: 09/04/16 18:20 Dose: 120 mg Furosemide (Lasix Injection -) 40 mg IVPUSH DAILY [facility] Last Admin: 09/04/16 10:20 Dose: 40 mg Furosemide (Lasix -) 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 [facility] Stop: 09/05/16 18:00 Guaifenesin/Codeine Phosphate (Robitussin Ac -) 5 ml PO TID PRN PRN Reason: COUGH Last Admin: 09/04/16 10:18 Dose: 5 ml Ondansetron HCl 8 mg/ Sodium (Chloride) 54 mls @ 216 mls/hr IVPB DAILY@1600 [facility] Stop: 09/06/16 16:14 Last Admin: 09/04/16 17:36 Dose: 216 mls/hr Insulin Aspart (Novolog Vial Sliding Scale -) 1 vial SQ BIDAC [facility] PRN Reason: Protocol Last Admin: 09/05/16 06:10 Dose: 2 units Losartan Potassium (Cozaar -) 25 mg PO DAILY [facility] Last Admin: 09/04/16 10:18 Dose: 25 mg Magnesium Oxide (Mag-Ox -) 400 mg PO BID [facility] Last Admin: 09/04/16 21:50 Dose: 400 mg Metoclopramide HCl (Reglan -) 10 mg PO TIDAC [facility] Last Admin: 09/05/16 06:10 Dose: 10 mg Multivitamins/Minerals/Vitamin C (Tab-A-Vit -) 1 tab PO DAILY [facility] Last Admin: 09/04/16 10:21 Dose: 1 tab Pantoprazole Sodium (Protonix -) 40 mg PO BID [facility] Last Admin: 09/04/16 21:50 Dose: 40 mg Polyethylene Glycol (Miralax (For Daily Use) -) 17 gm PO BID [facility] Potassium Chloride (K-Dur -) 20 meq PO DAILY [facility] Last Admin: 09/04/16 10:20 Dose: 20 meq Potassium Chloride (K-Dur -) 20 meq PO VIDE[employer] DESIGNER [facility] Stop: 09/05/16 18:00 Prednisone (Deltasone -) 10 mg PO BID [facility] Last Admin: 09/04/16 21:50 Dose: 10 mg - Objective Vital Signs: Vital Signs Temperature 97.8 F 09/05/16 06:00 Pulse Rate 80 09/05/16 09:02 Respiratory Rate 20 09/05/16 06:00 Blood Pressure 94/54 09/05/16 06:00 O2 Sat by Pulse Oximetry (%) 91 L 09/05/16 09:02 Constitutional: Yes: Anxious, Pallor Cardiovascular: Yes: Tachycardia Respiratory: Yes: Diminished, Rhonchi (Right base > than Left base) Gastrointestinal: Yes: Distention, Hyperactive Bowel Sounds, Tenderness, Epigastrium Genitourinary: No: Campbell Present Edema: LLE: 1+, RLE: 1+ Neurological: Yes: Alert, Oriented Labs: CBC, BMP 09/05/16 05:35 09/05/16 05:35 INR, PTT INR 1.39 (0.82-1.09) H 08/26/16 09:50 Problem List - Problems (1) Thrombocytopenia Assessment/Plan: Platelets again fell to 11,000 today; 1 unit of Monodonor platelets ordered. Code(s): D69.6 - THROMBOCYTOPENIA, UNSPECIFIED (2) Leg weakness, bilateral Assessment/Plan: Did improve with PT and less pedal edema on IV Lasix Code(s): R29.898 - OTH SYMPTOMS AND SIGNS INVOLVING THE MUSCULOSKELETAL SYSTEM (3) Anemia Assessment/Plan: Hb down to 7.1GM today; for 2 units of packed cells. Code(s): D64.9 - ANEMIA, UNSPECIFIED Qualifiers: Anemia type: unspecified type Qualified Code(s): D64.9 - Anemia, unspecified (4) Mastocytosis Code(s): Q82.2 - MASTOCYTOSIS (5) Cough Assessment/Plan: On Rx to help control. Still congestion noted on exam. Code(s): R05 - COUGH (6) Diabetes mellitus, new onset Assessment/Plan: BGM 183; slightly higher due to low dose steroids. Code(s): E11.9 - TYPE 2 DIABETES MELLITUS WITHOUT COMPLICATIONS (7) HTN (hypertension) Code(s): I10 - ESSENTIAL (PRIMARY) HYPERTENSION (8) History of ovarian cancer Code(s): Z85.43 - PERSONAL HISTORY OF MALIGNANT NEOPLASM OF OVARY (9) CHF (congestive heart failure) Code(s): I50.9 - HEART FAILURE, UNSPECIFIED
[2016-09-05] MEDS: POLYETHYLENE GLYCOL 3350 119 GM BTL PO SCH ×2 (11:01→21:22)
[2016-09-05] MEDS: FUROSEMIDE 40 MG/4 ML INJECTABLE VIAL IVPUSH SCH (11:05)
[2016-09-05] MEDS: ONDANSETRON INJECTION 8 MG in SODIUM CHLORIDE 50 ML IVPB SCH (16:49)
--- NOTE | 2016-09-05 16:57 | PN ---
Progress Note (short form) - Note Progress Note: Patient seen and examined Day 5 of chemotherapy. Gleevec on hold Pancytopenia secondary to disease and now therapy. Last Vital Signs Temp Pulse Resp BP Pulse Ox 98.0 F 100 H 20 86/49 91 L 09/05/16 15:25 09/05/16 15:25 09/05/16 15:25 09/05/16 15:25 09/05/16 09:02 HEENT: KARL, EOM Intact Oropharynx: No thrush, No mucositis Neck: Supple Nodes: Without adenopathy Cor: RSR, No murmurs, No gallops Lungs: rales at bases Abd: Soft, Normal bowel sounds, No organomegaly, mild distension Ext LE edema Skin: No rashes, Integument intact CBC, BMP 09/05/16 05:35 09/05/16 05:35 Current Medications Generic Name Dose Route Start Last Admin Trade Name Freq PRN Reason Stop Dose Admin Acetaminophen 650 mg 08/26/16 17:19 08/30/16 20:30 Tylenol - PO 650 mg Q6H PRN Administration PAIN Albuterol Sulfate 1 amp 09/04/16 09:37 09/05/16 06:44 Ventolin 0.083% Nebulizer Soln - NEB 1 amp Q8H PRN Administration SHORT OF BREATH/WHEEZING Allopurinol 300 mg 08/27/16 10:00 09/05/16 10:54 Zyloprim - PO 300 mg DAILY JOVANA Administration Azacitidine 120 mg 08/31/16 16:30 09/04/16 18:20 Vidaza Subq SQ 09/06/16 16:31 120 mg DAILY@1630 J[facility]NA Administration Furosemide 40 mg 09/02/16 13:00 09/05/16 11:05 Lasix Injection - IVPUSH 40 mg DAILY J[facility]NA Administration Furosemide 40 mg 09/05/16 10:15 Lasix - PO 09/05/16 18:00 BREAKFAST SERVER JOVANA Guaifenesin/Codeine Phosphate 5 ml 09/03/16 11:14 09/04/16 10:18 Robitussin Ac - PO 5 ml TID PRN Administration COUGH Ondansetron HCl 8 mg/ Sodium 54 mls @ 216 mls/hr 08/31/16 16:00 09/05/16 16:49 Chloride IVPB 09/06/16 16:14 216 mls/hr DAILY@1600 J[facility]NA Administration Insulin Aspart 1 vial 09/02/16 16:30 09/05/16 06:10 Novolog Vial Sliding Scale - SQ 2 units BIDAC JOVANA Administration Protocol Losartan Potassium 25 mg 09/03/16 11:15 09/05/16 10:54 Cozaar - PO 25 mg DAILY J[facility]NA Administration Magnesium Oxide 400 mg 08/26/16 22:00 09/05/16 10:54 Mag-Ox - PO 400 mg BID J[facility]NA Administration Metoclopramide HCl 10 mg 08/27/16 07:00 09/05/16 10:55 Reglan - PO 10 mg TIDAC JOVANA Administration Multivitamins/Minerals/Vitamin C 1 tab 08/27/16 10:00 09/05/16 10:53 Tab-A-Vit - PO 1 tab DAILY [facility] Administration Pantoprazole Sodium 40 mg 08/31/16 10:00 09/05/16 10:58 Protonix - PO 40 mg BID JOVANA Administration Polyethylene Glycol 17 gm 09/05/16 22:00 Miralax (For Daily Use) - PO BID [facility]NA Potassium Chloride 20 meq 08/27/16 17:15 09/05/16 10:52 K-Dur - PO 20 meq DAILY [facility]NA Administration Potassium Chloride 20 meq 09/05/16 10:15 K-Dur - PO 09/05/16 18:00 BREAKFAST SERVER JOVANA Prednisone 10 mg 09/03/16 22:00 09/05/16 10:53 Deltasone - PO 10 mg BID JOVANA Administration Impression: MDS with mastocytosis Anemia Thrombocytopenia Plan Transfuse Blood and platelets Complete course of 5 azacytidine. Taper steroids Resume Gleevec after completion of 5-azacytidine.
[2016-09-05] MEDS: [UNRECOGNIZED DRUG - OTHER] SQ SCH (17:57)
[2016-09-05] MEDS: AZACITIDINE SQ SCH (17:57)
[2016-09-05] MEDS: guaiFENesin/CODEINE 5 ML UNIT-DOSE CUPS PO PRN (21:24)
[2016-09-06] MEDS: INSULIN SLIDING SCALE (NOVOLOG) 1 VIAL SQ SCH ×2 (06:25→17:49)
[2016-09-06] MEDS: METOCLOPRAMIDE HCL 10 MG TABLET (FP) PO SCH ×3 (06:26→17:54)
[2016-09-06] MEDS: ALBUTEROL SO4 0.083% IH SOL 2.5 MG/3 ML VIAL.NEB. NEB PRN (06:59)
[2016-09-06 07:42] LABS: EOSINOPHIL 6.5 % (0-4.5); MCH 32.2 pg (25.7-33.7); MCHC 34.3 g/dl (32.0-36.0); MEAN CELL VOLUME 93.8 fl (80-96); MEAN PLT VOLUME 8.4 fl (7.5-11.1); NEUTROPHILS 55.8 % (42.8-82.8); RDW 17.9 % (11.6-15.6); WHITE BLOOD COUNT 4.5 K/mm3 (4.0-10.0)
[2016-09-06 08:00] LABS: PLATELET COUNT 22 K/MM3 (134-434)
[2016-09-06 08:34] LABS: ALBUMIN 2.3 g/dl (3.4-5.0); ALK PHOS 127 U/L (45-117); ANION GAP 7 (8-16); BILIRUBIN,TOTAL 1.8 mg/dL (0.2-1.0); CALCIUM 8.3 mg/dL (8.5-10.1); CO2 30 mmol/L (21-32); CREATININE 0.8 mg/dL (0.55-1.02); GLUCOSE,RANDOM 112 mg/dL (74-106); SGOT/AST 7 U/L (15-37); SGPT/ALT 10 U/L (12-78); TOT PROT 4.4 g/dl (6.4-8.2)
--- NOTE | 2016-09-06 08:49 | PN ---
Progress Note, Physician Chief Complaint: she feels a little stronger today after 2 units packed cells. History of Present Illness: Patient currently receiving the 6th day of Vidaza SQ. Will restart Gleevac when the ChemoRx has stopped. Received 2 units packed cells yesterday and 1 unit of platelets. Today Hb: 9GM and platelets 22,000. - Current Medication List Current Medications: Active Medications Acetaminophen (Tylenol -) 650 mg PO Q6H PRN PRN Reason: PAIN Last Admin: 08/30/16 20:30 Dose: 650 mg Albuterol Sulfate (Ventolin 0.083% Nebulizer Soln -) 1 amp NEB Q8H PRN PRN Reason: SHORT OF BREATH/WHEEZING Last Admin: 09/06/16 06:59 Dose: 1 amp Allopurinol (Zyloprim -) 300 mg PO DAILY [facility] Last Admin: 09/05/16 10:54 Dose: 300 mg Azacitidine (Vidaza Subq) 120 mg SQ DAILY@1630 [facility] Stop: 09/06/16 16:31 Last Admin: 09/05/16 17:57 Dose: 120 mg Furosemide (Lasix Injection -) 40 mg IVPUSH DAILY [facility] Last Admin: 09/05/16 11:05 Dose: 40 mg Guaifenesin/Codeine Phosphate (Robitussin Ac -) 5 ml PO TID PRN PRN Reason: COUGH Last Admin: 09/05/16 21:24 Dose: 5 ml Ondansetron HCl 8 mg/ Sodium (Chloride) 54 mls @ 216 mls/hr IVPB DAILY@1600 [facility] Stop: 09/06/16 16:14 Last Admin: 09/05/16 16:49 Dose: 216 mls/hr Insulin Aspart (Novolog Vial Sliding Scale -) 1 vial SQ BIDAC [facility] PRN Reason: Protocol Last Admin: 09/06/16 06:25 Dose: Not Given Losartan Potassium (Cozaar -) 25 mg PO DAILY [facility] Last Admin: 09/05/16 10:54 Dose: 25 mg Magnesium Oxide (Mag-Ox -) 400 mg PO BID [facility] Last Admin: 09/05/16 21:22 Dose: 400 mg Metoclopramide HCl (Reglan -) 10 mg PO TIDAC [facility] Last Admin: 09/06/16 06:26 Dose: 10 mg Multivitamins/Minerals/Vitamin C (Tab-A-Vit -) 1 tab PO DAILY [facility] Last Admin: 09/05/16 10:53 Dose: 1 tab Pantoprazole Sodium (Protonix -) 40 mg PO BID [facility] Last Admin: 09/05/16 21:23 Dose: 40 mg Polyethylene Glycol (Miralax (For Daily Use) -) 17 gm PO BID [facility] Last Admin: 09/05/16 21:22 Dose: 17 gm Potassium Chloride (K-Dur -) 20 meq PO DAILY [facility] Last Admin: 09/05/16 10:52 Dose: 20 meq Prednisone (Deltasone -) 10 mg PO DAILY [facility] - Objective Vital Signs: Vital Signs Temperature 98 F 09/05/16 22:00 Pulse Rate 98 H 09/05/16 22:00 Respiratory Rate 20 09/05/16 22:00 Blood Pressure 97/51 09/05/16 22:00 O2 Sat by Pulse Oximetry (%) 91 L 09/05/16 21:00 Constitutional: Yes: Calm, Pallor Cardiovascular: Yes: Regular Rate and Rhythm Respiratory: Yes: Diminished, Rhonchi (bases) Gastrointestinal: Yes: Soft, Hyperactive Bowel Sounds (Had BM) Genitourinary: No: Campbell Present Edema: LLE: 1+, RLE: 1+ Neurological: Yes: Alert, Oriented Labs: CBC, BMP 09/06/16 06:00 INR, PTT INR 1.39 (0.82-1.09) H 08/26/16 09:50 Problem List - Problems (1) Thrombocytopenia Assessment/Plan: Platelets improved to 22,000 today after 1 unit yesterday. Code(s): D69.6 - THROMBOCYTOPENIA, UNSPECIFIED (2) Leg weakness, bilateral Assessment/Plan: improved with PT Code(s): R29.898 - OTH SYMPTOMS AND SIGNS INVOLVING THE MUSCULOSKELETAL SYSTEM (3) Anemia Assessment/Plan: HB up to 9GM after 2 units packed cells Will follow Code(s): D64.9 - ANEMIA, UNSPECIFIED Qualifiers: Anemia type: unspecified type Qualified Code(s): D64.9 - Anemia, unspecified (4) Mastocytosis Code(s): Q82.2 - MASTOCYTOSIS (5) Cough Assessment/Plan: Occ cough; Aerosol helps Code(s): R05 - COUGH (6) Diabetes mellitus, new onset Assessment/Plan: BGM's noted. Code(s): E11.9 - TYPE 2 DIABETES MELLITUS WITHOUT COMPLICATIONS (7) HTN (hypertension) Assessment/Plan: On Rx Code(s): I10 - ESSENTIAL (PRIMARY) HYPERTENSION (8) History of ovarian cancer Code(s): Z85.43 - PERSONAL HISTORY OF MALIGNANT NEOPLASM OF OVARY (9) CHF (congestive heart failure) Code(s): I50.9 - HEART FAILURE, UNSPECIFIED
[2016-09-06] MEDS ORDERED: predniSONE 10 MG TABLET (UD) PO SCH (10:00)
[2016-09-06] MEDS: POTASSIUM CHLORIDE TABS 20 MEQ TABLET.ER (FP) PO SCH (10:37)
[2016-09-06] MEDS: LOSARTAN POTASSIUM 50 MG TABLET (FP) PO SCH (10:37)
[2016-09-06] MEDS: PANTOPRAZOLE 40 MG TABLET (FP) PO SCH ×2 (10:38→21:06)
[2016-09-06] MEDS: MULTIVITAMINS (DAILY MVI) TABLET (FP) PO SCH (10:38)
[2016-09-06] MEDS: predniSONE 10 MG TABLET (UD) PO SCH (10:38)
[2016-09-06] MEDS: ALLOPURINOL 300 MG TABLET (FP) PO SCH (10:38)
[2016-09-06] MEDS: MAGNESIUM OXIDE 400 MG TABLET (FP) PO SCH ×2 (10:44→21:05)
[2016-09-06] MEDS: POLYETHYLENE GLYCOL 3350 119 GM BTL PO SCH ×2 (11:13→21:05)
[2016-09-06] MEDS: ONDANSETRON INJECTION 8 MG in SODIUM CHLORIDE 50 ML IVPB SCH (17:00)
--- NOTE | 2016-09-06 17:11 | PN ---
Progress Note (short form) - Note Progress Note: Patient seen and examined talking to her nephew c/o lower ext. heaviness Last Vital Signs Temp Pulse Resp BP Pulse Ox 98.3 F 97 H 20 109/61 93 L 09/06/16 15:16 09/06/16 15:16 09/06/16 15:16 09/06/16 15:16 09/06/16 09:00 HEENT-nl Heart-S1, S2 regular Lungs: decreased at bases Abd: Soft, Normal bowel sounds, No organomegaly Ext:2+ edema b/l Abnormal Lab Results 09/02/16 09/05/16 09/06/16 10:55 11:45 06:00 RBC 2.81 L D Hgb 9.0 L D Hct 26.4 L D RDW 17.9 H D Plt Count 22 L* D Eosinophils % 6.5 H D Anion Gap BUN Random Glucose Calcium Total Bilirubin AST ALT Alkaline Phosphatase Total Protein Albumin Crossmatch See Detail See Detail 09/06/16 06:00 RBC Hgb Hct RDW Plt Count Eosinophils % Anion Gap 7 L BUN 48 H Random Glucose 112 H D Calcium 8.3 L Total Bilirubin 1.8 H AST 7 L D ALT 10 L Alkaline Phosphatase 127 H Total Protein 4.4 L Albumin 2.3 L Crossmatch Home Medication List Medication Instructions Recorded Confirmed Type Aa/Hydrolyzed Collagen, Whey [Lps 30 ml PO TID 08/26/16 08/26/16 History 15-30 Liquid] Allopurinol 300 mg PO DAILY 08/26/16 08/26/16 History Imatinib Mesylate [Gleevec] 100 mg PO DAILY 08/26/16 08/26/16 History Multivitamin [Poly-Vitamin] 1 each PO DAILY 08/26/16 08/26/16 History Active Medications Generic Name Dose Route Start Last Admin Trade Name Freq PRN Reason Stop Dose Admin Acetaminophen 650 mg 08/26/16 17:19 08/30/16 20:30 Tylenol - PO 650 mg Q6H PRN Administration PAIN Albuterol Sulfate 1 amp 09/04/16 09:37 09/06/16 06:59 Ventolin 0.083% Nebulizer Soln - NEB 1 amp Q8H PRN Administration SHORT OF BREATH/WHEEZING Allopurinol 300 mg 08/27/16 10:00 09/06/16 10:38 Zyloprim - PO 300 mg DAILY [facility]NA Administration Furosemide 40 mg 09/02/16 13:00 09/05/16 11:05 Lasix Injection - IVPUSH 40 mg DAILY [facility]NA Administration Guaifenesin/Codeine Phosphate 5 ml 09/03/16 11:14 09/05/16 21:24 Robitussin Ac - PO 5 ml TID PRN Administration COUGH Insulin Aspart 1 vial 09/02/16 16:30 09/06/16 06:25 Novolog Vial Sliding Scale - SQ Not Given BIDAC [facility] Protocol Losartan Potassium 25 mg 09/03/16 11:15 09/06/16 10:37 Cozaar - PO Not Given DAILY JOVANA Magnesium Oxide 400 mg 08/26/16 22:00 09/06/16 10:44 Mag-Ox - PO 400 mg BID [facility]NA Administration Metoclopramide HCl 10 mg 08/27/16 07:00 09/06/16 10:44 Reglan - PO 10 mg TIDAC JOVANA Administration Multivitamins/Minerals/Vitamin C 1 tab 08/27/16 10:00 09/06/16 10:38 Tab-A-Vit - PO 1 tab DAILY [facility] Administration Pantoprazole Sodium 40 mg 08/31/16 10:00 09/06/16 10:38 Protonix - PO 40 mg BID [facility]NA Administration Polyethylene Glycol 17 gm 09/05/16 22:00 09/06/16 11:13 Miralax (For Daily Use) - PO 17 gm BID [facility] Administration Potassium Chloride 20 meq 08/27/16 17:15 09/06/16 10:37 K-Dur - PO 20 meq DAILY [facility] Administration Prednisone 5 mg 09/06/16 10:00 09/06/16 10:38 Deltasone - PO 5 mg DAILY [facility] Administration A/P 81 y/o patient with systemic mastocytosis with associated hematologic neoplasm transfusion support C1D7 vidaza 75mg/m2 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
[2016-09-06] MEDS: AZACITIDINE SQ SCH (17:54)
[2016-09-06] MEDS: [UNRECOGNIZED DRUG - OTHER] SQ SCH (17:54)
[2016-09-06] MEDS: guaiFENesin/CODEINE 5 ML UNIT-DOSE CUPS PO PRN (21:06)
[2016-09-07] MEDS: INSULIN SLIDING SCALE (NOVOLOG) 1 VIAL SQ SCH ×2 (06:42→17:17)
[2016-09-07] MEDS: METOCLOPRAMIDE HCL 10 MG TABLET (FP) PO SCH ×3 (06:43→17:09)
[2016-09-07 07:27] LABS: MCHC 33.3 g/dl (32.0-36.0); MEAN CELL VOLUME 96.2 fl (80-96); MEAN PLT VOLUME 7.4 fl (7.5-11.1); RDW 17.9 % (11.6-15.6); WHITE BLOOD COUNT 3.4 K/mm3 (4.0-10.0)
[2016-09-07 07:41] LABS: PLATELET COUNT 11 K/MM3 (134-434)
--- NOTE | 2016-09-07 08:24 | PN ---
Progress Note (short form) - Note Progress Note: Patient sitting up for breakfast; slept well. Cough better and walked with PT. Platelets again lower at 11,000; await Heme Re: advice on platelet Rx. On Exam: Vital Signs Temp 97.9 F 09/07/16 05:47 Pulse 106 H 09/07/16 05:47 Resp 20 09/07/16 05:47 BP 102/57 09/07/16 05:47 Pulse Ox 92 L 09/06/16 21:00 Intake & Output 09/06/16 09/06/16 09/07/16 11:59 23:59 11:59 Intake Total 550 Balance 550 Weight 140 lb 139 lb 11.2 oz Intake: IVPB 50 Oral 500 Other: Voiding Method Bedside Commode Bedside Commode Bedside Commode # Unmeasured Voids Void 2 Bowel Movement Yes # Bowel Movements 1 Weight Measurement Method Chair Scale Chair Scale Alert pale Chest: decreased breath sounds Cor: tachycardia Ext: 1-2+ edema Abnormal Lab Results 09/02/16 09/06/16 09/07/16 10:55 06:00 06:00 WBC 3.4 L RBC 2.61 L Hgb 8.4 L Hct 25.1 L MCV 96.2 H RDW 17.9 H Plt Count 11 L* D MPV 7.4 L D Anion Gap 7 L BUN 48 H Random Glucose 112 H D Calcium 8.3 L Total Bilirubin 1.8 H AST 7 L D ALT 10 L Alkaline Phosphatase 127 H Total Protein 4.4 L Albumin 2.3 L Crossmatch See Detail IMP: Acute Mastocytosis and Heme Malignancy Pancytopenia NIDDM HTN Plan: Had Vidaza Chemo Await restart of Gleevac ?Platelet transfusion Problem List - Problems (1) Thrombocytopenia Code(s): D69.6 - THROMBOCYTOPENIA, UNSPECIFIED (2) Leg weakness, bilateral Code(s): R29.898 - OTH SYMPTOMS AND SIGNS INVOLVING THE MUSCULOSKELETAL SYSTEM (3) Anemia Code(s): D64.9 - ANEMIA, UNSPECIFIED Qualifiers: Anemia type: unspecified type Qualified Code(s): D64.9 - Anemia, unspecified (4) Mastocytosis Code(s): Q82.2 - MASTOCYTOSIS (5) Cough Code(s): R05 - COUGH (6) Diabetes mellitus, new onset Code(s): E11.9 - TYPE 2 DIABETES MELLITUS WITHOUT COMPLICATIONS (7) HTN (hypertension) Code(s): I10 - ESSENTIAL (PRIMARY) HYPERTENSION (8) History of ovarian cancer Code(s): Z85.43 - PERSONAL HISTORY OF MALIGNANT NEOPLASM OF OVARY (9) CHF (congestive heart failure) Code(s): I50.9 - HEART FAILURE, UNSPECIFIED
[2016-09-07] MEDS: FUROSEMIDE 40 MG/4 ML INJECTABLE VIAL IVPUSH SCH ×2 (08:54→10:08)
[2016-09-07] MEDS: predniSONE 10 MG TABLET (UD) PO SCH (10:06)
[2016-09-07] MEDS: MAGNESIUM OXIDE 400 MG TABLET (FP) PO SCH ×2 (10:07→22:15)
[2016-09-07] MEDS: POTASSIUM CHLORIDE TABS 20 MEQ TABLET.ER (FP) PO SCH (10:07)
[2016-09-07] MEDS: PANTOPRAZOLE 40 MG TABLET (FP) PO SCH ×2 (10:07→22:15)
[2016-09-07] MEDS: ALLOPURINOL 300 MG TABLET (FP) PO SCH (10:07)
[2016-09-07] MEDS: LOSARTAN POTASSIUM 50 MG TABLET (FP) PO SCH (10:08)
[2016-09-07] MEDS: MULTIVITAMINS (DAILY MVI) TABLET (FP) PO SCH (10:08)
[2016-09-07] MEDS: POLYETHYLENE GLYCOL 3350 119 GM BTL PO SCH ×2 (10:09→22:15)
[2016-09-07 11:23] LABS: METAMYELOCYTE 2 % (0-2); PLATELET ESTIMATE MARKEDLY DECREASED (NORMAL)
[2016-09-07 12:21] LABS: WHITE BLOOD COUNT 4.7 K/mm3 (4.0-10.0)
[2016-09-07 14:13] LABS: MCH 32.3 pg (25.7-33.7); MCHC 33.5 g/dl (32.0-36.0); MEAN CELL VOLUME 96.3 fl (80-96); MEAN PLT VOLUME 9.9 fl (7.5-11.1); RDW 18.5 % (11.6-15.6); WHITE BLOOD COUNT 3.9 K/mm3 (4.0-10.0)
[2016-09-07 14:23] LABS: PLATELET COUNT 8 K/MM3 (134-434)
[2016-09-07] MEDS: ALBUTEROL SO4 0.083% IH SOL 2.5 MG/3 ML VIAL.NEB. NEB PRN (17:00)
--- NOTE | 2016-09-07 21:10 | PN ---
Progress Note (short form) - Note Progress Note: Patient seen and examined talking to her nephew c/o lower ext. heaviness Last Vital Signs Temp Pulse Resp BP Pulse Ox 97.8 F 103 H 20 95/59 96 09/07/16 18:00 09/07/16 18:00 09/07/16 18:00 09/07/16 18:00 09/07/16 09:00 HEENT-nl Heart-S1, S2 regular Lungs: decreased at bases Abd: Soft, Normal bowel sounds, No organomegaly Ext:2+ edema b/l Abnormal Lab Results 09/02/16 09/05/16 09/07/16 10:55 11:45 06:00 WBC 3.4 L RBC 2.61 L Hgb 8.4 L Hct 25.1 L MCV 96.2 H RDW 17.9 H Plt Count 11 L* D MPV 7.4 L D Crossmatch See Detail See Detail 09/07/16 13:51 WBC 3.9 L RBC 2.84 L Hgb 9.2 L Hct 27.4 L MCV 96.3 H RDW 18.5 H Plt Count 8 L* D MPV Crossmatch Home Medication List Medication Instructions Recorded Confirmed Type Aa/Hydrolyzed Collagen, Whey [Lps 30 ml PO TID 08/26/16 08/26/16 History 15-30 Liquid] Allopurinol 300 mg PO DAILY 08/26/16 08/26/16 History Imatinib Mesylate [Gleevec] 100 mg PO DAILY 08/26/16 08/26/16 History Multivitamin [Poly-Vitamin] 1 each PO DAILY 08/26/16 08/26/16 History Active Medications Generic Name Dose Route Start Last Admin Trade Name Freq PRN Reason Stop Dose Admin Acetaminophen 650 mg 08/26/16 17:19 08/30/16 20:30 Tylenol - PO 650 mg Q6H PRN Administration PAIN Albuterol Sulfate 1 amp 09/04/16 09:37 09/07/16 17:00 Ventolin 0.083% Nebulizer Soln - NEB 1 amp Q8H PRN Administration SHORT OF BREATH/WHEEZING Allopurinol 300 mg 08/27/16 10:00 09/07/16 10:07 Zyloprim - PO 300 mg DAILY [facility] Administration Furosemide 40 mg 09/02/16 13:00 09/07/16 10:08 Lasix Injection - IVPUSH 40 mg DAILY [facility] Administration Guaifenesin/Codeine Phosphate 5 ml 09/03/16 11:14 09/06/16 21:06 Robitussin Ac - PO 5 ml TID PRN Administration COUGH Insulin Aspart 1 vial 09/02/16 16:30 09/07/16 17:17 Novolog Vial Sliding Scale - SQ 2 units BIDAC [facility] Administration Protocol Losartan Potassium 25 mg 09/03/16 11:15 09/07/16 10:08 Cozaar - PO 25 mg DAILY [facility] Administration Magnesium Oxide 400 mg 08/26/16 22:00 09/07/16 10:07 Mag-Ox - PO 400 mg BID [facility] Administration Metoclopramide HCl 10 mg 08/27/16 07:00 09/07/16 17:09 Reglan - PO 10 mg TIDAC [facility] Administration Multivitamins/Minerals/Vitamin C 1 tab 08/27/16 10:00 09/07/16 10:08 Tab-A-Vit - PO 1 tab DAILY [facility] Administration Pantoprazole Sodium 40 mg 08/31/16 10:00 09/07/16 10:07 Protonix - PO 40 mg BID [facility] Administration Polyethylene Glycol 17 gm 09/05/16 22:00 09/07/16 10:09 Miralax (For Daily Use) - PO 17 gm BID [facility] Administration Potassium Chloride 20 meq 08/27/16 17:15 09/07/16 10:07 K-Dur - PO 20 meq DAILY [facility] Administration Prednisone 5 mg 09/06/16 10:00 09/07/16 10:06 Deltasone - PO 5 mg DAILY [facility] Administration A/P 81 y/o patient with systemic mastocytosis with associated hematologic neoplasm transfusion support C1D8 vidaza 75mg/m2 sc daily for 7 days for MDS/AML will resume gleevec tomorrow --300mg/ day transfusion support for Hgb < 7, platelts < 10,000 on prednisone 5 mg daily monitor CMP
[2016-09-08] MEDS: INSULIN SLIDING SCALE (NOVOLOG) 1 VIAL SQ SCH ×2 (06:10→17:27)
[2016-09-08] MEDS: METOCLOPRAMIDE HCL 10 MG TABLET (FP) PO SCH ×3 (06:11→17:27)
[2016-09-08 07:30] LABS: BASOPHIL 0.5 % (0-2.0); EOSINOPHIL 0.5 % (0-4.5); MCH 32.1 pg (25.7-33.7); MCHC 33.2 g/dl (32.0-36.0); MEAN CELL VOLUME 96.7 fl (80-96); MEAN PLT VOLUME 7.8 fl (7.5-11.1); NEUTROPHILS 59.4 % (42.8-82.8); WHITE BLOOD COUNT 3.2 K/mm3 (4.0-10.0)
[2016-09-08 07:44] LABS: PLATELET COUNT 16 K/MM3 (134-434)
[2016-09-08 07:52] LABS: CALCIUM 8.2 mg/dL (8.5-10.1); COCKROFT - GAULT 84.286; CREATININE 0.5 mg/dL (0.55-1.02)
--- NOTE | 2016-09-08 09:30 | PN ---
Progress Note, Physician Chief Complaint: Not SOB even lying down and walked twice yesterday in green. Worried about her blood counts. History of Present Illness: Patient with Acute Mastocytosis and hematologic malignancy just completed 7 days of SQ Vidaza and is to resume Gleevac today. She brought in her Gleevac herself. The dose is 400mg from her pharmacy.. her platelets fell to 8,000 yesteday and is 16,000 today. Hb 7.4GM. - Current Medication List Current Medications: Active Medications Acetaminophen (Tylenol -) 650 mg PO Q6H PRN PRN Reason: PAIN Last Admin: 08/30/16 20:30 Dose: 650 mg Albuterol Sulfate (Ventolin 0.083% Nebulizer Soln -) 1 amp NEB Q8H PRN PRN Reason: SHORT OF BREATH/WHEEZING Last Admin: 09/07/16 17:00 Dose: 1 amp Allopurinol (Zyloprim -) 300 mg PO DAILY [facility] Last Admin: 09/07/16 10:07 Dose: 300 mg Furosemide (Lasix -) 40 mg PO DAILY [facility] Guaifenesin/Codeine Phosphate (Robitussin Ac -) 5 ml PO TID PRN PRN Reason: COUGH Last Admin: 09/06/16 21:06 Dose: 5 ml Insulin Aspart (Novolog Vial Sliding Scale -) 1 vial SQ BIDAC [facility] PRN Reason: Protocol Last Admin: 09/08/16 06:10 Dose: Not Given Losartan Potassium (Cozaar -) 25 mg PO DAILY [facility] Last Admin: 09/07/16 10:08 Dose: 25 mg Magnesium Oxide (Mag-Ox -) 400 mg PO BID [facility] Last Admin: 09/07/16 22:15 Dose: 400 mg Metoclopramide HCl (Reglan -) 10 mg PO TIDAC [facility] Last Admin: 09/08/16 06:11 Dose: 10 mg Multivitamins/Minerals/Vitamin C (Tab-A-Vit -) 1 tab PO DAILY [facility] Last Admin: 09/07/16 10:08 Dose: 1 tab Pantoprazole Sodium (Protonix -) 40 mg PO BID [facility] Last Admin: 09/07/16 22:15 Dose: 40 mg Polyethylene Glycol (Miralax (For Daily Use) -) 17 gm PO BID [facility] Last Admin: 09/07/16 22:15 Dose: 17 gm Potassium Chloride (K-Dur -) 20 meq PO DAILY [facility] Last Admin: 09/07/16 10:07 Dose: 20 meq Prednisone (Deltasone -) 5 mg PO DAILY [facility] Last Admin: 09/07/16 10:06 Dose: 5 mg - Objective Vital Signs: Vital Signs Temperature 98.2 F 09/08/16 05:57 Pulse Rate 99 H 09/08/16 05:57 Respiratory Rate 20 09/08/16 05:57 Blood Pressure 106/52 09/08/16 05:57 O2 Sat by Pulse Oximetry (%) 96 09/07/16 21:00 Constitutional: Yes: Calm, Pallor Eyes: Yes: Conjunctiva Clear Cardiovascular: Yes: Tachycardia Respiratory: Yes: Diminished, Rhonchi (at bases) Gastrointestinal: Yes: Soft (Had BM) Edema: LLE: 1+, RLE: 1+ Neurological: Yes: Alert, Oriented Labs: CBC, BMP 09/08/16 06:00 09/08/16 06:00 INR, PTT INR 1.39 (0.82-1.09) H 08/26/16 09:50 Problem List - Problems (1) Thrombocytopenia Assessment/Plan: Up from 8,000 to 16,000 today. Code(s): D69.6 - THROMBOCYTOPENIA, UNSPECIFIED (2) Leg weakness, bilateral Assessment/Plan: Improving with more ambulation; still mild edema; to switch to PO Lasix today. Code(s): R29.898 - OT SYMPTOMS AND SIGNS INVOLVING THE MUSCULOSKELETAL SYSTEM (3) Anemia Assessment/Plan: Hb 7.4 Heme Rec: transfusion for <7GM. Code(s): D64.9 - ANEMIA, UNSPECIFIED Qualifiers: Anemia type: unspecified type Qualified Code(s): D64.9 - Anemia, unspecified (4) Mastocytosis Code(s): Q82.2 - MASTOCYTOSIS (5) Cough Code(s): R05 - COUGH (6) Diabetes mellitus, new onset Assessment/Plan: Excellent [facility] Code(s): E11.9 - TYPE 2 DIABETES MELLITUS WITHOUT COMPLICATIONS (7) HTN (hypertension) Code(s): I10 - ESSENTIAL (PRIMARY) HYPERTENSION (8) History of ovarian cancer Code(s): Z85.43 - PERSONAL HISTORY OF MALIGNANT NEOPLASM OF OVARY (9) CHF (congestive heart failure) Assessment/Plan: Now able to lay flat with no SOB; to switch to PO Lasix Code(s): I50.9 - HEART FAILURE, UNSPECIFIED Qualifiers: Congestive heart failure type: diastolic Congestive heart failure chronicity: acute Qualified Code(s): I50.31 - Acute diastolic (congestive ) heart failure
[2016-09-08] MEDS: PANTOPRAZOLE 40 MG TABLET (FP) PO SCH ×2 (09:51→21:57)
[2016-09-08] MEDS: MULTIVITAMINS (DAILY MVI) TABLET (FP) PO SCH (09:51)
[2016-09-08] MEDS: FUROSEMIDE 40 MG TABLET (FP) PO SCH (09:51)
[2016-09-08] MEDS: POTASSIUM CHLORIDE TABS 20 MEQ TABLET.ER (FP) PO SCH (09:51)
[2016-09-08] MEDS: predniSONE 10 MG TABLET (UD) PO SCH (09:51)
[2016-09-08] MEDS: ALLOPURINOL 300 MG TABLET (FP) PO SCH (09:52)
[2016-09-08] MEDS: MAGNESIUM OXIDE 400 MG TABLET (FP) PO SCH ×2 (09:52→21:57)
[2016-09-08] MEDS: LOSARTAN POTASSIUM 50 MG TABLET (FP) PO SCH (09:52)
[2016-09-08] MEDS: POLYETHYLENE GLYCOL 3350 119 GM BTL PO SCH ×2 (09:55→21:57)
[2016-09-08] MEDS: guaiFENesin/CODEINE 5 ML UNIT-DOSE CUPS PO PRN (19:09)
[2016-09-08] MEDS ORDERED: PT OWN MED DRAWER 7, Y5N ONE (19:13)
--- NOTE | 2016-09-08 19:17 | PN ---
Progress Note (short form) - Note Progress Note: Patient seen and examined Remains apprehensive /anxious. Last Vital Signs Temp Pulse Resp BP Pulse Ox 97.7 F 98 H 20 89/54 96 09/08/16 14:04 09/08/16 14:04 09/08/16 14:04 09/08/16 14:04 09/08/16 11:15 HEENT: KARL, EOM Intact Oropharynx: No thrush, No mucositis Cor: RSR, No murmurs, No gallops Lungs: Clear to P&A Abd: distended, ? fluid wave Ext:LE edema Skin:Numerous ecchymoses abdominal wall , extremities CBC, BMP 09/08/16 06:00 09/08/16 06:00 Current Medications Generic Name Dose Route Start Last Admin Trade Name Freq PRN Reason Stop Dose Admin Acetaminophen 650 mg 08/26/16 17:19 08/30/16 20:30 Tylenol - PO 650 mg Q6H PRN Administration PAIN Albuterol Sulfate 1 amp 09/04/16 09:37 09/07/16 17:00 Ventolin 0.083% Nebulizer Soln - NEB 1 amp Q8H PRN Administration SHORT OF BREATH/WHEEZING Allopurinol 300 mg 08/27/16 10:00 09/08/16 09:52 Zyloprim - PO 300 mg DAILY [facility] Administration Furosemide 40 mg 09/08/16 10:00 09/08/16 09:51 Lasix - PO 40 mg DAILY [facility] Administration Guaifenesin/Codeine Phosphate 5 ml 09/03/16 11:14 09/08/16 19:09 Robitussin Ac - PO 5 ml TID PRN Administration COUGH Insulin Aspart 1 vial 09/02/16 16:30 09/08/16 17:27 Novolog Vial Sliding Scale - SQ 2 units BIDAC [facility] Administration Protocol Losartan Potassium 25 mg 09/03/16 11:15 09/08/16 09:52 Cozaar - PO 25 mg DAILY [facility] Administration Magnesium Oxide 400 mg 08/26/16 22:00 09/08/16 09:52 Mag-Ox - PO 400 mg BID [facility] Administration Metoclopramide HCl 10 mg 08/27/16 07:00 09/08/16 17:27 Reglan - PO 10 mg TIDAC [facility] Administration Multivitamins/Minerals/Vitamin C 1 tab 08/27/16 10:00 09/08/16 09:51 Tab-A-Vit - PO 1 tab DAILY [facility] Administration Pantoprazole Sodium 40 mg 08/31/16 10:00 09/08/16 09:51 Protonix - PO 40 mg BID [facility] Administration Polyethylene Glycol 17 gm 09/05/16 22:00 09/08/16 09:55 Miralax (For Daily Use) - PO 17 gm BID [facility] Administration Potassium Chloride 20 meq 08/27/16 17:15 09/08/16 09:51 K-Dur - PO 20 meq DAILY [facility] Administration Prednisone 5 mg 09/06/16 10:00 09/08/16 09:51 Deltasone - PO 5 mg DAILY [facility] Administration Impression: 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
[2016-09-08] MEDS: ALBUTEROL SO4 0.083% IH SOL 2.5 MG/3 ML VIAL.NEB. NEB PRN (22:00)
[2016-09-09] MEDS: ALBUTEROL SO4 0.083% IH SOL 2.5 MG/3 ML VIAL.NEB. NEB PRN (06:00)
[2016-09-09] MEDS: METOCLOPRAMIDE HCL 10 MG TABLET (FP) PO SCH ×3 (06:09→16:53)
[2016-09-09] MEDS: INSULIN SLIDING SCALE (NOVOLOG) 1 VIAL SQ SCH ×2 (06:12→17:52)
[2016-09-09 07:49] LABS: MCH 32.3 pg (25.7-33.7); MCHC 33.1 g/dl (32.0-36.0); MEAN CELL VOLUME 97.6 fl (80-96); MEAN PLT VOLUME 8.2 fl (7.5-11.1); RDW 18.4 % (11.6-15.6); WHITE BLOOD COUNT 2.6 K/mm3 (4.0-10.0)
[2016-09-09 08:02] LABS: PLATELET COUNT 8 K/MM3 (134-434)
--- NOTE | 2016-09-09 08:17 | PN ---
Progress Note (short form) - Note Progress Note: PATIENT FEELS WELL. IN NO DISTRESS / NO CP / NO SOB. FOLLOWED BY HEME <>AFFLICTED WITH RARE DISORDER MASTOCYTOSIS . RECEIVING BLOOD PRODUCTS . PLT 8,000 TODAY <> DR NICHOLS NOTIFIED / PLT TRANSFUSION TO FOLLOW. Selected Entries 09/09/16 09/09/16 09/09/16 05:44 05:45 06:00 Temperature 98.8 F Pulse Rate 106 H Respiratory 20 Rate Blood Pressure 121/49 Blood Pressure 73 Mean Weight 140 lb Laboratory Tests 09/08/16 09/08/16 09/09/16 06:00 17:24 06:00 WBC 2.6 L RBC 2.25 L Hgb 7.3 L Hct 22.0 L Plt Count 8 L* D Sodium 143 Potassium 4.1 Chloride 102 Carbon Dioxide 30 Anion Gap 11 BUN 39 H Creatinine 0.5 L D POC Glucometer 172 P/E <> AWAKE / NO ACUTE DISTRESS HEENT <> NECK SUPPLE COR S1 S 2 HS DISTANT CHEST < CLEAR PA ABD <> SOFT / NONTENDER. EXT <> TRACE EDEMA / MULTIPLE PETECHIAE IMP : MASTOCYTOSIS PANCYTOPENIA CHF HTN DM PLAN : FOLLOW LABS. TRANSFUSE PLTS. CONTIUNE INSULIN COVERAGE FOR DIABETES COZAAR FOR HTN. BLEEDING PRECAUTIONS.
[2016-09-09] MEDS ORDERED: IMATINIB MESYLATE 400 MG PO SCH (10:00)
[2016-09-09] MEDS ORDERED: PT OWN MED DRAWER 7, Y5N ONE (10:09)
[2016-09-09] MEDS: LOSARTAN POTASSIUM 50 MG TABLET (FP) PO SCH (10:12)
[2016-09-09] MEDS: FUROSEMIDE 40 MG TABLET (FP) PO SCH (10:12)
[2016-09-09] MEDS: PANTOPRAZOLE 40 MG TABLET (FP) PO SCH ×2 (10:12→23:19)
[2016-09-09] MEDS: ALLOPURINOL 300 MG TABLET (FP) PO SCH (10:13)
[2016-09-09] MEDS: MAGNESIUM OXIDE 400 MG TABLET (FP) PO SCH ×2 (10:14→23:19)
[2016-09-09] MEDS: POTASSIUM CHLORIDE TABS 20 MEQ TABLET.ER (FP) PO SCH (10:14)
[2016-09-09] MEDS: MULTIVITAMINS (DAILY MVI) TABLET (FP) PO SCH (10:15)
[2016-09-09] MEDS: POLYETHYLENE GLYCOL 3350 119 GM BTL PO SCH ×2 (10:16→23:19)
[2016-09-09] MEDS: GLEEVAC PO SCH (10:16)
--- NOTE | 2016-09-09 11:28 | PN ---
Progress Note (short form) - Note Progress Note: Patient seen in follow up. No events overnight. Reports some minor episode emesis this morning, but generally feeling well now, no nausea. Reporting 'noise' in L ear last several days. No pain. No vertigo. Meds reviewed. Current Medications Generic Name Dose Route Start Last Admin Trade Name Freq PRN Reason Stop Dose Admin Acetaminophen 650 mg 08/26/16 17:19 08/30/16 20:30 Tylenol - PO 650 mg Q6H PRN Administration PAIN Allopurinol 300 mg 08/27/16 10:00 09/09/16 10:13 Zyloprim - PO 300 mg DAILY [facility] Administration Furosemide 40 mg 09/08/16 10:00 09/09/16 10:12 Lasix - PO 40 mg DAILY [facility] Administration Guaifenesin/Codeine Phosphate 5 ml 09/03/16 11:14 09/08/16 19:09 Robitussin Ac - PO 5 ml TID PRN Administration COUGH Insulin Aspart 1 vial 09/02/16 16:30 09/09/16 06:12 Novolog Vial Sliding Scale - SQ Not Given BIDAC [facility] Protocol Losartan Potassium 25 mg 09/03/16 11:15 09/09/16 10:12 Cozaar - PO 25 mg DAILY [facility] Administration Magnesium Oxide 400 mg 08/26/16 22:00 09/09/16 10:14 Mag-Ox - PO 400 mg BID [facility] Administration Metoclopramide HCl 10 mg 08/27/16 07:00 09/09/16 10:54 Reglan - PO 10 mg TIDAC [facility] Administration Multivitamins/Minerals/Vitamin C 1 tab 08/27/16 10:00 09/09/16 10:15 Tab-A-Vit - PO 1 tab DAILY [facility] Administration Gleevac (Imatinib 1 each 09/09/16 10:00 09/09/16 10:16 Mesylate) 400 Mg PO 1 each Tablet - Patient Own DAILY [facility] Administration Pantoprazole Sodium 40 mg 08/31/16 10:00 09/09/16 10:12 Protonix - PO 40 mg BID [facility] Administration Polyethylene Glycol 17 gm 09/05/16 22:00 09/09/16 10:16 Miralax (For Daily Use) - PO Not Given BID [facility] Potassium Chloride 20 meq 08/27/16 17:15 09/09/16 10:14 K-Dur - PO 20 meq DAILY [facility] Administration On examination: Last Vital Signs Temp Pulse Resp BP Pulse Ox 98.8 F 106 H 20 121/49 96 09/09/16 05:45 09/09/16 05:44 09/09/16 05:44 09/09/16 05:44 09/08/16 11:15 General: In no acute distress. Oropharyngeal: No signs mucosal hemorrhage, no mucosal lesions. Extremities: Pallor, no icterus, no pedal edema. Chest:good air entry bilaterally, clear. Abdomen: Distended, but resonant throughout, soft, no organomegaly, no masses. Neuro: Alert and oriented, non-focal. CVS: Normal sinus rhythm, S1, S2, no gallop or murmur. Skin: Scattered ecchymoses Labs reviewed: CBC, BMP 09/09/16 06:00 09/08/16 06:00 Assessment: Sytemic mastocytosis/MDS, with severe pancytopenia, transfusion dependant. On ongoing TKI therapy, and recent course 5-AZA. Ongoing supportive care for now. Transfuse MDP for platelet count <10K this morning. Appears comfortable for now - consider RBC transfusion tomorrow, depending on Hct. Unclear cause for unilateral tinnitus - observe for now.
[2016-09-09 16:00] LABS: ANISOCYTOSIS 2+; HYPOCHROMIA 2+; PLATELET COMMENT2 NO CLOTTING DETECTED; PLATELET ESTIMATE MARKEDLY DECREASED (NORMAL); POLYCHROMASIA 1+
[2016-09-09] MEDS: guaiFENesin/CODEINE 5 ML UNIT-DOSE CUPS PO PRN (16:54)
[2016-09-10] MEDS: METOCLOPRAMIDE HCL 10 MG TABLET (FP) PO SCH ×3 (06:43→17:59)
[2016-09-10] MEDS: INSULIN SLIDING SCALE (NOVOLOG) 1 VIAL SQ SCH ×2 (06:46→18:00)
[2016-09-10 07:40] LABS: MCH 32.8 pg (25.7-33.7); MCHC 33.5 g/dl (32.0-36.0); MEAN PLT VOLUME 7.9 fl (7.5-11.1); RDW 21.5 % (11.6-15.6)
[2016-09-10 07:46] LABS: PLATELET COUNT 8 K/MM3 (134-434)
[2016-09-10 07:47] LABS: WHITE BLOOD COUNT 2.2 K/mm3 (4.0-10.0)
--- NOTE | 2016-09-10 07:47 | PN ---
Progress Note (short form) - Note Progress Note: PATIENT RESTING IN BED / NO COMPLAINTS / NO CP / NO SOB / NO ABDOMINAL PAIN. MASTOCYTOSIS WITH PANCYTOPENIA. PLATELET TRANSFUSION YESTERDAY . AWAITING LABS. Selected Entries Selected Entries 09/10/16 06:00 Pulse Rate 94 H Respiratory 20 Rate Blood Pressure 93/49 Laboratory Tests 09/08/16 09/08/16 09/09/16 06:00 17:24 06:00 WBC 2.6 L RBC 2.25 L Hgb 7.3 L Hct 22.0 L Plt Count 8 L* D Sodium 143 Potassium 4.1 Chloride 102 Carbon Dioxide 30 Anion Gap 11 BUN 39 H Creatinine 0.5 L D POC Glucometer 172 P/E <>LOW BP HEENT <> NECK SUPPLE COR S1 S 2 HS DISTANT CHEST < CLEAR PA ABD <> SOFT / NONTENDER. EXT <> TRACE EDEMA / MULTIPLE PETECHIAE IMP : MASTOCYTOSIS PANCYTOPENIA CHF HTN DM PLAN : D/C COZAAR . OBSERVE BP. TRANSFUSE PLTS / PRBC. PER HEMATOLOGY. INSULIN COVERAGE FOR DIABETES BLEEDING PRECAUTIONS.
[2016-09-10 08:33] LABS: ANISOCYTOSIS 1+; HYPOCHROMIA 2+; MICROCYTOSIS 2+; PLATELET ESTIMATE DECREASED (NORMAL); POLYCHROMASIA FEW
[2016-09-10] MEDS ORDERED: PT OWN MED DRAWER 7, Y5N ONE (09:06)
[2016-09-10] MEDS: MULTIVITAMINS (DAILY MVI) TABLET (FP) PO SCH (09:41)
[2016-09-10] MEDS: ALLOPURINOL 300 MG TABLET (FP) PO SCH (09:41)
[2016-09-10] MEDS: GLEEVAC PO SCH (09:41)
[2016-09-10] MEDS: PANTOPRAZOLE 40 MG TABLET (FP) PO SCH ×2 (09:41→22:15)
[2016-09-10] MEDS: MAGNESIUM OXIDE 400 MG TABLET (FP) PO SCH ×2 (09:42→22:15)
[2016-09-10] MEDS: POLYETHYLENE GLYCOL 3350 119 GM BTL PO SCH ×2 (09:42→22:16)
--- NOTE | 2016-09-10 11:50 | PN ---
Progress Note (short form) - Note Progress Note: Patient seen in follow up. No events overnight. Reports fatigue this morning. Reporting resolution of 'noise' in L ear last several days. No pain. No vertigo. Meds reviewed. Current Medications Generic Name Dose Route Start Last Admin Trade Name Oliverio PRN Reason Stop Dose Admin Acetaminophen 650 mg 08/26/16 17:19 08/30/16 20:30 Tylenol - PO 650 mg Q6H PRN Administration PAIN Allopurinol 300 mg 08/27/16 10:00 09/10/16 09:41 Zyloprim - PO 300 mg DAILY [facility] Administration Insulin Aspart 1 vial 09/02/16 16:30 09/10/16 06:46 Novolog Vial Sliding Scale - SQ Not Given BIDAC [facility] Protocol Magnesium Oxide 400 mg 08/26/16 22:00 09/10/16 09:42 Mag-Ox - PO 400 mg BID [facility] Administration Metoclopramide HCl 10 mg 08/27/16 07:00 09/10/16 06:43 Reglan - PO 10 mg TIDAC [facility] Administration Multivitamins/Minerals/Vitamin C 1 tab 08/27/16 10:00 09/10/16 09:41 Tab-A-Vit - PO 1 tab DAILY [facility] Administration Gleevac (Imatinib 1 each 09/09/16 10:00 09/10/16 09:41 Mesylate) 400 Mg PO 1 each Tablet - Patient Own DAILY [facility] Administration Pantoprazole Sodium 40 mg 08/31/16 10:00 09/10/16 09:41 Protonix - PO 40 mg BID [facility] Administration Polyethylene Glycol 17 gm 09/05/16 22:00 09/10/16 09:42 Miralax (For Daily Use) - PO 17 gm BID [facility] Administration On examination: Last Vital Signs Temp Pulse Resp BP Pulse Ox 98.9 F 94 H 20 93/49 95 09/10/16 06:00 09/10/16 06:00 09/10/16 06:00 09/10/16 06:00 09/09/16 21:00 General: In no acute distress. Oropharyngeal: No signs mucosal hemorrhage, no mucosal lesions. Extremities: Pallor, no icterus, no pedal edema. Chest:good air entry bilaterally, clear. Abdomen: Distended, but resonant throughout, soft, no organomegaly, no masses. Neuro: Alert and oriented, non-focal. CVS: Normal sinus rhythm, S1, S2, no gallop or murmur. Skin: Scattered ecchymoses Labs reviewed: CBC, BMP 09/10/16 06:10 09/08/16 06:00 Assessment: Sytemic mastocytosis/MDS, with severe pancytopenia, transfusion dependant. On ongoing TKI therapy, and recent course 5-AZA. Ongoing supportive care for now. Transfuse MDP for platelet count <10K this morning. No response noted to yesterday's transfusion. Anemia possibly symptomatic this morning, with further drop in Hct, will offer 1 unit RBCs.
[2016-09-11] MEDS: METOCLOPRAMIDE HCL 10 MG TABLET (FP) PO SCH ×3 (06:39→17:03)
[2016-09-11] MEDS: INSULIN SLIDING SCALE (NOVOLOG) 1 VIAL SQ SCH ×2 (06:41→17:37)
[2016-09-11 07:36] LABS: MCH 32.4 pg (25.7-33.7); MCHC 33.7 g/dl (32.0-36.0); MEAN PLT VOLUME 7.9 fl (7.5-11.1); RDW 16.7 % (11.6-15.6); WHITE BLOOD COUNT 2.7 K/mm3 (4.0-10.0)
[2016-09-11 07:53] LABS: PLATELET COUNT 16 K/MM3 (134-434)
[2016-09-11] MEDS ORDERED: PT OWN MED DRAWER 7, Y5N ONE (09:16)
[2016-09-11] MEDS: GLEEVAC PO SCH (09:26)
[2016-09-11 09:32] LABS: PLATELET ESTIMATE MARKEDLY DECREASED (NORMAL)
--- NOTE | 2016-09-11 09:53 | PN ---
Progress Note (short form) - Note Progress Note: Patient coughing and worried about blood counts. Platelets remained 8,000 for Sun and Sunday but 16,000 today. Hb 6.5 to 7.3 GM today. Coughing; Rx ordered Slept well No chest pain. On Exam: Vital Signs Temp 97.7 F 09/11/16 05:49 Pulse 96 H 09/11/16 05:49 Resp 20 09/11/16 05:49 BP 116/55 09/11/16 05:49 Pulse Ox 94 L 09/10/16 21:00 Intake & Output 09/10/16 09/10/16 09/11/16 11:59 23:59 11:59 Intake Total 300 1080 350 Output Total 200 Balance 300 880 350 Weight 140 lb 142 lb Intake: IVPB 200 0 Oral 300 300 Packed Cells 350 350 Platelets 230 Output: Urine 200 Void 200 Other: Voiding Method Bedside Commode Bedside Commode Bedside Commode # Unmeasured Voids Void 2 # Bowel Movements 1 2 Weight Measurement Method Standing Scale Chair Scale Alert Pale Chest: Rhonchi and decreased breath sounds at bases Cor : Reg Abd: slightly distended but soft Ext: !+ edema Sattered petechia on body Abnormal Lab Results 09/05/16 09/09/16 09/10/16 11:45 11:20 12:20 WBC RBC Hgb Hct RDW Plt Count Monocytes % Crossmatch See Detail See Detail See Detail 09/11/16 06:00 WBC 2.7 L RBC 2.25 L Hgb 7.3 L D Hct 21.6 L RDW 16.7 H D Plt Count 16 L* D Monocytes % 2.0 L Crossmatch IMP: Acute Mastocytosis and Heme Malignancy CHF acute; on Rx Hypertension Hx: Ovarian Ca Pancytopenia DNR/DNI Plan: F/U lab PT Aerosol Rx. Problem List - Problems (1) Thrombocytopenia Code(s): D69.6 - THROMBOCYTOPENIA, UNSPECIFIED (2) Leg weakness, bilateral Code(s): R29.898 - OTH SYMPTOMS AND SIGNS INVOLVING THE MUSCULOSKELETAL SYSTEM (3) Anemia Code(s): D64.9 - ANEMIA, UNSPECIFIED Qualifiers: Anemia type: unspecified type Qualified Code(s): D64.9 - Anemia, unspecified (4) Mastocytosis Code(s): Q82.2 - MASTOCYTOSIS (5) Cough Code(s): R05 - COUGH (6) Diabetes mellitus, new onset Code(s): E11.9 - TYPE 2 DIABETES MELLITUS WITHOUT COMPLICATIONS (7) HTN (hypertension) Code(s): I10 - ESSENTIAL (PRIMARY) HYPERTENSION (8) History of ovarian cancer Code(s): Z85.43 - PERSONAL HISTORY OF MALIGNANT NEOPLASM OF OVARY (9) CHF (congestive heart failure) Code(s): I50.9 - HEART FAILURE, UNSPECIFIED Qualifiers: Congestive heart failure type: diastolic Congestive heart failure chronicity: acute Qualified Code(s): I50.31 - Acute diastolic (congestive ) heart failure
[2016-09-11] MEDS: PANTOPRAZOLE 40 MG TABLET (FP) PO SCH ×2 (10:13→21:22)
[2016-09-11] MEDS: POLYETHYLENE GLYCOL 3350 119 GM BTL PO SCH ×2 (10:13→21:25)
[2016-09-11] MEDS: MAGNESIUM OXIDE 400 MG TABLET (FP) PO SCH ×2 (10:13→21:22)
[2016-09-11] MEDS: ALLOPURINOL 300 MG TABLET (FP) PO SCH (10:14)
[2016-09-11] MEDS: MULTIVITAMINS (DAILY MVI) TABLET (FP) PO SCH (10:14)
[2016-09-11] MEDS ORDERED: ONDANSETRON 4 MG/2 ML VIAL IVPB PRN (10:21)
--- NOTE | 2016-09-11 11:02 | PN ---
Progress Note (short form) - Note Progress Note: Neurology History of Present Illness 81 year old female with a history of NIDDM, HTN, ovarian ca (s/p chemo in 2007 and 2011, s/p hysterectomy and bilateral oophrectomy), and anemia sent from [facility] for Hg of 6.9. 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 There was concern for patient 's limited ability to move lower extremities and she reports ongoing fluid buildup. B12 and Folate were normal. Lower extremities appear more mobile today and compressing stockings in place. Active Medications Acetaminophen (Tylenol -) 650 mg PO Q6H PRN PRN Reason: PAIN Last Admin: 08/30/16 20:30 Dose: 650 mg Albuterol Sulfate (Ventolin 0.083% Nebulizer Soln -) 1 amp NEB Q4H PRN PRN Reason: SHORT OF BREATH/WHEEZING Allopurinol (Zyloprim -) 300 mg PO DAILY [facility] Last Admin: 09/11/16 10:14 Dose: Not Given Insulin Aspart (Novolog Vial Sliding Scale -) 1 vial SQ BIDAC [facility] PRN Reason: Protocol Last Admin: 09/11/16 06:41 Dose: Not Given Magnesium Oxide (Mag-Ox -) 400 mg PO BID [facility] Last Admin: 09/11/16 10:13 Dose: Not Given Metoclopramide HCl (Reglan -) 10 mg PO TIDAC [facility] Last Admin: 09/11/16 06:39 Dose: 10 mg Multivitamins/Minerals/Vitamin C (Tab-A-Vit -) 1 tab PO DAILY [facility] Last Admin: 09/11/16 10:14 Dose: Not Given Gleevac (Imatinib Mesylate) 400 Mg Tablet - Patient Own 1 each PO DAILY [facility] Last Admin: 09/11/16 09:26 Dose: 1 each Ondansetron HCl (Zofran Injection) 4 mg IVPB Q8H PRN PRN Reason: NAUSEA Pantoprazole Sodium (Protonix -) 40 mg PO BID [facility] Last Admin: 09/11/16 10:13 Dose: Not Given Polyethylene Glycol (Miralax (For Daily Use) -) 17 gm PO BID [facility] Last Admin: 09/11/16 10:13 Dose: Not Given *Physical Exam Last Vital Signs Temp Pulse Resp BP Pulse Ox 97.7 F 96 H 20 116/55 94 L 09/11/16 05:49 09/11/16 05:49 09/11/16 05:49 09/11/16 05:49 09/10/16 21:00 PHYSICAL EXAM General Appearance: Well-appearing, appropriately dressed. No apparent distress. HEENT: EOMI, PERRLA, normal ENT inspection, normal voice, TMs normal, pharynx normal. No conjunctival pallor. No photophobia, scleral icterus. Neck: Supple. Trachea midline. No tenderness, rigidity, carotid bruit, stridor , lymphadenopathy, or thyromegaly. Respiratory/Chest: Lungs CTAB. No shortness of breath, chest tenderness, respiratory distress, accessory muscle use. No crackles, rales, rhonchi, stridor , wheezing, dullness Cardiovascular: RRR. S1, S2. Vascular Pulses: Dorsalis-Pedis (R): 2+, Dorsalis-Pedis (L): 2+ Gastrointestinal/Abdominal: LUQ tenderness on palpation, splenomegaly appreciated. Normal bowel sounds. Abdomen soft, non-distended. No organomegaly, pulsatile mass, guarding, hernia, hepatomegaly, splenomegaly. Musculoskeletal/Extremities: 2+ pitting edema to LE b/l. No erythema, tenderness. Normal inspection. FROM of all extremities, normal capillary refill. Pelvis Stable. No CVA tenderness. No tenderness to extremities, pedal edema, swelling, erythema or deformity. 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 Fully oriented, alert. Motor strength 5/5 in UE , 5-/5 in lower ext at best. CBCD WBC 2.7 K/mm3 (4.0-10.0) L 09/11/16 06:00 RBC 2.25 M/mm3 (3.60-5.2) L 09/11/16 06:00 Hgb 7.3 GM/dL (10.7-15.3) L D 09/11/16 06:00 Hct 21.6 % (32.4-45.2) L 09/11/16 06:00 MCV 96.0 fl (80-96) 09/11/16 06:00 MCHC 33.7 g/dl (32.0-36.0) 09/11/16 06:00 RDW 16.7 % (11.6-15.6) H D 09/11/16 06:00 Plt Count 16 K/MM3 (134-434) L* D 09/11/16 06:00 MPV 7.9 fl (7.5-11.1) 09/11/16 06:00 CMP Sodium 143 mmol/L (136-145) 09/08/16 06:00 Potassium 4.1 mmol/L (3.5-5.1) 09/08/16 06:00 Chloride 102 mmol/L (98-107) 09/08/16 06:00 Carbon Dioxide 30 mmol/L (21-32) 09/08/16 06:00 Anion Gap 11 (8-16) 09/08/16 06:00 BUN 39 mg/dL (7-18) H 09/08/16 06:00 Creatinine 0.5 mg/dL (0.55-1.02) L D 09/08/16 06:00 Creat Clearance w eGFR > 60 (>60) 09/06/16 06:00 Calcium 8.2 mg/dL (8.5-10.1) L 09/08/16 06:00 Total Bilirubin 1.8 mg/dL (0.2-1.0) H 09/06/16 06:00 AST 7 U/L (15-37) L D 09/06/16 06:00 ALT 10 U/L (12-78) L 09/06/16 06:00 Alkaline Phosphatase 127 U/L (45-117) H 09/06/16 06:00 Total Protein 4.4 g/dl (6.4-8.2) L 09/06/16 06:00 Albumin 2.3 g/dl (3.4-5.0) L 09/06/16 06:00 Medical Decision Making 81 year old female with a history of NIDDM, HTN, ovarian ca (s/p chemo in 2007 and 2011, s/p hysterectomy and bilateral oophrectomy), and anemia sent from [facility] for Hg of 6.9, now improved. 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 There is concern for patient's limited ability to move lower extremities and she reports ongoing fluid buildup. Patient reports this has been going and occuring since she has been in hospital. Onc consulted Neurology for peripheral neuropathy evaluation. B12 and folate normal Exam improved PT/OT would be recommended. Continue medical mgmt
--- NOTE | 2016-09-11 14:04 | PN ---
Progress Note (short form) - Note Progress Note: Patient seen and examined c/o lower ext. heaviness 1 episode of vomiting prior to gleevec Last Vital Signs Temp Pulse Resp BP Pulse Ox 97.7 F 96 H 20 102/52 94 L 09/11/16 13:37 09/11/16 13:37 09/11/16 13:37 09/11/16 13:37 09/10/16 21:00 HEENT-nl Heart-S1, S2 regular Lungs: decreased at bases Abd: Soft, Normal bowel sounds, No organomegaly Ext:2+ edema b/l Abnormal Lab Results 09/05/16 09/09/16 09/10/16 11:45 11:20 12:20 WBC RBC Hgb Hct RDW Plt Count Monocytes % Crossmatch See Detail See Detail See Detail 09/11/16 06:00 WBC 2.7 L RBC 2.25 L Hgb 7.3 L D Hct 21.6 L RDW 16.7 H D Plt Count 16 L* D Monocytes % 2.0 L Crossmatch Active Medications Generic Name Dose Route Start Last Admin Trade Name Freq PRN Reason Stop Dose Admin Acetaminophen 650 mg 08/26/16 17:19 08/30/16 20:30 Tylenol - PO 650 mg Q6H PRN Administration PAIN Albuterol Sulfate 1 amp 09/11/16 09:47 Ventolin 0.083% Nebulizer Soln - NEB Q4H PRN SHORT OF BREATH/WHEEZING Allopurinol 300 mg 08/27/16 10:00 09/11/16 10:14 Zyloprim - PO Not Given DAILY [facility] Insulin Aspart 1 vial 09/02/16 16:30 09/11/16 06:41 Novolog Vial Sliding Scale - SQ Not Given BIDAC [facility] Protocol Magnesium Oxide 400 mg 08/26/16 22:00 09/11/16 10:13 Mag-Ox - PO Not Given BID [facility] Metoclopramide HCl 10 mg 08/27/16 07:00 09/11/16 12:09 Reglan - PO 10 mg TIDAC [facility] Administration Multivitamins/Minerals/Vitamin C 1 tab 08/27/16 10:00 09/11/16 10:14 Tab-A-Vit - PO Not Given DAILY [facility] Gleevac (Imatinib 1 each 09/09/16 10:00 09/11/16 09:26 Mesylate) 400 Mg PO 1 each Tablet - Patient Own DAILY [facility] Administration Ondansetron HCl 4 mg 09/11/16 10:21 Zofran Injection IVPB Q8H PRN NAUSEA Pantoprazole Sodium 40 mg 08/31/16 10:00 09/11/16 10:13 Protonix - PO Not Given BID [facility] Polyethylene Glycol 17 gm 09/05/16 22:00 09/11/16 10:13 Miralax (For Daily Use) - PO Not Given BID [facility] A/P 81 y/o patient with 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
[2016-09-11] MEDS: ALBUTEROL SO4 0.083% IH SOL 2.5 MG/3 ML VIAL.NEB. NEB PRN (22:00)
[2016-09-12] MEDS: METOCLOPRAMIDE HCL 10 MG TABLET (FP) PO SCH ×3 (06:02→18:03)
[2016-09-12] MEDS: INSULIN SLIDING SCALE (NOVOLOG) 1 VIAL SQ SCH ×2 (06:02→18:05)
[2016-09-12] MEDS: ALBUTEROL SO4 0.083% IH SOL 2.5 MG/3 ML VIAL.NEB. NEB PRN ×2 (06:35→22:30)
[2016-09-12 07:40] LABS: MCH 32.7 pg (25.7-33.7); MCHC 33.4 g/dl (32.0-36.0); MEAN CELL VOLUME 97.8 fl (80-96); MEAN PLT VOLUME 7.6 fl (7.5-11.1)
[2016-09-12 08:03] LABS: PLATELET COUNT 7 K/MM3 (134-434); WHITE BLOOD COUNT 2.1 K/mm3 (4.0-10.0)
[2016-09-12] MEDS ORDERED: PT OWN MED DRAWER 7, Y5N ONE (09:33)
[2016-09-12] MEDS: ONDANSETRON 4 MG/2 ML VIAL IVPB PRN (09:42)
[2016-09-12] MEDS: ALLOPURINOL 300 MG TABLET (FP) PO SCH (09:48)
[2016-09-12] MEDS: PANTOPRAZOLE 40 MG TABLET (FP) PO SCH ×2 (09:48→22:08)
[2016-09-12] MEDS: MAGNESIUM OXIDE 400 MG TABLET (FP) PO SCH ×2 (09:48→22:07)
[2016-09-12] MEDS: MULTIVITAMINS (DAILY MVI) TABLET (FP) PO SCH (09:48)
[2016-09-12] MEDS: POLYETHYLENE GLYCOL 3350 119 GM BTL PO SCH ×2 (09:49→22:08)
[2016-09-12] MEDS: GLEEVAC PO SCH (09:49)
[2016-09-12] MEDS ORDERED: POTASSIUM CHLORIDE TABS 10 MEQ TABLET.ER (FP) PO SCH (10:15)
[2016-09-12] MEDS ORDERED: FUROSEMIDE 40 MG/4 ML INJECTABLE VIAL IVPUSH SCH (10:15)
--- NOTE | 2016-09-12 13:09 | PN ---
Progress Note (short form) - Note Progress Note: Neurology History of Present Illness 81 year old female with a history of NIDDM, HTN, ovarian ca (s/p chemo in 2007 and 2011, s/p hysterectomy and bilateral oophrectomy), and anemia sent from [facility] for Hg of 6.9. 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 There was concern for patient 's limited ability to move lower extremities and she reports ongoing fluid buildup. B12 and Folate were normal. Lower extremities appear more mobile today and compressing stockings in place. Patient ambulating in hallway with therapist today. 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 [facility] Stop: 09/12/16 15:00 Insulin Aspart (Novolog Vial Sliding Scale -) 1 vial SQ BIDAC [facility] PRN Reason: Protocol Last Admin: 09/12/16 06:02 Dose: Not Given Magnesium Oxide (Mag-Ox -) 400 mg PO BID [facility] Last Admin: 09/12/16 09:48 Dose: 400 mg Metoclopramide HCl (Reglan -) 10 mg PO TIDAC [facility] Last Admin: 09/12/16 06:02 Dose: 10 mg Multivitamins/Minerals/Vitamin C (Tab-A-Vit -) 1 tab PO DAILY [facility] Last Admin: 09/12/16 09:48 Dose: 1 tab Gleevac (Imatinib Mesylate) 400 Mg Tablet - Patient Own 1 each PO DAILY [facility] Last Admin: 09/12/16 09:49 Dose: 1 each Ondansetron HCl (Zofran Injection) 8 mg IVPB Q12H PRN PRN Reason: NAUSEA Last Admin: 09/12/16 09:42 Dose: 8 mg Pantoprazole Sodium (Protonix -) 40 mg PO BID [facility] Last Admin: 09/12/16 09:48 Dose: 40 mg Polyethylene Glycol (Miralax (For Daily Use) -) 17 gm PO BID [facility] Last Admin: 09/12/16 09:49 Dose: Not Given Potassium Chloride (K-Dur -) 10 meq PO SEMICONDUCTOR EQUIPMENT TECHNICIAN [facility] Stop: 09/12/16 15:00 *Physical Exam Vital Signs Temperature 98.3 F 09/12/16 09:23 Pulse Rate 104 H 09/12/16 09:23 Respiratory Rate 20 09/12/16 09:23 Blood Pressure 115/58 09/12/16 09:23 O2 Sat by Pulse Oximetry (%) 91 L 09/12/16 09:00 PHYSICAL EXAM General Appearance: Well-appearing, appropriately dressed. No apparent distress. HEENT: EOMI, PERRLA, normal ENT inspection, normal voice, TMs normal, pharynx normal. No conjunctival pallor. No photophobia, scleral icterus. Neck: Supple. Trachea midline. No tenderness, rigidity, carotid bruit, stridor , lymphadenopathy, or thyromegaly. Respiratory/Chest: Lungs CTAB. No shortness of breath, chest tenderness, respiratory distress, accessory muscle use. No crackles, rales, rhonchi, stridor , wheezing, dullness Cardiovascular: RRR. S1, S2. Vascular Pulses: Dorsalis-Pedis (R): 2+, Dorsalis-Pedis (L): 2+ Gastrointestinal/Abdominal: LUQ tenderness on palpation, splenomegaly appreciated. Normal bowel sounds. Abdomen soft, non-distended. No organomegaly, pulsatile mass, guarding, hernia, hepatomegaly, splenomegaly. Musculoskeletal/Extremities: 2+ pitting edema to LE b/l. No erythema, tenderness. Normal inspection. FROM of all extremities, normal capillary refill. Pelvis Stable. No CVA tenderness. No tenderness to extremities, pedal edema, swelling, erythema or deformity. Neurologic: pharmacist manager II-XII intact. Fully oriented, alert. Motor strength 5/5 in UE , 5-/5 in lower ext at best. CBCD WBC 2.1 K/mm3 (4.0-10.0) L 09/12/16 06:00 RBC 2.00 M/mm3 (3.60-5.2) L 09/12/16 06:00 Hgb 6.5 GM/dL (10.7-15.3) L* D 05/16/17 06:00 Hct 19.5 % (32.4-45.2) L 09/12/16 06:00 MCV 97.8 fl (80-96) H 09/12/16 06:00 MCHC 33.4 g/dl (32.0-36.0) 09/12/16 06:00 RDW 17.0 % (11.6-15.6) H 09/12/16 06:00 Plt Count 7 K/MM3 (134-434) L* D 09/12/16 06:00 MPV 7.6 fl (7.5-11.1) 09/12/16 06:00 CMP Sodium 143 mmol/L (136-145) 09/08/16 06:00 Potassium 4.1 mmol/L (3.5-5.1) 09/08/16 06:00 Chloride 102 mmol/L (98-107) 09/08/16 06:00 Carbon Dioxide 30 mmol/L (21-32) 09/08/16 06:00 Anion Gap 11 (8-16) 09/08/16 06:00 BUN 39 mg/dL (7-18) H 09/08/16 06:00 Creatinine 0.5 mg/dL (0.55-1.02) L D 09/08/16 06:00 Creat Clearance w eGFR > 60 (>60) 09/06/16 06:00 Calcium 8.2 mg/dL (8.5-10.1) L 09/08/16 06:00 Total Bilirubin 1.8 mg/dL (0.2-1.0) H 09/06/16 06:00 AST 7 U/L (15-37) L D 09/06/16 06:00 ALT 10 U/L (12-78) L 09/06/16 06:00 Alkaline Phosphatase 127 U/L (45-117) H 09/06/16 06:00 Total Protein 4.4 g/dl (6.4-8.2) L 09/06/16 06:00 Albumin 2.3 g/dl (3.4-5.0) L 09/06/16 06:00 Medical Decision Making 81 year old female with a history of NIDDM, HTN, ovarian ca (s/p chemo in 2007 and 2012, s/p hysterectomy and bilateral oophrectomy), and anemia sent from [facility] for Hg of 6.9, now improved. 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 There is concern for patient's limited ability to move lower extremities and she reports ongoing fluid buildup. Patient reports this has been going and occuring since she has been in hospital. Ambulating now, well appearing, slow but steady gait B12 and folate normal Exam improved PT/OT would be recommended. Continue medical mgmt
[2016-09-12 13:12] LABS: PLATELET ESTIMATE MARKEDLY DECREASED (NORMAL)
--- NOTE | 2016-09-12 14:52 | PN ---
Progress Note, Physician Chief Complaint: Slightly congested and worried about the results of today's CBC. History of Present Illness: Patient with Acute Mastocytosis and Hematologic Malignancy having completed 7 dyas of Vid[place] and now on Gleevac is probably at the bisi of the effect of ChemoRx. with WBC of 2,100, Platelets of 7,000 and Hb 6.5GM. Will receive 2 units of packed cells and 1 unit of monodonor platelets today. Still with some coughing but afebrile with increase in tearing and mouth secretions. Tolerates 50% of her diet and will ambulate with PT when not getting blood products. 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 [facility] Stop: 09/12/16 15:00 Insulin Aspart (Novolog Vial Sliding Scale -) 1 vial SQ BIDAC [facility] PRN Reason: Protocol Last Admin: 09/12/16 06:02 Dose: Not Given Magnesium Oxide (Mag-Ox -) 400 mg PO BID [facility] Last Admin: 09/12/16 09:48 Dose: 400 mg Metoclopramide HCl (Reglan -) 10 mg PO TIDAC [facility] Last Admin: 09/12/16 06:02 Dose: 10 mg Multivitamins/Minerals/Vitamin C (Tab-A-Vit -) 1 tab PO DAILY [facility] Last Admin: 09/12/16 09:48 Dose: 1 tab Gleevac (Imatinib Mesylate) 400 Mg Tablet - Patient Own 1 each PO DAILY [facility] Last Admin: 09/12/16 09:49 Dose: 1 each Ondansetron HCl (Zofran Injection) 8 mg IVPB Q12H PRN PRN Reason: NAUSEA Last Admin: 09/12/16 09:42 Dose: 8 mg Pantoprazole Sodium (Protonix -) 40 mg PO BID [facility] Last Admin: 09/12/16 09:48 Dose: 40 mg Polyethylene Glycol (Miralax (For Daily Use) -) 17 gm PO BID [facility] Last Admin: 09/12/16 09:49 Dose: Not Given Potassium Chloride (K-Dur -) 10 meq PO LITHOGRAPHIC PHOTOGRAPHER APPRENTICE [facility] Stop: 09/12/16 15:00 - Objective Vital Signs: Vital Signs Temperature 98.3 F 09/12/16 09:23 Pulse Rate 104 H 09/12/16 09:23 Respiratory Rate 20 09/12/16 09:23 Blood Pressure 115/58 09/12/16 09:23 O2 Sat by Pulse Oximetry (%) 91 L 09/12/16 09:00 Constitutional: Yes: Anxious, Pallor Eyes: Yes: Tearing Cardiovascular: Yes: Tachycardia Respiratory: Yes: Dullness, Rhonchi (right and left) Gastrointestinal: Yes: Soft Genitourinary: No: Campbell Present Edema: LLE: 1+, RLE: 1+ Neurological: Yes: Alert, Oriented Labs: CBC, BMP 09/12/16 06:00 09/08/16 06:00 INR, PTT INR 1.39 (0.82-1.09) H 08/26/16 09:50 Problem List - Problems (1) Thrombocytopenia Assessment/Plan: 7,000 this AM; just received 1 unit platelets Code(s): D69.6 - THROMBOCYTOPENIA, UNSPECIFIED (2) Leg weakness, bilateral Assessment/Plan: still has some weakness b ut tries to walk daily with PT. Code(s): R29.898 - OTH SYMPTOMS AND SIGNS INVOLVING THE MUSCULOSKELETAL SYSTEM (3) Anemia Assessment/Plan: HB 6.5 GM; for 2 units packed cells today. Code(s): D64.9 - ANEMIA, UNSPECIFIED Qualifiers: Anemia type: unspecified type Qualified Code(s): D64.9 - Anemia, unspecified (4) Mastocytosis Assessment/Plan: On Gleevac. Code(s): Q82.2 - MASTOCYTOSIS (5) Cough Assessment/Plan: still with cough; Cough Rx on order. Code(s): R05 - COUGH (6) Diabetes mellitus, new onset Assessment/Plan: BGM's being followed. Code(s): E11.9 - TYPE 2 DIABETES MELLITUS WITHOUT COMPLICATIONS (7) HTN (hypertension) Assessment/Plan: BP 107/70 Code(s): I10 - ESSENTIAL (PRIMARY) HYPERTENSION (8) History of ovarian cancer Code(s): Z85.43 - PERSONAL HISTORY OF MALIGNANT NEOPLASM OF OVARY (9) CHF (congestive heart failure) Code(s): I50.9 - HEART FAILURE, UNSPECIFIED Qualifiers: Congestive heart failure type: diastolic Congestive heart failure chronicity: acute Qualified Code(s): I50.31 - Acute diastolic (congestive ) heart failure
--- NOTE | 2016-09-12 15:01 | PN ---
Progress Note (short form) - Note Progress Note: Patient seen and examined Complains of SOB , but no chest pains Non productive cough, No GI symptoms of nausea, emesis, diarrhea, constipation.\ No symptoms of dysuria, hematuria, Taking p.o. Last Vital Signs Temp Pulse Resp BP Pulse Ox 98.3 F 104 H 20 115/58 91 L 09/12/16 09:23 09/12/16 09:23 09/12/16 09:23 09/12/16 09:23 09/12/16 09:00 HEENT: KARL, EOM Intact Oropharynx: No thrush, No mucositis Cor: RSR, No murmurs, No gallops Lungs: Poor inspiratory effort and decreased breath sounds Abd: Soft, Normal bowel sounds, No organomegaly, mild distension Ext:LE edema edema Skin:numerous petechiae trunk and extremities CBC, BMP 09/12/16 06:00 09/08/16 06:00 Current Medications Generic Name Dose Route Start Last Admin Trade Name Freq PRN Reason Stop Dose Admin Acetaminophen 650 mg 08/26/16 17:19 08/30/16 20:30 Tylenol - PO 650 mg Q6H PRN Administration PAIN Albuterol Sulfate 1 amp 09/11/16 09:47 09/12/16 06:35 Ventolin 0.083% Nebulizer Soln - NEB 1 amp Q4H PRN Administration SHORT OF BREATH/WHEEZING Allopurinol 300 mg 08/27/16 10:00 09/12/16 09:48 Zyloprim - PO 300 mg DAILY [facility] Administration Furosemide 20 mg 09/12/16 10:15 Lasix Injection - IVPUSH 09/12/16 15:00 ASSOCIATE SCIENTIST [facility] Insulin Aspart 1 vial 09/02/16 16:30 09/12/16 06:02 Novolog Vial Sliding Scale - SQ Not Given BIDAC [facility] Protocol Magnesium Oxide 400 mg 08/26/16 22:00 09/12/16 09:48 Mag-Ox - PO 400 mg BID [facility] Administration Metoclopramide HCl 10 mg 08/27/16 07:00 09/12/16 06:02 Reglan - PO 10 mg TIDAC [facility] Administration Multivitamins/Minerals/Vitamin C 1 tab 08/27/16 10:00 09/12/16 09:48 Tab-A-Vit - PO 1 tab DAILY [facility] Administration Gleevac (Imatinib 1 each 09/09/16 10:00 09/12/16 09:49 Mesylate) 400 Mg PO 1 each Tablet - Patient Own DAILY [facility] Administration Ondansetron HCl 8 mg 09/12/16 06:29 09/12/16 09:42 Zofran Injection IVPB 8 mg Q12H PRN Administration NAUSEA Pantoprazole Sodium 40 mg 08/31/16 10:00 09/12/16 09:48 Protonix - PO 40 mg BID [facility] Administration Polyethylene Glycol 17 gm 09/05/16 22:00 09/12/16 09:49 Miralax (For Daily Use) - PO Not Given BID [facility] Potassium Chloride 10 meq 09/12/16 10:15 K-Dur - PO 09/12/16 15:00 ASSOCIATE SCIENTIST [facility] Impression: Mastocytosis with MDS S/P Gleevec and 5 azcytidine Day 13 s/p 5 azacytidine Day 5 s/pGleevec. 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 One monodonor and 2 packed cells today.
[2016-09-12] MEDS ORDERED: FUROSEMIDE 40 MG/4 ML INJECTABLE VIAL ONE (21:53)
[2016-09-12] MEDS ORDERED: POTASSIUM CHLORIDE TABS 10 MEQ TABLET.ER (FP) PO ONE (22:00)
[2016-09-13] MEDS: ALBUTEROL SO4 0.083% IH SOL 2.5 MG/3 ML VIAL.NEB. NEB PRN (06:10)
[2016-09-13] MEDS: INSULIN SLIDING SCALE (NOVOLOG) 1 VIAL SQ SCH ×2 (06:14→17:23)
[2016-09-13] MEDS: METOCLOPRAMIDE HCL 10 MG TABLET (FP) PO SCH ×3 (06:21→17:19)
[2016-09-13 07:40] LABS: MCH 32.2 pg (25.7-33.7); MEAN CELL VOLUME 94.8 fl (80-96); MEAN PLT VOLUME 10.6 fl (7.5-11.1); RDW 16.1 % (11.6-15.6); WHITE BLOOD COUNT 2.3 K/mm3 (4.0-10.0)
[2016-09-13 07:44] LABS: PLATELET COUNT 5 K/MM3 (134-434)
--- NOTE | 2016-09-13 08:42 | PN ---
Progress Note, Physician Chief Complaint: Didn't sleep well due to blood producta given late and coughing. History of Present Illness: Patient with Acute Mastocytosis and ?AML had her bisi of pancytopenia yesterday. Received 2 units of packed cells and 1 unit of monodonor platelets. Today Platelets lower to 5,00o with WBC 2,300 and hemoglobin 8.3 GM. Had CXR but several recent Xray didn't show a discreet infiltrate. Afebrile; on Aerosol and cough syrup and Lasix. - Current Medication List Current Medications: Active Medications Acetaminophen (Tylenol -) 650 mg PO Q6H PRN PRN Reason: PAIN Last Admin: 08/30/16 20:30 Dose: 650 mg Albuterol Sulfate (Ventolin 0.083% Nebulizer Soln -) 1 amp NEB Q4H PRN PRN Reason: SHORT OF BREATH/WHEEZING Last Admin: 09/13/16 06:10 Dose: 1 amp Allopurinol (Zyloprim -) 300 mg PO DAILY [facility] Last Admin: 09/12/16 09:48 Dose: 300 mg Guaifenesin/Codeine Phosphate (Robitussin Ac -) 5 ml PO Q8H PRN PRN Reason: COUGH Insulin Aspart (Novolog Vial Sliding Scale -) 1 vial SQ BIDAC [facility] PRN Reason: Protocol Last Admin: 09/13/16 06:14 Dose: Not Given Magnesium Oxide (Mag-Ox -) 400 mg PO BID [facility] Last Admin: 09/12/16 22:07 Dose: 400 mg Metoclopramide HCl (Reglan -) 10 mg PO TIDAC [facility] Last Admin: 09/13/16 06:21 Dose: 10 mg Multivitamins/Minerals/Vitamin C (Tab-A-Vit -) 1 tab PO DAILY [facility] Last Admin: 09/12/16 09:48 Dose: 1 tab Gleevac (Imatinib Mesylate) 400 Mg Tablet - Patient Own 1 each PO DAILY [facility] Last Admin: 09/12/16 09:49 Dose: 1 each Ondansetron HCl (Zofran Injection) 8 mg IVPB Q12H PRN PRN Reason: NAUSEA Last Admin: 09/12/16 09:42 Dose: 8 mg Pantoprazole Sodium (Protonix -) 40 mg PO BID [facility] Last Admin: 09/12/16 22:08 Dose: 40 mg Polyethylene Glycol (Miralax (For Daily Use) -) 17 gm PO BID [facility] Last Admin: 09/12/16 22:08 Dose: 17 gm - Objective Vital Signs: Vital Signs Temperature 97.5 F L 09/13/16 05:42 Pulse Rate 92 H 09/13/16 05:42 Respiratory Rate 20 09/13/16 05:42 Blood Pressure 117/54 09/13/16 05:42 O2 Sat by Pulse Oximetry (%) 91 L 09/12/16 21:00 Constitutional: Yes: Mild Distress (due to coughing) Eyes: Yes: Tearing Cardiovascular: Yes: Tachycardia Respiratory: Yes: Diminished, Rhonchi (at bases) Gastrointestinal: Yes: Soft Edema: LLE: 1+, RLE: 1+ Neurological: Yes: Alert, Oriented Labs: CBC, BMP 09/13/16 06:00 INR, PTT INR 1.39 (0.82-1.09) H 08/26/16 09:50 Problem List - Problems (1) Thrombocytopenia Assessment/Plan: Down to 5,000 today: 1 unit platelets ordered. Code(s): D69.6 - THROMBOCYTOPENIA, UNSPECIFIED (2) Leg weakness, bilateral Assessment/Plan: Wants to resume PT today. Code(s): R29.898 - OTH SYMPTOMS AND SIGNS INVOLVING THE MUSCULOSKELETAL SYSTEM (3) Anemia Assessment/Plan: Stable at Hb 8.3 GM. Code(s): D64.9 - ANEMIA, UNSPECIFIED Qualifiers: Anemia type: unspecified type Qualified Code(s): D64.9 - Anemia, unspecified (4) Mastocytosis Code(s): Q82.2 - MASTOCYTOSIS (5) Cough Assessment/Plan: Await repeat CXR. Code(s): R05 - COUGH (6) Diabetes mellitus, new onset Assessment/Plan: BGM's stable Code(s): E11.9 - TYPE 2 DIABETES MELLITUS WITHOUT COMPLICATIONS (7) HTN (hypertension) Code(s): I10 - ESSENTIAL (PRIMARY) HYPERTENSION (8) History of ovarian cancer Code(s): Z85.43 - PERSONAL HISTORY OF MALIGNANT NEOPLASM OF OVARY (9) CHF (congestive heart failure) Code(s): I50.9 - HEART FAILURE, UNSPECIFIED Qualifiers: Congestive heart failure type: diastolic Congestive heart failure chronicity: acute Qualified Code(s): I50.31 - Acute diastolic (congestive ) heart failure
[2016-09-13 08:59] LABS: ALBUMIN 2.4 g/dl (3.4-5.0); ALK PHOS 133 U/L (45-117); ANION GAP 12 (8-16); BILIRUBIN,TOTAL 3.3 mg/dL (0.2-1.0); CALCIUM 7.9 mg/dL (8.5-10.1); CO2 27 mmol/L (21-32); COCKROFT - GAULT 55.8025; CREATININE 0.8 mg/dL (0.55-1.02); GLUCOSE,RANDOM 141 mg/dL (74-106); SGOT/AST 9 U/L (15-37); SGPT/ALT 11 U/L (12-78); TOT PROT 4.4 g/dl (6.4-8.2)
[2016-09-13] MEDS: guaiFENesin/CODEINE 5 ML UNIT-DOSE CUPS PO PRN (10:44)
[2016-09-13] MEDS: ONDANSETRON 4 MG/2 ML VIAL IVPB PRN (10:44)
[2016-09-13] MEDS ORDERED: PT OWN MED DRAWER 7, Y5N ONE (11:08)
[2016-09-13] MEDS: GLEEVAC PO SCH (11:12)
[2016-09-13] MEDS: MULTIVITAMINS (DAILY MVI) TABLET (FP) PO SCH (11:12)
[2016-09-13] MEDS: PANTOPRAZOLE 40 MG TABLET (FP) PO SCH ×2 (11:12→22:55)
[2016-09-13] MEDS: MAGNESIUM OXIDE 400 MG TABLET (FP) PO SCH ×2 (11:12→22:55)
[2016-09-13] MEDS: ALLOPURINOL 300 MG TABLET (FP) PO SCH (11:12)
[2016-09-13] MEDS: POLYETHYLENE GLYCOL 3350 119 GM BTL PO SCH ×2 (11:13→22:56)
--- NOTE | 2016-09-13 13:17 | PN ---
Progress Note (short form) - Note Progress Note: Neurology History of Present Illness 81 year old female with a history of NIDDM, HTN, ovarian ca (s/p chemo in 2007 and 2011, s/p hysterectomy and bilateral oophrectomy), and anemia sent from [facility] for Hg of 6.9. 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 There was concern for patient 's limited ability to move lower extremities and she reports ongoing fluid buildup. B12 and Folate were normal. Neurologically stable overnight without events. In good spirits and conversive. Reports legs still don't feel fully functional but encouraged continue therapy which has been helpful. Active Medications Acetaminophen (Tylenol -) 650 mg PO Q6H PRN PRN Reason: PAIN Last Admin: 08/30/16 20:30 Dose: 650 mg Albuterol Sulfate (Ventolin 0.083% Nebulizer Soln -) 1 amp NEB Q4H PRN PRN Reason: SHORT OF BREATH/WHEEZING Last Admin: 09/13/16 06:10 Dose: 1 amp Allopurinol (Zyloprim -) 300 mg PO DAILY [facility] Last Admin: 09/13/16 11:12 Dose: 300 mg Furosemide (Lasix Injection -) 40 mg IVPUSH BID@0600,1400 [facility] Guaifenesin/Codeine Phosphate (Robitussin Ac -) 5 ml PO Q8H PRN PRN Reason: COUGH Last Admin: 09/13/16 10:44 Dose: 5 ml Insulin Aspart (Novolog Vial Sliding Scale -) 1 vial SQ BIDAC [facility] PRN Reason: Protocol Last Admin: 09/13/16 06:14 Dose: Not Given Magnesium Oxide (Mag-Ox -) 400 mg PO BID [facility] Last Admin: 09/13/16 11:12 Dose: 400 mg Metoclopramide HCl (Reglan -) 10 mg PO TIDAC [facility] Last Admin: 09/13/16 11:12 Dose: 10 mg Multivitamins/Minerals/Vitamin C (Tab-A-Vit -) 1 tab PO DAILY [facility] Last Admin: 09/13/16 11:12 Dose: 1 tab Gleevac (Imatinib Mesylate) 400 Mg Tablet - Patient Own 1 each PO DAILY [facility] Last Admin: 09/13/16 11:12 Dose: 1 each Ondansetron HCl (Zofran Injection) 8 mg IVPB Q12H PRN PRN Reason: NAUSEA Last Admin: 09/13/16 10:44 Dose: 8 mg Pantoprazole Sodium (Protonix -) 40 mg PO BID [facility] Last Admin: 09/13/16 11:12 Dose: 40 mg Polyethylene Glycol (Miralax (For Daily Use) -) 17 gm PO BID [facility] Last Admin: 09/13/16 11:13 Dose: 17 gm Vital Signs Temperature 97.5 F L 09/13/16 05:42 Pulse Rate 92 H 09/13/16 05:42 Respiratory Rate 20 09/13/16 05:42 Blood Pressure 117/54 09/13/16 05:42 O2 Sat by Pulse Oximetry (%) 91 L 09/12/16 21:00 PHYSICAL EXAM General Appearance: Well-appearing, appropriately dressed. No apparent distress. HEENT: EOMI, PERRLA, normal ENT inspection, normal voice, TMs normal, pharynx normal. No conjunctival pallor. No photophobia, scleral icterus. Neck: Supple. Trachea midline. No tenderness, rigidity, carotid bruit, stridor , lymphadenopathy, or thyromegaly. Respiratory/Chest: Lungs CTAB. No shortness of breath, chest tenderness, respiratory distress, accessory muscle use. No crackles, rales, rhonchi, stridor , wheezing, dullness Cardiovascular: RRR. S1, S2. Vascular Pulses: Dorsalis-Pedis (R): 2+, Dorsalis-Pedis (L): 2+ Gastrointestinal/Abdominal: LUQ tenderness on palpation, splenomegaly appreciated. Normal bowel sounds. Abdomen soft, non-distended. No organomegaly, pulsatile mass, guarding, hernia, hepatomegaly, splenomegaly. Musculoskeletal/Extremities: 2+ pitting edema to LE b/l. No erythema, tenderness. Normal inspection. FROM of all extremities, normal capillary refill. Pelvis Stable. No CVA tenderness. No tenderness to extremities, pedal edema, swelling, erythema or deformity. 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 Fully oriented, alert. Motor strength 5/5 in UE , 5-/5 in lower ext at best. CBCD WBC 2.3 K/mm3 (4.0-10.0) L 09/13/16 06:00 RBC 2.57 M/mm3 (3.60-5.2) L D 09/13/16 06:00 Hgb 8.3 GM/dL (10.7-15.3) L D 09/13/16 06:00 Hct 24.4 % (32.4-45.2) L D 09/13/16 06:00 MCV 94.8 fl (80-96) 09/13/16 06:00 MCHC 34.0 g/dl (32.0-36.0) 09/13/16 06:00 RDW 16.1 % (11.6-15.6) H 09/13/16 06:00 Plt Count 5 K/MM3 (134-434) L* D 09/13/16 06:00 MPV 10.6 fl (7.5-11.1) D 09/13/16 06:00 CMP Sodium 141 mmol/L (136-145) 09/13/16 06:00 Potassium 3.6 mmol/L (3.5-5.1) 09/13/16 06:00 Chloride 102 mmol/L (98-107) 09/13/16 06:00 Carbon Dioxide 27 mmol/L (21-32) 09/13/16 06:00 Anion Gap 12 (8-16) 09/13/16 06:00 BUN 30 mg/dL (7-18) H D 09/13/16 06:00 Creatinine 0.8 mg/dL (0.55-1.02) D 09/13/16 06:00 Creat Clearance w eGFR > 60 (>60) 09/13/16 06:00 Calcium 7.9 mg/dL (8.5-10.1) L 09/13/16 06:00 Total Bilirubin 3.3 mg/dL (0.2-1.0) H D 09/13/16 06:00 AST 9 U/L (15-37) L D 09/13/16 06:00 ALT 11 U/L (12-78) L 09/13/16 06:00 Alkaline Phosphatase 133 U/L (45-117) H 09/13/16 06:00 Total Protein 4.4 g/dl (6.4-8.2) L 09/13/16 06:00 Albumin 2.4 g/dl (3.4-5.0) L 09/13/16 06:00 Medical Decision Making 81 year old female with a history of NIDDM, HTN, ovarian ca (s/p chemo in 2007 and 2011, s/p hysterectomy and bilateral oophrectomy), and anemia sent from [facility] for Hg of 6.9, now improved. 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 There is concern for patient's limited ability to move lower extremities and she reports ongoing fluid buildup. Patient reports this has been going and occuring since she has been in hospital. Ambulating now, well appearing, slow but steady gait B12 and folate normal Exam improved PT/OT would be recommended. Continue medical mgmt
[2016-09-13] MEDS: FUROSEMIDE 40 MG/4 ML INJECTABLE VIAL IVPUSH SCH (16:37)
[2016-09-13 17:54] LABS: PLATELET ESTIMATE DECREASED (NORMAL); POLYCHROMASIA FEW
[2016-09-13 17:55] LABS: ANISOCYTOSIS FEW; HYPOCHROMIA 1+
--- NOTE | 2016-09-13 19:16 | PN ---
Progress Note (short form) - Note Progress Note: Patient seen and examined c/o lower ext. heaviness cough Last Vital Signs Temp Pulse Resp BP Pulse Ox 98.4 F 103 H 18 124/62 94 L 09/13/16 17:18 09/13/16 17:18 09/13/16 17:18 09/13/16 17:18 09/13/16 09:00 HEENT-nl Heart-S1, S2 regular Lungs: decreased at bases Abd: Soft, Normal bowel sounds, No organomegaly Ext:2+ edema b/l + skin rash Abnormal Lab Results 09/09/16 09/10/16 09/13/16 11:20 12:20 06:00 WBC 2.3 L RBC 2.57 L D Hgb 8.3 L D Hct 24.4 L D RDW 16.1 H Plt Count 5 L* D Monocytes % 2.0 L D BUN Random Glucose Calcium Total Bilirubin AST ALT Alkaline Phosphatase Total Protein Albumin Crossmatch See Detail See Detail 09/13/16 06:00 WBC RBC Hgb Hct RDW Plt Count Monocytes % BUN 30 H D Random Glucose 141 H D Calcium 7.9 L Total Bilirubin 3.3 H D AST 9 L D ALT 11 L Alkaline Phosphatase 133 H Total Protein 4.4 L Albumin 2.4 L Crossmatch Home Medication List Medication Instructions Recorded Confirmed Type Aa/Hydrolyzed Collagen, Whey [Lps 30 ml PO TID 08/26/16 08/26/16 History 15-30 Liquid] Allopurinol 300 mg PO DAILY 08/26/16 08/26/16 History Imatinib Mesylate [Gleevec] 100 mg PO DAILY 08/26/16 08/26/16 History Multivitamin [Poly-Vitamin] 1 each PO DAILY 08/26/16 08/26/16 History Active Medications Generic Name Dose Route Start Last Admin Trade Name Freq PRN Reason Stop Dose Admin Acetaminophen 650 mg 08/26/16 17:19 08/30/16 20:30 Tylenol - PO 650 mg Q6H PRN Administration PAIN Albuterol Sulfate 1 amp 09/11/16 09:47 09/13/16 06:10 Ventolin 0.083% Nebulizer Soln - NEB 1 amp Q4H PRN Administration SHORT OF BREATH/WHEEZING Allopurinol 300 mg 08/27/16 10:00 09/13/16 11:12 Zyloprim - PO 300 mg DAILY JOVANA Administration Furosemide 40 mg 09/13/16 14:00 09/13/16 16:37 Lasix Injection - IVPUSH 40 mg BID@0600,1400 JOVANA Administration Guaifenesin/Codeine Phosphate 5 ml 09/12/16 15:06 09/13/16 10:44 Robitussin Ac - PO 5 ml Q8H PRN Administration COUGH Insulin Aspart 1 vial 09/02/16 16:30 09/13/16 17:23 Novolog Vial Sliding Scale - SQ 2 units BIDAC JOVANA Administration Protocol Magnesium Oxide 400 mg 08/26/16 22:00 09/13/16 11:12 Mag-Ox - PO 400 mg BID JOVANA Administration Metoclopramide HCl 10 mg 08/27/16 07:00 09/13/16 17:19 Reglan - PO 10 mg TIDAC JOVANA Administration Multivitamins/Minerals/Vitamin C 1 tab 08/27/16 10:00 09/13/16 11:12 Tab-A-Vit - PO 1 tab DAILY JOVANA Administration Gleevac (Imatinib 1 each 09/09/16 10:00 09/13/16 11:12 Mesylate) 400 Mg PO 1 each Tablet - Patient Own DAILY JOVANA Administration Ondansetron HCl 8 mg 09/12/16 06:29 09/13/16 10:44 Zofran Injection IVPB 8 mg Q12H PRN Administration NAUSEA Pantoprazole Sodium 40 mg 08/31/16 10:00 09/13/16 11:12 Protonix - PO 40 mg BID JOVANA Administration Polyethylene Glycol 17 gm 09/05/16 22:00 09/13/16 11:13 Miralax (For Daily Use) - PO 17 gm BID JOVANA Administration A/P 81 y/o patient with systemic mastocytosis with associated hematologic neoplasm C1D 14 vidaza gleevec reumed 09/08 transfusion support for Hgb < 7, platelts < 10,000 monitor CMP transfusion support ?platelet refractory skin rash/leg heaviness--? gleevec will reduce dose
[2016-09-14] MEDS: ALBUTEROL SO4 0.083% IH SOL 2.5 MG/3 ML VIAL.NEB. NEB PRN ×2 (06:10→09:48)
[2016-09-14] MEDS: METOCLOPRAMIDE HCL 10 MG TABLET (FP) PO SCH ×3 (06:18→17:03)
[2016-09-14] MEDS: FUROSEMIDE 40 MG/4 ML INJECTABLE VIAL IVPUSH SCH ×2 (06:18→14:32)
[2016-09-14] MEDS: INSULIN SLIDING SCALE (NOVOLOG) 1 VIAL SQ SCH ×2 (06:21→16:44)
--- NOTE | 2016-09-14 09:08 | PN ---
Progress Note (short form) - Note Progress Note: Patient is less SOB; still occ cough No chest pain Await AM Lab Tolerating diet Walked with PT yesterday On Exam: Vital Signs Temp 98 F 09/14/16 06:00 Pulse 97 H 09/14/16 06:00 Resp 20 09/14/16 06:00 BP 104/56 09/14/16 06:00 Pulse Ox 91 L 09/13/16 21:00 Intake & Output 09/13/16 09/13/16 09/14/16 11:59 23:59 11:59 Intake Total 350 100 Balance 350 100 Weight 141 lb 4.8 oz 143 lb 9.6 oz Intake: IVPB 50 Oral 100 Platelets 300 Other: Voiding Method Bedside Commode Bedside Commode # Unmeasured Voids Void 2 2 Bowel Movement No Weight Measurement Method Chair Scale Chair Scale Alert Chest: Some rhonchi at both bases but less congested Cor; Tachycardia Abd: Slightly distended Ext: 1+ edema Erythematous rash on Back and petechiae throughout body. Abnormal Lab Results 09/09/16 09/10/16 09/13/16 11:20 12:20 06:00 Monocytes % 2.0 L D BUN Random Glucose Calcium Total Bilirubin AST ALT Alkaline Phosphatase Total Protein Albumin Crossmatch See Detail See Detail 09/13/16 06:00 Monocytes % BUN 30 H D Random Glucose 141 H D Calcium 7.9 L Total Bilirubin 3.3 H D AST 9 L D ALT 11 L Alkaline Phosphatase 133 H Total Protein 4.4 L Albumin 2.4 L Crossmatch IMP: Acute Mastocytosis and Heme Malignancy Acute CHF on IV Lasix BID Pancytopenia DM controlled Rash on back: ? contact Derm VS from Gleevac PLAN: Daily CBC F/U Basic Profile Await AM Lab Continue IV Lasix PT Problem List - Problems (1) Thrombocytopenia Code(s): D69.6 - THROMBOCYTOPENIA, UNSPECIFIED (2) Leg weakness, bilateral Code(s): R29.898 - OTH SYMPTOMS AND SIGNS INVOLVING THE MUSCULOSKELETAL SYSTEM (3) Anemia Code(s): D64.9 - ANEMIA, UNSPECIFIED Qualifiers: Anemia type: unspecified type Qualified Code(s): D64.9 - Anemia, unspecified (4) Mastocytosis Code(s): Q82.2 - MASTOCYTOSIS (5) Cough Code(s): R05 - COUGH (6) Diabetes mellitus, new onset Code(s): E11.9 - TYPE 2 DIABETES MELLITUS WITHOUT COMPLICATIONS (7) HTN (hypertension) Code(s): I10 - ESSENTIAL (PRIMARY) HYPERTENSION (8) History of ovarian cancer Code(s): Z85.43 - PERSONAL HISTORY OF MALIGNANT NEOPLASM OF OVARY (9) CHF (congestive heart failure) Code(s): I50.9 - HEART FAILURE, UNSPECIFIED Qualifiers: Congestive heart failure type: diastolic Congestive heart failure chronicity: acute Qualified Code(s): I50.31 - Acute diastolic (congestive ) heart failure
[2016-09-14] MEDS: TRIAMCINOLONE ACET 0.1% CREAM 15 GM TUBE TP SCH ×2 (11:00→21:32)
[2016-09-14] MEDS: POLYETHYLENE GLYCOL 3350 119 GM BTL PO SCH ×2 (11:00→21:32)
[2016-09-14] MEDS: MULTIVITAMINS (DAILY MVI) TABLET (FP) PO SCH (11:00)
[2016-09-14] MEDS: ALLOPURINOL 300 MG TABLET (FP) PO SCH (11:00)
[2016-09-14] MEDS: MAGNESIUM OXIDE 400 MG TABLET (FP) PO SCH ×2 (11:00→21:32)
[2016-09-14] MEDS: PANTOPRAZOLE 40 MG TABLET (FP) PO SCH ×2 (11:00→21:33)
[2016-09-14] MEDS: GLEEVAC PO SCH (11:21)
--- NOTE | 2016-09-14 11:28 | PN ---
Progress Note (short form) - Note Progress Note: Neurology History of Present Illness 81 year old female with a history of NIDDM, HTN, ovarian ca (s/p chemo in 2007 and 2011, s/p hysterectomy and bilateral oophrectomy), and anemia sent from [facility] for Hg of 6.9. 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 There was concern for patient 's limited ability to move lower extremities and she reports ongoing fluid buildup. B12 and Folate were normal. Neurologically stable overnight without events. In good spirits and conversive. Feels her ambulation has improved. Would like to continue with therapy. Active Medications Acetaminophen (Tylenol -) 650 mg PO Q6H PRN PRN Reason: PAIN Last Admin: 08/30/16 20:30 Dose: 650 mg Albuterol Sulfate (Ventolin 0.083% Nebulizer Soln -) 1 amp NEB Q4H PRN PRN Reason: SHORT OF BREATH/WHEEZING Last Admin: 09/14/16 09:48 Dose: 1 amp Allopurinol (Zyloprim -) 300 mg PO DAILY [facility] Last Admin: 09/14/16 11:00 Dose: 300 mg Furosemide (Lasix Injection -) 40 mg IVPUSH BID@0600,1400 [facility] Last Admin: 09/14/16 06:18 Dose: Not Given Guaifenesin/Codeine Phosphate (Robitussin Ac -) 5 ml PO Q8H PRN PRN Reason: COUGH Last Admin: 09/13/16 10:44 Dose: 5 ml Insulin Aspart (Novolog Vial Sliding Scale -) 1 vial SQ BIDAC [facility] PRN Reason: Protocol Last Admin: 09/14/16 06:21 Dose: Not Given Magnesium Oxide (Mag-Ox -) 400 mg PO BID [facility] Last Admin: 09/14/16 11:00 Dose: 400 mg Metoclopramide HCl (Reglan -) 10 mg PO TIDAC [facility] Last Admin: 09/14/16 11:00 Dose: 10 mg Multivitamins/Minerals/Vitamin C (Tab-A-Vit -) 1 tab PO DAILY [facility] Last Admin: 09/14/16 11:00 Dose: 1 tab Gleevac (Imatinib Mesylate) 400 Mg Tablet - Patient Own 1 each PO DAILY [facility] Last Admin: 09/14/16 11:21 Dose: Not Given Ondansetron HCl (Zofran Injection) 8 mg IVPB Q12H PRN PRN Reason: NAUSEA Last Admin: 09/13/16 10:44 Dose: 8 mg Pantoprazole Sodium (Protonix -) 40 mg PO BID [facility] Last Admin: 09/14/16 11:00 Dose: 40 mg Polyethylene Glycol (Miralax (For Daily Use) -) 17 gm PO BID [facility] Last Admin: 09/14/16 11:00 Dose: 17 gm Triamcinolone Acetonide (Aristocort 0.1% Cream -) 1 applic TP BID [facility] Last Admin: 09/14/16 11:00 Dose: 1 applic Vital Signs Temperature 98.2 F 09/14/16 09:25 Pulse Rate 105 H 09/14/16 09:47 Respiratory Rate 20 09/14/16 09:25 Blood Pressure 116/66 09/14/16 09:25 O2 Sat by Pulse Oximetry (%) 96 09/14/16 09:47 PHYSICAL EXAM General Appearance: Well-appearing, appropriately dressed. No apparent distress. HEENT: EOMI, PERRLA, normal ENT inspection, normal voice, TMs normal, pharynx normal. No conjunctival pallor. No photophobia, scleral icterus. Neck: Supple. Trachea midline. No tenderness, rigidity, carotid bruit, stridor , lymphadenopathy, or thyromegaly. Respiratory/Chest: Lungs CTAB. No shortness of breath, chest tenderness, respiratory distress, accessory muscle use. No crackles, rales, rhonchi, stridor , wheezing, dullness Cardiovascular: RRR. S1, S2. Vascular Pulses: Dorsalis-Pedis (R): 2+, Dorsalis-Pedis (L): 2+ Gastrointestinal/Abdominal: LUQ tenderness on palpation, splenomegaly appreciated. Normal bowel sounds. Abdomen soft, non-distended. No organomegaly, pulsatile mass, guarding, hernia, hepatomegaly, splenomegaly. Musculoskeletal/Extremities: 2+ pitting edema to LE b/l. No erythema, tenderness. Normal inspection. FROM of all extremities, normal capillary refill. Pelvis Stable. No CVA tenderness. No tenderness to extremities, pedal edema, swelling, erythema or deformity. Neurologic: vat cleaner II-XII intact. Fully oriented, alert. Motor strength 5/5 in UE , 5-/5 in lower ext at best. CBCD WBC 2.3 K/mm3 (4.0-10.0) L 09/13/16 06:00 RBC 2.57 M/mm3 (3.60-5.2) L D 09/13/16 06:00 Hgb 8.3 GM/dL (10.7-15.3) L D 09/13/16 06:00 Hct 24.4 % (32.4-45.2) L D 09/13/16 06:00 MCV 94.8 fl (80-96) 09/13/16 06:00 MCHC 34.0 g/dl (32.0-36.0) 09/13/16 06:00 RDW 16.1 % (11.6-15.6) H 09/13/16 06:00 Plt Count 5 K/MM3 (134-434) L* D 09/13/16 06:00 MPV 10.6 fl (7.5-11.1) D 09/13/16 06:00 CMP Sodium 141 mmol/L (136-145) 09/13/16 06:00 Potassium 3.6 mmol/L (3.5-5.1) 09/13/16 06:00 Chloride 102 mmol/L (98-107) 09/13/16 06:00 Carbon Dioxide 27 mmol/L (21-32) 09/13/16 06:00 Anion Gap 12 (8-16) 09/13/16 06:00 BUN 30 mg/dL (7-18) H D 09/13/16 06:00 Creatinine 0.8 mg/dL (0.55-1.02) D 09/13/16 06:00 Creat Clearance w eGFR > 60 (>60) 09/13/16 06:00 Calcium 7.9 mg/dL (8.5-10.1) L 09/13/16 06:00 Total Bilirubin 3.3 mg/dL (0.2-1.0) H D 09/13/16 06:00 AST 9 U/L (15-37) L D 09/13/16 06:00 ALT 11 U/L (12-78) L 09/13/16 06:00 Alkaline Phosphatase 133 U/L (45-117) H 09/13/16 06:00 Total Protein 4.4 g/dl (6.4-8.2) L 09/13/16 06:00 Albumin 2.4 g/dl (3.4-5.0) L 09/13/16 06:00 Medical Decision Making 81 year old female with a history of NIDDM, HTN, ovarian ca (s/p chemo in 2007 and 2011, s/p hysterectomy and bilateral oophrectomy), and anemia sent from [facility] for Hg of 6.9, now improved. 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 There is concern for patient's limited ability to move lower extremities and she reports ongoing fluid buildup. Patient reports this has been going and occuring since she has been in hospital. Ambulating now, well appearing, slow but steady gait B12 and folate normal Exam improved PT/OT would be recommended. Continue medical mgmt Fall precautions Assistive device as needed
[2016-09-14 11:29] LABS: MCH 32.2 pg (25.7-33.7); MCHC 33.2 g/dl (32.0-36.0); MEAN PLT VOLUME 8.6 fl (7.5-11.1); RDW 16.5 % (11.6-15.6); WHITE BLOOD COUNT 2.3 K/mm3 (4.0-10.0)
[2016-09-14 11:41] LABS: PLATELET COUNT 6 K/MM3 (134-434)
[2016-09-14 14:34] LABS: PLATELET ESTIMATE MARKEDLY DECREASED (NORMAL)
--- NOTE | 2016-09-14 17:37 | PN ---
Progress Note (short form) - Note Progress Note: Patient seen and examined c/o lower ext. heaviness cough Last Vital Signs Temp Pulse Resp BP Pulse Ox 97.5 F L 105 H 20 120/57 96 09/14/16 14:40 09/14/16 14:40 09/14/16 14:40 09/14/16 14:40 09/14/16 09:47 HEENT-nl Heart-S1, S2 regular Lungs: decreased at bases Abd: Soft, Normal bowel sounds, No organomegaly Ext:2+ edema b/l + skin rash Abnormal Lab Results 09/10/16 09/13/16 09/14/16 12:20 06:00 06:00 WBC 2.3 L RBC 2.37 L Hgb 7.6 L Hct 23.0 L MCV 97.0 H RDW 16.5 H Plt Count 6 L* Monocytes % 2.0 L D 1.0 L Nucleated RBCs 3 H Crossmatch See Detail Active Medications Generic Name Dose Route Start Last Admin Trade Name Freq PRN Reason Stop Dose Admin Acetaminophen 650 mg 08/26/16 17:19 08/30/16 20:30 Tylenol - PO 650 mg Q6H PRN Administration PAIN Albuterol Sulfate 1 amp 09/11/16 09:47 09/14/16 09:48 Ventolin 0.083% Nebulizer Soln - NEB 1 amp Q4H PRN Administration SHORT OF BREATH/WHEEZING Allopurinol 300 mg 08/27/16 10:00 09/14/16 11:00 Zyloprim - PO 300 mg DAILY JOVANA Administration Furosemide 40 mg 09/13/16 14:00 09/14/16 14:32 Lasix Injection - IVPUSH 40 mg BID@0600,1400 JOVANA Administration Guaifenesin/Codeine Phosphate 5 ml 09/12/16 15:06 09/13/16 10:44 Robitussin Ac - PO 5 ml Q8H PRN Administration COUGH Insulin Aspart 1 vial 09/02/16 16:30 09/14/16 16:44 Novolog Vial Sliding Scale - SQ 2 units BIDAC JOVANA Administration Protocol Magnesium Oxide 400 mg 08/26/16 22:00 09/14/16 11:00 Mag-Ox - PO 400 mg BID JOVANA Administration Metoclopramide HCl 10 mg 08/27/16 07:00 09/14/16 17:03 Reglan - PO 10 mg TIDAC JOVANA Administration Multivitamins/Minerals/Vitamin C 1 tab 08/27/16 10:00 09/14/16 11:00 Tab-A-Vit - PO 1 tab DAILY JOVANA Administration Gleevac (Imatinib 1 each 09/09/16 10:00 09/14/16 11:21 Mesylate) 400 Mg PO Not Given Tablet - Patient Own DAILY JOVANA Ondansetron HCl 8 mg 09/12/16 06:29 09/13/16 10:44 Zofran Injection IVPB 8 mg Q12H PRN Administration NAUSEA Pantoprazole Sodium 40 mg 08/31/16 10:00 09/14/16 11:00 Protonix - PO 40 mg BID JOVANA Administration Polyethylene Glycol 17 gm 09/05/16 22:00 09/14/16 11:00 Miralax (For Daily Use) - PO 17 gm BID JOVANA Administration Triamcinolone Acetonide 1 applic 09/14/16 10:00 09/14/16 11:00 Aristocort 0.1% Cream - TP 1 applic BID JOVANA Administration A/P 81 y/o patient with 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 gleevec will hold
[2016-09-15] MEDS: FUROSEMIDE 40 MG/4 ML INJECTABLE VIAL IVPUSH SCH (06:11)
[2016-09-15] MEDS: INSULIN SLIDING SCALE (NOVOLOG) 1 VIAL SQ SCH ×2 (06:11→18:06)
[2016-09-15] MEDS: METOCLOPRAMIDE HCL 10 MG TABLET (FP) PO SCH ×3 (06:13→18:05)
[2016-09-15 07:37] LABS: MCH 32.7 pg (25.7-33.7); MCHC 33.6 g/dl (32.0-36.0); MEAN CELL VOLUME 97.4 fl (80-96); MEAN PLT VOLUME 8.1 fl (7.5-11.1); RDW 16.4 % (11.6-15.6); WHITE BLOOD COUNT 2.4 K/mm3 (4.0-10.0)
[2016-09-15 07:45] LABS: PLATELET COUNT 13 K/MM3 (134-434)
[2016-09-15 08:25] LABS: ANION GAP 9 (8-16); CALCIUM 8.8 mg/dL (8.5-10.1); CO2 30 mmol/L (21-32); CREATININE 0.7 mg/dL (0.55-1.02); GLUCOSE,RANDOM 162 mg/dL (74-106)
[2016-09-15 09:16] LABS: ALBUMIN 2.5 g/dl (3.4-5.0); BILIRUBIN,TOTAL 2.2 mg/dL (0.2-1.0); SGOT/AST 8 U/L (15-37); SGPT/ALT 12 U/L (12-78); TOT PROT 4.6 g/dl (6.4-8.2)
[2016-09-15 09:17] LABS: ALK PHOS 143 U/L (45-117)
[2016-09-15] MEDS: GLEEVAC PO SCH (10:00)
--- NOTE | 2016-09-15 10:11 | PN ---
Progress Note, Physician Chief Complaint: Patient more concerned that she will be forced to go to SNF at this point. Still Occ cough and SOB; fair appetite. History of Present Illness: Patient being treated for Acute Mastocytosis and Heme Malignancy. Completed 7 days of SQ Vidaza and was placed back on Gleevac. I believe Emily SCHMIDT held Gleevac for body rash but I thought it was mild contact dermatitis of the back and it seems already markedly improve dwith 1 day of Steroid cream. She was placed on IV Lasix BID 2 days ago for increasing SOB and P;eural effusions/CHF and cough and SOB are better. Will decrease to IV Daily and F/U lab. After 1 unit of platelets yesterday count is 13,000 today with Hb7.5GM and WBC 2 ,400. - Current Medication List Current Medications: Active Medications Acetaminophen (Tylenol -) 650 mg PO Q6H PRN PRN Reason: PAIN Last Admin: 08/30/16 20:30 Dose: 650 mg Albuterol Sulfate (Ventolin 0.083% Nebulizer Soln -) 1 amp NEB Q4H PRN PRN Reason: SHORT OF BREATH/WHEEZING Last Admin: 09/14/16 09:48 Dose: 1 amp Allopurinol (Zyloprim -) 300 mg PO DAILY [facility] Last Admin: 09/14/16 11:00 Dose: 300 mg Furosemide (Lasix Injection -) 40 mg IVPUSH BID@0600,1400 [facility] Last Admin: 09/15/16 06:11 Dose: 40 mg Guaifenesin/Codeine Phosphate (Robitussin Ac -) 5 ml PO Q8H PRN PRN Reason: COUGH Last Admin: 09/13/16 10:44 Dose: 5 ml Insulin Aspart (Novolog Vial Sliding Scale -) 1 vial SQ BIDAC JOVANA PRN Reason: Protocol Last Admin: 09/15/16 06:11 Dose: 2 units Magnesium Oxide (Mag-Ox -) 400 mg PO BID [facility] Last Admin: 09/14/16 21:32 Dose: 400 mg Metoclopramide HCl (Reglan -) 10 mg PO TIDAC [facility] Last Admin: 09/15/16 06:13 Dose: 10 mg Multivitamins/Minerals/Vitamin C (Tab-A-Vit -) 1 tab PO DAILY [facility] Last Admin: 09/14/16 11:00 Dose: 1 tab Gleevac (Imatinib Mesylate) 400 Mg Tablet - Patient Own 1 each PO DAILY [facility] Last Admin: 09/15/16 10:00 Dose: Not Given Ondansetron HCl (Zofran Injection) 8 mg IVPB Q12H PRN PRN Reason: NAUSEA Last Admin: 09/13/16 10:44 Dose: 8 mg Pantoprazole Sodium (Protonix -) 40 mg PO BID [facility] Last Admin: 09/14/16 21:33 Dose: 40 mg Polyethylene Glycol (Miralax (For Daily Use) -) 17 gm PO BID [facility] Last Admin: 09/14/16 21:32 Dose: Not Given Triamcinolone Acetonide (Aristocort 0.1% Cream -) 1 applic TP BID [facility] Last Admin: 09/14/16 21:32 Dose: 1 applic - Objective Vital Signs: Vital Signs Temperature 98.7 F 09/15/16 06:00 Pulse Rate 98 H 09/15/16 06:00 Respiratory Rate 20 09/15/16 06:00 Blood Pressure 126/61 09/15/16 06:00 O2 Sat by Pulse Oximetry (%) 93 L 09/14/16 21:00 Constitutional: Yes: Anxious Cardiovascular: Yes: Tachycardia Respiratory: Yes: Diminished, Rales (bases), Rhonchi Gastrointestinal: Yes: Soft, Distention, Hyperactive Bowel Sounds. No: Tenderness Edema: LLE: 1+, RLE: 1+ Neurological: Yes: Alert, Oriented Labs: CBC, BMP 09/15/16 06:20 09/15/16 06:20 INR, PTT INR 1.39 (0.82-1.09) H 08/26/16 09:50 Problem List - Problems (1) Thrombocytopenia Assessment/Plan: 13,000 today post 1 unit Monodonor platelets yesterday. Code(s): D69.6 - THROMBOCYTOPENIA, UNSPECIFIED (2) Leg weakness, bilateral Assessment/Plan: Still persists but Walks with PT Code(s): R29.898 - OTH SYMPTOMS AND SIGNS INVOLVING THE MUSCULOSKELETAL SYSTEM (3) Anemia Assessment/Plan: Hb 7.4 GM Code(s): D64.9 - ANEMIA, UNSPECIFIED Qualifiers: Anemia type: unspecified type Qualified Code(s): D64.9 - Anemia, unspecified (4) Mastocytosis Assessment/Plan: On Gleevac Code(s): Q82.2 - MASTOCYTOSIS (5) Cough Assessment/Plan: On Cough Rx PRN Code(s): R05 - COUGH (6) Diabetes mellitus, new onset Code(s): E11.9 - TYPE 2 DIABETES MELLITUS WITHOUT COMPLICATIONS (7) HTN (hypertension) Code(s): I10 - ESSENTIAL (PRIMARY) HYPERTENSION (8) History of ovarian cancer Code(s): Z85.43 - PERSONAL HISTORY OF MALIGNANT NEOPLASM OF OVARY (9) CHF (congestive heart failure) Assessment/Plan: Better on Lasix IV BID; will switch to IV daily. Code(s): I50.9 - HEART FAILURE, UNSPECIFIED Qualifiers: Congestive heart failure type: diastolic Congestive heart failure chronicity: acute Qualified Code(s): I50.31 - Acute diastolic (congestive ) heart failure
[2016-09-15 10:16] LABS: PLATELET ESTIMATE MARKEDLY DECREASED (NORMAL)
[2016-09-15] MEDS ORDERED: PT OWN MED DRAWER 7, Y5N ONE ×2 (10:36→12:40)
[2016-09-15] MEDS: PANTOPRAZOLE 40 MG TABLET (FP) PO SCH ×2 (10:40→23:56)
[2016-09-15] MEDS: MULTIVITAMINS (DAILY MVI) TABLET (FP) PO SCH (10:40)
[2016-09-15] MEDS: ALLOPURINOL 300 MG TABLET (FP) PO SCH (10:40)
[2016-09-15] MEDS: MAGNESIUM OXIDE 400 MG TABLET (FP) PO SCH ×2 (10:40→23:56)
[2016-09-15] MEDS: ALBUTEROL SO4 0.083% IH SOL 2.5 MG/3 ML VIAL.NEB. NEB PRN (10:41)
--- NOTE | 2016-09-15 11:01 | PN ---
Progress Note (short form) - Note Progress Note: Neurology History of Present Illness 81 year old female with a history of NIDDM, HTN, ovarian ca (s/p chemo in 2007 and 2011, s/p hysterectomy and bilateral oophrectomy), and anemia sent from [facility] for Hg of 6.9. 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 There was concern for patient 's limited ability to move lower extremities and she reports ongoing fluid buildup. B12 and Folate were normal. Neurologically stable overnight without events. In good spirits and conversive. Feels her ambulation has improved. Would like to continue with physical therapy. Active Medications Acetaminophen (Tylenol -) 650 mg PO Q6H PRN PRN Reason: PAIN Last Admin: 08/30/16 20:30 Dose: 650 mg Albuterol Sulfate (Ventolin 0.083% Nebulizer Soln -) 1 amp NEB Q4H PRN PRN Reason: SHORT OF BREATH/WHEEZING Last Admin: 09/15/16 10:41 Dose: 1 amp Allopurinol (Zyloprim -) 300 mg PO DAILY [facility] Last Admin: 09/15/16 10:40 Dose: 300 mg Furosemide (Lasix Injection -) 40 mg IVPUSH DAILY [facility] Guaifenesin/Codeine Phosphate (Robitussin Ac -) 5 ml PO Q8H PRN PRN Reason: COUGH Last Admin: 09/13/16 10:44 Dose: 5 ml Insulin Aspart (Novolog Vial Sliding Scale -) 1 vial SQ BIDAC JOVANA PRN Reason: Protocol Last Admin: 09/15/16 06:11 Dose: 2 units Magnesium Oxide (Mag-Ox -) 400 mg PO BID JOVANA Last Admin: 09/15/16 10:40 Dose: 400 mg Metoclopramide HCl (Reglan -) 10 mg PO TIDAC [facility] Last Admin: 09/15/16 10:40 Dose: 10 mg Multivitamins/Minerals/Vitamin C (Tab-A-Vit -) 1 tab PO DAILY [facility] Last Admin: 09/15/16 10:40 Dose: 1 tab Gleevac (Imatinib Mesylate) 400 Mg Tablet - Patient Own 1 each PO DAILY [facility] Last Admin: 09/15/16 10:00 Dose: Not Given Ondansetron HCl (Zofran Injection) 8 mg IVPB Q12H PRN PRN Reason: NAUSEA Last Admin: 09/13/16 10:44 Dose: 8 mg Pantoprazole Sodium (Protonix -) 40 mg PO BID [facility] Last Admin: 09/15/16 10:40 Dose: 40 mg Polyethylene Glycol (Miralax (For Daily Use) -) 17 gm PO BID [facility] Last Admin: 09/14/16 21:32 Dose: Not Given Triamcinolone Acetonide (Aristocort 0.1% Cream -) 1 applic TP BID [facility] Last Admin: 09/14/16 21:32 Dose: 1 applic Vital Signs Temperature 98.7 F 09/15/16 06:00 Pulse Rate 97 H 09/15/16 10:41 Respiratory Rate 20 09/15/16 06:00 Blood Pressure 126/61 09/15/16 06:00 O2 Sat by Pulse Oximetry (%) 98 09/15/16 10:41 PHYSICAL EXAM General Appearance: Well-appearing, appropriately dressed. No apparent distress. HEENT: EOMI, PERRLA, normal ENT inspection, normal voice, TMs normal, pharynx normal. No conjunctival pallor. No photophobia, scleral icterus. Neck: Supple. Trachea midline. No tenderness, rigidity, carotid bruit, stridor , lymphadenopathy, or thyromegaly. Respiratory/Chest: Lungs CTAB. No shortness of breath, chest tenderness, respiratory distress, accessory muscle use. No crackles, rales, rhonchi, stridor , wheezing, dullness Cardiovascular: RRR. S1, S2. Vascular Pulses: Dorsalis-Pedis (R): 2+, Dorsalis-Pedis (L): 2+ Gastrointestinal/Abdominal: LUQ tenderness on palpation, splenomegaly appreciated. Normal bowel sounds. Abdomen soft, non-distended. No organomegaly, pulsatile mass, guarding, hernia, hepatomegaly, splenomegaly. Musculoskeletal/Extremities: 2+ pitting edema to LE b/l. No erythema, tenderness. Normal inspection. FROM of all extremities, normal capillary refill. Pelvis Stable. No CVA tenderness. No tenderness to extremities, pedal edema, swelling, erythema or deformity. Neurologic: soil tester II-XII intact. Fully oriented, alert. Motor strength 5/5 in UE , 5-/5 in lower ext at best. CBCD WBC 2.4 K/mm3 (4.0-10.0) L 09/15/16 06:20 RBC 2.28 M/mm3 (3.60-5.2) L 09/15/16 06:20 Hgb 7.5 GM/dL (10.7-15.3) L 09/15/16 06:20 Hct 22.2 % (32.4-45.2) L 09/15/16 06:20 MCV 97.4 fl (80-96) H 09/15/16 06:20 MCHC 33.6 g/dl (32.0-36.0) 09/15/16 06:20 RDW 16.4 % (11.6-15.6) H 09/15/16 06:20 Plt Count 13 K/MM3 (134-434) L* D 09/15/16 06:20 MPV 8.1 fl (7.5-11.1) 09/15/16 06:20 CMP Sodium 139 mmol/L (136-145) 09/15/16 06:20 Potassium 3.7 mmol/L (3.5-5.1) 09/15/16 06:20 Chloride 100 mmol/L (98-107) 09/15/16 06:20 Carbon Dioxide 30 mmol/L (21-32) 09/15/16 06:20 Anion Gap 9 (8-16) 09/15/16 06:20 BUN 35 mg/dL (7-18) H 09/15/16 06:20 Creatinine 0.7 mg/dL (0.55-1.02) 09/15/16 06:20 Creat Clearance w eGFR Y 09/15/16 06:20 Calcium 8.8 mg/dL (8.5-10.1) 09/15/16 06:20 Total Bilirubin 2.2 mg/dL (0.2-1.0) H D 09/15/16 06:20 AST 8 U/L (15-37) L 09/15/16 06:20 ALT 12 U/L (12-78) 09/15/16 06:20 Alkaline Phosphatase 143 U/L (45-117) H 09/15/16 06:20 Total Protein 4.6 g/dl (6.4-8.2) L 09/15/16 06:20 Albumin 2.5 g/dl (3.4-5.0) L 09/15/16 06:20 Medical Decision Making 81 year old female with a history of NIDDM, HTN, ovarian ca (s/p chemo in 2007 and 2011, s/p hysterectomy and bilateral oophrectomy), and anemia sent from [facility] for Hg of 6.9, now improved. 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 There is concern for patient's limited ability to move lower extremities and she reports ongoing fluid buildup. Patient reports this has been going and occuring since she has been in hospital. Ambulating now, well appearing, slow but steady gait B12 and folate normal Exam improved PT/OT would be recommended. Continue medical mgmt Fall precautions Assistive device as needed, at bedside Patient stable
--- NOTE | 2016-09-15 12:23 | PN ---
Progress Note (short form) - Note Progress Note: Patient seen and examined c/o lower ext. heaviness cough rt. subconjunctival hemorrhage Last Vital Signs Temp Pulse Resp BP Pulse Ox 97.4 F L 97 H 20 96/53 98 09/15/16 10:00 09/15/16 10:41 09/15/16 10:00 09/15/16 10:00 09/15/16 10:41 HEENT-nl Heart-S1, S2 regular Lungs: decreased at bases Abd: Soft, Normal bowel sounds, No organomegaly Ext:2+ edema b/l + skin rash Abnormal Lab Results 09/14/16 09/15/16 09/15/16 06:00 06:20 06:20 WBC 2.4 L RBC 2.28 L Hgb 7.5 L Hct 22.2 L MCV 97.4 H RDW 16.4 H Plt Count 13 L* D Monocytes % 1.0 L 1.0 L Nucleated RBCs 3 H 2 H BUN 35 H Random Glucose 162 H Total Bilirubin 2.2 H D AST 8 L Alkaline Phosphatase 143 H Total Protein 4.6 L Albumin 2.5 L Home Medication List Medication Instructions Recorded Confirmed Type Aa/Hydrolyzed Collagen, Whey [Lps 30 ml PO TID 08/26/16 08/26/16 History 15-30 Liquid] Allopurinol 300 mg PO DAILY 08/26/16 08/26/16 History Imatinib Mesylate [Gleevec] 100 mg PO DAILY 08/26/16 08/26/16 History Multivitamin [Poly-Vitamin] 1 each PO DAILY 08/26/16 08/26/16 History Active Medications Generic Name Dose Route Start Last Admin Trade Name Freq PRN Reason Stop Dose Admin Acetaminophen 650 mg 08/26/16 17:19 08/30/16 20:30 Tylenol - PO 650 mg Q6H PRN Administration PAIN Albuterol Sulfate 1 amp 09/11/16 09:47 09/15/16 10:41 Ventolin 0.083% Nebulizer Soln - NEB 1 amp Q4H PRN Administration SHORT OF BREATH/WHEEZING Allopurinol 300 mg 08/27/16 10:00 09/15/16 10:40 Zyloprim - PO 300 mg DAILY JOVANA Administration Furosemide 40 mg 09/16/16 10:00 Lasix Injection - IVPUSH DAILY JOVANA Guaifenesin/Codeine Phosphate 5 ml 09/12/16 15:06 09/13/16 10:44 Robitussin Ac - PO 5 ml Q8H PRN Administration COUGH Insulin Aspart 1 vial 09/02/16 16:30 09/15/16 06:11 Novolog Vial Sliding Scale - SQ 2 units BIDAC JOVANA Administration Protocol Magnesium Oxide 400 mg 08/26/16 22:00 09/15/16 10:40 Mag-Ox - PO 400 mg BID JOVANA Administration Metoclopramide HCl 10 mg 08/27/16 07:00 09/15/16 10:40 Reglan - PO 10 mg TIDAC JOVANA Administration Multivitamins/Minerals/Vitamin C 1 tab 08/27/16 10:00 09/15/16 10:40 Tab-A-Vit - PO 1 tab DAILY JOVANA Administration Gleevac (Imatinib 1 each 09/09/16 10:00 09/15/16 10:00 Mesylate) 400 Mg PO Not Given Tablet - Patient Own DAILY JOVANA Ondansetron HCl 8 mg 09/12/16 06:29 09/13/16 10:44 Zofran Injection IVPB 8 mg Q12H PRN Administration NAUSEA Pantoprazole Sodium 40 mg 08/31/16 10:00 09/15/16 10:40 Protonix - PO 40 mg BID JOVANA Administration Polyethylene Glycol 17 gm 09/05/16 22:00 09/14/16 21:32 Miralax (For Daily Use) - PO Not Given BID JOVANA Triamcinolone Acetonide 1 applic 09/14/16 10:00 09/14/16 21:32 Aristocort 0.1% Cream - TP 1 applic BID JOVANA Administration A/P 81 y/o patient with 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
[2016-09-15] MEDS: POLYETHYLENE GLYCOL 3350 119 GM BTL PO SCH ×2 (14:22→23:57)
[2016-09-15] MEDS: TRIAMCINOLONE ACET 0.1% CREAM 15 GM TUBE TP SCH ×2 (14:23→23:56)
[2016-09-15] MEDS: guaiFENesin/CODEINE 5 ML UNIT-DOSE CUPS PO PRN (15:16)
[2016-09-16] MEDS: ALBUTEROL SO4 0.083% IH SOL 2.5 MG/3 ML VIAL.NEB. NEB PRN (00:06)
[2016-09-16] MEDS: METOCLOPRAMIDE HCL 10 MG TABLET (FP) PO SCH ×3 (06:11→17:30)
[2016-09-16] MEDS: INSULIN SLIDING SCALE (NOVOLOG) 1 VIAL SQ SCH ×2 (06:14→18:06)
[2016-09-16 07:49] LABS: MCH 33.4 pg (25.7-33.7); MEAN CELL VOLUME 98.3 fl (80-96); MEAN PLT VOLUME 7.1 fl (7.5-11.1); RDW 16.8 % (11.6-15.6)
[2016-09-16 07:56] LABS: CALCIUM 8.6 mg/dL (8.5-10.1); CREATININE 0.7 mg/dL (0.55-1.02)
[2016-09-16 08:41] LABS: PLATELET COUNT 13 K/MM3 (134-434); WHITE BLOOD COUNT 1.9 K/mm3 (4.0-10.0)
--- NOTE | 2016-09-16 09:38 | PN ---
Progress Note (short form) - Note Progress Note: Patient seen and examined Chart reviewed at length. Patient known to me from previous admission. Currently sitting up OOB in chair alert and appropriate. Denies new chest discomfort palpitations or GI symptoms. Labs, progress and integration consultant notes reviewed. Selected Entries 09/15/16 09/16/16 21:00 06:00 Temperature 98.1 F Pulse Rate 96 H Respiratory 20 Rate Blood Pressure 104/54 O2 Sat by Pulse 98 Oximetry (%) Oxygen Delivery Nasal Cannula Method Oxygen Flow 3 Rate Weight 148 lb 8 oz Laboratory Tests 09/15/16 09/15/16 09/16/16 06:20 06:20 06:00 WBC 2.4 L Hgb 7.5 L Hct 22.2 L Plt Count 13 L* D Sodium 140 Potassium 3.4 L Chloride 100 Carbon Dioxide 31 BUN 35 H Creatinine 0.7 POC Glucometer Random Glucose 135 H Calcium 8.6 Albumin 2.5 L 09/16/16 06:13 WBC Hgb Hct Plt Count Sodium Potassium Chloride Carbon Dioxide BUN Creatinine POC Glucometer 153 Random Glucose Calcium Albumin HEENT Right subconjunctival bleed Chest Decreased breath sounds at bases with increased expiratory phase of respiration Cor RRR Mild NVD Abd Distended (?fluid) No mass or tenderness BS positive Back Pre-sacral edema Ext Mild bilateral pedal edema Neuro No new focal neurologic deficit recognized me from previous admission Assessment and Plan Pancytopenia Transfuse platelets and PRBCs as outlined Monitor closely Mastocytosis/Hematologic malignancy As per Oncology service CHF Clinical evidence of Na+ volume overload with pleural effusions and edema as noted Continue cautious diuresis NIDDM Stable Monitor HTN Stable H/O Ovarian cancer post TAHBSO and chemotherapy protocols Leg weakness Neuro assessment appreciated Physical therapy for strengthening recommended Symptoms likely not due to primary neurologic deficit, but related to increased edema and underlying asthenia related to her chronic disease Subconjunctival hemorrhage right eye No new Rx needed Continue current Rx
[2016-09-16] MEDS ORDERED: FUROSEMIDE 40 MG/4 ML INJECTABLE VIAL IVPUSH SCH (10:00)
[2016-09-16] MEDS: MULTIVITAMINS (DAILY MVI) TABLET (FP) PO SCH (10:41)
[2016-09-16] MEDS: TRIAMCINOLONE ACET 0.1% CREAM 15 GM TUBE TP SCH ×2 (10:41→22:06)
[2016-09-16] MEDS: ALLOPURINOL 300 MG TABLET (FP) PO SCH (10:41)
[2016-09-16] MEDS: PANTOPRAZOLE 40 MG TABLET (FP) PO SCH ×2 (10:41→22:06)
[2016-09-16] MEDS: MAGNESIUM OXIDE 400 MG TABLET (FP) PO SCH ×2 (10:41→22:06)
[2016-09-16] MEDS: GLEEVAC PO SCH (10:42)
[2016-09-16] MEDS: POLYETHYLENE GLYCOL 3350 119 GM BTL PO SCH ×2 (10:42→22:00)
[2016-09-16 11:39] LABS: PLATELET ESTIMATE MARKEDLY DECREASED (NORMAL)
--- NOTE | 2016-09-16 11:41 | PN ---
Progress Note (short form) - Note Progress Note: Patient seen and examined c/o lower ext. heaviness cough rt. subconjunctival hemorrhage Last Vital Signs Temp Pulse Resp BP Pulse Ox 98.1 F 109 H 20 104/54 95 09/16/16 06:00 09/16/16 10:21 09/16/16 06:00 09/16/16 06:00 09/16/16 10:21 HEENT-nl Heart-S1, S2 regular Lungs: decreased at bases Abd: Soft, Normal bowel sounds, No organomegaly Ext:2+ edema b/l + skin rash Abnormal Lab Results 09/10/16 09/14/16 09/16/16 12:20 12:44 06:00 WBC 1.9 L* RBC 1.89 L Hgb 6.3 L* D Hct 18.6 L D MCV 98.3 H RDW 16.8 H Plt Count 13 L* MPV 7.1 L D Lymphocytes % 44.0 H D Monocytes % 2.0 L D Nucleated RBCs 2 H Potassium BUN Random Glucose Crossmatch See Detail See Detail 09/16/16 06:00 WBC RBC Hgb Hct MCV RDW Plt Count MPV Lymphocytes % Monocytes % Nucleated RBCs Potassium 3.4 L BUN 35 H Random Glucose 135 H Crossmatch Home Medication List Medication Instructions Recorded Confirmed Type Aa/Hydrolyzed Collagen, Whey [Lps 30 ml PO TID 08/26/16 08/26/16 History 15-30 Liquid] Allopurinol 300 mg PO DAILY 08/26/16 08/26/16 History Imatinib Mesylate [Gleevec] 100 mg PO DAILY 08/26/16 08/26/16 History Multivitamin [Poly-Vitamin] 1 each PO DAILY 08/26/16 08/26/16 History Active Medications Generic Name Dose Route Start Last Admin Trade Name Freq PRN Reason Stop Dose Admin Acetaminophen 650 mg 08/26/16 17:19 08/30/16 20:30 Tylenol - PO 650 mg Q6H PRN Administration PAIN Allopurinol 300 mg 08/27/16 10:00 09/16/16 10:41 Zyloprim - PO 300 mg DAILY JOVANA Administration Furosemide 40 mg 09/16/16 10:00 09/16/16 10:41 Lasix Injection - IVPUSH 40 mg DAILY JOVANA Administration Guaifenesin/Codeine Phosphate 5 ml 09/12/16 15:06 09/15/16 15:16 Robitussin Ac - PO 5 ml Q8H PRN Administration COUGH Insulin Aspart 1 vial 09/02/16 16:30 09/16/16 06:14 Novolog Vial Sliding Scale - SQ 2 units BIDAC JOVANA Administration Protocol Magnesium Oxide 400 mg 08/26/16 22:00 09/16/16 10:41 Mag-Ox - PO 400 mg BID JOVANA Administration Metoclopramide HCl 10 mg 08/27/16 07:00 09/16/16 06:11 Reglan - PO 10 mg TIDAC JOVANA Administration Multivitamins/Minerals/Vitamin C 1 tab 08/27/16 10:00 09/16/16 10:41 Tab-A-Vit - PO 1 tab DAILY JOVANA Administration Gleevac (Imatinib 1 each 09/09/16 10:00 09/16/16 10:42 Mesylate) 400 Mg PO Not Given Tablet - Patient Own DAILY JOVANA Ondansetron HCl 8 mg 09/12/16 06:29 09/13/16 10:44 Zofran Injection IVPB 8 mg Q12H PRN Administration NAUSEA Pantoprazole Sodium 40 mg 08/31/16 10:00 09/16/16 10:41 Protonix - PO 40 mg BID JOVANA Administration Polyethylene Glycol 17 gm 09/05/16 22:00 09/16/16 10:42 Miralax (For Daily Use) - PO 17 gm BID JOVANA Administration Triamcinolone Acetonide 1 applic 09/14/16 10:00 09/16/16 10:41 Aristocort 0.1% Cream - TP 1 applic BID JOVANA Administration A/P 81 y/o patient with systemic mastocytosis with associated hematologic neoplasm C1D 17 vidaza transfusion support for Hgb < 7, platelts < 10,000 monitor CMP transfusion support skin rash/leg heaviness/CHF consider lower dose gleevec transfuse 1 unit PRBCs today continue supportive care
[2016-09-16] MEDS: ONDANSETRON 4 MG/2 ML VIAL IVPB PRN (18:00)
[2016-09-16] MEDS: IMATINIB MESYLATE 100 MG TABLET PO SCH (18:29)
[2016-09-17] MEDS ORDERED: ALBUTEROL SO4 0.083% IH SOL 2.5 MG/3 ML VIAL.NEB. NEB ONE (04:23)
[2016-09-17] MEDS ORDERED: FUROSEMIDE 40 MG/4 ML INJECTABLE VIAL IVPUSH ONE ×2 (04:24→04:30)
[2016-09-17] MEDS ORDERED: ALBUTEROL SO4 0.083% IH SOL 2.5 MG/3 ML VIAL.NEB. NEB PRN (04:24)
[2016-09-17] MEDS ORDERED: ALBUTEROL SO4 2.5/IPRATROPIUM 0.5 INH SOL 3 ML VIAL.NEB. NEB ONE (04:25)
[2016-09-17] MEDS: INSULIN SLIDING SCALE (NOVOLOG) 1 VIAL SQ SCH ×2 (06:21→16:49)
[2016-09-17] MEDS: METOCLOPRAMIDE HCL 10 MG TABLET (FP) PO SCH ×3 (06:22→16:49)
[2016-09-17 08:02] LABS: MCH 33.4 pg (25.7-33.7); MCHC 33.9 g/dl (32.0-36.0); MEAN CELL VOLUME 98.6 fl (80-96); MEAN PLT VOLUME 8.1 fl (7.5-11.1); RDW 15.9 % (11.6-15.6)
[2016-09-17 08:14] LABS: PLATELET COUNT 8 K/MM3 (134-434); WHITE BLOOD COUNT 1.7 K/mm3 (4.0-10.0)
[2016-09-17 08:26] LABS: ALBUMIN 2.3 g/dl (3.4-5.0); ALK PHOS 160 U/L (45-117); ANION GAP 8 (8-16); BILIRUBIN,TOTAL 2.1 mg/dL (0.2-1.0); CALCIUM 8.8 mg/dL (8.5-10.1); CO2 32 mmol/L (21-32); COCKROFT - GAULT 67.5155; CREATININE 0.7 mg/dL (0.55-1.02); GLUCOSE,RANDOM 135 mg/dL (74-106); MAGNESIUM 1.9 mg/dL (1.8-2.4); SGOT/AST 6 U/L (15-37); SGPT/ALT 12 U/L (12-78); TOT PROT 4.5 g/dl (6.4-8.2)
--- NOTE | 2016-09-17 09:26 | PN ---
Progress Note (short form) - Note Progress Note: Patient seen and examined Chart reviewed. Patient known to me from previous admission. Currently sitting up OOB in chair alert and appropriate. Denies new chest discomfort palpitations or GI symptoms, but did note some increased dyspnea Labs, progress and lean process deployment consultant notes reviewed. Plans discussed with RN and with patient. Selected Entries 09/17/16 06:00 Temperature 97.8 F Pulse Rate 100 H Respiratory 20 Rate Blood Pressure 108/56 Weight 149 lb 9.6 oz Laboratory Tests 09/17/16 09/17/16 06:00 06:00 WBC 1.7 L* Hgb 7.2 L D Hct 21.3 L Plt Count 8 L* D Sodium 140 Potassium 3.3 L Chloride 100 Carbon Dioxide 32 BUN 34 H Creatinine 0.7 Random Glucose 135 H Calcium 8.8 Magnesium 1.9 Total Bilirubin 2.1 H AST 6 L D ALT 12 Alkaline Phosphatase 160 H Total Protein 4.5 L Albumin 2.3 L HEENT Right subconjunctival bleed unchanged Chest Decreased breath sounds at bases with increased expiratory phase of respiration Cor RRR Mild NVD Abd Distended (?fluid) No mass or tenderness BS positive Back Pre-sacral edema Ext Mild bilateral pedal edema Neuro No new focal neurologic deficit Assessment and Plan Pancytopenia Transfuse platelets and PRBCs as outlined Monitor closely WBC decreased further Differential pending in regard to absolute counts of neutropenia and associated capacity for disease fighting capability. Mastocytosis/Hematologic malignancy As per Oncology service CHF Clinical evidence of Na+ volume overload with pleural effusions and edema as noted Continue cautious diuresis Will increase diuretic dose, especially if transfusions of platelets are required NIDDM Stable Monitor HTN Stable H/O Ovarian cancer post TAHBSO and chemotherapy protocols Leg weakness Neuro assessment appreciated Physical therapy for strengthening recommended Symptoms likely not due to primary neurologic deficit, but related to increased edema and underlying asthenia related to her chronic disease Subconjunctival hemorrhage right eye No new Rx needed Hypoalbuminemia Related to ongoing acute/chronic disease as well as nutritional factors Hypokalemia 3.3 Replete Mg 1.9 Continue current Rx
[2016-09-17] MEDS: IMATINIB MESYLATE 100 MG TABLET PO SCH (09:40)
[2016-09-17] MEDS: POLYETHYLENE GLYCOL 3350 119 GM BTL PO SCH ×2 (09:53→21:52)
[2016-09-17] MEDS: TRIAMCINOLONE ACET 0.1% CREAM 15 GM TUBE TP SCH ×2 (09:53→21:51)
[2016-09-17] MEDS: MAGNESIUM OXIDE 400 MG TABLET (FP) PO SCH ×2 (09:53→21:44)
[2016-09-17] MEDS: POTASSIUM CHLORIDE TABS 20 MEQ TABLET.ER (FP) PO SCH ×2 (09:53→21:44)
[2016-09-17] MEDS: PANTOPRAZOLE 40 MG TABLET (FP) PO SCH ×2 (09:54→21:44)
[2016-09-17] MEDS: MULTIVITAMINS (DAILY MVI) TABLET (FP) PO SCH (09:54)
[2016-09-17] MEDS: ALLOPURINOL 300 MG TABLET (FP) PO SCH (09:54)
[2016-09-17] MEDS: guaiFENesin/CODEINE 5 ML UNIT-DOSE CUPS PO PRN ×2 (09:54→16:44)
[2016-09-17] MEDS ORDERED: FUROSEMIDE 40 MG/4 ML INJECTABLE VIAL IVPB SCH (10:00)
[2016-09-17 10:20] LABS: PLATELET ESTIMATE MARKEDLY DECREASED (NORMAL)
--- NOTE | 2016-09-17 12:19 | CONSULT ---
Consult Consult Specialty:: Cardiology Referred by:: Dr. 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 No prior DVT No pain. 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- had EUS with Dr Franco at [facility], colon and gastric polyps) Musculoskeletal: Yes: Osteoarthritis Endocrine: Yes: Diabetes Mellitus (developed during stress of illness in 08/13, no longer requiring therapy) - Past Surgical History Past Surgical History: Yes: Cataract Removal, Hernia Repair Additional Surgical History: laparotomy to debulk ovarian cancer - Alcohol/Substance Use Hx Alcohol Use: No History of Substance Use: reports: None - Smoking History Smoking history: Never smoked Have you smoked in the past 12 months: No Aproximately how many cigarettes per day: 0 - Social History Usual Living Arrangement: Jail ADL: Support Services History of Recent Travel: No Home Medications - Allergies Allergies/Adverse Reactions: Allergies Allergy/AdvReac Type Severity Reaction Status Date / Time No Known Drug Allergies Allergy Verified 08/26/16 09:24 - Home Medications Home Medications: Ambulatory Orders Acetaminophen [Tylenol .Regular Strength -] 650 mg PO Q6H PRN #0 tablet Furosemide [Lasix -] 40 mg PO DAILY tablet 08/22/16 Magnesium Oxide [Mag-Ox -] 400 mg PO BID tablet 08/22/16 Metoclopramide HCl [Reglan -] 10 mg PO TIDAC tablet 08/22/16 Polyethylene Glycol 3350 [Miralax 119 gm Btl -] 17 gm PO DAILY bottle 08/22/16 Potassium Chloride [K-Dur -] 20 meq PO DAILY tab.sr 08/22/16 Ranitidine [Zantac -] 150 mg PO BID tablet 08/22/16 Aa/Hydrolyzed Collagen, Whey [Lps 15-30 Liquid] 30 ml PO TID 08/26/16 Allopurinol 300 mg PO DAILY 08/26/16 Imatinib Mesylate [Gleevec] 100 mg PO DAILY 08/26/16 Multivitamin [Poly-Vitamin] 1 each PO DAILY 08/26/16 Family Disease History - Family Disease History Family Disease History: CA: Father ( 52 gastric cancer), Brother ( colon cancer age 75), Sister ( of breast cancer), Other: Mother (lived to 92 ) Physical Exam Vital Signs: Vital Signs Temperature 97.8 F 09/17/16 06:00 Pulse Rate 100 H 09/17/16 06:00 Respiratory Rate 20 09/17/16 06:00 Blood Pressure 108/56 09/17/16 06:00 O2 Sat by Pulse Oximetry (%) 95 09/16/16 10:21 Constitutional: Yes: No Distress Eyes: Yes: Other (Right eye conjuctival redness) HENT: Yes: WNL Neck: Yes: WNL Cardiovascular: Yes: Regular Rate and Rhythm Respiratory: Yes: WNL Edema: Yes Edema: LLE: 1+, RLE: 1+ Labs: CBC, BMP 09/17/16 06:00 09/17/16 06:00 Imaging - Results Ultrasound: Report Reviewed (09/01/2016 No LE DVT) EKG: Image Reviewed (08/26/2016 NSR at 90/min 09/17/2016 Sinus tachycardia at 101/ min) Other: Report Reviewed (Echo: 05/23/2013 normal LV and RV size and function, mild RVSP elevation (30-40mmHg)) Assessment/Plan 81 yo female with systemic mastocytosis on Gleevec with significant pancytopenias with dyspena, LE edema and tachycardia. 1) tachycardia -Please get 12 lead ECG (ordered) -Likely demand related to significant anemia and chronically ill state -Would continue to montior and treat underlying anemias as you are 2) Dyspnea -Has not had chemoRx so doubt related to CMY, last echo with preserved LV fx in 2013 -PE possible but unlikely given negative LE duplex. D-dimer would not be helpful in this scenario with her chronic illness -Given her edema, agree with trial of lasix PO but this is most likely related to hypoalb state/malnutrition (Alb 2.3) rather then CHF -Can check an echo to reval LV function 3) HTN -Well controlled -Continue current Rx
--- NOTE | 2016-09-17 13:14 | PN ---
Progress Note (short form) - Note Progress Note: PULMONARY CONSULTATION DICTATED 09/17/16 IMP ACUTE HYPOXEMIC RESPIRATORY FAILURE CHF,FLUID OVERLOAD SYSTEMIC MASTOCYTOSIS MDS PANCYTOPENIA HTN H/O OVARIAN CA PLAN LASIX O2 TO MAINTAIN O2 SAT 90% TRANSFUSE PER ONCOLOGY DAILY WTS INHALED BRONCHODILATORS STRICT I+Os ECHO DR CROSS Problem List - Problems (1) Anemia Code(s): D64.9 - ANEMIA, UNSPECIFIED Qualifiers: Anemia type: unspecified type Qualified Code(s): D64.9 - Anemia, unspecified (2) CHF (congestive heart failure) Code(s): I50.9 - HEART FAILURE, UNSPECIFIED Qualifiers: Congestive heart failure type: diastolic Congestive heart failure chronicity: acute Qualified Code(s): I50.31 - Acute diastolic (congestive ) heart failure (3) Mastocytosis Code(s): Q82.2 - MASTOCYTOSIS (4) Cough Code(s): R05 - COUGH (5) HTN (hypertension) Code(s): I10 - ESSENTIAL (PRIMARY) HYPERTENSION (6) History of ovarian cancer Code(s): Z85.43 - PERSONAL HISTORY OF MALIGNANT NEOPLASM OF OVARY (7) Pancytopenia Code(s): D61.818 - OTHER PANCYTOPENIA (8) Thrombocytopenia Code(s): D69.6 - THROMBOCYTOPENIA, UNSPECIFIED (9) Acute hypoxemic respiratory failure Code(s): J96.01 - ACUTE RESPIRATORY FAILURE WITH HYPOXIA
[2016-09-17] MEDS: FUROSEMIDE 40 MG/4 ML INJECTABLE VIAL IVPUSH SCH (14:07)
--- NOTE | 2016-09-17 14:19 | PN ---
Progress Note (short form) - Note Progress Note: Patient seen and examined c/o lower ext. heaviness Had some shortness of breath overnight, improved with lasix Last Vital Signs Temp Pulse Resp BP Pulse Ox 98.4 F 98 H 20 121/55 95 09/17/16 13:41 09/17/16 13:46 09/17/16 13:41 09/17/16 13:41 09/17/16 13:46 HEENT-nl Heart-S1, S2 regular Lungs: decreased at bases Abd: Soft, Normal bowel sounds, No organomegaly Ext:2+ edema b/l + skin rash Abnormal Lab Results 09/10/16 09/16/16 09/17/16 12:20 11:00 06:00 WBC 1.7 L* RBC 2.16 L Hgb 7.2 L D Hct 21.3 L MCV 98.6 H RDW 15.9 H Plt Count 8 L* D Lymphocytes % 50.0 H Monocytes % 2.0 L Nucleated RBCs 2 H Potassium BUN Random Glucose Total Bilirubin AST Alkaline Phosphatase Total Protein Albumin Crossmatch See Detail See Detail 09/17/16 06:00 WBC RBC Hgb Hct MCV RDW Plt Count Lymphocytes % Monocytes % Nucleated RBCs Potassium 3.3 L BUN 34 H Random Glucose 135 H Total Bilirubin 2.1 H AST 6 L D Alkaline Phosphatase 160 H Total Protein 4.5 L Albumin 2.3 L Crossmatch Active Medications Generic Name Dose Route Start Last Admin Trade Name Freq PRN Reason Stop Dose Admin Acetaminophen 650 mg 08/26/16 17:19 08/30/16 20:30 Tylenol - PO 650 mg Q6H PRN Administration PAIN Albuterol Sulfate 1 amp 09/17/16 04:24 09/17/16 10:04 Ventolin 0.083% Nebulizer Soln - NEB 1 amp Q4H PRN Administration SHORT OF BREATH/WHEEZING Allopurinol 300 mg 08/27/16 10:00 09/17/16 09:54 Zyloprim - PO 300 mg DAILY JOVANA Administration Furosemide 40 mg 09/17/16 14:00 09/17/16 14:07 Lasix Injection - IVPUSH 40 mg BID@0600,1400 JOVANA Administration Furosemide 20 mg 09/17/16 10:00 09/17/16 11:45 Lasix Injection - IVPB 09/17/16 20:00 20 mg ONCE JOVANA Administration Guaifenesin/Codeine Phosphate 5 ml 09/12/16 15:06 09/17/16 09:54 Robitussin Ac - PO 5 ml Q8H PRN Administration COUGH Imatinib Mesylate 200 mg 09/16/16 12:30 09/17/16 09:40 Gleevec (Restricted To Oncology) - PO Not Given DAILY JOVANA Insulin Aspart 1 vial 09/02/16 16:30 09/17/16 06:21 Novolog Vial Sliding Scale - SQ 2 units BIDAC JOVANA Administration Protocol Magnesium Oxide 400 mg 08/26/16 22:00 09/17/16 09:53 Mag-Ox - PO 400 mg BID JOVANA Administration Metoclopramide HCl 10 mg 08/27/16 07:00 09/17/16 11:45 Reglan - PO 10 mg TIDAC JOVANA Administration Multivitamins/Minerals/Vitamin C 1 tab 08/27/16 10:00 09/17/16 09:54 Tab-A-Vit - PO 1 tab DAILY JOVANA Administration Ondansetron HCl 8 mg 09/12/16 06:29 09/16/16 18:00 Zofran Injection IVPB 8 mg Q12H PRN Administration NAUSEA Pantoprazole Sodium 40 mg 08/31/16 10:00 09/17/16 09:54 Protonix - PO 40 mg BID JOVANA Administration Polyethylene Glycol 17 gm 09/05/16 22:00 09/17/16 09:53 Miralax (For Daily Use) - PO 17 gm BID JOVANA Administration Potassium Chloride 20 meq 09/17/16 10:00 09/17/16 09:53 K-Dur - PO 20 meq BID JOVANA Administration Triamcinolone Acetonide 1 applic 09/14/16 10:00 09/17/16 09:53 Aristocort 0.1% Cream - TP 1 applic BID JOVANA Administration A/P 81 y/o patient with systemic mastocytosis with associated hematologic neoplasm 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 fluid overload improved with lasix/nebs appreciate cardiology/pulmonary f/u f/u echo
--- NOTE | 2016-09-17 23:29 | CONS ---
DATE OF CONSULTATION: 09/17/2016 REFERRING PHYSICIAN: Prachi Wadsworth M.D. HISTORY OF PRESENT ILLNESS: The patient is an 81-year-old white female with a past medical history of systemic mastocytosis maintained on Gleevec, history of ovarian CA status post total abdominal hysterectomy then chemotherapy, history of recent , hypertension, diabetes, admitted to [facility]. Also history of constipation, diverticulosis, history of pancreatic cyst, osteoarthritis, admitted to [facility] on August 26 secondary to low cell count, as well as shortness of breath and dyspnea on exertion and weakness. On admission, the patient is noted to be markedly anemic for which he is transfused. Patient's hospitalization is significant for developing increasing shortness of breath and hypoxemia, denies any chest pain, no nausea or vomiting. She is a nonsmoker. She states that prior to admission she did have increasing shortness of breath but her symptoms have since worsened. She also noticed increasing lower extremity edema. She had a chest x-ray performed which revealed evidence of pulmonary vascular congestion. Of note, she had an 8-pound weight gain over the past 4 days. Patient denies any history of COPD or asthma. No history of occupational exposure to chemicals or fumes. PAST MEDICAL HISTORY: Again includes systemic mastocytosis, maintained on Gleevec, mild dysplastic syndrome with history of ovarian CA status post total abdominal hysterectomy, debulking of tumor as well as chemotherapy, constipation, diverticulosis, hypertension, osteoarthritis, diabetes mellitus which was diagnosed during recent illness on August 13, currently not on therapy. REVIEW OF SYSTEMS: Positive orthopnea. Positive dyspnea. Positive cough. Clear sputum. Positive bronchospasm. No chest pain. Positive palpitation. No nausea, no vomiting, no abdominal pain. Positive increase in lower extremity edema. CURRENT MEDICATIONS: Include Zofran, Tylenol, magnesium oxide, Zyloprim, Gleevec, Robitussin AC, albuterol, Miralax, insulin, Lasix, pantoprazole, and K-Dur. PHYSICAL EXAMINATION: General: The patient is an elderly white female thin, well-developed, awake, alert, dyspneic on nasal O2, O2 saturation is 89% on 3 L nasal cannula, respiratory rate is 20, blood pressure is 108/56, temperature 97.8 HEENT: Head is normocephalic, atraumatic. Neck: Supple. Heart: Tachycardic with normal S1, S2. Chest: Scattered bilateral wheezes, bibasilar crackles. Abdomen: Soft. Bowel sounds positive. Extremities: Bilateral lower extremity edema. LABORATORY: WBC is 1.7, hemoglobin 7.2, hematocrit 21.3 with platelet count of 8000. INR is 1.39. BUN is 34. Creatinine is 0.7. Chest x-ray on September 13, revealed bibasilar pulmonary congestion. IMPRESSION: 1. Hypoxemic respiratory failure, most likely secondary to decompensated congestive heart failure, also noted secondary weight gain over the past 4 days, abnormal chest x-ray, and bilateral pulmonary vascular congestion. 2. Pancytopenia. 3. History of systemic mastocytosis on Gleevec. 4. History of ovarian carcinoma. 5. Status post total abdominal hysterectomy, systemic chemotherapy, hypertension. PLAN: Continue IV Lasix, inhaled bronchodilators, supplemental O2, strict I's and O's, monitor platelet count, CBC, transfuse as per oncology, follow up chest x-ray, daily weights. ROSE CROSS M.D. [id number]
[2016-09-18] MEDS: FUROSEMIDE 40 MG/4 ML INJECTABLE VIAL IVPUSH SCH ×2 (05:59→14:45)
[2016-09-18] MEDS: INSULIN SLIDING SCALE (NOVOLOG) 1 VIAL SQ SCH ×2 (06:33→16:51)
[2016-09-18] MEDS: METOCLOPRAMIDE HCL 10 MG TABLET (FP) PO SCH ×3 (06:34→16:51)
[2016-09-18 08:10] LABS: MCH 33.5 pg (25.7-33.7); MCHC 33.5 g/dl (32.0-36.0); MEAN CELL VOLUME 100.1 fl (80-96); RDW 15.8 % (11.6-15.6); WHITE BLOOD COUNT 2.3 K/mm3 (4.0-10.0)
[2016-09-18 08:42] LABS: PLATELET COUNT 15 K/MM3 (134-434)
[2016-09-18 08:49] LABS: ALBUMIN 2.3 g/dl (3.4-5.0); ALK PHOS 157 U/L (45-117); ANION GAP 10 (8-16); BILIRUBIN,TOTAL 2.2 mg/dL (0.2-1.0); CALCIUM 8.8 mg/dL (8.5-10.1); CO2 30 mmol/L (21-32); CREATININE 0.7 mg/dL (0.55-1.02); GLUCOSE,RANDOM 133 mg/dL (74-106); MAGNESIUM 1.9 mg/dL (1.8-2.4); SGOT/AST 10 U/L (15-37); SGPT/ALT 11 U/L (12-78); TOT PROT 4.5 g/dl (6.4-8.2)
[2016-09-18] MEDS: TRIAMCINOLONE ACET 0.1% CREAM 15 GM TUBE TP SCH ×2 (09:54→21:26)
[2016-09-18] MEDS: POTASSIUM CHLORIDE TABS 20 MEQ TABLET.ER (FP) PO SCH ×2 (09:55→21:26)
[2016-09-18] MEDS: PANTOPRAZOLE 40 MG TABLET (FP) PO SCH ×2 (09:55→21:27)
[2016-09-18] MEDS: MAGNESIUM OXIDE 400 MG TABLET (FP) PO SCH ×2 (09:55→21:26)
[2016-09-18] MEDS: ALLOPURINOL 300 MG TABLET (FP) PO SCH (09:55)
[2016-09-18] MEDS: MULTIVITAMINS (DAILY MVI) TABLET (FP) PO SCH (09:55)
--- NOTE | 2016-09-18 10:03 | PN ---
Progress Note, Physician Chief Complaint: Some coughing and worried about lab tests and her illness. History of Present Illness: Patient with Acute Mastocytosis and Heme Malignancy completed 7 day course of Chemo Vidaza and on Gleevac which is temporarily held due to possible side effects. Patient still wants to continue supportive care and again needed blood products yesterday. Seen by Cardiology and Pulmonary for cough and congestion. Notes reviewed and BNP added. On Lasix 40mg IV BID. - Current Medication List Current Medications: Active Medications Acetaminophen (Tylenol -) 650 mg PO Q6H PRN PRN Reason: PAIN Last Admin: 08/30/16 20:30 Dose: 650 mg Albuterol Sulfate (Ventolin 0.083% Nebulizer Soln -) 1 amp NEB Q4H PRN PRN Reason: SHORT OF BREATH/WHEEZING Last Admin: 09/17/16 10:04 Dose: 1 amp Allopurinol (Zyloprim -) 300 mg PO DAILY [facility] Last Admin: 09/17/16 09:54 Dose: 300 mg Furosemide (Lasix Injection -) 40 mg IVPUSH BID@0600,1400 [facility] Last Admin: 09/18/16 05:59 Dose: 40 mg Imatinib Mesylate (Gleevec (Restricted To Oncology) -) 200 mg PO DAILY [facility] Last Admin: 09/17/16 09:40 Dose: Not Given Insulin Aspart (Novolog Vial Sliding Scale -) 1 vial SQ BIDAC [facility] PRN Reason: Protocol Last Admin: 09/18/16 06:33 Dose: Not Given Magnesium Oxide (Mag-Ox -) 400 mg PO BID [facility] Last Admin: 09/17/16 21:44 Dose: 400 mg Metoclopramide HCl (Reglan -) 10 mg PO TIDAC [facility] Last Admin: 09/18/16 06:34 Dose: 10 mg Multivitamins/Minerals/Vitamin C (Tab-A-Vit -) 1 tab PO DAILY [facility] Last Admin: 09/17/16 09:54 Dose: 1 tab Ondansetron HCl (Zofran Injection) 8 mg IVPB Q12H PRN PRN Reason: NAUSEA Last Admin: 09/16/16 18:00 Dose: 8 mg Pantoprazole Sodium (Protonix -) 40 mg PO BID [facility] Last Admin: 09/17/16 21:44 Dose: 40 mg Polyethylene Glycol (Miralax (For Daily Use) -) 17 gm PO BID [facility] Last Admin: 09/17/16 21:52 Dose: Not Given Potassium Chloride (K-Dur -) 20 meq PO BID [facility] Last Admin: 09/17/16 21:44 Dose: 20 meq Triamcinolone Acetonide (Aristocort 0.1% Cream -) 1 applic TP BID [facility] Last Admin: 09/17/16 21:51 Dose: 1 applic - Objective Vital Signs: Vital Signs Temperature 98.3 F 09/18/16 05:43 Pulse Rate 95 H 09/18/16 05:43 Respiratory Rate 20 09/18/16 05:43 Blood Pressure 106/53 09/18/16 05:43 O2 Sat by Pulse Oximetry (%) 92 L 09/17/16 21:00 Constitutional: Yes: Anxious Eyes: Yes: Tearing, Other (healin right conjunctival hemorrhage right side) Cardiovascular: Yes: Tachycardia Respiratory: Yes: Diminished, Wheezes (Few wheezes at bases) Gastrointestinal: Yes: Soft, Distention, Hyperactive Bowel Sounds. No: Tenderness Genitourinary: No: Campbell Present Edema: LLE: 3+, RLE: 3+ Neurological: Yes: Alert, Oriented Labs: CBC, BMP 09/18/16 07:00 09/18/16 07:00 INR, PTT INR 1.39 (0.82-1.09) H 08/26/16 09:50 Problem List - Problems (1) Thrombocytopenia Assessment/Plan: 15,000 today after platelet transfusion yesterday. Code(s): D69.6 - THROMBOCYTOPENIA, UNSPECIFIED (2) Leg weakness, bilateral Assessment/Plan: Will retry PT today; increased pedal edema Code(s): R29.898 - OTH SYMPTOMS AND SIGNS INVOLVING THE MUSCULOSKELETAL SYSTEM (3) Anemia Assessment/Plan: 7.1 Gm; to follow Code(s): D64.9 - ANEMIA, UNSPECIFIED Qualifiers: Anemia type: unspecified type Qualified Code(s): D64.9 - Anemia, unspecified (4) Mastocytosis Code(s): Q82.2 - MASTOCYTOSIS (5) Cough Code(s): R05 - COUGH (6) Diabetes mellitus, new onset Code(s): E11.9 - TYPE 2 DIABETES MELLITUS WITHOUT COMPLICATIONS (7) HTN (hypertension) Assessment/Plan: Stable on Rx Code(s): I10 - ESSENTIAL (PRIMARY) HYPERTENSION (8) History of ovarian cancer Code(s): Z85.43 - PERSONAL HISTORY OF MALIGNANT NEOPLASM OF OVARY (9) CHF (congestive heart failure) Assessment/Plan: BNP ordered; Cardiology consult noted. Code(s): I50.9 - HEART FAILURE, UNSPECIFIED Qualifiers: Congestive heart failure type: diastolic Congestive heart failure chronicity: acute Qualified Code(s): I50.31 - Acute diastolic (congestive ) heart failure
--- NOTE | 2016-09-18 10:27 | PN ---
Progress Note (short form) - Note Progress Note: PULMONARY Breathing slightly improved from yesterday after lasix but still with shortness of breath especially with exertion. Last Vital Signs Temp Pulse Resp BP Pulse Ox 98.3 F 95 H 20 106/53 92 L 09/18/16 05:43 09/18/16 05:43 09/18/16 05:43 09/18/16 05:43 09/17/16 21:00 Gen: NAD in chair Heart: RRR Lung: decreased breath sounds at the bases Abd: soft, nontender Ext: + edema CBC, BMP 09/18/16 07:00 09/18/16 07:00 Active Medications Acetaminophen (Tylenol -) 650 mg PO Q6H PRN PRN Reason: PAIN Last Admin: 08/30/16 20:30 Dose: 650 mg Albuterol Sulfate (Ventolin 0.083% Nebulizer Soln -) 1 amp NEB Q4H PRN PRN Reason: SHORT OF BREATH/WHEEZING Last Admin: 09/17/16 10:04 Dose: 1 amp Allopurinol (Zyloprim -) 300 mg PO DAILY [facility] Last Admin: 09/18/16 09:55 Dose: 300 mg Furosemide (Lasix Injection -) 40 mg IVPUSH BID@0600,1400 [facility] Last Admin: 09/18/16 05:59 Dose: 40 mg Imatinib Mesylate (Gleevec (Restricted To Oncology) -) 200 mg PO DAILY [facility] Last Admin: 09/17/16 09:40 Dose: Not Given Insulin Aspart (Novolog Vial Sliding Scale -) 1 vial SQ BIDAC [facility] PRN Reason: Protocol Last Admin: 09/18/16 06:33 Dose: Not Given Magnesium Oxide (Mag-Ox -) 400 mg PO BID [facility] Last Admin: 09/18/16 09:55 Dose: 400 mg Metoclopramide HCl (Reglan -) 10 mg PO TIDAC [facility] Last Admin: 09/18/16 06:34 Dose: 10 mg Multivitamins/Minerals/Vitamin C (Tab-A-Vit -) 1 tab PO DAILY [facility] Last Admin: 09/18/16 09:55 Dose: 1 tab Ondansetron HCl (Zofran Injection) 8 mg IVPB Q12H PRN PRN Reason: NAUSEA Last Admin: 09/16/16 18:00 Dose: 8 mg Pantoprazole Sodium (Protonix -) 40 mg PO BID [facility] Last Admin: 09/18/16 09:55 Dose: 40 mg Polyethylene Glycol (Miralax (For Daily Use) -) 17 gm PO BID [facility] Last Admin: 09/17/16 21:52 Dose: Not Given Potassium Chloride (K-Dur -) 20 meq PO BID [facility] Last Admin: 09/18/16 09:55 Dose: 20 meq Triamcinolone Acetonide (Aristocort 0.1% Cream -) 1 applic TP BID [facility] Last Admin: 09/18/16 09:54 Dose: 1 applic A/P 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
--- NOTE | 2016-09-18 10:28 | EKG ---
Test Reason : Blood Pressure : / mmHG Vent. Rate : 101 BPM Atrial Rate : 101 BPM P-R Int : 138 ms QRS Dur : 088 ms QT Int : 338 ms P-R-T Axes : 060 020 043 degrees QTc Int : 438 ms SINUS TACHYCARDIA OTHERWISE NORMAL ECG WHEN COMPARED WITH ECG OF 26-AUG-2016 10:01, NO SIGNIFICANT CHANGE WAS FOUND Confirmed by MD ROBYN, CARMEL ([id number]) on 09/18/2016 10:27:36 AM Referred By: JAMMIE FLORES Confirmed By:CARMEL CARLSON MD
[2016-09-18] MEDS ORDERED: INSULIN (NOVOLOG) ASPART 100 UNITS/ML 10ML VIAL ONE ×2 (11:12→16:46)
[2016-09-18] MEDS: POLYETHYLENE GLYCOL 3350 119 GM BTL PO SCH ×2 (11:46→21:27)
--- NOTE | 2016-09-18 12:22 | PN ---
Progress Note (short form) - Note Progress Note: Neurology History of Present Illness 81 year old female with a history of NIDDM, HTN, ovarian ca (s/p chemo in 2007 and 2011, s/p hysterectomy and bilateral oophrectomy), and anemia sent from [facility] for Hg of 6.9. 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 There was concern for patient 's limited ability to move lower extremities and she reports ongoing fluid buildup. B12 and Folate were normal. She feels her legs are overloaded and is trying to ambulate as much as possible. Compressive stockings in place and patient still very much motivated. Active Medications Acetaminophen (Tylenol -) 650 mg PO Q6H PRN PRN Reason: PAIN Last Admin: 08/30/16 20:30 Dose: 650 mg Albuterol Sulfate (Ventolin 0.083% Nebulizer Soln -) 1 amp NEB Q4H PRN PRN Reason: SHORT OF BREATH/WHEEZING Last Admin: 09/17/16 10:04 Dose: 1 amp Allopurinol (Zyloprim -) 300 mg PO DAILY [facility] Last Admin: 09/18/16 09:55 Dose: 300 mg Furosemide (Lasix Injection -) 40 mg IVPUSH BID@0600,1400 [facility] Last Admin: 09/18/16 05:59 Dose: 40 mg Imatinib Mesylate (Gleevec (Restricted To Oncology) -) 200 mg PO DAILY [facility] Last Admin: 09/17/16 09:40 Dose: Not Given Insulin Aspart (Novolog Vial Sliding Scale -) 1 vial SQ BIDAC [facility] PRN Reason: Protocol Last Admin: 09/18/16 06:33 Dose: Not Given Magnesium Oxide (Mag-Ox -) 400 mg PO BID [facility] Last Admin: 09/18/16 09:55 Dose: 400 mg Metoclopramide HCl (Reglan -) 10 mg PO TIDAC [facility] Last Admin: 09/18/16 11:46 Dose: 10 mg Multivitamins/Minerals/Vitamin C (Tab-A-Vit -) 1 tab PO DAILY [facility] Last Admin: 09/18/16 09:55 Dose: 1 tab Ondansetron HCl (Zofran Injection) 8 mg IVPB Q12H PRN PRN Reason: NAUSEA Last Admin: 09/16/16 18:00 Dose: 8 mg Pantoprazole Sodium (Protonix -) 40 mg PO BID [facility] Last Admin: 09/18/16 09:55 Dose: 40 mg Polyethylene Glycol (Miralax (For Daily Use) -) 17 gm PO BID [facility] Last Admin: 09/18/16 11:46 Dose: 17 gm Potassium Chloride (K-Dur -) 20 meq PO BID [facility] Last Admin: 09/18/16 09:55 Dose: 20 meq Triamcinolone Acetonide (Aristocort 0.1% Cream -) 1 applic TP BID [facility] Last Admin: 09/18/16 09:54 Dose: 1 applic Vital Signs Temperature 98.4 F 09/18/16 09:00 Pulse Rate 94 H 09/18/16 09:00 Respiratory Rate 20 09/18/16 09:00 Blood Pressure 109/40 09/18/16 09:00 O2 Sat by Pulse Oximetry (%) 95 09/18/16 09:00 PHYSICAL EXAM General Appearance: Well-appearing, appropriately dressed. No apparent distress. HEENT: EOMI, PERRLA, normal ENT inspection, normal voice, TMs normal, pharynx normal. No conjunctival pallor. No photophobia, scleral icterus. Neck: Supple. Trachea midline. No tenderness, rigidity, carotid bruit, stridor , lymphadenopathy, or thyromegaly. Respiratory/Chest: Lungs CTAB. No shortness of breath, chest tenderness, respiratory distress, accessory muscle use. No crackles, rales, rhonchi, stridor , wheezing, dullness Cardiovascular: RRR. S1, S2. Vascular Pulses: Dorsalis-Pedis (R): 2+, Dorsalis-Pedis (L): 2+ Gastrointestinal/Abdominal: LUQ tenderness on palpation, splenomegaly appreciated. Normal bowel sounds. Abdomen soft, non-distended. No organomegaly, pulsatile mass, guarding, hernia, hepatomegaly, splenomegaly. Musculoskeletal/Extremities: 2+ pitting edema to LE b/l. No erythema, tenderness. Normal inspection. FROM of all extremities, normal capillary refill. Pelvis Stable. No CVA tenderness. No tenderness to extremities, pedal edema, swelling, erythema or deformity. Neurologic: stock grader II-XII intact. Fully oriented, alert. Motor strength 5/5 in UE , 5-/5 in lower ext at best. CBCD WBC 2.3 K/mm3 (4.0-10.0) L D 09/18/16 07:00 RBC 2.11 M/mm3 (3.60-5.2) L 09/18/16 07:00 Hgb 7.1 GM/dL (10.7-15.3) L 09/18/16 07:00 Hct 21.1 % (32.4-45.2) L 09/18/16 07:00 MCV 100.1 fl (80-96) H 09/18/16 07:00 MCHC 33.5 g/dl (32.0-36.0) 09/18/16 07:00 RDW 15.8 % (11.6-15.6) H 09/18/16 07:00 Plt Count 15 K/MM3 (134-434) L* D 09/18/16 07:00 MPV 8.0 fl (7.5-11.1) 09/18/16 07:00 CMP Sodium 141 mmol/L (136-145) 09/18/16 07:00 Potassium 4.0 mmol/L (3.5-5.1) D 09/18/16 07:00 Chloride 101 mmol/L (98-107) 09/18/16 07:00 Carbon Dioxide 30 mmol/L (21-32) 09/18/16 07:00 Anion Gap 10 (8-16) 09/18/16 07:00 BUN 35 mg/dL (7-18) H 09/18/16 07:00 Creatinine 0.7 mg/dL (0.55-1.02) 09/18/16 07:00 Creat Clearance w eGFR > 60 (>60) 09/18/16 07:00 Calcium 8.8 mg/dL (8.5-10.1) 09/18/16 07:00 Total Bilirubin 2.2 mg/dL (0.2-1.0) H 09/18/16 07:00 AST 10 U/L (15-37) L D 09/18/16 07:00 ALT 11 U/L (12-78) L 09/18/16 07:00 Alkaline Phosphatase 157 U/L (45-117) H 09/18/16 07:00 Total Protein 4.5 g/dl (6.4-8.2) L 09/18/16 07:00 Albumin 2.3 g/dl (3.4-5.0) L 09/18/16 07:00 Medical Decision Making 81 year old female with a history of NIDDM, HTN, ovarian ca (s/p chemo in 2007 and 2011, s/p hysterectomy and bilateral oophrectomy), and anemia sent from [facility] for Hg of 6.9, now improved. 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 There is concern for patient's limited ability to move lower extremities and she reports ongoing fluid buildup. Patient reports this has been going and occuring since she has been in hospital. Ambulating now, but been having issues with fluid retention particularly in lower extremities B12 and folate normal Exam improved PT/OT would be recommended. Continue medical mgmt Fall precautions Assistive device as needed, at bedside Patient stable
[2016-09-18 13:28] LABS: METAMYELOCYTE 2 % (0-2)
[2016-09-18 13:29] LABS: PLATELET ESTIMATE MARKEDLY DECREASED (NORMAL)
[2016-09-18] MEDS ORDERED: PT OWN MED DRAWER 7, Y5N ONE (17:11)
[2016-09-18] MEDS: IMATINIB MESYLATE 100 MG TABLET PO SCH (17:16)
[2016-09-18] MEDS: ONDANSETRON 4 MG/2 ML VIAL IVPB PRN (18:07)
--- NOTE | 2016-09-18 21:56 | PN ---
Progress Note (short form) - Note Progress Note: Chief Complaint: Dyspnea History of Present Illness: S: Patient states minimal improvement in LE edema. SOB mildly improved. no cp , palps, dizziness. Current Medications Acetaminophen (Tylenol -) 650 mg PO Q6H PRN PRN Reason: PAIN Last Admin: 08/30/16 20:30 Dose: 650 mg Albuterol Sulfate (Ventolin 0.083% Nebulizer Soln -) 1 amp NEB Q4H PRN PRN Reason: SHORT OF BREATH/WHEEZING Last Admin: 09/17/16 10:04 Dose: 1 amp Allopurinol (Zyloprim -) 300 mg PO DAILY [facility] Last Admin: 09/18/16 09:55 Dose: 300 mg Furosemide (Lasix Injection -) 40 mg IVPUSH BID@0600,1400 [facility] Last Admin: 09/18/16 14:45 Dose: 40 mg Imatinib Mesylate (Gleevec (Restricted To Oncology) -) 200 mg PO DAILY [facility] Last Admin: 09/18/16 17:16 Dose: 200 mg Insulin Aspart (Novolog Vial Sliding Scale -) 1 vial SQ BIDAC [facility] PRN Reason: Protocol Last Admin: 09/18/16 16:51 Dose: 4 units Magnesium Oxide (Mag-Ox -) 400 mg PO BID [facility] Last Admin: 09/18/16 21:26 Dose: 400 mg Metoclopramide HCl (Reglan -) 10 mg PO TIDAC [facility] Last Admin: 09/18/16 16:51 Dose: 10 mg Multivitamins/Minerals/Vitamin C (Tab-A-Vit -) 1 tab PO DAILY [facility] Last Admin: 09/18/16 09:55 Dose: 1 tab Ondansetron HCl (Zofran Injection) 8 mg IVPB Q12H PRN PRN Reason: NAUSEA Last Admin: 09/18/16 18:07 Dose: 8 mg Pantoprazole Sodium (Protonix -) 40 mg PO BID [facility] Last Admin: 09/18/16 21:27 Dose: 40 mg Polyethylene Glycol (Miralax (For Daily Use) -) 17 gm PO BID [facility] Last Admin: 09/18/16 21:27 Dose: Not Given Potassium Chloride (K-Dur -) 20 meq PO BID [facility] Last Admin: 09/18/16 21:26 Dose: 20 meq Triamcinolone Acetonide (Aristocort 0.1% Cream -) 1 applic TP BID [facility] Last Admin: 09/18/16 21:26 Dose: 1 applic Vital Signs - 24 hr 09/18/16 09/18/16 09/18/16 05:43 09:00 13:30 Temperature 98.3 F 98.4 F 97.7 F Pulse Rate 95 H 94 H 100 H Respiratory 20 20 20 Rate Blood Pressure 106/53 109/40 114/60 O2 Sat by Pulse 95 Oximetry (%) 09/18/16 09/18/16 09/18/16 17:16 21:00 21:21 Temperature 99.0 F 98.8 F Pulse Rate 103 H 104 H Respiratory 18 20 20 Rate Blood Pressure 116/60 100/54 O2 Sat by Pulse 92 L Oximetry (%) Intake & Output 09/16/16 09/17/16 09/18/16 09/19/16 07:59 07:59 07:59 07:59 Intake Total 350 1320 1339 800 Balance 350 1320 1339 800 Weight 148 lb 8 oz 149 lb 9.6 oz 150 lb 1.6 oz Constitutional: Yes: No Distress Eyes: Yes: Other (Right eye conjuctival redness) HENT: Yes: WNL Neck: Yes: WNL Cardiovascular: Yes: Regular Rate and Rhythm, nl s1, s2 hyperdynamic precordium Respiratory: Yes: WNL Edema: Yes Edema: LLE: 1+, RLE: 1+ Labs: CBC, BMP 09/18/16 07:00 09/18/16 07:00 Laboratory Tests 09/18/16 07:00 Total Bilirubin 2.2 H AST 10 L D ALT 11 L Alkaline Phosphatase 157 H Albumin 2.3 L Imaging - Results Ultrasound: Report Reviewed (09/01/2016 No LE DVT) EKG: Image Reviewed (08/26/2016 NSR at 90/min 09/17/2016 Sinus tachycardia at 101/ min) Other: Report Reviewed (Echo: 05/23/2013 normal LV and RV size and function, mild RVSP elevation (30-40mmHg)) cxr with pulmonary edema/effusions. Assessment/Plan 81 yo female with HTN, MDS with mastocytosis on Gleevec with significant pancytopenias, ovarian ca (s/p chemo in 2007 and 2011, s/p hysterectomy and bilateral oophrectomy) who p/w dyspnea, LE edema and tachycardia. 1) tachycardia -Please get 12 lead ECG (ordered) -Likely demand related to significant anemia and chronically ill state -Would continue to monitor and treat underlying anemias as you are 2) Dyspnea - likely multifactorial with anemia contributing in addition to pulmonary edema/ congestion. Unclear if from capillary leakage due to inflammatory state vs. diastolic heart failure exacerbation. last echo with preserved LV fx in 2013. Repeat echo ordered. -PE possible but unlikely given negative LE duplex. D-dimer would not be helpful in this scenario with her chronic illness -BMP stable on BID IV lasix, cont. Patient with ongoing transfusions. - daily weights, bmp, strict I/O 3) LE edema - likely mutlifactorial from possible diastolic HF exacerbation/capillary leakage/hypoalb state/malnutrition (Alb 2.3). - diuresis as above Compression stocking need to extend to thigh. If no appropriate compression stockings available, would use ZIYAD wraps. 4) HTN - Running low off anti-hypertensives. con't to monitor.
[2016-09-18] MEDS ORDERED: guaiFENesin 200 MG/10 ML 10 ML UNIT-DOSE CUPS PO PRN (22:13)
--- NOTE | 2016-09-18 22:38 | PN ---
Progress Note (short form) - Note Progress Note: Patient seen and examined c/o lower ext. heaviness Had some shortness of breath overnight, improved with lasix Last Vital Signs Temp Pulse Resp BP Pulse Ox 98.8 F 104 H 20 100/54 92 L 09/18/16 21:21 09/18/16 21:21 09/18/16 21:21 09/18/16 21:21 09/18/16 21:00 HEENT-nl Heart-S1, S2 regular Lungs: decreased at bases Abd: Soft, Normal bowel sounds, No organomegaly Ext:2+ edema b/l + skin rash Abnormal Lab Results Abnormal Lab Results 09/14/16 09/18/16 09/18/16 12:44 07:00 07:00 WBC 2.3 L D RBC 2.11 L Hgb 7.1 L Hct 21.1 L MCV 100.1 H RDW 15.8 H Plt Count 15 L* D Neutrophils % 34.0 L D Lymphocytes % 61.0 H D Monocytes % 2.0 L Nucleated RBCs 6 H BUN 35 H Random Glucose 133 H Total Bilirubin 2.2 H AST 10 L D ALT 11 L Alkaline Phosphatase 157 H Total Protein 4.5 L Albumin 2.3 L Crossmatch See Detail Active Medications Generic Name Dose Route Start Last Admin Trade Name Freq PRN Reason Stop Dose Admin Acetaminophen 650 mg 08/26/16 17:19 08/30/16 20:30 Tylenol - PO 650 mg Q6H PRN Administration PAIN Albuterol Sulfate 1 amp 09/17/16 04:24 09/17/16 10:04 Ventolin 0.083% Nebulizer Soln - NEB 1 amp Q4H PRN Administration SHORT OF BREATH/WHEEZING Allopurinol 300 mg 08/27/16 10:00 09/18/16 09:55 Zyloprim - PO 300 mg DAILY [facility] Administration Furosemide 40 mg 09/17/16 14:00 09/18/16 14:45 Lasix Injection - IVPUSH 40 mg BID@0600,1400 [facility] Administration Guaifenesin/Codeine Phosphate 5 ml 09/18/16 22:25 Robitussin Ac - PO Q8H PRN COUGH Imatinib Mesylate 200 mg 09/16/16 12:30 09/18/16 17:16 Gleevec (Restricted To Oncology) - PO 200 mg DAILY [facility] Administration Insulin Aspart 1 vial 09/02/16 16:30 09/18/16 16:51 Novolog Vial Sliding Scale - SQ 4 units BIDAC [facility] Administration Protocol Magnesium Oxide 400 mg 08/26/16 22:00 09/18/16 21:26 Mag-Ox - PO 400 mg BID [facility] Administration Metoclopramide HCl 10 mg 08/27/16 07:00 09/18/16 16:51 Reglan - PO 10 mg TIDAC [facility] Administration Multivitamins/Minerals/Vitamin C 1 tab 08/27/16 10:00 09/18/16 09:55 Tab-A-Vit - PO 1 tab DAILY [facility] Administration Ondansetron HCl 8 mg 09/12/16 06:29 09/18/16 18:07 Zofran Injection IVPB 8 mg Q12H PRN Administration NAUSEA Pantoprazole Sodium 40 mg 08/31/16 10:00 09/18/16 21:27 Protonix - PO 40 mg BID [facility] Administration Polyethylene Glycol 17 gm 09/05/16 22:00 09/18/16 21:27 Miralax (For Daily Use) - PO Not Given BID [facility] Potassium Chloride 20 meq 09/17/16 10:00 09/18/16 21:26 K-Dur - PO 20 meq BID [facility] Administration Triamcinolone Acetonide 1 applic 09/14/16 10:00 09/18/16 21:26 Aristocort 0.1% Cream - TP 1 applic BID [facility] Administration A/P 81 y/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 fluid overload improved with lasix/nebs appreciate cardiology/pulmonary f/u f/u echo to dose lasix on daily basis based on BUN/CR
[2016-09-18] MEDS: guaiFENesin/CODEINE 5 ML UNIT-DOSE CUPS PO PRN (23:22)
[2016-09-19] MEDS: FUROSEMIDE 40 MG/4 ML INJECTABLE VIAL IVPUSH SCH ×2 (05:45→21:01)
[2016-09-19] MEDS: INSULIN SLIDING SCALE (NOVOLOG) 1 VIAL SQ SCH ×2 (06:06→17:46)
[2016-09-19] MEDS: METOCLOPRAMIDE HCL 10 MG TABLET (FP) PO SCH ×3 (06:08→19:10)
[2016-09-19 07:43] LABS: MCH 33.9 pg (25.7-33.7); MCHC 33.4 g/dl (32.0-36.0); MEAN CELL VOLUME 101.7 fl (80-96); MEAN PLT VOLUME 7.6 fl (7.5-11.1); RDW 20.3 % (11.6-15.6)
[2016-09-19 08:04] LABS: PLATELET COUNT 10 K/MM3 (134-434); WHITE BLOOD COUNT 1.6 K/mm3 (4.0-10.0)
[2016-09-19 08:12] LABS: CALCIUM 8.7 mg/dL (8.5-10.1); COCKROFT - GAULT 79.8235; CREATININE 0.6 mg/dL (0.55-1.02)
[2016-09-19 09:17] LABS: ANISOCYTOSIS 3+; HYPOCHROMIA 1+; MICROCYTOSIS 2+; PLATELET ESTIMATE MARKEDLY DECREASED (NORMAL)
[2016-09-19] MEDS ORDERED: PT OWN MED DRAWER 7, Y5N ONE ×2 (09:51→17:44)
--- NOTE | 2016-09-19 10:03 | PN ---
Progress Note (short form) - Note Progress Note: PULMONARY Breathing about the same as yesterday. No chest pain, c/o congestion and wheezing. Last Vital Signs Temp Pulse Resp BP Pulse Ox 98.4 F 92 H 92 H 107/56 92 L 09/19/16 05:57 09/19/16 05:57 09/19/16 05:57 09/19/16 05:57 09/18/16 21:00 Gen: NAD in chair Heart: RRR Lung: decreased breath sounds at the bases Abd: soft, nontender Ext: + edema CBC, BMP 09/19/16 06:00 09/19/16 06:00 Active Medications Acetaminophen (Tylenol -) 650 mg PO Q6H PRN PRN Reason: PAIN Last Admin: 08/30/16 20:30 Dose: 650 mg Albuterol Sulfate (Ventolin 0.083% Nebulizer Soln -) 1 amp NEB Q4H PRN PRN Reason: SHORT OF BREATH/WHEEZING Last Admin: 09/17/16 10:04 Dose: 1 amp Allopurinol (Zyloprim -) 300 mg PO DAILY [facility] Last Admin: 09/18/16 09:55 Dose: 300 mg Furosemide (Lasix Injection -) 40 mg IVPUSH BID@0600,1400 [facility] Last Admin: 09/19/16 05:45 Dose: 40 mg Guaifenesin/Codeine Phosphate (Robitussin Ac -) 5 ml PO Q8H PRN PRN Reason: COUGH Last Admin: 09/18/16 23:22 Dose: 5 ml Imatinib Mesylate (Gleevec (Restricted To Oncology) -) 200 mg PO DAILY [facility] Last Admin: 09/18/16 17:16 Dose: 200 mg Insulin Aspart (Novolog Vial Sliding Scale -) 1 vial SQ BIDAC [facility] PRN Reason: Protocol Last Admin: 09/19/16 06:06 Dose: Not Given Magnesium Oxide (Mag-Ox -) 400 mg PO BID [facility] Last Admin: 09/18/16 21:26 Dose: 400 mg Metoclopramide HCl (Reglan -) 10 mg PO TIDAC [facility] Last Admin: 09/19/16 06:08 Dose: 10 mg Multivitamins/Minerals/Vitamin C (Tab-A-Vit -) 1 tab PO DAILY [facility] Last Admin: 09/18/16 09:55 Dose: 1 tab Ondansetron HCl (Zofran Injection) 8 mg IVPB Q12H PRN PRN Reason: NAUSEA Last Admin: 09/18/16 18:07 Dose: 8 mg Pantoprazole Sodium (Protonix -) 40 mg PO BID [facility] Last Admin: 09/18/16 21:27 Dose: 40 mg Polyethylene Glycol (Miralax (For Daily Use) -) 17 gm PO BID [facility] Last Admin: 09/18/16 21:27 Dose: Not Given Potassium Chloride (K-Dur -) 20 meq PO BID [facility] Last Admin: 09/18/16 21:26 Dose: 20 meq Triamcinolone Acetonide (Aristocort 0.1% Cream -) 1 applic TP BID [facility] Last Admin: 09/18/16 21:26 Dose: 1 applic A/P Systemic Mastocytosis MDS/Pancytopenia s/p Multiple transfusions Volume Overload HTN - continue lasix - monitor urine output, creatinine - O2 to keep SPo2 >90% - monitor H/H - transfuse as needed - f/u echocardiogram - f/u CXR ordered yesterday - will change inhaled bronchodilators to standing per pt request
[2016-09-19] MEDS: MAGNESIUM OXIDE 400 MG TABLET (FP) PO SCH ×2 (10:35→21:06)
[2016-09-19] MEDS: MULTIVITAMINS (DAILY MVI) TABLET (FP) PO SCH (10:35)
[2016-09-19] MEDS: POTASSIUM CHLORIDE TABS 20 MEQ TABLET.ER (FP) PO SCH ×2 (10:35→21:07)
[2016-09-19] MEDS: ALLOPURINOL 300 MG TABLET (FP) PO SCH (10:35)
[2016-09-19] MEDS: PANTOPRAZOLE 40 MG TABLET (FP) PO SCH ×2 (10:35→21:07)
[2016-09-19] MEDS: ONDANSETRON 4 MG/2 ML VIAL IVPB PRN (11:39)
--- NOTE | 2016-09-19 12:20 | PN ---
Progress Note (short form) - Note Progress Note: Chief Complaint: Dyspnea History of Present Illness: S: Patient states minimal improvement in LE edema sob. no cp, palps, dizziness. uop not being measured, but does not seem significantly increased. Current Medications Acetaminophen (Tylenol -) 650 mg PO Q6H PRN PRN Reason: PAIN Last Admin: 08/30/16 20:30 Dose: 650 mg Albuterol Sulfate (Ventolin 0.083% Nebulizer Soln -) 1 amp NEB Q4H PRN PRN Reason: SHORT OF BREATH/WHEEZING Last Admin: 09/17/16 10:04 Dose: 1 amp Albuterol/Ipratropium (Duoneb -) 1 amp NEB TIDR JOVANA Allopurinol (Zyloprim -) 300 mg PO DAILY [facility] Last Admin: 09/19/16 10:35 Dose: 300 mg Furosemide (Lasix Injection -) 40 mg IVPUSH BID@0600,1400 [facility] Last Admin: 09/19/16 05:45 Dose: 40 mg Guaifenesin/Codeine Phosphate (Robitussin Ac -) 5 ml PO Q8H PRN PRN Reason: COUGH Last Admin: 09/18/16 23:22 Dose: 5 ml Imatinib Mesylate (Gleevec (Restricted To Oncology) -) 200 mg PO DAILY [facility] Last Admin: 09/18/16 17:16 Dose: 200 mg Insulin Aspart (Novolog Vial Sliding Scale -) 1 vial SQ BIDAC JOVANA PRN Reason: Protocol Last Admin: 09/19/16 06:06 Dose: Not Given Magnesium Oxide (Mag-Ox -) 400 mg PO BID [facility] Last Admin: 09/19/16 10:35 Dose: 400 mg Metoclopramide HCl (Reglan -) 10 mg PO TIDAC [facility] Last Admin: 09/19/16 10:35 Dose: 10 mg Multivitamins/Minerals/Vitamin C (Tab-A-Vit -) 1 tab PO DAILY [facility] Last Admin: 09/19/16 10:35 Dose: 1 tab Ondansetron HCl (Zofran Injection) 8 mg IVPB Q12H PRN PRN Reason: NAUSEA Last Admin: 09/19/16 11:39 Dose: 8 mg Pantoprazole Sodium (Protonix -) 40 mg PO BID [facility] Last Admin: 09/19/16 10:35 Dose: 40 mg Polyethylene Glycol (Miralax (For Daily Use) -) 17 gm PO BID [facility] Last Admin: 09/18/16 21:27 Dose: Not Given Potassium Chloride (K-Dur -) 20 meq PO BID [facility] Last Admin: 09/19/16 10:35 Dose: 20 meq Triamcinolone Acetonide (Aristocort 0.1% Cream -) 1 applic TP BID [facility] Last Admin: 09/18/16 21:26 Dose: 1 applic Vital Signs - 24 hr 09/18/16 09/18/16 09/18/16 13:30 17:16 21:00 Temperature 97.7 F 99.0 F Pulse Rate 100 H 103 H Respiratory 20 18 20 Rate Blood Pressure 114/60 116/60 O2 Sat by Pulse 92 L Oximetry (%) 09/18/16 09/19/16 09/19/16 21:21 01:31 05:57 Temperature 98.8 F 98 F 98.4 F Pulse Rate 104 H 98 H 92 H Respiratory 20 20 92 H Rate Blood Pressure 100/54 99/43 107/56 O2 Sat by Pulse Oximetry (%) Intake & Output 09/17/16 09/18/16 09/19/16 09/20/16 07:59 07:59 07:59 07:59 Intake Total 1320 1339 1020 Balance 1320 1339 1020 Weight 149 lb 9.6 oz 150 lb 1.6 oz 151 lb 9.6 oz hypoxic to 89-90% on eval. Increased O2 NC to 5L with improvement to 92% Constitutional: Yes: No Distress Eyes: Yes: Other (Right eye conjuctival redness) HENT: Yes: WNL Neck: jvd elvated Cardiovascular: Yes: Regular Rate and Rhythm, nl s1, s2 hyperdynamic precordium Respiratory: bibasilar dullness Edema: Yes Edema: LLE: 1+, RLE: 1+ Labs: CBC, BMP 09/19/16 06:00 09/19/16 06:00 Imaging - Results Ultrasound: Report Reviewed (09/01/2016 No LE DVT) EKG: Image Reviewed (08/26/2016 NSR at 90/min 09/17/2016 Sinus tachycardia at 101/ min) Other: Report Reviewed (Echo: 05/23/2013 normal LV and RV size and function, mild RVSP elevation (30-40mmHg)) cxr with pulmonary edema/effusions. 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 1) tachycardia -Likely demand related to significant anemia, sob and chronically ill state -Ongoing mgm't per pmd. 2) Dyspnea - likely multifactorial with anemia contributing in addition to pulmonary edema/ congestion. Unclear if from capillary leakage due to inflammatory state vs. diastolic heart failure exacerbation. last echo with preserved LV fx in 2013. Repeat echo similar -PE possible but unlikely given negative LE duplex. D-dimer would not be helpful in this scenario with her chronic illness -09/19 BMP stable on BID IV lasix Patient with ongoing transfusions. No significant improvement in sx's and weight trending up. CXR with worsened congestion. Will increase to 80 mg IV bid. (pt also to receive extra lasix after 2nd prbc transfusion this evening) Need to record uop response to lasix and strict i/o's, reordered. - daily weights, bmp, strict I/O 3) LE edema - likely mutlifactorial from possible diastolic HF exacerbation/capillary leakage/hypoalb state/malnutrition (Alb 2.3). - diuresis as above. ZIYAD wraps. 4) HTN - Running low off anti-hypertensives. con't to monitor.
--- NOTE | 2016-09-19 15:05 | PN ---
Progress Note (short form) - Note Progress Note: Patient seen and examined Discussed with Dr. Gonsalez-- Access a problem. He contacted I.R. -- at least 40K for PICC. With multiple transfusions , multiple antibodies, may not be able. Last Vital Signs Temp Pulse Resp BP Pulse Ox 97.7 F 93 H 93 H 116/53 92 L 09/19/16 14:37 09/19/16 14:37 09/19/16 14:37 09/19/16 14:37 09/18/16 21:00 HEENT: KARL, EOM Intact, subconjunctival hemorrhage Oropharynx: No thrush, No mucositis Cor: RSR, systolic murmur Lungs: diminished breath sounds , rales bilaterally Abd: Soft, Normal bowel sounds, No organomegaly, mild distension, Ext:LE edema Skin: numerous ecchymoses and petechie CBC, BMP 09/19/16 06:00 09/19/16 06:00 Current Medications Generic Name Dose Route Start Last Admin Trade Name Freq PRN Reason Stop Dose Admin Acetaminophen 650 mg 08/26/16 17:19 08/30/16 20:30 Tylenol - PO 650 mg Q6H PRN Administration PAIN Albuterol Sulfate 1 amp 09/17/16 04:24 09/17/16 10:04 Ventolin 0.083% Nebulizer Soln - NEB 1 amp Q4H PRN Administration SHORT OF BREATH/WHEEZING Albuterol/Ipratropium 1 amp 09/19/16 14:00 Duoneb - NEB TIDR JOVANA Allopurinol 300 mg 08/27/16 10:00 09/19/16 10:35 Zyloprim - PO 300 mg DAILY JOVANA Administration Furosemide 40 mg 09/17/16 14:00 09/19/16 05:45 Lasix Injection - IVPUSH 40 mg BID@0600,1400 JOVANA Administration Guaifenesin/Codeine Phosphate 5 ml 09/18/16 22:25 09/18/16 23:22 Robitussin Ac - PO 5 ml Q8H PRN Administration COUGH Imatinib Mesylate 200 mg 09/16/16 12:30 09/18/16 17:16 Gleevec (Restricted To Oncology) - PO 200 mg DAILY JOVANA Administration Insulin Aspart 1 vial 09/02/16 16:30 09/19/16 06:06 Novolog Vial Sliding Scale - SQ Not Given BIDAC [facility] Protocol Magnesium Oxide 400 mg 08/26/16 22:00 09/19/16 10:35 Mag-Ox - PO 400 mg BID JOVANA Administration Metoclopramide HCl 10 mg 08/27/16 07:00 09/19/16 10:35 Reglan - PO 10 mg TIDAC JOVANA Administration Multivitamins/Minerals/Vitamin C 1 tab 08/27/16 10:00 09/19/16 10:35 Tab-A-Vit - PO 1 tab DAILY JOVANA Administration Ondansetron HCl 8 mg 09/12/16 06:29 09/19/16 11:39 Zofran Injection IVPB 8 mg Q12H PRN Administration NAUSEA Pantoprazole Sodium 40 mg 08/31/16 10:00 09/19/16 10:35 Protonix - PO 40 mg BID JOVANA Administration Polyethylene Glycol 17 gm 09/05/16 22:00 09/18/16 21:27 Miralax (For Daily Use) - PO Not Given BID JOVANA Potassium Chloride 20 meq 09/17/16 10:00 09/19/16 10:35 K-Dur - PO 20 meq BID JOVANA Administration Triamcinolone Acetonide 1 applic 09/14/16 10:00 09/18/16 21:26 Aristocort 0.1% Cream - TP 1 applic BID JOVANA Administration 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
--- NOTE | 2016-09-19 15:31 | PN ---
Progress Note, Physician Chief Complaint: Some coughing and SOB. Feels weak. History of Present Illness: Patient with recent Chemotherpy with Vidaza and ongoing Rx with Gleevac for Acute Mastocytosis and Heme Malignancy is feeling very weak, coughing and has SOB when moving. So far she has been refractory to blood products. Also a complication with poor venous IV access. I called TONIA SCHMIDT and even with PICC line he requests a platelet count of 40-50,000. Patient still requesting supportive care. - Current Medication List Current Medications: Active Medications Acetaminophen (Tylenol -) 650 mg PO Q6H PRN PRN Reason: PAIN Last Admin: 08/30/16 20:30 Dose: 650 mg Albuterol Sulfate (Ventolin 0.083% Nebulizer Soln -) 1 amp NEB Q4H PRN PRN Reason: SHORT OF BREATH/WHEEZING Last Admin: 09/17/16 10:04 Dose: 1 amp Albuterol/Ipratropium (Duoneb -) 1 amp NEB TIDR JOVANA Allopurinol (Zyloprim -) 300 mg PO DAILY [facility] Last Admin: 09/19/16 10:35 Dose: 300 mg Furosemide (Lasix Injection -) 40 mg IVPUSH BID@0600,1400 [facility] Last Admin: 09/19/16 05:45 Dose: 40 mg Guaifenesin/Codeine Phosphate (Robitussin Ac -) 5 ml PO Q8H PRN PRN Reason: COUGH Last Admin: 09/18/16 23:22 Dose: 5 ml Imatinib Mesylate (Gleevec (Restricted To Oncology) -) 200 mg PO DAILY [facility] Last Admin: 09/18/16 17:16 Dose: 200 mg Insulin Aspart (Novolog Vial Sliding Scale -) 1 vial SQ BIDAC JOVANA PRN Reason: Protocol Last Admin: 09/19/16 06:06 Dose: Not Given Magnesium Oxide (Mag-Ox -) 400 mg PO BID [facility] Last Admin: 09/19/16 10:35 Dose: 400 mg Metoclopramide HCl (Reglan -) 10 mg PO TIDAC [facility] Last Admin: 09/19/16 10:35 Dose: 10 mg Multivitamins/Minerals/Vitamin C (Tab-A-Vit -) 1 tab PO DAILY [facility] Last Admin: 09/19/16 10:35 Dose: 1 tab Ondansetron HCl (Zofran Injection) 8 mg IVPB Q12H PRN PRN Reason: NAUSEA Last Admin: 09/19/16 11:39 Dose: 8 mg Pantoprazole Sodium (Protonix -) 40 mg PO BID [facility] Last Admin: 09/19/16 10:35 Dose: 40 mg Polyethylene Glycol (Miralax (For Daily Use) -) 17 gm PO BID [facility] Last Admin: 09/18/16 21:27 Dose: Not Given Potassium Chloride (K-Dur -) 20 meq PO BID [facility] Last Admin: 09/19/16 10:35 Dose: 20 meq Triamcinolone Acetonide (Aristocort 0.1% Cream -) 1 applic TP BID [facility] Last Admin: 09/18/16 21:26 Dose: 1 applic - Objective Vital Signs: Vital Signs Temperature 97.7 F 09/19/16 14:37 Pulse Rate 93 H 09/19/16 14:37 Respiratory Rate 93 H 09/19/16 14:37 Blood Pressure 116/53 09/19/16 14:37 O2 Sat by Pulse Oximetry (%) 92 L 09/18/16 21:00 Constitutional: Yes: Anxious, Mild Distress Eyes: Yes: Conjunctiva Clear, Tearing Respiratory: Yes: On Nasal O2, Rhonchi, SOB on Exertion Gastrointestinal: Yes: Soft Genitourinary: No: Campbell Present Edema: LLE: 2+, RLE: 2+ Labs: CBC, BMP 09/19/16 06:00 09/19/16 06:00 INR, PTT INR 1.39 (0.82-1.09) H 08/26/16 09:50 Problem List - Problems (1) Thrombocytopenia Assessment/Plan: 10,000 today;Petechiae scattered on body Code(s): D69.6 - THROMBOCYTOPENIA, UNSPECIFIED (2) Leg weakness, bilateral Code(s): R29.898 - OTH SYMPTOMS AND SIGNS INVOLVING THE MUSCULOSKELETAL SYSTEM (3) Anemia Assessment/Plan: Hb under 6GM. For 2 units packed cells. Code(s): D64.9 - ANEMIA, UNSPECIFIED Qualifiers: Anemia type: unspecified type Qualified Code(s): D64.9 - Anemia, unspecified (4) Mastocytosis Code(s): Q82.2 - MASTOCYTOSIS (5) Cough Code(s): R05 - COUGH (6) Diabetes mellitus, new onset Code(s): E11.9 - TYPE 2 DIABETES MELLITUS WITHOUT COMPLICATIONS (7) HTN (hypertension) Code(s): I10 - ESSENTIAL (PRIMARY) HYPERTENSION (8) History of ovarian cancer Code(s): Z85.43 - PERSONAL HISTORY OF MALIGNANT NEOPLASM OF OVARY (9) CHF (congestive heart failure) Assessment/Plan: Followed by Cardiology and Pulmonary MD's. Agree with current Rx and IV Lasix BID. CXR: more congestion. Code(s): I50.9 - HEART FAILURE, UNSPECIFIED Qualifiers: Congestive heart failure type: diastolic Congestive heart failure chronicity: acute Qualified Code(s): I50.31 - Acute diastolic (congestive ) heart failure
[2016-09-19] MEDS: IMATINIB MESYLATE 100 MG TABLET PO SCH (16:04)
[2016-09-19] MEDS ORDERED: INSULIN (NOVOLOG) ASPART 100 UNITS/ML 10ML VIAL ONE (17:44)
[2016-09-19] MEDS: POLYETHYLENE GLYCOL 3350 119 GM BTL PO SCH ×2 (17:46→21:07)
[2016-09-19] MEDS: guaiFENesin/CODEINE 5 ML UNIT-DOSE CUPS PO PRN (17:50)
[2016-09-19] MEDS ORDERED: FUROSEMIDE 40 MG/4 ML INJECTABLE VIAL IVPUSH ONE (18:00)
[2016-09-19] MEDS: TRIAMCINOLONE ACET 0.1% CREAM 15 GM TUBE TP SCH ×2 (19:43→21:08)
[2016-09-19] MEDS ORDERED: POTASSIUM CHLORIDE ORAL LIQUID 20 MEQ/15 ML PO ONE (19:59)
[2016-09-19] MEDS ORDERED: FUROSEMIDE 40 MG/4 ML INJECTABLE VIAL IVPUSH SCH (20:01)
[2016-09-19] MEDS: ALBUTEROL SO4 2.5/IPRATROPIUM 0.5 INH SOL 3 ML VIAL.NEB. NEB SCH (22:10)
[2016-09-20] MEDS: FUROSEMIDE 40 MG/4 ML INJECTABLE VIAL IVPUSH SCH ×3 (05:53→14:57)
[2016-09-20] MEDS: METOCLOPRAMIDE HCL 10 MG TABLET (FP) PO SCH ×3 (06:01→17:11)
[2016-09-20] MEDS: INSULIN SLIDING SCALE (NOVOLOG) 1 VIAL SQ SCH ×2 (06:10→17:14)
[2016-09-20] MEDS: ALBUTEROL SO4 2.5/IPRATROPIUM 0.5 INH SOL 3 ML VIAL.NEB. NEB SCH ×4 (07:04→22:05)
[2016-09-20 07:42] LABS: MCH 32.2 pg (25.7-33.7); MCHC 33.8 g/dl (32.0-36.0); MEAN CELL VOLUME 95.5 fl (80-96); MEAN PLT VOLUME 8.5 fl (7.5-11.1); RDW 17.7 % (11.6-15.6)
[2016-09-20 07:46] LABS: ALBUMIN 2.4 g/dl (3.4-5.0); ANION GAP 7 (8-16); BILIRUBIN,TOTAL 4.2 mg/dL (0.2-1.0); CALCIUM 8.8 mg/dL (8.5-10.1); CO2 32 mmol/L (21-32); CREATININE 0.8 mg/dL (0.55-1.02); GLUCOSE,RANDOM 172 mg/dL (74-106); SGOT/AST 10 U/L (15-37); SGPT/ALT 10 U/L (12-78); TOT PROT 4.5 g/dl (6.4-8.2)
[2016-09-20 07:47] LABS: ALK PHOS 143 U/L (45-117)
[2016-09-20 07:49] LABS: PLATELET COUNT 11 K/MM3 (134-434); WHITE BLOOD COUNT 1.6 K/mm3 (4.0-10.0)
--- NOTE | 2016-09-20 09:11 | PN ---
Progress Note (short form) - Note Progress Note: Patient had 2 units packed cells yesterday. Still cough and SOB on movement. Dr. Merrill suggested 3 units of platelets today to see if we can get PICC line in place but TONIA SCHMIDT wants count at least 40,000. On Exam: Vital Signs Temp 98.3 F 09/20/16 06:00 Pulse 92 H 09/20/16 06:00 Resp 20 09/20/16 06:00 BP 101/54 09/20/16 06:00 Pulse Ox 93 L 09/20/16 03:00 Intake & Output 09/19/16 09/19/16 09/20/16 11:59 23:59 11:59 Intake Total 610 75 7867 Output Total 800 1500 Balance 100 -750 -500 Weight 151 lb 9.6 oz 149 lb 9.6 oz Intake: IVPB 200 Oral 100 50 100 Packed Cells 700 Output: Urine 800 1500 Void 800 1500 Other: Voiding Method Bedside Commode Bedside Commode Bowel Movement Yes Yes # Bowel Movements 1 Weight Measurement Method Wheelchair Wheelchair Alert recurrence of right sided subconjunctival hemorrhage Chest: Decreased breath sounds and rhonchi Abd Distended with RUQ tenderness? Spelomegaly Ext: 3+ edema Abnormal Lab Results 09/16/16 09/19/16 09/19/16 11:00 06:00 14:15 WBC RBC Hgb Hct RDW Plt Count Lymphocytes % 48.0 H D Anion Gap BUN Random Glucose Total Bilirubin Direct Bilirubin AST ALT Alkaline Phosphatase Total Protein Albumin Crossmatch See Detail See Detail 09/20/16 09/20/16 06:10 06:10 WBC 1.6 L* RBC 2.48 L D Hgb 8.0 L D Hct 23.6 L D RDW 17.7 H D Plt Count 11 L* Lymphocytes % Anion Gap 7 L BUN 41 H Random Glucose 172 H D Total Bilirubin 4.2 H D Direct Bilirubin 2.0 H AST 10 L ALT 10 L Alkaline Phosphatase 143 H Total Protein 4.5 L Albumin 2.4 L Crossmatch IMP: All Active Problems Acute hypoxemic respiratory failure (Acute) Anemia (Acute) CHF (congestive heart failure) (Acute) GI bleed (Acute) Leg weakness, bilateral (Acute) Mastocytosis (Acute) Abdominal pain (Acute) Cough (Acute) Diabetes mellitus, new onset (Acute) HTN (hypertension) (Acute) History of ovarian cancer (Acute) Hoarseness (Acute) Hyperglycemia (Acute) Hypokalemia (Acute) Hypomagnesemia (Acute) Ileus (Acute) Lactic acid increased (Acute) Pancytopenia (Acute) Thrombocytopenia (Acute) Upper respiratory infection (Acute) PLAN: Lasix now on 80mg IVBID F/U Lab Wrap legs ??PICC if we can get platelet count above 40,000. Problem List - Problems (1) Thrombocytopenia Code(s): D69.6 - THROMBOCYTOPENIA, UNSPECIFIED (2) Leg weakness, bilateral Code(s): R29.898 - OTH SYMPTOMS AND SIGNS INVOLVING THE MUSCULOSKELETAL SYSTEM (3) Anemia Code(s): D64.9 - ANEMIA, UNSPECIFIED Qualifiers: Anemia type: unspecified type Qualified Code(s): D64.9 - Anemia, unspecified (4) Mastocytosis Code(s): Q82.2 - MASTOCYTOSIS (5) Cough Code(s): R05 - COUGH (6) Diabetes mellitus, new onset Code(s): E11.9 - TYPE 2 DIABETES MELLITUS WITHOUT COMPLICATIONS (7) HTN (hypertension) Code(s): I10 - ESSENTIAL (PRIMARY) HYPERTENSION (8) History of ovarian cancer Code(s): Z85.43 - PERSONAL HISTORY OF MALIGNANT NEOPLASM OF OVARY (9) CHF (congestive heart failure) Code(s): I50.9 - HEART FAILURE, UNSPECIFIED Qualifiers: Congestive heart failure type: diastolic Congestive heart failure chronicity: acute Qualified Code(s): I50.31 - Acute diastolic (congestive ) heart failure
[2016-09-20 09:47] LABS: PLATELET ESTIMATE MARKEDLY DECREASED (NORMAL)
[2016-09-20] MEDS ORDERED: PT OWN MED DRAWER 7, Y5N ONE (11:29)
[2016-09-20] MEDS: IMATINIB MESYLATE 100 MG TABLET PO SCH (12:07)
[2016-09-20] MEDS: MULTIVITAMINS (DAILY MVI) TABLET (FP) PO SCH (12:22)
[2016-09-20] MEDS: PANTOPRAZOLE 40 MG TABLET (FP) PO SCH ×2 (12:22→22:26)
--- NOTE | 2016-09-20 12:23 | PN ---
Progress Note (short form) - Note Progress Note: Neurology History of Present Illness 81 year old female with a history of NIDDM, HTN, ovarian ca (s/p chemo in 2007 and 2011, s/p hysterectomy and bilateral oophrectomy), and anemia sent from [facility] for Hg of 6.9. 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 There was concern for patient 's limited ability to move lower extremities and she reports ongoing fluid buildup. B12 and Folate were normal. Patient fatigued appearing today and not feeling well. Has not been active or ambulating today. Active Medications Acetaminophen (Tylenol -) 650 mg PO Q6H PRN PRN Reason: PAIN Last Admin: 08/30/16 20:30 Dose: 650 mg Albuterol Sulfate (Ventolin 0.083% Nebulizer Soln -) 1 amp NEB Q4H PRN PRN Reason: SHORT OF BREATH/WHEEZING Last Admin: 09/17/16 10:04 Dose: 1 amp Albuterol/Ipratropium (Duoneb -) 1 amp NEB TIDR [facility] Last Admin: 09/20/16 09:44 Dose: Not Given Allopurinol (Zyloprim -) 300 mg PO DAILY [facility] Last Admin: 09/19/16 10:35 Dose: 300 mg Furosemide (Lasix Injection -) 80 mg IVPUSH BID@0600,1400 [facility] Last Admin: 09/20/16 05:53 Dose: 80 mg Guaifenesin/Codeine Phosphate (Robitussin Ac -) 5 ml PO Q8H PRN PRN Reason: COUGH Last Admin: 09/19/16 17:50 Dose: 5 ml Imatinib Mesylate (Gleevec (Restricted To Oncology) -) 200 mg PO DAILY [facility] Last Admin: 09/20/16 12:07 Dose: 200 mg Insulin Aspart (Novolog Vial Sliding Scale -) 1 vial SQ BIDAC JOVANA PRN Reason: Protocol Last Admin: 09/20/16 06:10 Dose: 2 units Magnesium Oxide (Mag-Ox -) 400 mg PO BID [facility] Last Admin: 09/19/16 21:06 Dose: 400 mg Metoclopramide HCl (Reglan -) 10 mg PO TIDAC [facility] Last Admin: 09/20/16 06:01 Dose: 10 mg Multivitamins/Minerals/Vitamin C (Tab-A-Vit -) 1 tab PO DAILY [facility] Last Admin: 09/19/16 10:35 Dose: 1 tab Ondansetron HCl (Zofran Injection) 8 mg IVPB Q12H PRN PRN Reason: NAUSEA Last Admin: 09/19/16 11:39 Dose: 8 mg Pantoprazole Sodium (Protonix -) 40 mg PO BID [facility] Last Admin: 09/19/16 21:07 Dose: 40 mg Polyethylene Glycol (Miralax (For Daily Use) -) 17 gm PO BID [facility] Last Admin: 09/19/16 21:07 Dose: Not Given Potassium Chloride (K-Dur -) 20 meq PO BID [facility] Last Admin: 09/19/16 21:07 Dose: 20 meq Triamcinolone Acetonide (Aristocort 0.1% Cream -) 1 applic TP BID [facility] Last Admin: 09/19/16 21:08 Dose: 1 applic Vital Signs Temperature 98.3 F 09/20/16 06:00 Pulse Rate 92 H 09/20/16 06:00 Respiratory Rate 20 09/20/16 06:00 Blood Pressure 101/54 09/20/16 06:00 O2 Sat by Pulse Oximetry (%) 93 L 09/20/16 03:00 PHYSICAL EXAM General Appearance: Well-appearing, appropriately dressed. No apparent distress. HEENT: EOMI, PERRLA, normal ENT inspection, normal voice, TMs normal, pharynx normal. No conjunctival pallor. No photophobia, scleral icterus. Neck: Supple. Trachea midline. No tenderness, rigidity, carotid bruit, stridor , lymphadenopathy, or thyromegaly. Respiratory/Chest: Lungs CTAB. No shortness of breath, chest tenderness, respiratory distress, accessory muscle use. No crackles, rales, rhonchi, stridor , wheezing, dullness Cardiovascular: RRR. S1, S2. Vascular Pulses: Dorsalis-Pedis (R): 2+, Dorsalis-Pedis (L): 2+ Gastrointestinal/Abdominal: LUQ tenderness on palpation, splenomegaly appreciated. Normal bowel sounds. Abdomen soft, non-distended. No organomegaly, pulsatile mass, guarding, hernia, hepatomegaly, splenomegaly. Musculoskeletal/Extremities: 2+ pitting edema to LE b/l. No erythema, tenderness. Normal inspection. FROM of all extremities, normal capillary refill. Pelvis Stable. No CVA tenderness. No tenderness to extremities, pedal edema, swelling, erythema or deformity. Neurologic: cad specialist II-XII intact. Fully oriented, alert. Motor strength 5/5 in UE , 5-/5 in lower ext at best. CBCD WBC 1.6 K/mm3 (4.0-10.0) L* 09/20/16 06:10 RBC 2.48 M/mm3 (3.60-5.2) L D 09/20/16 06:10 Hgb 8.0 GM/dL (10.7-15.3) L D 09/20/16 06:10 Hct 23.6 % (32.4-45.2) L D 09/20/16 06:10 MCV 95.5 fl (80-96) 09/20/16 06:10 MCHC 33.8 g/dl (32.0-36.0) 09/20/16 06:10 RDW 17.7 % (11.6-15.6) H D 09/20/16 06:10 Plt Count 11 K/MM3 (134-434) L* 09/20/16 06:10 MPV 8.5 fl (7.5-11.1) D 09/20/16 06:10 CMP Sodium 139 mmol/L (136-145) 09/20/16 06:10 Potassium 3.6 mmol/L (3.5-5.1) 09/20/16 06:10 Chloride 100 mmol/L (98-107) 09/20/16 06:10 Carbon Dioxide 32 mmol/L (21-32) 09/20/16 06:10 Anion Gap 7 (8-16) L 09/20/16 06:10 BUN 41 mg/dL (7-18) H 09/20/16 06:10 Creatinine 0.8 mg/dL (0.55-1.02) D 09/20/16 06:10 Creat Clearance w eGFR > 60 (>60) 09/20/16 06:10 Calcium 8.8 mg/dL (8.5-10.1) 09/20/16 06:10 Total Bilirubin 4.2 mg/dL (0.2-1.0) H D 09/20/16 06:10 AST 10 U/L (15-37) L 09/20/16 06:10 ALT 10 U/L (12-78) L 09/20/16 06:10 Alkaline Phosphatase 143 U/L (45-117) H 09/20/16 06:10 Total Protein 4.5 g/dl (6.4-8.2) L 09/20/16 06:10 Albumin 2.4 g/dl (3.4-5.0) L 09/20/16 06:10 Medical Decision Making 81 year old female with a history of NIDDM, HTN, ovarian ca (s/p chemo in 2007 and 2011, s/p hysterectomy and bilateral oophrectomy), and anemia sent from [facility] for Hg of 6.9, now improved. 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 There is concern for patient's limited ability to move lower extremities and she reports ongoing fluid buildup. Patient reports this has been going and occuring since she has been in hospital. Ambulating now, but been having issues with fluid retention particularly in lower extremities B12 and folate normal Exam improved PT/OT would be recommended. Continue medical mgmt Fall precautions Assistive device as needed, at bedside Fatigued today, monitor clinically Would benefit from ambulation
[2016-09-20] MEDS: TRIAMCINOLONE ACET 0.1% CREAM 15 GM TUBE TP SCH ×2 (12:27→22:26)
[2016-09-20] MEDS: POLYETHYLENE GLYCOL 3350 119 GM BTL PO SCH ×2 (12:28→21:41)
[2016-09-20] MEDS: POTASSIUM CHLORIDE TABS 20 MEQ TABLET.ER (FP) PO SCH ×2 (12:29→22:26)
[2016-09-20] MEDS: MAGNESIUM OXIDE 400 MG TABLET (FP) PO SCH ×2 (12:29→22:26)
[2016-09-20] MEDS: ALLOPURINOL 300 MG TABLET (FP) PO SCH (12:29)
--- NOTE | 2016-09-20 17:39 | PN ---
Progress Note (short form) - Note Progress Note: Patient seen and examined c/o lower ext. heaviness Had some shortness of breath overnight, improved with lasix Last Vital Signs Temp Pulse Resp BP Pulse Ox 97.5 F L 96 H 20 117/70 93 L 09/20/16 13:46 09/20/16 13:46 09/20/16 13:46 09/20/16 13:46 09/20/16 10:00 HEENT-nl Heart-S1, S2 regular Lungs: decreased at bases Abd: Soft, Normal bowel sounds, No organomegaly Ext:2+ edema b/l + skin rash Abnormal Lab Results 09/16/16 09/19/16 09/20/16 11:00 14:15 06:10 WBC RBC Hgb Hct RDW Plt Count Lymphocytes % Anion Gap 7 L BUN 41 H Random Glucose 172 H D Total Bilirubin 4.2 H D Direct Bilirubin 2.0 H AST 10 L ALT 10 L Alkaline Phosphatase 143 H Total Protein 4.5 L Albumin 2.4 L Crossmatch See Detail See Detail 09/20/16 06:10 WBC 1.6 L* RBC 2.48 L D Hgb 8.0 L D Hct 23.6 L D RDW 17.7 H D Plt Count 11 L* Lymphocytes % 47.0 H Anion Gap BUN Random Glucose Total Bilirubin Direct Bilirubin AST ALT Alkaline Phosphatase Total Protein Albumin Crossmatch Active Medications Generic Name Dose Route Start Last Admin Trade Name Freq PRN Reason Stop Dose Admin Acetaminophen 650 mg 08/26/16 17:19 08/30/16 20:30 Tylenol - PO 650 mg Q6H PRN Administration PAIN Albuterol Sulfate 1 amp 09/17/16 04:24 09/17/16 10:04 Ventolin 0.083% Nebulizer Soln - NEB 1 amp Q4H PRN Administration SHORT OF BREATH/WHEEZING Albuterol/Ipratropium 1 amp 09/19/16 14:00 09/20/16 14:30 Duoneb - NEB 1 amp TIDR JOVANA Administration Allopurinol 300 mg 08/27/16 10:00 09/20/16 12:29 Zyloprim - PO 300 mg DAILY JOVANA Administration Furosemide 80 mg 09/19/16 21:30 09/20/16 14:57 Lasix Injection - IVPUSH 80 mg BID@0600,1400 JOVANA Administration Guaifenesin/Codeine Phosphate 5 ml 05/22/17 22:25 09/19/16 17:50 Robitussin Ac - PO 5 ml Q8H PRN Administration COUGH Imatinib Mesylate 200 mg 09/16/16 12:30 09/20/16 12:07 Gleevec (Restricted To Oncology) - PO 200 mg DAILY JOVANA Administration Insulin Aspart 1 vial 09/02/16 16:30 09/20/16 17:14 Novolog Vial Sliding Scale - SQ 2 units BIDAC JOVANA Administration Protocol Magnesium Oxide 400 mg 08/26/16 22:00 09/20/16 12:29 Mag-Ox - PO 400 mg BID JOVANA Administration Metoclopramide HCl 10 mg 08/27/16 07:00 09/20/16 17:11 Reglan - PO 10 mg TIDAC JOVANA Administration Multivitamins/Minerals/Vitamin C 1 tab 08/27/16 10:00 09/20/16 12:22 Tab-A-Vit - PO 1 tab DAILY JOVANA Administration Ondansetron HCl 8 mg 09/12/16 06:29 09/19/16 11:39 Zofran Injection IVPB 8 mg Q12H PRN Administration NAUSEA Pantoprazole Sodium 40 mg 08/31/16 10:00 09/20/16 12:22 Protonix - PO 40 mg BID JOVANA Administration Polyethylene Glycol 17 gm 09/05/16 22:00 09/20/16 12:28 Miralax (For Daily Use) - PO 17 gm BID JOVANA Administration Potassium Chloride 20 meq 09/17/16 10:00 09/20/16 12:29 K-Dur - PO 20 meq BID JOVANA Administration Triamcinolone Acetonide 1 applic 09/14/16 10:00 09/20/16 12:27 Aristocort 0.1% Cream - TP 1 applic BID JOVANA Administration A/P 81 y/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 fluid overload improved with lasix/nebs appreciate cardiology/pulmonary f/u echo--nl LVEF to monitor BUN/CR closely while on 80mg bid of lasix Peripheral access working well currently will discuss with primary team
[2016-09-20] MEDS: TIMOLOL 0.5% OPHTHALMIC SOL 5 ML BOTTLE OU SCH (22:25)
[2016-09-20] MEDS: DORZOLAMIDE 2% HCL OPHTHALMIC SOLUTION 10 ML BOTTLE OU SCH (22:27)
[2016-09-21] MEDS: INSULIN SLIDING SCALE (NOVOLOG) 1 VIAL SQ SCH ×2 (06:12→17:23)
[2016-09-21] MEDS: METOCLOPRAMIDE HCL 10 MG TABLET (FP) PO SCH ×3 (06:13→17:05)
[2016-09-21] MEDS: FUROSEMIDE 40 MG/4 ML INJECTABLE VIAL IVPUSH SCH ×3 (06:13→23:49)
[2016-09-21] MEDS: ALBUTEROL SO4 2.5/IPRATROPIUM 0.5 INH SOL 3 ML VIAL.NEB. NEB SCH ×3 (06:56→22:16)
[2016-09-21 07:55] LABS: MCH 32.5 pg (25.7-33.7); MCHC 33.7 g/dl (32.0-36.0); MEAN CELL VOLUME 96.6 fl (80-96); MEAN PLT VOLUME 9.4 fl (7.5-11.1); RDW 18.4 % (11.6-15.6)
[2016-09-21 08:10] LABS: PLATELET COUNT 12 K/MM3 (134-434); WHITE BLOOD COUNT 1.6 K/mm3 (4.0-10.0)
[2016-09-21 08:11] LABS: CALCIUM 8.6 mg/dL (8.5-10.1); COCKROFT - GAULT 59.33; CREATININE 0.8 mg/dL (0.55-1.02)
[2016-09-21] MEDS ORDERED: PT OWN MED DRAWER 7, Y5N ONE ×2 (08:45→16:23)
[2016-09-21] MEDS: ONDANSETRON 4 MG/2 ML VIAL IVPB PRN (08:58)
[2016-09-21] MEDS: MULTIVITAMINS (DAILY MVI) TABLET (FP) PO SCH (09:02)
[2016-09-21] MEDS: PANTOPRAZOLE 40 MG TABLET (FP) PO SCH ×2 (09:02→22:00)
[2016-09-21] MEDS: POTASSIUM CHLORIDE TABS 20 MEQ TABLET.ER (FP) PO SCH ×2 (09:04→22:00)
[2016-09-21] MEDS: ALLOPURINOL 300 MG TABLET (FP) PO SCH (09:04)
[2016-09-21] MEDS: MAGNESIUM OXIDE 400 MG TABLET (FP) PO SCH ×2 (09:05→22:00)
[2016-09-21] MEDS: TRIAMCINOLONE ACET 0.1% CREAM 15 GM TUBE TP SCH ×2 (09:05→22:02)
--- NOTE | 2016-09-21 09:05 | PN ---
Progress Note (short form) - Note Progress Note: Less SOB on Lasix 80mg dose Lab: Hb 7.1 and platelets 12,000. Still worried about IV access and ? PICC line; Goal would be platelets over 40, 000. Had BM On Exam: Vital Signs Temp 98 F 09/21/16 06:00 Pulse 102 H 09/21/16 06:00 Resp 20 09/21/16 06:00 BP 102/66 09/21/16 06:00 Pulse Ox 93 L 09/21/16 03:00 Intake & Output 09/20/16 09/20/16 09/21/16 11:59 23:59 11:59 Intake Total 1000 1000 Output Total 1500 700 Balance -500 300 Weight 149 lb 9.6 oz 150 lb 4 oz Intake: IVPB 200 Oral 100 1000 Packed Cells 700 Output: Urine 1500 700 Void 1500 700 Other: Voiding Method Bedside Commode Bedside Commode Bedside Commode # Unmeasured Voids Void 1 2 Bowel Movement Yes No No # Bowel Movements 0 Weight Measurement Method Wheelchair Patient Lift Scale Alert Right eye: subconjunctival hemorrhage Chest: Few rhonchi and decreased sounds at bases Abd: distended but soft Ext: 2+ edema Abnormal Lab Results 09/16/16 09/20/16 09/21/16 11:00 06:10 06:00 WBC 1.6 L* RBC 2.17 L Hgb 7.1 L D Hct 21.0 L MCV 96.6 H RDW 18.4 H Plt Count 12 L* Lymphocytes % 47.0 H Anion Gap BUN Random Glucose Crossmatch See Detail 09/21/16 06:00 WBC RBC Hgb Hct MCV RDW Plt Count Lymphocytes % Anion Gap 7 L BUN 45 H Random Glucose 148 H Crossmatch IMP: Acute Mastocytosis and Heme Malignancy\Pancytopenia CHF acute Glaucome Hx: Ovarian Ca Plan: Await F/U Heme Re: PICC F/U lab copntinue IV Lasix Giorgio bandage legs Problem List - Problems (1) Thrombocytopenia Code(s): D69.6 - THROMBOCYTOPENIA, UNSPECIFIED (2) Leg weakness, bilateral Code(s): R29.898 - OTH SYMPTOMS AND SIGNS INVOLVING THE MUSCULOSKELETAL SYSTEM (3) Anemia Code(s): D64.9 - ANEMIA, UNSPECIFIED Qualifiers: Anemia type: unspecified type Qualified Code(s): D64.9 - Anemia, unspecified (4) Mastocytosis Code(s): Q82.2 - MASTOCYTOSIS (5) Cough Code(s): R05 - COUGH (6) Diabetes mellitus, new onset Code(s): E11.9 - TYPE 2 DIABETES MELLITUS WITHOUT COMPLICATIONS (7) HTN (hypertension) Code(s): I10 - ESSENTIAL (PRIMARY) HYPERTENSION (8) History of ovarian cancer Code(s): Z85.43 - PERSONAL HISTORY OF MALIGNANT NEOPLASM OF OVARY (9) CHF (congestive heart failure) Code(s): I50.9 - HEART FAILURE, UNSPECIFIED Qualifiers: Congestive heart failure type: diastolic Congestive heart failure chronicity: acute Qualified Code(s): I50.31 - Acute diastolic (congestive ) heart failure
[2016-09-21] MEDS: DORZOLAMIDE 2% HCL OPHTHALMIC SOLUTION 10 ML BOTTLE OU SCH ×2 (09:06→22:02)
[2016-09-21] MEDS: POLYETHYLENE GLYCOL 3350 119 GM BTL PO SCH ×2 (09:06→22:01)
[2016-09-21] MEDS: TIMOLOL 0.5% OPHTHALMIC SOL 5 ML BOTTLE OU SCH ×2 (09:06→22:00)
[2016-09-21] MEDS: IMATINIB MESYLATE 100 MG TABLET PO SCH (09:43)
--- NOTE | 2016-09-21 10:58 | PN ---
Progress Note (short form) - Note Progress Note: PULMONARY States breathing is slightly improved today with increased dose lasix. + nonproductive. Last Vital Signs Temp Pulse Resp BP Pulse Ox 98 F 102 H 20 102/66 93 L 09/21/16 06:00 09/21/16 06:00 09/21/16 06:00 09/21/16 06:00 09/21/16 03:00 Gen: NAD in chair Heart: RRR Lung: decreased breath sounds at the bases Abd: soft, nontender Ext: + edema CBC, BMP 09/21/16 06:00 09/21/16 06:00 Active Medications Acetaminophen (Tylenol -) 650 mg PO Q6H PRN PRN Reason: PAIN Last Admin: 08/30/16 20:30 Dose: 650 mg Albuterol Sulfate (Ventolin 0.083% Nebulizer Soln -) 1 amp NEB Q4H PRN PRN Reason: SHORT OF BREATH/WHEEZING Last Admin: 09/17/16 10:04 Dose: 1 amp Albuterol/Ipratropium (Duoneb -) 1 amp NEB TIDR [facility] Last Admin: 09/21/16 06:56 Dose: 1 amp Allopurinol (Zyloprim -) 300 mg PO DAILY [facility] Last Admin: 09/21/16 09:04 Dose: 300 mg Dorzolamide HCl (Trusopt 2%) 1 drop OU BID [facility] Last Admin: 09/21/16 09:06 Dose: 1 drop Furosemide (Lasix Injection -) 80 mg IVPUSH BID@0600,1400 [facility] Last Admin: 09/21/16 06:13 Dose: 80 mg Guaifenesin/Codeine Phosphate (Robitussin Ac -) 5 ml PO Q8H PRN PRN Reason: COUGH Last Admin: 09/19/16 17:50 Dose: 5 ml Imatinib Mesylate (Gleevec (Restricted To Oncology) -) 200 mg PO DAILY [facility] Last Admin: 09/21/16 09:43 Dose: 200 mg Insulin Aspart (Novolog Vial Sliding Scale -) 1 vial SQ BIDAC [facility] PRN Reason: Protocol Last Admin: 09/21/16 06:12 Dose: Not Given Magnesium Oxide (Mag-Ox -) 400 mg PO BID [facility] Last Admin: 09/21/16 09:05 Dose: 400 mg Metoclopramide HCl (Reglan -) 10 mg PO TIDAC [facility] Last Admin: 09/21/16 06:13 Dose: 10 mg Multivitamins/Minerals/Vitamin C (Tab-A-Vit -) 1 tab PO DAILY [facility] Last Admin: 09/21/16 09:02 Dose: 1 tab Ondansetron HCl (Zofran Injection) 8 mg IVPB Q12H PRN PRN Reason: NAUSEA Last Admin: 09/21/16 08:58 Dose: 8 mg Pantoprazole Sodium (Protonix -) 40 mg PO BID [facility] Last Admin: 09/21/16 09:02 Dose: 40 mg Polyethylene Glycol (Miralax (For Daily Use) -) 17 gm PO BID [facility] Last Admin: 09/21/16 09:06 Dose: 17 gm Potassium Chloride (K-Dur -) 20 meq PO BID [facility] Last Admin: 09/21/16 09:04 Dose: 20 meq Timolol Maleate (Timoptic 0.5%) 1 drop OU BID [facility] Last Admin: 09/21/16 09:06 Dose: 1 drop Triamcinolone Acetonide (Aristocort 0.1% Cream -) 1 applic TP BID [facility] Last Admin: 09/21/16 09:05 Dose: 1 applic A/P Systemic Mastocytosis Pancytopenia s/p Multiple transfusions Volume Overload Pulmonary HTN HTN - continue lasix - monitor urine output, creatinine - repeat CXR in AM - O2 to keep SPo2 >90% - monitor CBC - transfuse as needed - inhaled bronchodilators
[2016-09-21 12:15] LABS: PLATELET ESTIMATE MARKEDLY DECREASED (NORMAL)
--- NOTE | 2016-09-21 12:51 | PN ---
Progress Note (short form) - Note Progress Note: Neurology History of Present Illness 81 year old female with a history of NIDDM, HTN, ovarian ca (s/p chemo in 2007 and 2011, s/p hysterectomy and bilateral oophrectomy), and anemia sent from [facility] for Hg of 6.9. 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 There was concern for patient 's limited ability to move lower extremities and she reports ongoing fluid buildup. B12 and Folate were normal. Patient awaiting possible PICC line, plt count concern. On Lasix for edema. Active Medications Acetaminophen (Tylenol -) 650 mg PO Q6H PRN PRN Reason: PAIN Last Admin: 08/30/16 20:30 Dose: 650 mg Albuterol Sulfate (Ventolin 0.083% Nebulizer Soln -) 1 amp NEB Q4H PRN PRN Reason: SHORT OF BREATH/WHEEZING Last Admin: 09/17/16 10:04 Dose: 1 amp Albuterol/Ipratropium (Duoneb -) 1 amp NEB TIDR JOVANA Last Admin: 09/21/16 06:56 Dose: 1 amp Allopurinol (Zyloprim -) 300 mg PO DAILY [facility] Last Admin: 09/21/16 09:04 Dose: 300 mg Dorzolamide HCl (Trusopt 2%) 1 drop OU BID JOVANA Last Admin: 09/21/16 09:06 Dose: 1 drop Furosemide (Lasix Injection -) 80 mg IVPUSH BID@0600,1400 [facility] Last Admin: 09/21/16 06:13 Dose: 80 mg Guaifenesin/Codeine Phosphate (Robitussin Ac -) 5 ml PO Q8H PRN PRN Reason: COUGH Last Admin: 09/19/16 17:50 Dose: 5 ml Imatinib Mesylate (Gleevec (Restricted To Oncology) -) 200 mg PO DAILY [facility] Last Admin: 09/21/16 09:43 Dose: 200 mg Insulin Aspart (Novolog Vial Sliding Scale -) 1 vial SQ BIDAC JOVANA PRN Reason: Protocol Last Admin: 09/21/16 06:12 Dose: Not Given Magnesium Oxide (Mag-Ox -) 400 mg PO BID [facility] Last Admin: 09/21/16 09:05 Dose: 400 mg Metoclopramide HCl (Reglan -) 10 mg PO TIDAC [facility] Last Admin: 09/21/16 10:57 Dose: 10 mg Multivitamins/Minerals/Vitamin C (Tab-A-Vit -) 1 tab PO DAILY [facility] Last Admin: 09/21/16 09:02 Dose: 1 tab Ondansetron HCl (Zofran Injection) 8 mg IVPB Q12H PRN PRN Reason: NAUSEA Last Admin: 09/21/16 08:58 Dose: 8 mg Pantoprazole Sodium (Protonix -) 40 mg PO BID [facility] Last Admin: 09/21/16 09:02 Dose: 40 mg Polyethylene Glycol (Miralax (For Daily Use) -) 17 gm PO BID [facility] Last Admin: 09/21/16 09:06 Dose: 17 gm Potassium Chloride (K-Dur -) 20 meq PO BID [facility] Last Admin: 09/21/16 09:04 Dose: 20 meq Timolol Maleate (Timoptic 0.5%) 1 drop OU BID [facility] Last Admin: 09/21/16 09:06 Dose: 1 drop Triamcinolone Acetonide (Aristocort 0.1% Cream -) 1 applic TP BID [facility] Last Admin: 09/21/16 09:05 Dose: 1 applic Vital Signs Temperature 98 F 09/21/16 06:00 Pulse Rate 102 H 09/21/16 06:00 Respiratory Rate 20 09/21/16 06:00 Blood Pressure 102/66 09/21/16 06:00 O2 Sat by Pulse Oximetry (%) 93 L 09/21/16 03:00 PHYSICAL EXAM General Appearance: Well-appearing, appropriately dressed. No apparent distress. HEENT: EOMI, PERRLA, normal ENT inspection, normal voice, TMs normal, pharynx normal. No conjunctival pallor. No photophobia, scleral icterus. Neck: Supple. Trachea midline. No tenderness, rigidity, carotid bruit, stridor , lymphadenopathy, or thyromegaly. Respiratory/Chest: Lungs CTAB. No shortness of breath, chest tenderness, respiratory distress, accessory muscle use. No crackles, rales, rhonchi, stridor , wheezing, dullness Cardiovascular: RRR. S1, S2. Vascular Pulses: Dorsalis-Pedis (R): 2+, Dorsalis-Pedis (L): 2+ Gastrointestinal/Abdominal: LUQ tenderness on palpation, splenomegaly appreciated. Normal bowel sounds. Abdomen soft, non-distended. No organomegaly, pulsatile mass, guarding, hernia, hepatomegaly, splenomegaly. Musculoskeletal/Extremities: 2+ pitting edema to LE b/l. No erythema, tenderness. Normal inspection. FROM of all extremities, normal capillary refill. Pelvis Stable. No CVA tenderness. No tenderness to extremities, pedal edema, swelling, erythema or deformity. 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 Fully oriented, alert. Motor strength 5/5 in UE , 5-/5 in lower ext at best. CBCD WBC 1.6 K/mm3 (4.0-10.0) L* 09/21/16 06:00 RBC 2.17 M/mm3 (3.60-5.2) L 09/21/16 06:00 Hgb 7.1 GM/dL (10.7-15.3) L D 09/21/16 06:00 Hct 21.0 % (32.4-45.2) L 09/21/16 06:00 MCV 96.6 fl (80-96) H 09/21/16 06:00 MCHC 33.7 g/dl (32.0-36.0) 09/21/16 06:00 RDW 18.4 % (11.6-15.6) H 09/21/16 06:00 Plt Count 12 K/MM3 (134-434) L* 09/21/16 06:00 MPV 9.4 fl (7.5-11.1) D 09/21/16 06:00 CMP Sodium 140 mmol/L (136-145) 09/21/16 06:00 Potassium 3.6 mmol/L (3.5-5.1) 09/21/16 06:00 Chloride 101 mmol/L (98-107) 09/21/16 06:00 Carbon Dioxide 32 mmol/L (21-32) 09/21/16 06:00 Anion Gap 7 (8-16) L 09/21/16 06:00 BUN 45 mg/dL (7-18) H 09/21/16 06:00 Creatinine 0.8 mg/dL (0.55-1.02) 09/21/16 06:00 Creat Clearance w eGFR > 60 (>60) 09/20/16 06:10 Calcium 8.6 mg/dL (8.5-10.1) 09/21/16 06:00 Total Bilirubin 4.2 mg/dL (0.2-1.0) H D 09/20/16 06:10 AST 10 U/L (15-37) L 09/20/16 06:10 ALT 10 U/L (12-78) L 09/20/16 06:10 Alkaline Phosphatase 143 U/L (45-117) H 09/20/16 06:10 Total Protein 4.5 g/dl (6.4-8.2) L 09/20/16 06:10 Albumin 2.4 g/dl (3.4-5.0) L 09/20/16 06:10 Medical Decision Making 81 year old female with a history of NIDDM, HTN, ovarian ca (s/p chemo in 2007 and 2011, s/p hysterectomy and bilateral oophrectomy), and anemia sent from [facility] for Hg of 6.9, now improved. 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 There is concern for patient's limited ability to move lower extremities and she reports ongoing fluid buildup. Patient reports this has been going and occuring since she has been in hospital. Ambulating now, but been having issues with fluid retention particularly in lower extremities B12 and folate normal PT/OT Continue medical mgmt Fall precautions Assistive device as needed, at bedside On lasix Possibly PICC Would benefit from ambulation
[2016-09-21] MEDS: guaiFENesin/CODEINE 5 ML UNIT-DOSE CUPS PO PRN (15:09)
--- NOTE | 2016-09-21 21:21 | PN ---
Progress Note (short form) - Note Progress Note: Chief Complaint: Dyspnea History of Present Illness: S: Patient states minimal improvement in LE edema, + improvement in sob. no cp , palps, dizziness. + weight gain today. Current Medications Acetaminophen (Tylenol -) 650 mg PO Q6H PRN PRN Reason: PAIN Last Admin: 08/30/16 20:30 Dose: 650 mg Albuterol Sulfate (Ventolin 0.083% Nebulizer Soln -) 1 amp NEB Q4H PRN PRN Reason: SHORT OF BREATH/WHEEZING Last Admin: 09/17/16 10:04 Dose: 1 amp Albuterol/Ipratropium (Duoneb -) 1 amp NEB TIDR [facility] Last Admin: 09/21/16 13:40 Dose: 1 amp Allopurinol (Zyloprim -) 300 mg PO DAILY [facility] Last Admin: 09/21/16 09:04 Dose: 300 mg Dorzolamide HCl (Trusopt 2%) 1 drop OU BID [facility] Last Admin: 09/21/16 09:06 Dose: 1 drop Furosemide (Lasix Injection -) 80 mg IVPUSH BID@0600,1400 [facility] Last Admin: 09/21/16 14:29 Dose: 80 mg Guaifenesin/Codeine Phosphate (Robitussin Ac -) 5 ml PO Q8H PRN PRN Reason: COUGH Last Admin: 09/21/16 15:09 Dose: 5 ml Imatinib Mesylate (Gleevec (Restricted To Oncology) -) 200 mg PO DAILY [facility] Last Admin: 09/21/16 09:43 Dose: 200 mg Insulin Aspart (Novolog Vial Sliding Scale -) 1 vial SQ BIDAC [facility] PRN Reason: Protocol Last Admin: 09/21/16 17:23 Dose: 2 units Magnesium Oxide (Mag-Ox -) 400 mg PO BID [facility] Last Admin: 09/21/16 09:05 Dose: 400 mg Metoclopramide HCl (Reglan -) 10 mg PO TIDAC [facility] Last Admin: 09/21/16 17:05 Dose: 10 mg Multivitamins/Minerals/Vitamin C (Tab-A-Vit -) 1 tab PO DAILY [facility] Last Admin: 09/21/16 09:02 Dose: 1 tab Ondansetron HCl (Zofran Injection) 8 mg IVPB Q12H PRN PRN Reason: NAUSEA Last Admin: 09/21/16 08:58 Dose: 8 mg Pantoprazole Sodium (Protonix -) 40 mg PO BID [facility] Last Admin: 09/21/16 09:02 Dose: 40 mg Polyethylene Glycol (Miralax (For Daily Use) -) 17 gm PO BID [facility] Last Admin: 09/21/16 09:06 Dose: 17 gm Potassium Chloride (K-Dur -) 20 meq PO BID [facility] Last Admin: 09/21/16 09:04 Dose: 20 meq Timolol Maleate (Timoptic 0.5%) 1 drop OU BID [facility] Last Admin: 09/21/16 09:06 Dose: 1 drop Triamcinolone Acetonide (Aristocort 0.1% Cream -) 1 applic TP BID [facility] Last Admin: 09/21/16 09:05 Dose: 1 applic Vital Signs - 24 hr 09/20/16 09/20/16 09/21/16 22:00 23:00 03:00 Temperature 97.8 F Pulse Rate 103 H 100 H 100 H Respiratory 20 Rate Blood Pressure 112/57 O2 Sat by Pulse 93 L 93 L Oximetry (%) 09/21/16 09/21/16 09/21/16 06:00 09:00 10:00 Temperature 98 F 97.4 F L Pulse Rate 102 H 105 H Respiratory 20 20 Rate Blood Pressure 102/66 118/47 O2 Sat by Pulse 92 L Oximetry (%) 09/21/16 09/21/16 09/21/16 11:00 14:05 18:00 Temperature 97.5 F L 98 F Pulse Rate 105 H 88 89 Respiratory 20 20 Rate Blood Pressure 111/64 113/61 O2 Sat by Pulse 92 L Oximetry (%) Intake & Output 09/19/16 09/20/16 09/21/16 09/22/16 07:59 07:59 07:59 07:59 Intake Total 1020 1050 1000 500 Output Total 2300 700 300 Balance 1020 -1250 300 200 Weight 151 lb 9.6 oz 149 lb 9.6 oz 150 lb 4 oz hypoxic to 89-90% on eval. Increased O2 NC to 5L with improvement to 92% Constitutional: Yes: No Distress Eyes: Yes: Other (Right eye conjuctival redness) HENT: Yes: WNL Neck: jvd elvated Cardiovascular: Yes: Regular Rate and Rhythm, nl s1, s2 hyperdynamic precordium Respiratory: bibasilar dullness Edema: Yes Edema: LLE: 1+, RLE: 1+ Labs: CBC, BMP 09/21/16 06:00 09/21/16 06:00 Imaging - Results Ultrasound: Report Reviewed (09/01/2016 No LE DVT) EKG: Image Reviewed (08/26/2016 NSR at 90/min 09/17/2016 Sinus tachycardia at 101/ min) Other: Report Reviewed (Echo: 05/23/2013 normal LV and RV size and function, mild RVSP elevation (30-40mmHg)) cxr with pulmonary edema/effusions. 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 1) tachycardia -Likely demand related to significant anemia, sob and chronically ill state -Ongoing mgm't per pmd. 2) Dyspnea - likely multifactorial with anemia contributing in addition to pulmonary edema/ congestion. Unclear if from capillary leakage due to inflammatory state vs. diastolic heart failure exacerbation. last echo with preserved LV fx in 2013. Repeat echo similar -PE possible but unlikely given negative LE duplex. D-dimer would not be helpful in this scenario with her chronic illness -09/19 BMP stable on BID IV lasix Patient with ongoing transfusions. No significant improvement in sx's and weight trending up. CXR with worsened congestion. Will increase to 80 mg IV bid. (pt also to receive extra lasix after 2nd prbc transfusion this evening) Need to record uop response to lasix and strict i/o's, reordered. - 09/21: Weight gain this morning on current regimen. Will uptitrate to lasix 80 mg IV TID. Cr remains stable. - daily weights, bmp, strict I/O 3) LE edema - likely mutlifactorial from possible diastolic HF exacerbation/capillary leakage/hypoalb state/malnutrition (Alb 2.3). - diuresis as above. ZIYAD wraps. 4) HTN - Running low off anti-hypertensives. con't to monitor.
--- NOTE | 2016-09-21 22:41 | PN ---
Progress Note (short form) - Note Progress Note: Patient seen and examined SOB slightly improved AFVSS HEENT-nl Heart-S1, S2 regular Lungs: decreased at bases Abd: Soft, Normal bowel sounds, No organomegaly Ext:2+ edema b/l + skin rash Abnormal Lab Results 09/16/16 09/19/16 09/20/16 11:00 14:15 06:10 WBC RBC Hgb Hct RDW Plt Count Lymphocytes % Anion Gap 7 L BUN 41 H Random Glucose 172 H D Total Bilirubin 4.2 H D Direct Bilirubin 2.0 H AST 10 L ALT 10 L Alkaline Phosphatase 143 H Total Protein 4.5 L Albumin 2.4 L Crossmatch See Detail See Detail 09/20/16 06:10 WBC 1.6 L* RBC 2.48 L D Hgb 8.0 L D Hct 23.6 L D RDW 17.7 H D Plt Count 11 L* Lymphocytes % 47.0 H Anion Gap BUN Random Glucose Total Bilirubin Direct Bilirubin AST ALT Alkaline Phosphatase Total Protein Albumin Crossmatch Active Medications Generic Name Dose Route Start Last Admin Trade Name Freq PRN Reason Stop Dose Admin Acetaminophen 650 mg 08/26/16 17:19 08/30/16 20:30 Tylenol - PO 650 mg Q6H PRN Administration PAIN Albuterol Sulfate 1 amp 09/17/16 04:24 09/17/16 10:04 Ventolin 0.083% Nebulizer Soln - NEB 1 amp Q4H PRN Administration SHORT OF BREATH/WHEEZING Albuterol/Ipratropium 1 amp 09/19/16 14:00 09/20/16 14:30 Duoneb - NEB 1 amp TIDR JOVANA Administration Allopurinol 300 mg 08/27/16 10:00 09/20/16 12:29 Zyloprim - PO 300 mg DAILY [facility] Administration Furosemide 80 mg 09/19/16 21:30 09/20/16 14:57 Lasix Injection - IVPUSH 80 mg BID@0600,1400 [facility]NA Administration Guaifenesin/Codeine Phosphate 5 ml 09/18/16 22:25 09/19/16 17:50 Robitussin Ac - PO 5 ml Q8H PRN Administration COUGH Imatinib Mesylate 200 mg 09/16/16 12:30 09/20/16 12:07 Gleevec (Restricted To Oncology) - PO 200 mg DAILY [facility] Administration Insulin Aspart 1 vial 09/02/16 16:30 09/20/16 17:14 Novolog Vial Sliding Scale - SQ 2 units BIDAC JOVANA Administration Protocol Magnesium Oxide 400 mg 08/26/16 22:00 09/20/16 12:29 Mag-Ox - PO 400 mg BID [facility] Administration Metoclopramide HCl 10 mg 08/27/16 07:00 09/20/16 17:11 Reglan - PO 10 mg TIDAC JOVANA Administration Multivitamins/Minerals/Vitamin C 1 tab 08/27/16 10:00 09/20/16 12:22 Tab-A-Vit - PO 1 tab DAILY [facility] Administration Ondansetron HCl 8 mg 09/12/16 06:29 09/19/16 11:39 Zofran Injection IVPB 8 mg Q12H PRN Administration NAUSEA Pantoprazole Sodium 40 mg 08/31/16 10:00 09/20/16 12:22 Protonix - PO 40 mg BID JOVANA Administration Polyethylene Glycol 17 gm 09/05/16 22:00 09/20/16 12:28 Miralax (For Daily Use) - PO 17 gm BID JOVANA Administration Potassium Chloride 20 meq 09/17/16 10:00 09/20/16 12:29 K-Dur - PO 20 meq BID JOVANA Administration Triamcinolone Acetonide 1 applic 09/14/16 10:00 09/20/16 12:27 Aristocort 0.1% Cream - TP 1 applic BID JOVANA Administration A/P 81 y/o patient with 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 fluid overload on lasix transfuse monodonor platelts --3 units for possible PICC insertion in am
[2016-09-22] MEDS: ALBUTEROL SO4 2.5/IPRATROPIUM 0.5 INH SOL 3 ML VIAL.NEB. NEB SCH ×3 (06:10→22:30)
[2016-09-22] MEDS: INSULIN SLIDING SCALE (NOVOLOG) 1 VIAL SQ SCH ×2 (06:13→18:11)
[2016-09-22] MEDS: METOCLOPRAMIDE HCL 10 MG TABLET (FP) PO SCH ×3 (06:13→18:13)
[2016-09-22] MEDS: POTASSIUM CHLORIDE TABS 20 MEQ TABLET.ER (FP) PO SCH ×3 (06:13→21:48)
[2016-09-22] MEDS: FUROSEMIDE 40 MG/4 ML INJECTABLE VIAL IVPUSH SCH ×3 (06:13→18:08)
[2016-09-22 07:46] LABS: MCH 32.9 pg (25.7-33.7); MCHC 33.5 g/dl (32.0-36.0); MEAN CELL VOLUME 98.4 fl (80-96); MEAN PLT VOLUME 7.7 fl (7.5-11.1); RDW 22.6 % (11.6-15.6)
[2016-09-22 08:08] LABS: PLATELET COUNT 36 K/MM3 (134-434); WHITE BLOOD COUNT 1.2 K/mm3 (4.0-10.0)
[2016-09-22 08:16] LABS: COCKROFT - GAULT 52.6915; CREATININE 0.9 mg/dL (0.55-1.02)
[2016-09-22] MEDS: MULTIVITAMINS (DAILY MVI) TABLET (FP) PO SCH (09:33)
[2016-09-22] MEDS: MAGNESIUM OXIDE 400 MG TABLET (FP) PO SCH ×2 (09:33→21:48)
[2016-09-22] MEDS: PANTOPRAZOLE 40 MG TABLET (FP) PO SCH ×2 (09:33→21:48)
[2016-09-22] MEDS: ALLOPURINOL 300 MG TABLET (FP) PO SCH (09:33)
[2016-09-22] MEDS: IMATINIB MESYLATE 100 MG TABLET PO SCH (09:34)
[2016-09-22] MEDS: DORZOLAMIDE 2% HCL OPHTHALMIC SOLUTION 10 ML BOTTLE OU SCH ×2 (09:35→21:49)
[2016-09-22] MEDS: TIMOLOL 0.5% OPHTHALMIC SOL 5 ML BOTTLE OU SCH ×2 (09:35→21:48)
[2016-09-22] MEDS: TRIAMCINOLONE ACET 0.1% CREAM 15 GM TUBE TP SCH ×2 (09:36→21:50)
[2016-09-22] MEDS: POLYETHYLENE GLYCOL 3350 119 GM BTL PO SCH ×2 (09:46→21:49)
[2016-09-22] MEDS ORDERED: PICC LINE 8 ML FLUSH PROTOCOL IVPUSH PRN (09:57)
--- NOTE | 2016-09-22 10:06 | PN ---
Progress Note, Physician Chief Complaint: Still some coughing but slept better. History of Present Illness: Patient with Acute Mastocytosis and Heme Malignancy will hopefully have her PICC line placed today because there are not many viable venous access sites and she has required blood products nearly daily. Seems to be less SOB on IV Lasix; will follow Lab. - Current Medication List Current Medications: Active Medications Acetaminophen (Tylenol -) 650 mg PO Q6H PRN PRN Reason: PAIN Last Admin: 08/30/16 20:30 Dose: 650 mg Albuterol/Ipratropium (Duoneb -) 1 amp NEB TIDR [facility] Last Admin: 09/22/16 06:10 Dose: 1 amp Allopurinol (Zyloprim -) 300 mg PO DAILY [facility] Last Admin: 09/22/16 09:33 Dose: 300 mg Dorzolamide HCl (Trusopt 2%) 1 drop OU BID [facility] Last Admin: 09/22/16 09:35 Dose: 1 drop Furosemide (Lasix Injection -) 80 mg IVPUSH TID@0600,1400,1800 [facility] Last Admin: 09/22/16 06:13 Dose: 80 mg Guaifenesin/Codeine Phosphate (Robitussin Ac -) 5 ml PO Q8H PRN PRN Reason: COUGH Last Admin: 09/21/16 15:09 Dose: 5 ml IV Flush (Picc Line Flush) 8 ml IVPUSH PRN PRN PRN Reason: Protocol Imatinib Mesylate (Gleevec (Restricted To Oncology) -) 200 mg PO DAILY [facility] Last Admin: 09/22/16 09:34 Dose: 200 mg Insulin Aspart (Novolog Vial Sliding Scale -) 1 vial SQ BIDAC [facility] PRN Reason: Protocol Last Admin: 09/22/16 06:13 Dose: 2 units Magnesium Oxide (Mag-Ox -) 400 mg PO BID [facility] Last Admin: 09/22/16 09:33 Dose: 400 mg Metoclopramide HCl (Reglan -) 10 mg PO TIDAC [facility] Last Admin: 09/22/16 06:13 Dose: 10 mg Multivitamins/Minerals/Vitamin C (Tab-A-Vit -) 1 tab PO DAILY [facility] Last Admin: 09/22/16 09:33 Dose: 1 tab Ondansetron HCl (Zofran Injection) 8 mg IVPB Q12H PRN PRN Reason: NAUSEA Last Admin: 09/21/16 08:58 Dose: 8 mg Pantoprazole Sodium (Protonix -) 40 mg PO BID [facility] Last Admin: 09/22/16 09:33 Dose: 40 mg Polyethylene Glycol (Miralax (For Daily Use) -) 17 gm PO BID [facility] Last Admin: 09/22/16 09:46 Dose: 17 gm Potassium Chloride (K-Dur -) 20 meq PO TID [facility] Last Admin: 09/22/16 06:13 Dose: 20 meq Timolol Maleate (Timoptic 0.5%) 1 drop OU BID [facility] Last Admin: 09/22/16 09:35 Dose: 1 drop Triamcinolone Acetonide (Aristocort 0.1% Cream -) 1 applic TP BID [facility] Last Admin: 09/22/16 09:36 Dose: 1 applic - Objective Vital Signs: Vital Signs Temperature 97.9 F 09/22/16 09:00 Pulse Rate 94 H 09/22/16 09:00 Respiratory Rate 18 09/22/16 09:00 Blood Pressure 106/57 09/22/16 09:00 O2 Sat by Pulse Oximetry (%) 96 09/22/16 07:00 Constitutional: Yes: Calm Eyes: Yes: Tearing, Other (subconjunctival hemorrhage right eye) Neck: Yes: Supple Cardiovascular: Yes: Tachycardia Respiratory: Yes: Diminished, Rhonchi (at bases) Gastrointestinal: Yes: Soft, Distention. No: Tenderness Genitourinary: No: Campbell Present Edema: LLE: 3+, RLE: 3+ Integumentary: Yes: Venous Stasis Changes Neurological: Yes: Alert, Oriented Labs: CBC, BMP 09/22/16 06:00 09/22/16 06:00 INR, PTT INR 1.39 (0.82-1.09) H 08/26/16 09:50 Problem List - Problems (1) Thrombocytopenia Assessment/Plan: Up to 36,000 today and will get 1 more unit title one reading teacher for PICC line. Code(s): D69.6 - THROMBOCYTOPENIA, UNSPECIFIED (2) Leg weakness, bilateral Code(s): R29.898 - OTH SYMPTOMS AND SIGNS INVOLVING THE MUSCULOSKELETAL SYSTEM (3) Anemia Assessment/Plan: May need packed cells again; will follow. Code(s): D64.9 - ANEMIA, UNSPECIFIED Qualifiers: Anemia type: unspecified type Qualified Code(s): D64.9 - Anemia, unspecified (4) Mastocytosis Assessment/Plan: On Gleevac Code(s): Q82.2 - MASTOCYTOSIS (5) Cough Code(s): R05 - COUGH (6) Diabetes mellitus, new onset Assessment/Plan: Stable BGM's Code(s): E11.9 - TYPE 2 DIABETES MELLITUS WITHOUT COMPLICATIONS (7) HTN (hypertension) Code(s): I10 - ESSENTIAL (PRIMARY) HYPERTENSION (8) History of ovarian cancer Code(s): Z85.43 - PERSONAL HISTORY OF MALIGNANT NEOPLASM OF OVARY (9) CHF (congestive heart failure) Assessment/Plan: On IV Lasix 80mg TID Code(s): I50.9 - HEART FAILURE, UNSPECIFIED Qualifiers: Congestive heart failure type: diastolic Congestive heart failure chronicity: acute Qualified Code(s): I50.31 - Acute diastolic (congestive ) heart failure
[2016-09-22 12:09] LABS: PLATELET ESTIMATE MARKEDLY DECREASED (NORMAL)
--- NOTE | 2016-09-22 12:58 | PN ---
Progress Note (short form) - Note Progress Note: PULMONARY VSS/AFEBRILE RIGHT SUBCONJUNCTIVAL HEMORRHAGE DIMINISHED BREATH SOUNDS LEFT GREATER THAN RIGHT S1S2 RSR BS+ SOFT 2+ EDEMA LOWER EXT LABS/MEDS/IMAGING/NOTES REVIEWED A/P Systemic Mastocytosis Pancytopenia s/p Multiple transfusions Volume Overload Pulmonary HTN HTN - continue lasix - monitor urine output, creatinine - repeat CXR in AM - O2 to keep SPo2 >90% - monitor CBC - transfuse as needed - inhaled bronchodilators Radha RICHEY MD
[2016-09-22] MEDS ORDERED: POTASSIUM CHLORIDE ORAL LIQUID 20 MEQ/15 ML PO ONE ×2 (14:30→18:15)
--- NOTE | 2016-09-22 15:54 | PN ---
Progress Note (short form) - Note Progress Note: Neurology History of Present Illness 81 year old female with a history of NIDDM, HTN, ovarian ca (s/p chemo in 2007 and 2011, s/p hysterectomy and bilateral oophrectomy), and anemia sent from [facility] for Hg of 6.9. 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 There was concern for patient 's limited ability to move lower extremities and she reports ongoing fluid buildup. B12 and Folate were normal. On Lasix for edema. Active Medications Acetaminophen (Tylenol -) 650 mg PO Q6H PRN PRN Reason: PAIN Last Admin: 08/30/16 20:30 Dose: 650 mg Albuterol/Ipratropium (Duoneb -) 1 amp NEB TIDR [facility] Last Admin: 09/22/16 15:01 Dose: Not Given Allopurinol (Zyloprim -) 300 mg PO DAILY [facility] Last Admin: 09/22/16 09:33 Dose: 300 mg Dorzolamide HCl (Trusopt 2%) 1 drop OU BID [facility] Last Admin: 09/22/16 09:35 Dose: 1 drop Furosemide (Lasix Injection -) 80 mg IVPUSH TID@0600,1400,1800 [facility] Last Admin: 09/22/16 06:13 Dose: 80 mg Guaifenesin/Codeine Phosphate (Robitussin Ac -) 5 ml PO Q8H PRN PRN Reason: COUGH Last Admin: 09/21/16 15:09 Dose: 5 ml IV Flush (Picc Line Flush) 8 ml IVPUSH PRN PRN PRN Reason: Protocol Imatinib Mesylate (Gleevec (Restricted To Oncology) -) 200 mg PO DAILY [facility] Last Admin: 09/22/16 09:34 Dose: 200 mg Insulin Aspart (Novolog Vial Sliding Scale -) 1 vial SQ BIDAC [facility] PRN Reason: Protocol Last Admin: 09/22/16 06:13 Dose: 2 units Magnesium Oxide (Mag-Ox -) 400 mg PO BID [facility] Last Admin: 09/22/16 09:33 Dose: 400 mg Metoclopramide HCl (Reglan -) 10 mg PO TIDAC [facility] Last Admin: 09/22/16 13:18 Dose: 10 mg Multivitamins/Minerals/Vitamin C (Tab-A-Vit -) 1 tab PO DAILY [facility] Last Admin: 09/22/16 09:33 Dose: 1 tab Ondansetron HCl (Zofran Injection) 8 mg IVPB Q12H PRN PRN Reason: NAUSEA Last Admin: 09/21/16 08:58 Dose: 8 mg Pantoprazole Sodium (Protonix -) 40 mg PO BID [facility] Last Admin: 09/22/16 09:33 Dose: 40 mg Polyethylene Glycol (Miralax (For Daily Use) -) 17 gm PO BID [facility] Last Admin: 09/22/16 09:46 Dose: 17 gm Potassium Chloride (K-Dur -) 20 meq PO TID [facility] Last Admin: 09/22/16 06:13 Dose: 20 meq Timolol Maleate (Timoptic 0.5%) 1 drop OU BID [facility] Last Admin: 09/22/16 09:35 Dose: 1 drop Triamcinolone Acetonide (Aristocort 0.1% Cream -) 1 applic TP BID [facility] Last Admin: 09/22/16 09:36 Dose: 1 applic Vital Signs Temperature 98 F 09/21/16 06:00 Pulse Rate 102 H 09/21/16 06:00 Respiratory Rate 20 09/21/16 06:00 Blood Pressure 102/66 09/21/16 06:00 O2 Sat by Pulse Oximetry (%) 93 L 09/21/16 03:00 PHYSICAL EXAM General Appearance: Well-appearing, appropriately dressed. No apparent distress. HEENT: EOMI, PERRLA, normal ENT inspection, normal voice, TMs normal, pharynx normal. No conjunctival pallor. No photophobia, scleral icterus. Neck: Supple. Trachea midline. No tenderness, rigidity, carotid bruit, stridor , lymphadenopathy, or thyromegaly. Respiratory/Chest: Lungs CTAB. No shortness of breath, chest tenderness, respiratory distress, accessory muscle use. No crackles, rales, rhonchi, stridor , wheezing, dullness Cardiovascular: RRR. S1, S2. Vascular Pulses: Dorsalis-Pedis (R): 2+, Dorsalis-Pedis (L): 2+ Gastrointestinal/Abdominal: LUQ tenderness on palpation, splenomegaly appreciated. Normal bowel sounds. Abdomen soft, non-distended. No organomegaly, pulsatile mass, guarding, hernia, hepatomegaly, splenomegaly. Musculoskeletal/Extremities: 2+ pitting edema to LE b/l. No erythema, tenderness. Normal inspection. FROM of all extremities, normal capillary refill. Pelvis Stable. No CVA tenderness. No tenderness to extremities, pedal edema, swelling, erythema or deformity. 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 Fully oriented, alert. Motor strength 5/5 in UE , 5-/5 in lower ext at best. CBCD WBC 1.2 K/mm3 (4.0-10.0) L* 09/22/16 06:00 RBC 1.98 M/mm3 (3.60-5.2) L 09/22/16 06:00 Hgb 6.5 GM/dL (10.7-15.3) L* 09/22/16 06:00 Hct 19.5 % (32.4-45.2) L 09/22/16 06:00 MCV 98.4 fl (80-96) H 09/22/16 06:00 MCHC 33.5 g/dl (32.0-36.0) 09/22/16 06:00 RDW 22.6 % (11.6-15.6) H D 09/22/16 06:00 Plt Count 36 K/MM3 (134-434) L* D 09/22/16 06:00 MPV 7.7 fl (7.5-11.1) D 09/22/16 06:00 CMP Sodium 141 mmol/L (136-145) 09/22/16 06:00 Potassium 3.1 mmol/L (3.5-5.1) L 09/22/16 06:00 Chloride 99 mmol/L (98-107) 09/22/16 06:00 Carbon Dioxide 34 mmol/L (21-32) H 09/22/16 06:00 Anion Gap 8 (8-16) 09/22/16 06:00 BUN 47 mg/dL (7-18) H 09/22/16 06:00 Creatinine 0.9 mg/dL (0.55-1.02) 09/22/16 06:00 Creat Clearance w eGFR > 60 (>60) 09/20/16 06:10 Calcium 9.0 mg/dL (8.5-10.1) 09/22/16 06:00 Total Bilirubin 4.2 mg/dL (0.2-1.0) H D 09/20/16 06:10 AST 10 U/L (15-37) L 09/20/16 06:10 ALT 10 U/L (12-78) L 09/20/16 06:10 Alkaline Phosphatase 143 U/L (45-117) H 09/20/16 06:10 Total Protein 4.5 g/dl (6.4-8.2) L 09/20/16 06:10 Albumin 2.4 g/dl (3.4-5.0) L 09/20/16 06:10 Medical Decision Making 81 year old female with a history of NIDDM, HTN, ovarian ca (s/p chemo in 2007 and 2011, s/p hysterectomy and bilateral oophrectomy), and anemia sent from [facility] for Hg of 6.9, now improved. 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 There is concern for patient's limited ability to move lower extremities and she reports ongoing fluid buildup. Patient reports this has been going and occuring since she has been in hospital. Ambulating now, but been having issues with fluid retention particularly in lower extremities B12 and folate normal PT/OT Continue medical mgmt Fall precautions Assistive device as needed, at bedside On lasix Possibly PICC Would benefit from ambulation
[2016-09-22] MEDS: guaiFENesin/CODEINE 5 ML UNIT-DOSE CUPS PO PRN (21:48)
--- NOTE | 2016-09-22 23:25 | PN ---
Progress Note (short form) - Note Progress Note: Patient seen and examined s/p picc ;ine generalized weakness afvss HEENT-nl Heart-S1, S2 regular Lungs: decreased at bases Abd: Soft, Normal bowel sounds, No organomegaly Ext:2+ edema b/l + skin rash labs/meds reviewed A/P 81 y/o patient with systemic mastocytosis with associated hematologic neoplasm C1D 20 vidaza transfusion support for Hgb < 7, platelts < 10,000 monitor CMP 1 unit PRBCS today mild skin rash/leg heaviness/CHF dose reduced gleevec to 200mg -300mg/d zofran prior to gleevec SOB --? fluid overload improved with lasix/nebs appreciate cardiology/pulmonary f/u echo--nl LVEF to monitor BUN/CR closely while on 80mg bid of lasix s/p 3 units monodonor platelets --- and picc line placement
[2016-09-23] MEDS: FUROSEMIDE 40 MG/4 ML INJECTABLE VIAL IVPUSH SCH ×3 (05:10→18:42)
[2016-09-23] MEDS: POTASSIUM CHLORIDE TABS 20 MEQ TABLET.ER (FP) PO SCH ×3 (05:10→22:28)
[2016-09-23] MEDS: METOCLOPRAMIDE HCL 10 MG TABLET (FP) PO SCH ×3 (06:23→18:42)
[2016-09-23] MEDS: INSULIN SLIDING SCALE (NOVOLOG) 1 VIAL SQ SCH ×2 (06:26→18:42)
[2016-09-23] MEDS: ALBUTEROL SO4 2.5/IPRATROPIUM 0.5 INH SOL 3 ML VIAL.NEB. NEB SCH ×3 (06:40→22:23)
[2016-09-23 07:47] LABS: MCH 32.5 pg (25.7-33.7); MCHC 33.5 g/dl (32.0-36.0); MEAN CELL VOLUME 97.2 fl (80-96); MEAN PLT VOLUME 9.2 fl (7.5-11.1); RDW 16.8 % (11.6-15.6)
[2016-09-23 07:52] LABS: PLATELET COUNT 26 K/MM3 (134-434); WHITE BLOOD COUNT 1.5 K/mm3 (4.0-10.0)
[2016-09-23 08:13] LABS: CALCIUM 8.9 mg/dL (8.5-10.1); COCKROFT - GAULT 59.2705; CREATININE 0.8 mg/dL (0.55-1.02)
[2016-09-23] MEDS ORDERED: PT OWN MED DRAWER 7, Y5N ONE (09:41)
[2016-09-23] MEDS: MULTIVITAMINS (DAILY MVI) TABLET (FP) PO SCH (09:47)
[2016-09-23] MEDS: PANTOPRAZOLE 40 MG TABLET (FP) PO SCH ×2 (09:47→22:28)
[2016-09-23] MEDS: MAGNESIUM OXIDE 400 MG TABLET (FP) PO SCH ×2 (09:47→22:27)
[2016-09-23] MEDS: ALLOPURINOL 300 MG TABLET (FP) PO SCH (09:47)
[2016-09-23] MEDS: ONDANSETRON 4 MG/2 ML VIAL IVPB PRN (09:47)
[2016-09-23] MEDS: DORZOLAMIDE 2% HCL OPHTHALMIC SOLUTION 10 ML BOTTLE OU SCH ×2 (09:48→22:28)
[2016-09-23] MEDS: TIMOLOL 0.5% OPHTHALMIC SOL 5 ML BOTTLE OU SCH ×2 (09:48→22:28)
[2016-09-23] MEDS: TRIAMCINOLONE ACET 0.1% CREAM 15 GM TUBE TP SCH ×2 (09:52→22:28)
[2016-09-23] MEDS: IMATINIB MESYLATE 100 MG TABLET PO SCH (10:32)
[2016-09-23 11:18] LABS: PLATELET COMMENT2 NO CLOTTING DETECTED; PLATELET ESTIMATE MARKEDLY DECREASED (NORMAL); SMUDGE CELLS FEW
[2016-09-23 11:19] LABS: ANISOCYTOSIS 2+; HYPOCHROMIA 1+; POIKILOCYTOSIS 2+; POLYCHROMASIA 2+
--- NOTE | 2016-09-23 11:58 | PN ---
Progress Note (short form) - Note Progress Note: Patient seen in follow up. No events overnight. Reports abdominal this morning - possibly 'gas' - now resolved. Meds reviewed. Current Medications Generic Name Dose Route Start Last Admin Trade Name Freq PRN Reason Stop Dose Admin Acetaminophen 650 mg 08/26/16 17:19 08/30/16 20:30 Tylenol - PO 650 mg Q6H PRN Administration PAIN Albuterol/Ipratropium 1 amp 09/19/16 14:00 09/23/16 06:40 Duoneb - NEB 1 amp TIDR [facility] Administration Allopurinol 300 mg 08/27/16 10:00 09/23/16 09:47 Zyloprim - PO 300 mg DAILY [facility] Administration Dorzolamide HCl 1 drop 09/20/16 22:00 09/23/16 09:48 Trusopt 2% OU 1 drop BID [facility] Administration Furosemide 80 mg 09/21/16 22:00 09/23/16 05:10 Lasix Injection - IVPUSH 80 mg TID@0600,1400,1800 [facility] Administration Guaifenesin/Codeine Phosphate 5 ml 09/18/16 22:25 09/22/16 21:48 Robitussin Ac - PO 5 ml Q8H PRN Administration COUGH IV Flush 8 ml 09/22/16 09:57 Picc Line Flush IVPUSH PRN PRN Protocol Imatinib Mesylate 200 mg 09/16/16 12:30 09/23/16 10:32 Gleevec (Restricted To Oncology) - PO 200 mg DAILY [facility] Administration Insulin Aspart 1 vial 09/02/16 16:30 09/23/16 06:26 Novolog Vial Sliding Scale - SQ Not Given BIDAC [facility] Protocol Magnesium Oxide 400 mg 08/26/16 22:00 09/23/16 09:47 Mag-Ox - PO 400 mg BID [facility] Administration Metoclopramide HCl 10 mg 08/27/16 07:00 09/23/16 06:23 Reglan - PO 10 mg TIDAC [facility] Administration Multivitamins/Minerals/Vitamin C 1 tab 08/27/16 10:00 09/23/16 09:47 Tab-A-Vit - PO 1 tab DAILY [facility] Administration Ondansetron HCl 8 mg 09/12/16 06:29 09/23/16 09:47 Zofran Injection IVPB 8 mg Q12H PRN Administration NAUSEA Pantoprazole Sodium 40 mg 08/31/16 10:00 09/23/16 09:47 Protonix - PO 40 mg BID [facility] Administration Polyethylene Glycol 17 gm 09/05/16 22:00 09/22/16 21:49 Miralax (For Daily Use) - PO 17 gm BID [facility] Administration Potassium Chloride 20 meq 09/21/16 22:00 09/23/16 05:10 K-Dur - PO 20 meq TID [facility] Administration Timolol Maleate 1 drop 09/20/16 22:00 09/23/16 09:48 Timoptic 0.5% OU 1 drop BID [facility] Administration Triamcinolone Acetonide 1 applic 09/14/16 10:00 09/23/16 09:52 Aristocort 0.1% Cream - TP 1 applic BID [facility] Administration On examination: Last Vital Signs Temp Pulse Resp BP Pulse Ox 97.8 F 89 20 95/52 96 09/23/16 06:00 09/23/16 06:00 09/23/16 06:00 09/23/16 06:00 09/23/16 05:51 General: In no acute distress. Oropharyngeal: No signs mucosal hemorrhage, no mucosal lesions. Extremities: Pallor, no icterus, bilateral pedal edema. Chest:good air entry bilaterally, clear. Abdomen: Distended, but resonant throughout, soft, no organomegaly, no masses. Neuro: Alert and oriented, non-focal. CVS: Normal sinus rhythm, S1, S2, no gallop or murmur. Skin: Scattered ecchymoses Labs reviewed: CBC, BMP 09/23/16 06:00 09/23/16 06:00 Assessment: Sytemic mastocytosis/MDS, with severe pancytopenia, transfusion dependant. On ongoing TKI therapy, dose reduced - imitinib 200mgs daily Ongoing supportive care for now. Transfuse MDP for platelet count <10K. Abdominal pain this morning noted - observe for now. Diuresed for possible fluid overload - BUN elevated but stable - monitor. Prognosis poor - supportive care only over weekend.
--- NOTE | 2016-09-23 12:15 | PN ---
Progress Note (short form) - Note Progress Note: Resting in NAD on NC O2. No acute events overnight. Intake & Output 09/20/16 09/21/16 09/22/16 09/23/16 23:59 23:59 23:59 23:59 Intake Total 1999 500 1360 270 Output Total 2200 700 Balance -200 -200 1360 270 Weight 149 lb 9.6 oz 150 lb 4 oz 150 lb 1.6 oz 153 lb 1.6 oz Last Vital Signs Temp Pulse Resp BP Pulse Ox 97.8 F 89 20 95/52 96 09/23/16 06:00 09/23/16 06:00 09/23/16 06:00 09/23/16 06:00 09/23/16 05:51 Active Medications Acetaminophen (Tylenol -) 650 mg PO Q6H PRN PRN Reason: PAIN Last Admin: 08/30/16 20:30 Dose: 650 mg Albuterol/Ipratropium (Duoneb -) 1 amp NEB TIDR [facility] Last Admin: 09/23/16 06:40 Dose: 1 amp Allopurinol (Zyloprim -) 300 mg PO DAILY [facility] Last Admin: 09/23/16 09:47 Dose: 300 mg Dorzolamide HCl (Trusopt 2%) 1 drop OU BID [facility] Last Admin: 09/23/16 09:48 Dose: 1 drop Furosemide (Lasix Injection -) 80 mg IVPUSH TID@0600,1400,1800 [facility] Last Admin: 09/23/16 05:10 Dose: 80 mg Guaifenesin/Codeine Phosphate (Robitussin Ac -) 5 ml PO Q8H PRN PRN Reason: COUGH Last Admin: 09/22/16 21:48 Dose: 5 ml IV Flush (Picc Line Flush) 8 ml IVPUSH PRN PRN PRN Reason: Protocol Imatinib Mesylate (Gleevec (Restricted To Oncology) -) 200 mg PO DAILY [facility] Last Admin: 09/23/16 10:32 Dose: 200 mg Insulin Aspart (Novolog Vial Sliding Scale -) 1 vial SQ BIDAC [facility] PRN Reason: Protocol Last Admin: 09/23/16 06:26 Dose: Not Given Magnesium Oxide (Mag-Ox -) 400 mg PO BID [facility] Last Admin: 09/23/16 09:47 Dose: 400 mg Metoclopramide HCl (Reglan -) 10 mg PO TIDAC [facility] Last Admin: 09/23/16 06:23 Dose: 10 mg Multivitamins/Minerals/Vitamin C (Tab-A-Vit -) 1 tab PO DAILY [facility] Last Admin: 09/23/16 09:47 Dose: 1 tab Ondansetron HCl (Zofran Injection) 8 mg IVPB Q12H PRN PRN Reason: NAUSEA Last Admin: 09/23/16 09:47 Dose: 8 mg Pantoprazole Sodium (Protonix -) 40 mg PO BID [facility] Last Admin: 09/23/16 09:47 Dose: 40 mg Polyethylene Glycol (Miralax (For Daily Use) -) 17 gm PO BID [facility] Last Admin: 09/22/16 21:49 Dose: 17 gm Potassium Chloride (K-Dur -) 20 meq PO TID [facility] Last Admin: 09/23/16 05:10 Dose: 20 meq Timolol Maleate (Timoptic 0.5%) 1 drop OU BID [facility] Last Admin: 09/23/16 09:48 Dose: 1 drop Triamcinolone Acetonide (Aristocort 0.1% Cream -) 1 applic TP BID [facility] Last Admin: 09/23/16 09:52 Dose: 1 applic Gen: NAD Heart: RRR Lung: decreased breath sounds at the bases Abd: soft, nontender Ext: + edema Laboratory Results - last 24 hr 09/19/16 09/22/16 09/22/16 14:15 18:06 20:45 WBC RBC Hgb Hct MCV MCHC RDW Plt Count MPV Neutrophils % Lymphocytes % Monocytes % Eosinophils % Band Neutrophils Nucleated RBCs Reactive Lymphocytes Smudge Cells Platelet Estimate Platelet Comment Polychromasia Hypochromic-Microcytic Poikilocytosis Anisocytosis Macrocytosis Sodium Potassium Chloride Carbon Dioxide Anion Gap BUN Creatinine POC Glucometer 198 Random Glucose Calcium Blood Type O POSITIVE O POSITIVE Antibody Screen Negative Negative Crossmatch See Detail See Detail 09/23/16 09/23/16 09/23/16 06:00 06:00 06:24 WBC 1.5 L* RBC 2.47 L D Hgb 8.0 L D Hct 24.0 L D MCV 97.2 H MCHC 33.5 RDW 16.8 H D Plt Count 26 L* D MPV 9.2 D Neutrophils % 19.0 L D Lymphocytes % 70.0 H Monocytes % 1.0 L Eosinophils % 1.0 Band Neutrophils 1.0 Nucleated RBCs 6 H Reactive Lymphocytes 8 D Smudge Cells Few Platelet Estimate Markedly decreased Platelet Comment No clotting detected Polychromasia 2+ Hypochromic-Microcytic 1+ Poikilocytosis 2+ Anisocytosis 2+ Macrocytosis 1+ Sodium 138 Potassium 3.6 Chloride 98 Carbon Dioxide 32 Anion Gap 8 BUN 46 H Creatinine 0.8 POC Glucometer 138 Random Glucose 149 H Calcium 8.9 Blood Type Antibody Screen Crossmatch A/P Systemic Mastocytosis Pancytopenia s/p Multiple transfusions Volume Overload Pulmonary HTN HTN - O2 to keep SPo2 >90% - monitor CBC - transfuse as needed - inhaled bronchodilators - Lasix as needed Dr Loja
[2016-09-23] MEDS: POLYETHYLENE GLYCOL 3350 119 GM BTL PO SCH ×2 (13:11→22:29)
--- NOTE | 2016-09-23 14:37 | PN ---
Progress Note, Physician Chief Complaint: Stomach hurting her but still maintaining over 50% of diet. History of Present Illness: Patient with Pancytopenia and Acute Mastocytosis has stable CBC this AM . Had successful PICC line placement yesterday. Some bloating of stomach and small BM's. No vomiting. Still off and on cough and SOB. Will do F/U Abd and CXR. - Current Medication List Current Medications: Active Medications Acetaminophen (Tylenol -) 650 mg PO Q6H PRN PRN Reason: PAIN Last Admin: 08/30/16 20:30 Dose: 650 mg Albuterol/Ipratropium (Duoneb -) 1 amp NEB TIDR [facility] Last Admin: 09/23/16 13:43 Dose: 1 amp Allopurinol (Zyloprim -) 300 mg PO DAILY [facility] Last Admin: 09/23/16 09:47 Dose: 300 mg Dorzolamide HCl (Trusopt 2%) 1 drop OU BID [facility] Last Admin: 09/23/16 09:48 Dose: 1 drop Furosemide (Lasix Injection -) 80 mg IVPUSH TID@0600,1400,1800 [facility] Last Admin: 09/23/16 13:11 Dose: 80 mg Guaifenesin/Codeine Phosphate (Robitussin Ac -) 5 ml PO Q8H PRN PRN Reason: COUGH Last Admin: 09/22/16 21:48 Dose: 5 ml IV Flush (Picc Line Flush) 8 ml IVPUSH PRN PRN PRN Reason: Protocol Imatinib Mesylate (Gleevec (Restricted To Oncology) -) 200 mg PO DAILY [facility] Last Admin: 09/23/16 10:32 Dose: 200 mg Insulin Aspart (Novolog Vial Sliding Scale -) 1 vial SQ BIDAC [facility] PRN Reason: Protocol Last Admin: 09/23/16 06:26 Dose: Not Given Magnesium Oxide (Mag-Ox -) 400 mg PO BID [facility] Last Admin: 09/23/16 09:47 Dose: 400 mg Metoclopramide HCl (Reglan -) 10 mg PO TIDAC [facility] Last Admin: 09/23/16 06:23 Dose: 10 mg Multivitamins/Minerals/Vitamin C (Tab-A-Vit -) 1 tab PO DAILY [facility] Last Admin: 09/23/16 09:47 Dose: 1 tab Ondansetron HCl (Zofran Injection) 8 mg IVPB Q12H PRN PRN Reason: NAUSEA Last Admin: 09/23/16 09:47 Dose: 8 mg Pantoprazole Sodium (Protonix -) 40 mg PO BID [facility] Last Admin: 09/23/16 09:47 Dose: 40 mg Polyethylene Glycol (Miralax (For Daily Use) -) 17 gm PO BID [facility] Last Admin: 09/23/16 13:11 Dose: 17 gm Potassium Chloride (K-Dur -) 20 meq PO TID [facility] Last Admin: 09/23/16 13:11 Dose: 20 meq Timolol Maleate (Timoptic 0.5%) 1 drop OU BID [facility] Last Admin: 09/23/16 09:48 Dose: 1 drop Triamcinolone Acetonide (Aristocort 0.1% Cream -) 1 applic TP BID [facility] Last Admin: 09/23/16 09:52 Dose: 1 applic - Objective Vital Signs: Vital Signs Temperature 97.8 F 09/23/16 06:00 Pulse Rate 89 09/23/16 06:00 Respiratory Rate 20 09/23/16 06:00 Blood Pressure 95/52 09/23/16 06:00 O2 Sat by Pulse Oximetry (%) 96 09/23/16 05:51 Constitutional: Yes: Calm. No: Pallor Eyes: Yes: Other (resolving subconjunctival hemorrhage right eye.) Neck: Yes: Supple Cardiovascular: Yes: Tachycardia Respiratory: Yes: Diminished, Rhonchi (right and left side.) Gastrointestinal: Yes: Distention, Hyperactive Bowel Sounds, Tenderness, Epigastrium (mild) Genitourinary: No: Campbell Present Edema: LLE: 3+, RLE: 3+ Neurological: Yes: Alert, Oriented Labs: CBC, BMP 09/23/16 06:00 09/23/16 06:00 INR, PTT INR 1.39 (0.82-1.09) H 08/26/16 09:50 Problem List - Problems (1) Thrombocytopenia Assessment/Plan: 26,000 today. Will follow. Code(s): D69.6 - THROMBOCYTOPENIA, UNSPECIFIED (2) Leg weakness, bilateral Assessment/Plan: related to pedal edema Code(s): R29.898 - OTH SYMPTOMS AND SIGNS INVOLVING THE MUSCULOSKELETAL SYSTEM (3) Anemia Assessment/Plan: Hb 8GM today. Code(s): D64.9 - ANEMIA, UNSPECIFIED Qualifiers: Anemia type: unspecified type Qualified Code(s): D64.9 - Anemia, unspecified (4) Mastocytosis Assessment/Plan: On Gleevac 200 mg a day. Code(s): Q82.2 - MASTOCYTOSIS (5) Cough Assessment/Plan: due to pleural effusions. Code(s): R05 - COUGH (6) Diabetes mellitus, new onset Assessment/Plan: Stable BGM's Code(s): E11.9 - TYPE 2 DIABETES MELLITUS WITHOUT COMPLICATIONS (7) HTN (hypertension) Code(s): I10 - ESSENTIAL (PRIMARY) HYPERTENSION (8) History of ovarian cancer Code(s): Z85.43 - PERSONAL HISTORY OF MALIGNANT NEOPLASM OF OVARY (9) CHF (congestive heart failure) Assessment/Plan: On Lasix IV TID Code(s): I50.9 - HEART FAILURE, UNSPECIFIED Qualifiers: Congestive heart failure type: diastolic Congestive heart failure chronicity: acute Qualified Code(s): I50.31 - Acute diastolic (congestive ) heart failure
[2016-09-23] MEDS ORDERED: SIMETHICONE 80 MG TAB.CHEW (FP) PO PRN (14:41)
[2016-09-23] MEDS: guaiFENesin/CODEINE 5 ML UNIT-DOSE CUPS PO PRN (18:42)
[2016-09-24] MEDS: POTASSIUM CHLORIDE TABS 20 MEQ TABLET.ER (FP) PO SCH ×3 (06:13→22:10)
[2016-09-24] MEDS: FUROSEMIDE 40 MG/4 ML INJECTABLE VIAL IVPUSH SCH ×3 (06:14→18:15)
[2016-09-24] MEDS: INSULIN SLIDING SCALE (NOVOLOG) 1 VIAL SQ SCH ×2 (06:14→18:16)
[2016-09-24] MEDS: METOCLOPRAMIDE HCL 10 MG TABLET (FP) PO SCH ×3 (06:14→17:44)
[2016-09-24] MEDS: ALBUTEROL SO4 2.5/IPRATROPIUM 0.5 INH SOL 3 ML VIAL.NEB. NEB SCH ×2 (06:30→14:42)
[2016-09-24 07:44] LABS: MCH 32.8 pg (25.7-33.7); MCHC 33.3 g/dl (32.0-36.0); MEAN CELL VOLUME 98.5 fl (80-96); MEAN PLT VOLUME 9.3 fl (7.5-11.1); RDW 16.8 % (11.6-15.6)
[2016-09-24 07:47] LABS: PLATELET COUNT 24 K/MM3 (134-434); WHITE BLOOD COUNT 1.5 K/mm3 (4.0-10.0)
[2016-09-24 08:13] LABS: CALCIUM 8.7 mg/dL (8.5-10.1); COCKROFT - GAULT 60.894; CREATININE 0.8 mg/dL (0.55-1.02); MAGNESIUM 2.2 mg/dL (1.8-2.4)
[2016-09-24] MEDS ORDERED: PT OWN MED DRAWER 7, Y5N ONE ×2 (08:59→21:14)
[2016-09-24] MEDS: MAGNESIUM OXIDE 400 MG TABLET (FP) PO SCH ×2 (09:05→22:10)
[2016-09-24] MEDS: ONDANSETRON 4 MG/2 ML VIAL IVPB PRN (09:05)
[2016-09-24] MEDS: MULTIVITAMINS (DAILY MVI) TABLET (FP) PO SCH (09:05)
[2016-09-24] MEDS: ALLOPURINOL 300 MG TABLET (FP) PO SCH (09:05)
[2016-09-24] MEDS: PANTOPRAZOLE 40 MG TABLET (FP) PO SCH ×2 (09:06→22:11)
[2016-09-24] MEDS: TRIAMCINOLONE ACET 0.1% CREAM 15 GM TUBE TP SCH ×2 (09:06→22:10)
[2016-09-24] MEDS: POLYETHYLENE GLYCOL 3350 119 GM BTL PO SCH ×2 (09:06→22:10)
[2016-09-24] MEDS: TIMOLOL 0.5% OPHTHALMIC SOL 5 ML BOTTLE OU SCH ×2 (09:07→22:11)
[2016-09-24] MEDS: DORZOLAMIDE 2% HCL OPHTHALMIC SOLUTION 10 ML BOTTLE OU SCH ×2 (09:07→22:11)
[2016-09-24 09:18] LABS: PLATELET ESTIMATE DECREASED (NORMAL)
[2016-09-24 09:19] LABS: HYPOCHROMIA 1+; POLYCHROMASIA FEW
[2016-09-24] MEDS: IMATINIB MESYLATE 100 MG TABLET PO SCH (10:35)
--- NOTE | 2016-09-24 12:33 | PN ---
Progress Note (short form) - Note Progress Note: NAD on NC O2. Some intermittent dry cough. No acute events overnight. Intake & Output 09/21/16 09/22/16 09/23/16 09/24/16 23:59 23:59 23:59 23:59 Intake Total 500 1360 490 200 Output Total 700 Balance -200 1360 490 200 Weight 150 lb 4 oz 150 lb 1.6 oz 153 lb 1.6 oz 154 lb 3.2 oz Last Vital Signs Temp Pulse Resp BP Pulse Ox 98.2 F 94 H 20 127/55 95 09/24/16 10:00 09/24/16 10:00 09/24/16 10:00 09/24/16 10:00 09/24/16 09:00 Active Medications Acetaminophen (Tylenol -) 650 mg PO Q6H PRN PRN Reason: PAIN Last Admin: 08/30/16 20:30 Dose: 650 mg Albuterol/Ipratropium (Duoneb -) 1 amp NEB TIDR [facility] Last Admin: 09/24/16 06:30 Dose: 1 amp Allopurinol (Zyloprim -) 300 mg PO DAILY [facility] Last Admin: 09/24/16 09:05 Dose: 300 mg Dorzolamide HCl (Trusopt 2%) 1 drop OU BID [facility] Last Admin: 09/24/16 09:07 Dose: 1 drop Furosemide (Lasix Injection -) 80 mg IVPUSH TID@0600,1400,1800 [facility] Last Admin: 09/24/16 06:14 Dose: 80 mg IV Flush (Picc Line Flush) 8 ml IVPUSH PRN PRN PRN Reason: Protocol Imatinib Mesylate (Gleevec (Restricted To Oncology) -) 200 mg PO DAILY [facility] Last Admin: 09/24/16 10:35 Dose: 200 mg Insulin Aspart (Novolog Vial Sliding Scale -) 1 vial SQ BIDAC [facility] PRN Reason: Protocol Last Admin: 09/24/16 06:14 Dose: Not Given Magnesium Oxide (Mag-Ox -) 400 mg PO BID [facility] Last Admin: 09/24/16 09:05 Dose: 400 mg Metoclopramide HCl (Reglan -) 10 mg PO TIDAC [facility] Last Admin: 09/24/16 11:53 Dose: 10 mg Multivitamins/Minerals/Vitamin C (Tab-A-Vit -) 1 tab PO DAILY [facility] Last Admin: 09/24/16 09:05 Dose: 1 tab Ondansetron HCl (Zofran Injection) 8 mg IVPB Q12H PRN PRN Reason: NAUSEA Last Admin: 09/24/16 09:05 Dose: 8 mg Pantoprazole Sodium (Protonix -) 40 mg PO BID [facility] Last Admin: 09/24/16 09:06 Dose: 40 mg Polyethylene Glycol (Miralax (For Daily Use) -) 17 gm PO BID [facility] Last Admin: 09/24/16 09:06 Dose: 17 gm Potassium Chloride (K-Dur -) 20 meq PO TID [facility] Last Admin: 09/24/16 06:13 Dose: 20 meq Simethicone (Mylicon -) 80 mg PO QID PRN PRN Reason: DYSPEPSIA Timolol Maleate (Timoptic 0.5%) 1 drop OU BID [facility] Last Admin: 09/24/16 09:07 Dose: 1 drop Triamcinolone Acetonide (Aristocort 0.1% Cream -) 1 applic TP BID [facility] Last Admin: 09/24/16 09:06 Dose: 1 applic Gen: NAD Heart: RRR Lung: decreased breath sounds at the bases Abd: soft, nontender Ext: + edema Laboratory Results - last 24 hr 09/23/16 09/24/16 09/24/16 17:28 05:58 06:00 WBC 1.5 L* RBC 2.37 L Hgb 7.8 L Hct 23.4 L MCV 98.5 H MCHC 33.3 RDW 16.8 H Plt Count 24 L* MPV 9.3 Neutrophils % 12.0 L D Lymphocytes % 80.0 H Monocytes % 4.0 D Eosinophils % 4.0 D Platelet Estimate Decreased Platelet Comment No clumping noted Polychromasia Few Hypochromic-Microcytic 1+ Sodium Potassium Chloride Carbon Dioxide Anion Gap BUN Creatinine POC Glucometer 226 140 Random Glucose Calcium Magnesium 09/24/16 06:00 WBC RBC Hgb Hct MCV MCHC RDW Plt Count MPV Neutrophils % Lymphocytes % Monocytes % Eosinophils % Platelet Estimate Platelet Comment Polychromasia Hypochromic-Microcytic Sodium 139 Potassium 3.7 Chloride 97 L Carbon Dioxide 30 Anion Gap 12 BUN 42 H Creatinine 0.8 POC Glucometer Random Glucose 143 H Calcium 8.7 Magnesium 2.2 A/P Systemic Mastocytosis Pancytopenia s/p Multiple transfusions Volume Overload Pulmonary HTN HTN - O2 to keep SPo2 >90% - monitor CBC - transfuse as needed - inhaled bronchodilators - Lasix as needed Dr Loja
[2016-09-24] MEDS ORDERED: METOLAZONE 5 MG TABLET PO ONE ×2 (13:25→17:45)
--- NOTE | 2016-09-24 13:38 | PN ---
Progress Note, Physician Chief Complaint: Coughing and some SOB History of Present Illness: Patient is still SOB and coughing; more congestion on CXR. On Lasix 80mg TID IV ? Maybe order CAT Scan of chest but with platelet problems she may not be a candidate for thoracentesis - Current Medication List Current Medications: Active Medications Acetaminophen (Tylenol -) 650 mg PO Q6H PRN PRN Reason: PAIN Last Admin: 08/30/16 20:30 Dose: 650 mg Albuterol/Ipratropium (Duoneb -) 1 amp NEB TIDR [facility]PL[facility] Last Admin: 09/24/16 06:30 Dose: 1 amp Allopurinol (Zyloprim -) 300 mg PO DAILY [facility] Last Admin: 09/24/16 09:05 Dose: 300 mg Dorzolamide HCl (Trusopt 2%) 1 drop OU BID [facility] Last Admin: 09/24/16 09:07 Dose: 1 drop Furosemide (Lasix Injection -) 80 mg IVPUSH TID@0600,1400,1800 [facility] Last Admin: 09/24/16 06:14 Dose: 80 mg Guaifenesin/Codeine Phosphate (Robitussin Ac -) 5 ml PO QID PRN PRN Reason: COUGH IV Flush (Picc Line Flush) 8 ml IVPUSH PRN PRN PRN Reason: Protocol Imatinib Mesylate (Gleevec (Restricted To Oncology) -) 200 mg PO DAILY [facility] Last Admin: 09/24/16 10:35 Dose: 200 mg Insulin Aspart (Novolog Vial Sliding Scale -) 1 vial SQ BIDAC [facility]PL[facility] PRN Reason: Protocol Last Admin: 09/24/16 06:14 Dose: Not Given Magnesium Oxide (Mag-Ox -) 400 mg PO BID [facility] Last Admin: 09/24/16 09:05 Dose: 400 mg Metoclopramide HCl (Reglan -) 10 mg PO TIDAC [facility] Last Admin: 09/24/16 11:53 Dose: 10 mg Metolazone (Zaroxolyn -) 5 mg PO ONCE ONE Stop: 09/24/16 13:26 Multivitamins/Minerals/Vitamin C (Tab-A-Vit -) 1 tab PO DAILY [facility] Last Admin: 09/24/16 09:05 Dose: 1 tab Ondansetron HCl (Zofran Injection) 8 mg IVPB Q12H PRN PRN Reason: NAUSEA Last Admin: 09/24/16 09:05 Dose: 8 mg Pantoprazole Sodium (Protonix -) 40 mg PO BID [facility] Last Admin: 09/24/16 09:06 Dose: 40 mg Polyethylene Glycol (Miralax (For Daily Use) -) 17 gm PO BID [facility] Last Admin: 09/24/16 09:06 Dose: 17 gm Potassium Chloride (K-Dur -) 20 meq PO TID [facility] Last Admin: 09/24/16 06:13 Dose: 20 meq Simethicone (Mylicon -) 80 mg PO QID PRN PRN Reason: DYSPEPSIA Timolol Maleate (Timoptic 0.5%) 1 drop OU BID [facility] Last Admin: 09/24/16 09:07 Dose: 1 drop Triamcinolone Acetonide (Aristocort 0.1% Cream -) 1 applic TP BID [facility] Last Admin: 09/24/16 09:06 Dose: 1 applic - Objective Vital Signs: Vital Signs Temperature 98.2 F 09/24/16 10:00 Pulse Rate 94 H 09/24/16 10:00 Respiratory Rate 20 09/24/16 10:00 Blood Pressure 127/55 09/24/16 10:00 O2 Sat by Pulse Oximetry (%) 95 09/24/16 09:00 Constitutional: Yes: Mild Distress Eyes: Yes: Tearing, Other (subconjunctival horrhage right eye improved) Cardiovascular: Yes: Tachycardia Respiratory: Yes: Diminished, Rhonchi (both bases) Gastrointestinal: Yes: Distention, Hyperactive Bowel Sounds, Tenderness (slight periumbilical tenderness.) Genitourinary: No: Campbell Present Edema: LLE: 3+, RLE: 3+ (+ eczema and petechial rash) Neurological: Yes: Alert, Oriented (Wants to continue supportive care.) Labs: CBC, BMP 09/24/16 06:00 09/24/16 06:00 INR, PTT INR 1.39 (0.82-1.09) H 08/26/16 09:50 Problem List - Problems (1) Thrombocytopenia Assessment/Plan: 24,000 and stable Code(s): D69.6 - THROMBOCYTOPENIA, UNSPECIFIED (2) Leg weakness, bilateral Assessment/Plan: Worsened by pedal edema On Lasix 80mg IV TID Will add 1 dose of Zaroxyln. 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 Code(s): R05 - COUGH (6) Diabetes mellitus, new onset Assessment/Plan: BGM stable Code(s): E11.9 - TYPE 2 DIABETES MELLITUS WITHOUT COMPLICATIONS (7) HTN (hypertension) Code(s): I10 - ESSENTIAL (PRIMARY) HYPERTENSION (8) History of ovarian cancer Code(s): Z85.43 - PERSONAL HISTORY OF MALIGNANT NEOPLASM OF OVARY (9) CHF (congestive heart failure) Code(s): I50.9 - HEART FAILURE, UNSPECIFIED Qualifiers: Congestive heart failure type: diastolic Congestive heart failure chronicity: acute Qualified Code(s): I50.31 - Acute diastolic (congestive ) heart failure
[2016-09-24] MEDS: guaiFENesin/CODEINE 5 ML UNIT-DOSE CUPS PO PRN (14:22)
--- NOTE | 2016-09-24 15:37 | PN ---
Progress Note (short form) - Note Progress Note: Chief Complaint: Dyspnea History of Present Illness: S: no cp, palps, dizziness. + weight gain today. states sob continues to worsen. Current Medications Acetaminophen (Tylenol -) 650 mg PO Q6H PRN PRN Reason: PAIN Last Admin: 08/30/16 20:30 Dose: 650 mg Allopurinol (Zyloprim -) 300 mg PO DAILY [facility] Last Admin: 09/24/16 09:05 Dose: 300 mg Dorzolamide HCl (Trusopt 2%) 1 drop OU BID [facility] Last Admin: 09/24/16 09:07 Dose: 1 drop Furosemide (Lasix Injection -) 80 mg IVPUSH TID@0600,1400,1800 [facility] Last Admin: 09/24/16 14:22 Dose: 80 mg Guaifenesin/Codeine Phosphate (Robitussin Ac -) 5 ml PO QID PRN PRN Reason: COUGH Last Admin: 09/24/16 14:22 Dose: 5 ml IV Flush (Picc Line Flush) 8 ml IVPUSH PRN PRN PRN Reason: Protocol Imatinib Mesylate (Gleevec (Restricted To Oncology) -) 200 mg PO DAILY [facility] Last Admin: 09/24/16 10:35 Dose: 200 mg Insulin Aspart (Novolog Vial Sliding Scale -) 1 vial SQ BIDAC [facility] PRN Reason: Protocol Last Admin: 09/24/16 06:14 Dose: Not Given Magnesium Oxide (Mag-Ox -) 400 mg PO BID [facility] Last Admin: 09/24/16 09:05 Dose: 400 mg Metoclopramide HCl (Reglan -) 10 mg PO TIDAC [facility] Last Admin: 09/24/16 11:53 Dose: 10 mg Multivitamins/Minerals/Vitamin C (Tab-A-Vit -) 1 tab PO DAILY [facility] Last Admin: 09/24/16 09:05 Dose: 1 tab Ondansetron HCl (Zofran Injection) 8 mg IVPB Q12H PRN PRN Reason: NAUSEA Last Admin: 09/24/16 09:05 Dose: 8 mg Pantoprazole Sodium (Protonix -) 40 mg PO BID [facility] Last Admin: 09/24/16 09:06 Dose: 40 mg Polyethylene Glycol (Miralax (For Daily Use) -) 17 gm PO BID [facility] Last Admin: 09/24/16 09:06 Dose: 17 gm Potassium Chloride (K-Dur -) 20 meq PO TID [facility] Last Admin: 09/24/16 14:22 Dose: 20 meq Simethicone (Mylicon -) 80 mg PO QID PRN PRN Reason: DYSPEPSIA Timolol Maleate (Timoptic 0.5%) 1 drop OU BID [facility] Last Admin: 09/24/16 09:07 Dose: 1 drop Triamcinolone Acetonide (Aristocort 0.1% Cream -) 1 applic TP BID [facility] Last Admin: 09/24/16 09:06 Dose: 1 applic Vital Signs - 24 hr 09/23/16 09/23/16 09/23/16 18:00 19:00 21:00 Temperature 99.7 F H Pulse Rate 94 H 103 H Respiratory 16 Rate Blood Pressure 110/46 O2 Sat by Pulse 90 L 90 L Oximetry (%) 09/23/16 09/24/16 09/24/16 23:00 03:00 06:36 Temperature Pulse Rate 100 H 104 H 100 H Respiratory Rate Blood Pressure O2 Sat by Pulse 92 L 90 L 94 L Oximetry (%) 09/24/16 09/24/16 09/24/16 06:50 09:00 10:00 Temperature 98 F 98.2 F Pulse Rate 91 H 94 H Respiratory 20 20 20 Rate Blood Pressure 103/43 127/55 O2 Sat by Pulse 95 Oximetry (%) 09/24/16 14:59 Temperature 97.8 F Pulse Rate 96 H Respiratory 20 Rate Blood Pressure 99/51 O2 Sat by Pulse Oximetry (%) Intake & Output 09/22/16 09/23/16 09/24/16 09/25/16 07:59 07:59 07:59 07:59 Intake Total 670 1460 420 Output Total 700 Balance -30 1460 420 Weight 150 lb 1.6 oz 153 lb 1.6 oz 154 lb 3.2 oz Constitutional: Yes: No Distress, conversational dyspnea. Eyes: Yes: Other (Right eye conjuctival redness) HENT: Yes: WNL Neck: jvd elvated Cardiovascular: Yes: Regular Rate and Rhythm, nl s1, s2 hyperdynamic precordium Respiratory: bibasilar dullness, diffuse rhonchi Edema: Yes Edema: LLE: 1+, RLE: dependent. somewhat improved at shins Labs: CBC, BMP 09/24/16 06:00 09/24/16 06:00 Laboratory Tests 09/24/16 06:00 Magnesium 2.2 Imaging - Results Ultrasound: Report Reviewed (09/01/2016 No LE DVT) EKG: Image Reviewed (08/26/2016 NSR at 90/min 09/17/2016 Sinus tachycardia at 101/ min) Other: Report Reviewed (Echo: 05/23/2013 normal LV and RV size and function, mild RVSP elevation (30-40mmHg)) cxr with pulmonary edema/effusions. 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 1) tachycardia -Likely demand related to significant anemia, sob and chronically ill state -Ongoing mgm't per pmd. 2) Dyspnea - likely multifactorial with anemia contributing in addition to pulmonary edema/ congestion. Unclear if from capillary leakage due to inflammatory state vs. diastolic heart failure exacerbation. last echo with preserved LV fx in 2013. Repeat echo similar -PE possible but unlikely given negative LE duplex. D-dimer would not be helpful in this scenario with her chronic illness -09/19 BMP stable on BID IV lasix Patient with ongoing transfusions. No significant improvement in sx's and weight trending up. CXR with worsened congestion. Will increase to 80 mg IV bid. (pt also to receive extra lasix after 2nd prbc transfusion this evening) Need to record uop response to lasix and strict i/o's, reordered. - 09/21: Weight gain this morning on current regimen. Will uptitrate to lasix 80 mg IV TID. Cr remains stable. - 09/24: ongoing weight gain and transfusion reguirement. given metolazone today. Will also uptitrate regimen to 100 TID. - daily weights, bmp, strict I/O 3) LE edema - likely mutlifactorial from possible diastolic HF exacerbation/capillary leakage/hypoalb state/malnutrition (Alb 2.3). - diuresis as above. ZIYAD wraps. 4) HTN - Running low off anti-hypertensives. con't to monitor especially with increased diuresis.
[2016-09-24] MEDS ORDERED: FUROSEMIDE 40 MG/4 ML INJECTABLE VIAL IVPB ONE ×2 (18:53→22:15)
[2016-09-24] MEDS ORDERED: POTASSIUM CHLORIDE TABS 20 MEQ TABLET.ER (FP) PO ONE ×2 (18:55→22:15)
--- NOTE | 2016-09-24 19:18 | PN ---
Progress Note (short form) - Note Progress Note: Patient seen in follow up. No events overnight. Reports some breathlessness today. Meds reviewed. Current Medications Generic Name Dose Route Start Last Admin Trade Name Freq PRN Reason Stop Dose Admin Acetaminophen 650 mg 08/26/16 17:19 08/30/16 20:30 Tylenol - PO 650 mg Q6H PRN Administration PAIN Allopurinol 300 mg 08/27/16 10:00 09/24/16 09:05 Zyloprim - PO 300 mg DAILY [facility] Administration Dorzolamide HCl 1 drop 09/20/16 22:00 09/24/16 09:07 Trusopt 2% OU 1 drop BID [facility] Administration Furosemide 100 mg 09/25/16 06:00 Lasix Injection - IVPUSH TID@0600,1400,1800 [facility] Guaifenesin/Codeine Phosphate 5 ml 09/24/16 13:25 09/24/16 14:22 Robitussin Ac - PO 5 ml QID PRN Administration COUGH IV Flush 8 ml 09/22/16 09:57 Picc Line Flush IVPUSH PRN PRN Protocol Imatinib Mesylate 200 mg 09/16/16 12:30 09/24/16 10:35 Gleevec (Restricted To Oncology) - PO 200 mg DAILY [facility] Administration Insulin Aspart 1 vial 09/02/16 16:30 09/24/16 18:16 Novolog Vial Sliding Scale - SQ 4 units BIDAC [facility] Administration Protocol Magnesium Oxide 400 mg 08/26/16 22:00 09/24/16 09:05 Mag-Ox - PO 400 mg BID [facility] Administration Metoclopramide HCl 10 mg 08/27/16 07:00 09/24/16 17:44 Reglan - PO 10 mg TIDAC [facility] Administration Multivitamins/Minerals/Vitamin C 1 tab 08/27/16 10:00 09/24/16 09:05 Tab-A-Vit - PO 1 tab DAILY [facility] Administration Ondansetron HCl 8 mg 09/12/16 06:29 09/24/16 09:05 Zofran Injection IVPB 8 mg Q12H PRN Administration NAUSEA Pantoprazole Sodium 40 mg 08/31/16 10:00 09/24/16 09:06 Protonix - PO 40 mg BID [facility] Administration Polyethylene Glycol 17 gm 09/05/16 22:00 09/24/16 09:06 Miralax (For Daily Use) - PO 17 gm BID [facility] Administration Potassium Chloride 20 meq 09/21/16 22:00 09/24/16 14:22 K-Dur - PO 20 meq TID [facility] Administration Simethicone 80 mg 09/23/16 14:41 Mylicon - PO QID PRN DYSPEPSIA Timolol Maleate 1 drop 09/20/16 22:00 09/24/16 09:07 Timoptic 0.5% OU 1 drop BID [facility] Administration Triamcinolone Acetonide 1 applic 09/14/16 10:00 09/24/16 09:06 Aristocort 0.1% Cream - TP 1 applic BID [facility] Administration On examination: Last Vital Signs Temp Pulse Resp BP Pulse Ox 98.6 F 102 H 20 92/44 95 09/24/16 18:00 09/24/16 18:00 09/24/16 18:00 09/24/16 18:00 09/24/16 09:00 General: In no acute distress. Oropharyngeal: No signs mucosal hemorrhage, no mucosal lesions. Extremities: Pallor, no icterus, bilateral pedal edema. Chest:good air entry bilaterally, clear. Abdomen: Distended, but resonant throughout, soft, no organomegaly, no masses. Neuro: Alert and oriented, non-focal. CVS: Normal sinus rhythm, S1, S2, no gallop or murmur. Skin: Scattered ecchymoses Labs reviewed: CBC, BMP 09/24/16 06:00 09/24/16 06:00 Assessment: Sytemic mastocytosis/MDS, with severe pancytopenia, transfusion dependant. On ongoing TKI therapy, dose reduced - imitinib 200mgs daily Ongoing supportive care for now. Transfuse MDP for platelet count <10K. Being diuresed for possible fluid overload - BUN elevated but stable - monitor. Prognosis poor - supportive care only over weekend.
[2016-09-25] MEDS: POTASSIUM CHLORIDE TABS 20 MEQ TABLET.ER (FP) PO SCH ×4 (05:49→22:03)
[2016-09-25] MEDS: FUROSEMIDE 100 MG/10 ML INJECTABLE VIAL IVPUSH SCH ×3 (05:50→18:43)
[2016-09-25] MEDS: INSULIN SLIDING SCALE (NOVOLOG) 1 VIAL SQ SCH ×2 (06:12→18:13)
[2016-09-25] MEDS: METOCLOPRAMIDE HCL 10 MG TABLET (FP) PO SCH ×3 (06:13→18:16)
[2016-09-25 07:41] LABS: MCH 33.5 pg (25.7-33.7); MCHC 33.3 g/dl (32.0-36.0); MEAN CELL VOLUME 100.5 fl (80-96); MEAN PLT VOLUME 9.3 fl (7.5-11.1); RDW 25.2 % (11.6-15.6)
[2016-09-25 08:12] LABS: CALCIUM 8.9 mg/dL (8.5-10.1)
[2016-09-25 08:13] LABS: COCKROFT - GAULT 53.8475; CREATININE 0.9 mg/dL (0.55-1.02)
[2016-09-25 08:51] LABS: PLATELET COUNT 28 K/MM3 (134-434); WHITE BLOOD COUNT 1.4 K/mm3 (4.0-10.0)
--- NOTE | 2016-09-25 10:15 | PN ---
Progress Note (short form) - Note Progress Note: PULMONARY VSS/AFEBRILE RIGHT SUBCONJUNCTIVAL HEMORRHAGE IMPROVED DIMINISHED BREATH SOUNDS LEFT GREATER THAN RIGHT S1S2 RSR BS+ SOFT MILD EDEMA LOWER EXT/WORSENING RASH LABS/MEDS/IMAGING/NOTES REVIEWED A/P Systemic Mastocytosis Pancytopenia s/p Multiple transfusions Volume Overload Pulmonary HTN HTN - continue lasix - monitor urine output, creatinine - repeat CXR in AM - O2 to keep SPo2 >90% - monitor CBC - transfuse as needed - inhaled bronchodilators Radha RICHEY MD
[2016-09-25] MEDS: MAGNESIUM OXIDE 400 MG TABLET (FP) PO SCH ×2 (10:48→22:03)
[2016-09-25] MEDS: ALLOPURINOL 300 MG TABLET (FP) PO SCH (10:48)
[2016-09-25] MEDS: MULTIVITAMINS (DAILY MVI) TABLET (FP) PO SCH (10:48)
[2016-09-25] MEDS: PANTOPRAZOLE 40 MG TABLET (FP) PO SCH ×2 (10:48→22:02)
[2016-09-25] MEDS: TRIAMCINOLONE ACET 0.1% CREAM 15 GM TUBE TP SCH ×2 (10:50→22:03)
[2016-09-25] MEDS: DORZOLAMIDE 2% HCL OPHTHALMIC SOLUTION 10 ML BOTTLE OU SCH ×2 (10:50→22:04)
[2016-09-25] MEDS: POLYETHYLENE GLYCOL 3350 119 GM BTL PO SCH ×2 (10:50→22:03)
[2016-09-25] MEDS: TIMOLOL 0.5% OPHTHALMIC SOL 5 ML BOTTLE OU SCH ×2 (10:50→22:04)
[2016-09-25] MEDS: IMATINIB MESYLATE 100 MG TABLET PO SCH (10:51)
[2016-09-25 12:15] LABS: ANISOCYTOSIS 2+; MICROCYTOSIS 1+
--- NOTE | 2016-09-25 13:39 | PN ---
Progress Note, Physician Chief Complaint: Cough and SOB off and on; feels weak. History of Present Illness: Patient with Acute Mastocytosis and Heme Malignancy on Gleevac and having completed a 7 day course of SQ Vidaza has noted persisting cough and SOB. Now on Lasix 100mgIV TID as per Cardiology. I hesitate to do Lung CT because she may not be a candidate for thoracentesis. ? Loculated fluid. Hb down to 7GM and BP with systolic 86. Plan: 1 unit packed cells as fluid from 2 units may cause more SOB. Her platelets are slightly better at 26,000. WBC 1,400. K Rx will be increased to 20 MEQ QID. Will add low dose steroids again as wheezing is noted again. - Current Medication List Current Medications: Active Medications Acetaminophen (Tylenol -) 650 mg PO Q6H PRN PRN Reason: PAIN Last Admin: 08/30/16 20:30 Dose: 650 mg Allopurinol (Zyloprim -) 300 mg PO DAILY [facility] Last Admin: 09/25/16 10:48 Dose: 300 mg Dorzolamide HCl (Trusopt 2%) 1 drop OU BID [facility] Last Admin: 09/25/16 10:50 Dose: 1 drop Furosemide (Lasix Injection -) 100 mg IVPUSH TID@0600,1400,1800 [facility] Last Admin: 09/25/16 05:50 Dose: 100 mg Guaifenesin/Codeine Phosphate (Robitussin Ac -) 5 ml PO QID PRN PRN Reason: COUGH Last Admin: 09/24/16 14:22 Dose: 5 ml IV Flush (Picc Line Flush) 8 ml IVPUSH PRN PRN PRN Reason: Protocol Imatinib Mesylate (Gleevec (Restricted To Oncology) -) 200 mg PO DAILY [facility] Last Admin: 09/25/16 10:51 Dose: 200 mg Insulin Aspart (Novolog Vial Sliding Scale -) 1 vial SQ BIDAC [facility] PRN Reason: Protocol Last Admin: 09/25/16 06:12 Dose: 2 units Magnesium Oxide (Mag-Ox -) 400 mg PO BID [facility] Last Admin: 09/25/16 10:48 Dose: 400 mg Metoclopramide HCl (Reglan -) 10 mg PO TIDAC [facility] Last Admin: 09/25/16 10:48 Dose: 10 mg Multivitamins/Minerals/Vitamin C (Tab-A-Vit -) 1 tab PO DAILY [facility] Last Admin: 09/25/16 10:48 Dose: 1 tab Ondansetron HCl (Zofran Injection) 8 mg IVPB Q12H PRN PRN Reason: NAUSEA Last Admin: 09/24/16 09:05 Dose: 8 mg Pantoprazole Sodium (Protonix -) 40 mg PO BID [facility] Last Admin: 09/25/16 10:48 Dose: 40 mg Polyethylene Glycol (Miralax (For Daily Use) -) 17 gm PO BID [facility] Last Admin: 09/25/16 10:50 Dose: 17 gm Simethicone (Mylicon -) 80 mg PO QID PRN PRN Reason: DYSPEPSIA Timolol Maleate (Timoptic 0.5%) 1 drop OU BID [facility] Last Admin: 09/25/16 10:50 Dose: 1 drop Triamcinolone Acetonide (Aristocort 0.1% Cream -) 1 applic TP BID [facility] Last Admin: 09/25/16 10:50 Dose: 1 applic - Objective Vital Signs: Vital Signs Temperature 97.7 F 09/25/16 06:00 Pulse Rate 86 09/25/16 06:40 Respiratory Rate 20 09/25/16 06:00 Blood Pressure 86/40 09/25/16 06:00 O2 Sat by Pulse Oximetry (%) 92 L 09/25/16 06:40 Constitutional: Yes: Calm, Mild Distress Eyes: Yes: Conjunctiva Clear Cardiovascular: Yes: Tachycardia Respiratory: Yes: Accessory Muscle Use, Cough, On Nasal O2, Rhonchi, Wheezes Gastrointestinal: Yes: Soft, Distention. No: Tenderness Genitourinary: No: Roque Present (I suggested roque cath today but she was opposed; may need to be readdressed.) Edema: LLE: 3+, RLE: 3+ Integumentary: Yes: Rash (legs; petechia and eczema) Neurological: Yes: Alert, Oriented Labs: CBC, BMP 09/25/16 06:00 09/25/16 06:00 INR, PTT INR 1.39 (0.82-1.09) H 08/26/16 09:50 Problem List - Problems (1) Thrombocytopenia Assessment/Plan: Stable at 26,000 with no transfusion for 3 days. Code(s): D69.6 - THROMBOCYTOPENIA, UNSPECIFIED (2) Leg weakness, bilateral Assessment/Plan: Persists; to resume PT AM Code(s): R29.898 - OTH SYMPTOMS AND SIGNS INVOLVING THE MUSCULOSKELETAL SYSTEM (3) Anemia Assessment/Plan: Hb 7Gm and low systolic BP; Blood transfusion ordered. 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 Code(s): E11.9 - TYPE 2 DIABETES MELLITUS WITHOUT COMPLICATIONS (7) HTN (hypertension) Assessment/Plan: Systolic BP 86; blood transfusion should help. On Lasix 100mgIV TID but no BP Rx. Code(s): I10 - ESSENTIAL (PRIMARY) HYPERTENSION (8) History of ovarian cancer Code(s): Z85.43 - PERSONAL HISTORY OF MALIGNANT NEOPLASM OF OVARY (9) CHF (congestive heart failure) Assessment/Plan: Still with symptomatic Cough and SOB. On IV Las 100mg TID. To add low dose steroids for wheezing. Code(s): I50.9 - HEART FAILURE, UNSPECIFIED Qualifiers: Congestive heart failure type: diastolic Congestive heart failure chronicity: acute Qualified Code(s): I50.31 - Acute diastolic (congestive ) heart failure
[2016-09-25] MEDS ORDERED: POTASSIUM CHLORIDE TABS 20 MEQ TABLET.ER (FP) PO ONE (14:09)
--- NOTE | 2016-09-25 14:26 | PN ---
Progress Note (short form) - Note Progress Note: S: no cp, palps, dizziness. increased lasix to 100 TID yesterday and added metolazone. bp running slightly low today. Current Medications Acetaminophen (Tylenol -) 650 mg PO Q6H PRN PRN Reason: PAIN Last Admin: 08/30/16 20:30 Dose: 650 mg Allopurinol (Zyloprim -) 300 mg PO DAILY [facility] Last Admin: 09/25/16 10:48 Dose: 300 mg Dorzolamide HCl (Trusopt 2%) 1 drop OU BID [facility] Last Admin: 09/25/16 10:50 Dose: 1 drop Furosemide (Lasix Injection -) 100 mg IVPUSH TID@0600,1400,1800 [facility] Last Admin: 09/25/16 05:50 Dose: 100 mg Guaifenesin/Codeine Phosphate (Robitussin Ac -) 5 ml PO QID PRN PRN Reason: COUGH Last Admin: 09/24/16 14:22 Dose: 5 ml IV Flush (Picc Line Flush) 8 ml IVPUSH PRN PRN PRN Reason: Protocol Imatinib Mesylate (Gleevec (Restricted To Oncology) -) 200 mg PO DAILY [facility] Last Admin: 09/25/16 10:51 Dose: 200 mg Insulin Aspart (Novolog Vial Sliding Scale -) 1 vial SQ BIDAC JOVANA PRN Reason: Protocol Last Admin: 09/25/16 06:12 Dose: 2 units Magnesium Oxide (Mag-Ox -) 400 mg PO BID [facility] Last Admin: 09/25/16 10:48 Dose: 400 mg Metoclopramide HCl (Reglan -) 10 mg PO TIDAC ON [facility] Last Admin: 09/25/16 10:48 Dose: 10 mg Multivitamins/Minerals/Vitamin C (Tab-A-Vit -) 1 tab PO DAILY [facility] Last Admin: 09/25/16 10:48 Dose: 1 tab Ondansetron HCl (Zofran Injection) 8 mg IVPB Q12H PRN PRN Reason: NAUSEA Last Admin: 09/24/16 09:05 Dose: 8 mg Pantoprazole Sodium (Protonix -) 40 mg PO BID [facility] Last Admin: 09/25/16 10:48 Dose: 40 mg Polyethylene Glycol (Miralax (For Daily Use) -) 17 gm PO BID [facility] Last Admin: 09/25/16 10:50 Dose: 17 gm Potassium Chloride (K-Dur -) 20 meq PO QID ON [facility] Potassium Chloride (K-Dur -) 40 meq PO ONCE ONE Stop: 09/25/16 14:10 Prednisone (Deltasone -) 10 mg PO BID ON [facility] Simethicone (Mylicon -) 80 mg PO QID PRN PRN Reason: DYSPEPSIA Timolol Maleate (Timoptic 0.5%) 1 drop OU BID ON [facility] Last Admin: 09/25/16 10:50 Dose: 1 drop Triamcinolone Acetonide (Aristocort 0.1% Cream -) 1 applic TP BID ON [facility] Last Admin: 09/25/16 10:50 Dose: 1 applic Vital Signs - 24 hr 09/24/16 09/24/16 09/24/16 14:59 18:00 19:00 Temperature 97.8 F 98.6 F Pulse Rate 96 H 102 H 94 H Respiratory 20 20 Rate Blood Pressure 99/51 92/44 O2 Sat by Pulse 94 L Oximetry (%) 09/24/16 09/24/16 09/25/16 21:00 23:00 03:00 Temperature Pulse Rate 98 H 80 Respiratory Rate Blood Pressure O2 Sat by Pulse 94 L 92 L 90 L Oximetry (%) 09/25/16 09/25/16 06:00 06:40 Temperature 97.7 F Pulse Rate 80 86 Respiratory 20 Rate Blood Pressure 86/40 O2 Sat by Pulse 92 L Oximetry (%) Intake & Output 09/23/16 09/24/16 09/25/16 09/26/16 07:59 07:59 07:59 07:59 Intake Total 1460 420 470 Balance 1460 420 470 Weight 153 lb 1.6 oz 154 lb 3.2 oz 153 lb 6.4 oz Constitutional: Yes: No Distress, conversational dyspnea. Eyes: Yes: Other (Right eye conjuctival redness) HENT: Yes: WNL Neck: jvd elvated Cardiovascular: Yes: Regular Rate and Rhythm, nl s1, s2 hyperdynamic precordium Respiratory: bibasilar dullness, diffuse rhonchi Edema: Yes Edema: LLE: 1+, RLE: dependent. somewhat improved at shins Labs: CBC, BMP 09/25/16 06:00 09/25/16 06:00 Imaging - Results Ultrasound: Report Reviewed (09/01/2016 No LE DVT) EKG: Image Reviewed (08/26/2016 NSR at 90/min 09/17/2016 Sinus tachycardia at 101/ min) Other: Report Reviewed (Echo: 05/23/2013 normal LV and RV size and function, mild RVSP elevation (30-40mmHg)) cxr with pulmonary edema/effusions. 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 1) tachycardia -Likely demand related to significant anemia, sob and chronically ill state -Ongoing mgm't per pmd. 2) Dyspnea - likely multifactorial with anemia contributing in addition to pulmonary edema/ congestion. Unclear if from capillary leakage due to inflammatory state vs. diastolic heart failure exacerbation. last echo with preserved LV fx in 2013. Repeat echo similar -PE possible but unlikely given negative LE duplex. D-dimer would not be helpful in this scenario with her chronic illness -09/19 BMP stable on BID IV lasix Patient with ongoing transfusions. No significant improvement in sx's and weight trending up. CXR with worsened congestion. Will increase to 80 mg IV bid. (pt also to receive extra lasix after 2nd prbc transfusion this evening) Need to record uop response to lasix and strict i/o's, reordered. - 09/21: Weight gain this morning on current regimen. Will uptitrate to lasix 80 mg IV TID. Cr remains stable. - 09/24: ongoing weight gain and transfusion reguirement. given metolazone today. Will also uptitrate regimen to lasix 100 TID. - 09/25: bp running lower today on higher diuretic regimen. however, weight finally decreased. Will continue to monitor. If bp comes up later today will redose metolazone. - daily weights, bmp, strict I/O 3) LE edema - likely mutlifactorial from possible diastolic HF exacerbation/capillary leakage/hypoalb state/malnutrition (Alb 2.3). - diuresis as above. ZIYAD wraps. 4) HTN - Running low off anti-hypertensives. con't to monitor especially with increased diuresis.
--- NOTE | 2016-09-25 15:19 | PN ---
Progress Note (short form) - Note Progress Note: Patient seen and examined generalized weakness,anasarca Last Vital Signs Temp Pulse Resp BP Pulse Ox 97.3 F L 78 18 92/55 92 L 09/25/16 09:00 09/25/16 09:00 09/25/16 09:00 09/25/16 09:00 09/25/16 06:40 HEENT-nl Heart-S1, S2 regular Lungs: decreased at bases Abd: Soft, Normal bowel sounds, No organomegaly Ext:2+ edema b/l + skin rash Abnormal Lab Results 09/19/16 09/22/16 09/25/16 14:15 20:45 06:00 WBC 1.4 L* RBC 2.11 L Hgb 7.0 L D Hct 21.2 L MCV 100.5 H RDW 25.2 H Plt Count 28 L* Neutrophils % 14.0 L Lymphocytes % 83.0 H Monocytes % 2.0 L Nucleated RBCs 2 H Potassium Chloride Carbon Dioxide BUN Random Glucose Crossmatch See Detail See Detail 09/25/16 06:00 WBC RBC Hgb Hct MCV RDW Plt Count Neutrophils % Lymphocytes % Monocytes % Nucleated RBCs Potassium 3.3 L Chloride 94 L Carbon Dioxide 34 H BUN 47 H Random Glucose 166 H Crossmatch A/P 81 y/o patient with systemic mastocytosis with associated hematologic neoplasm s/p C1 vidaza transfusion support for Hgb < 7, platelts < 10,000 monitor CMP 1 unit PRBCS today mild skin rash/leg heaviness/CHF dose reduced gleevec to 200mg -300mg/d zofran prior to gleevec SOB --? fluid overload improved with lasix/nebs appreciate cardiology/pulmonary f/u echo--nl LVEF to monitor BUN/CR closely while on 80mg tid of lasix
[2016-09-25] MEDS ORDERED: METOLAZONE 5 MG TABLET PO ONE (17:30)
[2016-09-25] MEDS ORDERED: INSULIN (NOVOLOG) ASPART 100 UNITS/ML 10ML VIAL ONE (18:12)
[2016-09-25] MEDS: predniSONE 10 MG TABLET (UD) PO SCH (22:02)
[2016-09-26] MEDS: FUROSEMIDE 100 MG/10 ML INJECTABLE VIAL IVPUSH SCH ×3 (06:27→18:45)
[2016-09-26] MEDS: METOCLOPRAMIDE HCL 10 MG TABLET (FP) PO SCH ×3 (06:28→18:45)
[2016-09-26] MEDS: INSULIN SLIDING SCALE (NOVOLOG) 1 VIAL SQ SCH ×2 (06:28→18:44)
[2016-09-26 07:28] LABS: MCH 33.1 pg (25.7-33.7); MCHC 33.8 g/dl (32.0-36.0); MEAN CELL VOLUME 98.1 fl (80-96); MEAN PLT VOLUME 8.6 fl (7.5-11.1); RDW 16.1 % (11.6-15.6)
[2016-09-26 07:53] LABS: COCKROFT - GAULT 53.8475; CREATININE 0.9 mg/dL (0.55-1.02)
[2016-09-26 07:57] LABS: PLATELET COUNT 18 K/MM3 (134-434)
[2016-09-26] MEDS ORDERED: POTASSIUM CHLORIDE TABS 20 MEQ TABLET.ER (FP) PO ONE (10:45)
[2016-09-26] MEDS: TIMOLOL 0.5% OPHTHALMIC SOL 5 ML BOTTLE OU SCH ×2 (11:10→22:10)
[2016-09-26] MEDS: predniSONE 10 MG TABLET (UD) PO SCH ×2 (11:10→22:16)
[2016-09-26] MEDS: ALLOPURINOL 300 MG TABLET (FP) PO SCH (11:10)
[2016-09-26] MEDS: MULTIVITAMINS (DAILY MVI) TABLET (FP) PO SCH (11:10)
[2016-09-26] MEDS: PANTOPRAZOLE 40 MG TABLET (FP) PO SCH ×2 (11:10→22:16)
[2016-09-26] MEDS: MAGNESIUM OXIDE 400 MG TABLET (FP) PO SCH ×2 (11:10→22:15)
[2016-09-26] MEDS: DORZOLAMIDE 2% HCL OPHTHALMIC SOLUTION 10 ML BOTTLE OU SCH ×2 (11:11→22:10)
[2016-09-26] MEDS: POLYETHYLENE GLYCOL 3350 119 GM BTL PO SCH ×2 (11:11→22:11)
[2016-09-26] MEDS: IMATINIB MESYLATE 100 MG TABLET PO SCH (11:13)
[2016-09-26] MEDS: guaiFENesin/CODEINE 5 ML UNIT-DOSE CUPS PO PRN (11:14)
[2016-09-26] MEDS: TRIAMCINOLONE ACET 0.1% CREAM 15 GM TUBE TP SCH ×2 (11:21→22:10)
[2016-09-26] MEDS: POTASSIUM CHLORIDE TABS 20 MEQ TABLET.ER (FP) PO SCH ×4 (11:21→22:16)
[2016-09-26 11:29] LABS: PLATELET ESTIMATE MARKEDLY DECREASED (NORMAL)
--- NOTE | 2016-09-26 13:09 | PN ---
Progress Note (short form) - Note Progress Note: Patient is having increasing SOB weakness and decreasing appetite. WBC is 1,000 and Hb 7.3 and Platelets 18,000. CXR: progressive changes and pleural fluid with 3-4+ pedal edema in spite of Lasix 100mg TID IV. BUN elevated and K down. I had a long talk with Kira and based on the medical facts and her wishes her goal is now comfort care. I notified the outside dealer sales representative from [facility] to see if a bed was available. She has a PICC line for IV drug access and is a DNR/ DNI. I will advise only meds and therapies that will give her comfort should be given. On Exam: Vital Signs Period Temp Pulse Resp BP Sys/Belle Pulse Ox Last 24 Hr 97.3 F-98.8 F 78-106 20-24 88-101/43-57 94-94 Alert tearing Cor: Tachycardia Chest: Decreased breath sounds and rhonchi and rales at bases Abd: Distended Ext: 3-4+ edema Right and left Abnormal Lab Results 09/22/16 09/26/16 09/26/16 20:45 06:00 06:00 WBC 1.0 L* RBC 2.19 L Hgb 7.3 L Hct 21.5 L MCV 98.1 H RDW 16.1 H D Plt Count 18 L* D Neutrophils % 16.0 L Lymphocytes % 82.0 H Potassium 2.9 L* Chloride 94 L Carbon Dioxide 35 H Anion Gap 7 L BUN 51 H Random Glucose 142 H Crossmatch See Detail IMP: Pancytopenia Acute Mastocytosis and Heme Malignancy Acute on Chronic CHF Hx Ovarian Ca DM Hypotension Hypokalemia. DNR/DNI Plan: Stop supportive Care and focus on Comfort Care ?[facility] transfer Problem List - Problems (1) Thrombocytopenia Code(s): D69.6 - THROMBOCYTOPENIA, UNSPECIFIED (2) Leg weakness, bilateral Code(s): R29.898 - OTH SYMPTOMS AND SIGNS INVOLVING THE MUSCULOSKELETAL SYSTEM (3) Anemia Code(s): D64.9 - ANEMIA, UNSPECIFIED Qualifiers: Anemia type: unspecified type Qualified Code(s): D64.9 - Anemia, unspecified (4) Mastocytosis Code(s): Q82.2 - MASTOCYTOSIS (5) Cough Code(s): R05 - COUGH (6) Diabetes mellitus, new onset Code(s): E11.9 - TYPE 2 DIABETES MELLITUS WITHOUT COMPLICATIONS (7) HTN (hypertension) Code(s): I10 - ESSENTIAL (PRIMARY) HYPERTENSION (8) History of ovarian cancer Code(s): Z85.43 - PERSONAL HISTORY OF MALIGNANT NEOPLASM OF OVARY (9) CHF (congestive heart failure) Code(s): I50.9 - HEART FAILURE, UNSPECIFIED Qualifiers: Congestive heart failure type: diastolic Congestive heart failure chronicity: acute Qualified Code(s): I50.31 - Acute diastolic (congestive ) heart failure
--- NOTE | 2016-09-26 13:16 | PN ---
Progress Note (short form) - Note Progress Note: Appears weak. Noted that patient will likely be placed on comfort care measures. NAD on NC O2. Intake & Output 09/23/16 09/24/16 09/25/16 09/26/16 23:59 23:59 23:59 23:59 Intake Total 095 733 5422 240 Balance 511 994 8345 240 Weight 153 lb 1.6 oz 154 lb 3.2 oz 153 lb 6.4 oz 149 lb 9.6 oz Last Vital Signs Temp Pulse Resp BP Pulse Ox 97.3 F L 86 20 89/43 94 L 09/26/16 05:42 09/26/16 05:42 09/26/16 05:42 09/26/16 05:42 09/26/16 05:19 Active Medications Acetaminophen (Tylenol -) 650 mg PO Q6H PRN PRN Reason: PAIN Last Admin: 08/30/16 20:30 Dose: 650 mg Allopurinol (Zyloprim -) 300 mg PO DAILY [facility] Last Admin: 09/26/16 11:10 Dose: 300 mg Dorzolamide HCl (Trusopt 2%) 1 drop OU BID [facility] Last Admin: 09/26/16 11:11 Dose: 1 drop Furosemide (Lasix Injection -) 100 mg IVPUSH TID@0600,1400,1800 [facility] Last Admin: 09/26/16 06:27 Dose: 100 mg Guaifenesin/Codeine Phosphate (Robitussin Ac -) 5 ml PO QID PRN PRN Reason: COUGH Last Admin: 09/26/16 11:14 Dose: 5 ml IV Flush (Picc Line Flush) 8 ml IVPUSH PRN PRN PRN Reason: Protocol Imatinib Mesylate (Gleevec (Restricted To Oncology) -) 200 mg PO DAILY [facility] Last Admin: 09/26/16 11:13 Dose: 200 mg Insulin Aspart (Novolog Vial Sliding Scale -) 1 vial SQ BIDAC [facility]OVANA PRN Reason: Protocol Last Admin: 09/26/16 06:28 Dose: 2 units Magnesium Oxide (Mag-Ox -) 400 mg PO BID [facility] Last Admin: 09/26/16 11:10 Dose: 400 mg Metoclopramide HCl (Reglan -) 10 mg PO TIDAC [facility] Last Admin: 09/26/16 11:10 Dose: 10 mg Multivitamins/Minerals/Vitamin C (Tab-A-Vit -) 1 tab PO DAILY [facility] Last Admin: 09/26/16 11:10 Dose: 1 tab Ondansetron HCl (Zofran Injection) 8 mg IVPB Q12H PRN PRN Reason: NAUSEA Last Admin: 09/24/16 09:05 Dose: 8 mg Pantoprazole Sodium (Protonix -) 40 mg PO BID [facility] Last Admin: 09/26/16 11:10 Dose: 40 mg Polyethylene Glycol (Miralax (For Daily Use) -) 17 gm PO BID [facility] Last Admin: 09/26/16 11:11 Dose: Not Given Potassium Chloride (K-Dur -) 20 meq PO QID [facility] Last Admin: 09/26/16 11:21 Dose: 20 meq Prednisone (Deltasone -) 10 mg PO BID [facility] Last Admin: 09/26/16 11:10 Dose: 10 mg Simethicone (Mylicon -) 80 mg PO QID PRN PRN Reason: DYSPEPSIA Last Admin: 09/25/16 22:03 Dose: 80 mg Timolol Maleate (Timoptic 0.5%) 1 drop OU BID [facility] Last Admin: 09/26/16 11:10 Dose: 1 drop Triamcinolone Acetonide (Aristocort 0.1% Cream -) 1 applic TP BID [facility] Last Admin: 09/26/16 11:21 Dose: 1 applic Gen: NAD, weak appearing Heart: RRR Lung: decreased breath sounds at the bases Abd: soft, nontender Ext: + edema Laboratory Results - last 24 hr 09/22/16 09/25/16 09/26/16 20:45 17:31 06:00 WBC 1.0 L* RBC 2.19 L Hgb 7.3 L Hct 21.5 L MCV 98.1 H MCHC 33.8 RDW 16.1 H D Plt Count 18 L* D MPV 8.6 Neutrophils % 16.0 L Lymphocytes % 82.0 H Basophils % 2.0 Differential Comment Manual diff done Platelet Estimate Markedly decreased Sodium Potassium Chloride Carbon Dioxide Anion Gap BUN Creatinine POC Glucometer 179 Random Glucose Calcium Blood Type O POSITIVE Antibody Screen Negative Crossmatch See Detail 09/26/16 09/26/16 06:00 06:26 WBC RBC Hgb Hct MCV MCHC RDW Plt Count MPV Neutrophils % Lymphocytes % Basophils % Differential Comment Platelet Estimate Sodium 136 Potassium 2.9 L* Chloride 94 L Carbon Dioxide 35 H Anion Gap 7 L BUN 51 H Creatinine 0.9 POC Glucometer 161 Random Glucose 142 H Calcium 9.0 Blood Type Antibody Screen Crossmatch A/P Systemic Mastocytosis Pancytopenia s/p Multiple transfusions Volume Overload Pulmonary HTN HTN - O2 to keep SPo2 >90% - For possible comfort care measures only - inhaled bronchodilators PRN - Lasix as needed Dr Loja
--- NOTE | 2016-09-26 14:29 | PN ---
Progress Note, Physician History of Present Illness: Reports developing maculopapular rash on pretibial areas bilaterally Slightly pruritic No fever/ chills Chronically pancytopenic/ neutropenic - Current Medication List Current Medications: Active Medications Acetaminophen (Tylenol -) 650 mg PO Q6H PRN PRN Reason: PAIN Last Admin: 08/30/16 20:30 Dose: 650 mg Allopurinol (Zyloprim -) 300 mg PO DAILY [facility] Last Admin: 09/26/16 11:10 Dose: 300 mg Dorzolamide HCl (Trusopt 2%) 1 drop OU BID [facility] Last Admin: 09/26/16 11:11 Dose: 1 drop Furosemide (Lasix Injection -) 100 mg IVPUSH TID@0600,1400,1800 [facility] Last Admin: 09/26/16 06:27 Dose: 100 mg Guaifenesin/Codeine Phosphate (Robitussin Ac -) 5 ml PO QID PRN PRN Reason: COUGH Last Admin: 09/26/16 11:14 Dose: 5 ml IV Flush (Picc Line Flush) 8 ml IVPUSH PRN PRN PRN Reason: Protocol Imatinib Mesylate (Gleevec (Restricted To Oncology) -) 200 mg PO DAILY [facility] Last Admin: 09/26/16 11:13 Dose: 200 mg Insulin Aspart (Novolog Vial Sliding Scale -) 1 vial SQ BIDAC JOVANA PRN Reason: Protocol Last Admin: 09/26/16 06:28 Dose: 2 units Magnesium Oxide (Mag-Ox -) 400 mg PO BID [facility] Last Admin: 09/26/16 11:10 Dose: 400 mg Metoclopramide HCl (Reglan -) 10 mg PO TIDAC [facility] Last Admin: 09/26/16 11:10 Dose: 10 mg Multivitamins/Minerals/Vitamin C (Tab-A-Vit -) 1 tab PO DAILY [facility] Last Admin: 09/26/16 11:10 Dose: 1 tab Ondansetron HCl (Zofran Injection) 8 mg IVPB Q12H PRN PRN Reason: NAUSEA Last Admin: 09/24/16 09:05 Dose: 8 mg Pantoprazole Sodium (Protonix -) 40 mg PO BID [facility] Last Admin: 09/26/16 11:10 Dose: 40 mg Polyethylene Glycol (Miralax (For Daily Use) -) 17 gm PO BID [facility] Last Admin: 09/26/16 11:11 Dose: Not Given Potassium Chloride (K-Dur -) 20 meq PO QID [facility] Last Admin: 09/26/16 11:21 Dose: 20 meq Prednisone (Deltasone -) 10 mg PO BID [facility] Last Admin: 09/26/16 11:10 Dose: 10 mg Simethicone (Mylicon -) 80 mg PO QID PRN PRN Reason: DYSPEPSIA Last Admin: 09/25/16 22:03 Dose: 80 mg Timolol Maleate (Timoptic 0.5%) 1 drop OU BID [facility] Last Admin: 09/26/16 11:10 Dose: 1 drop Triamcinolone Acetonide (Aristocort 0.1% Cream -) 1 applic TP BID [facility] Last Admin: 09/26/16 11:21 Dose: 1 applic - Objective Vital Signs: Vital Signs Temperature 97.3 F L 09/26/16 05:42 Pulse Rate 86 09/26/16 05:42 Respiratory Rate 20 09/26/16 05:42 Blood Pressure 89/43 09/26/16 05:42 O2 Sat by Pulse Oximetry (%) 94 L 09/26/16 05:19 Constitutional: Yes: No Distress, Cachectic Cardiovascular: Yes: Regular Rate and Rhythm, S1, S2 Respiratory: Yes: CTA Bilaterally Gastrointestinal: Yes: Normal Bowel Sounds, Soft Extremities: Yes: Other (+ maculopapular rash on pretibial areas bilaterally several lesions appear pustular) Labs: CBC, BMP 09/26/16 06:00 09/26/16 06:00 INR, PTT INR 1.39 (0.82-1.09) H 08/26/16 09:50 Assessment/Plan Possible cellulitis, LE bilaterally Pancytopenia/ neutropenia No fever or evidence of systemic infection Keflex 500mg po tid Topical triamcinolone
[2016-09-26] MEDS ORDERED: PT OWN MED DRAWER 7, Y5N ONE ×2 (19:31→22:15)
[2016-09-26] MEDS ORDERED: INSULIN (NOVOLOG) ASPART 100 UNITS/ML 10ML VIAL ONE (19:32)
[2016-09-27] MEDS: INSULIN SLIDING SCALE (NOVOLOG) 1 VIAL SQ SCH (06:09)
[2016-09-27] MEDS: METOCLOPRAMIDE HCL 10 MG TABLET (FP) PO SCH ×3 (06:09→16:44)
[2016-09-27] MEDS: FUROSEMIDE 100 MG/10 ML INJECTABLE VIAL IVPUSH SCH ×2 (06:09→16:44)
[2016-09-27 07:46] LABS: MCHC 33.1 g/dl (32.0-36.0); MEAN CELL VOLUME 99.6 fl (80-96); MEAN PLT VOLUME 8.8 fl (7.5-11.1)
[2016-09-27 07:55] LABS: WHITE BLOOD COUNT 1.3 K/mm3 (4.0-10.0)
[2016-09-27 07:56] LABS: PLATELET COUNT 24 K/MM3 (134-434)
[2016-09-27 08:55] LABS: PLATELET ESTIMATE MARKEDLY DECREASED (NORMAL)
--- NOTE | 2016-09-27 09:08 | PN ---
Progress Note (short form) - Note Progress Note: patient still having cough and SOB. Lab with pancytopenia persists Anxious about our decision yesterday to change goals of care to comfort at [place]. Awaiting to speak to Oncology MD. On Exam: Vital Signs Temp 97.9 F 09/27/16 06:00 Pulse 86 09/27/16 06:00 Resp 18 09/27/16 06:00 BP 97/46 09/27/16 06:00 Pulse Ox 92 L 09/26/16 23:00 Intake & Output 09/26/16 09/26/16 09/27/16 11:59 23:59 11:59 Intake Total 240 120 401 Balance 240 120 401 Weight 149 lb 9.6 oz 144 lb 1 oz Intake: IVPB 120 120 50 Oral 120 351 Other: Voiding Method Incontinent Incontinent Incontinent # Unmeasured Voids Void 3 1 3 Bowel Movement Yes: big Yes: 1 No # Bowel Movements 1 Weight Measurement Method Chair Scale Standing Scale Alert Chest: Rhonchi and rales bilaterally Abd; Distended Ext: 2+ pedal edema Abnormal Lab Results 08/30/16 09/14/16 09/16/16 08:45 12:44 11:00 WBC RBC Hgb Hct MCV RDW Plt Count Neutrophils % Lymphocytes % Nucleated RBCs Potassium Crossmatch See Detail See Detail See Detail 09/26/16 09/27/16 09/27/16 06:00 06:00 06:00 WBC 1.3 L* RBC 2.17 L Hgb 7.2 L Hct 21.6 L MCV 99.6 H RDW 26.0 H Plt Count 24 L* D Neutrophils % 16.0 L 30.0 L D Lymphocytes % 82.0 H 64.0 H D Nucleated RBCs 8 H Potassium 3.3 L Crossmatch IMP: All Active Problems Acute hypoxemic respiratory failure (Acute) Anemia (Acute) CHF (congestive heart failure) (Acute) GI bleed (Acute) Leg weakness, bilateral (Acute) Mastocytosis (Acute) Abdominal pain (Acute) Cough (Acute) Diabetes mellitus, new onset (Acute) HTN (hypertension) (Acute) History of ovarian cancer (Acute) Hoarseness (Acute) Hyperglycemia (Acute) Hypokalemia (Acute) Hypomagnesemia (Acute) Ileus (Acute) Lactic acid increased (Acute) Pancytopenia (Acute) Thrombocytopenia (Acute) Upper respiratory infection (Acute) Problem List - Problems (1) Thrombocytopenia Code(s): D69.6 - THROMBOCYTOPENIA, UNSPECIFIED (2) Leg weakness, bilateral Code(s): R29.898 - OTH SYMPTOMS AND SIGNS INVOLVING THE MUSCULOSKELETAL SYSTEM (3) Anemia Code(s): D64.9 - ANEMIA, UNSPECIFIED Qualifiers: Anemia type: unspecified type Qualified Code(s): D64.9 - Anemia, unspecified (4) Mastocytosis Code(s): Q82.2 - MASTOCYTOSIS (5) Cough Code(s): R05 - COUGH (6) Diabetes mellitus, new onset Code(s): E11.9 - TYPE 2 DIABETES MELLITUS WITHOUT COMPLICATIONS (7) HTN (hypertension) Code(s): I10 - ESSENTIAL (PRIMARY) HYPERTENSION (8) History of ovarian cancer Code(s): Z85.43 - PERSONAL HISTORY OF MALIGNANT NEOPLASM OF OVARY (9) CHF (congestive heart failure) Code(s): I50.9 - HEART FAILURE, UNSPECIFIED Qualifiers: Congestive heart failure type: diastolic Congestive heart failure chronicity: acute Qualified Code(s): I50.31 - Acute diastolic (congestive ) heart failure
[2016-09-27] MEDS: POTASSIUM CHLORIDE TABS 20 MEQ TABLET.ER (FP) PO SCH ×2 (10:56→16:44)
[2016-09-27] MEDS: MAGNESIUM OXIDE 400 MG TABLET (FP) PO SCH (10:56)
[2016-09-27] MEDS: PANTOPRAZOLE 40 MG TABLET (FP) PO SCH (10:56)
[2016-09-27] MEDS: MULTIVITAMINS (DAILY MVI) TABLET (FP) PO SCH (10:56)
[2016-09-27] MEDS: IMATINIB MESYLATE 100 MG TABLET PO SCH (10:57)
[2016-09-27] MEDS: TRIAMCINOLONE ACET 0.1% CREAM 15 GM TUBE TP SCH (10:58)
[2016-09-27] MEDS: TIMOLOL 0.5% OPHTHALMIC SOL 5 ML BOTTLE OU SCH (10:58)
[2016-09-27] MEDS: predniSONE 10 MG TABLET (UD) PO SCH (10:58)
[2016-09-27] MEDS: ALLOPURINOL 300 MG TABLET (FP) PO SCH (10:59)
[2016-09-27] MEDS: DORZOLAMIDE 2% HCL OPHTHALMIC SOLUTION 10 ML BOTTLE OU SCH (10:59)
--- NOTE | 2016-09-27 13:50 | PN ---
Progress Note (short form) - Note Progress Note: Neurology History of Present Illness 81 year old female with a history of NIDDM, HTN, ovarian ca (s/p chemo in 2007 and 2011, s/p hysterectomy and bilateral oophrectomy), and anemia sent from [facility] for Hg of 6.9. 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 There was concern for patient 's limited ability to move lower extremities and she reports ongoing fluid buildup. B12 and Folate were normal. On Lasix for edema. Plan is for placement to [place]. Awaiting transfer, possibly tomorrow, per nurse. Active Medications Acetaminophen (Tylenol -) 650 mg PO Q6H PRN PRN Reason: PAIN Last Admin: 08/30/16 20:30 Dose: 650 mg Allopurinol (Zyloprim -) 300 mg PO DAILY [facility] Last Admin: 09/27/16 10:59 Dose: 300 mg Dorzolamide HCl (Trusopt 2%) 1 drop OU BID [facility] Last Admin: 09/27/16 10:59 Dose: 1 drop Furosemide (Lasix Injection -) 100 mg IVPUSH TID@0600,1400,1800 [facility]OVA[facility] Last Admin: 09/27/16 06:09 Dose: 100 mg Guaifenesin/Codeine Phosphate (Robitussin Ac -) 5 ml PO QID PRN PRN Reason: COUGH Last Admin: 09/26/16 11:14 Dose: 5 ml IV Flush (Picc Line Flush) 8 ml IVPUSH PRN PRN PRN Reason: Protocol Imatinib Mesylate (Gleevec (Restricted To Oncology) -) 200 mg PO DAILY [facility] Last Admin: 09/27/16 10:57 Dose: 200 mg Insulin Aspart (Novolog Vial Sliding Scale -) 1 vial SQ BIDAC JOVANA PRN Reason: Protocol Last Admin: 09/27/16 06:09 Dose: 2 units Magnesium Oxide (Mag-Ox -) 400 mg PO BID [facility] Last Admin: 09/27/16 10:56 Dose: 400 mg Metoclopramide HCl (Reglan -) 10 mg PO TIDAC [facility] Last Admin: 09/27/16 10:56 Dose: 10 mg Multivitamins/Minerals/Vitamin C (Tab-A-Vit -) 1 tab PO DAILY [facility] Last Admin: 09/27/16 10:56 Dose: 1 tab Ondansetron HCl (Zofran Injection) 8 mg IVPB Q12H PRN PRN Reason: NAUSEA Last Admin: 09/24/16 09:05 Dose: 8 mg Pantoprazole Sodium (Protonix -) 40 mg PO BID [facility] Last Admin: 09/27/16 10:56 Dose: 40 mg Polyethylene Glycol (Miralax (For Daily Use) -) 17 gm PO BID [facility] Last Admin: 09/26/16 22:11 Dose: 17 gm Potassium Chloride (K-Dur -) 20 meq PO QID [facility] Last Admin: 09/27/16 10:56 Dose: 20 meq Prednisone (Deltasone -) 10 mg PO BID [facility] Last Admin: 09/27/16 10:58 Dose: 10 mg Simethicone (Mylicon -) 80 mg PO QID PRN PRN Reason: DYSPEPSIA Last Admin: 09/25/16 22:03 Dose: 80 mg Timolol Maleate (Timoptic 0.5%) 1 drop OU BID [facility] Last Admin: 09/27/16 10:58 Dose: 1 drop Triamcinolone Acetonide (Aristocort 0.1% Cream -) 1 applic TP BID [facility] Last Admin: 09/27/16 10:58 Dose: 1 applic Vital Signs Temperature 97.9 F 09/27/16 06:00 Pulse Rate 86 09/27/16 06:00 Respiratory Rate 18 09/27/16 06:00 Blood Pressure 97/46 09/27/16 06:00 O2 Sat by Pulse Oximetry (%) 92 L 09/26/16 23:00 PHYSICAL EXAM General Appearance: Well-appearing, appropriately dressed. No apparent distress. HEENT: EOMI, PERRLA, normal ENT inspection, normal voice, TMs normal, pharynx normal. No conjunctival pallor. No photophobia, scleral icterus. Neck: Supple. Trachea midline. No tenderness, rigidity, carotid bruit, stridor , lymphadenopathy, or thyromegaly. Respiratory/Chest: Lungs CTAB. No shortness of breath, chest tenderness, respiratory distress, accessory muscle use. No crackles, rales, rhonchi, stridor , wheezing, dullness Cardiovascular: RRR. S1, S2. Vascular Pulses: Dorsalis-Pedis (R): 2+, Dorsalis-Pedis (L): 2+ Gastrointestinal/Abdominal: LUQ tenderness on palpation, splenomegaly appreciated. Normal bowel sounds. Abdomen soft, non-distended. No organomegaly, pulsatile mass, guarding, hernia, hepatomegaly, splenomegaly. Musculoskeletal/Extremities: 2+ pitting edema to LE b/l. No erythema, tenderness. Normal inspection. FROM of all extremities, normal capillary refill. Pelvis Stable. No CVA tenderness. No tenderness to extremities, pedal edema, swelling, erythema or deformity. 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 Fully oriented, alert. Motor strength 5/5 in UE , 5-/5 in lower ext at best. CBCD WBC 1.2 K/mm3 (4.0-10.0) L* 09/22/16 06:00 RBC 1.98 M/mm3 (3.60-5.2) L 09/22/16 06:00 Hgb 6.5 GM/dL (10.7-15.3) L* 09/22/16 06:00 Hct 19.5 % (32.4-45.2) L 09/22/16 06:00 MCV 98.4 fl (80-96) H 09/22/16 06:00 MCHC 33.5 g/dl (32.0-36.0) 09/22/16 06:00 RDW 22.6 % (11.6-15.6) H D 09/22/16 06:00 Plt Count 36 K/MM3 (134-434) L* D 09/22/16 06:00 MPV 7.7 fl (7.5-11.1) D 09/22/16 06:00 CMP Sodium 141 mmol/L (136-145) 09/22/16 06:00 Potassium 3.1 mmol/L (3.5-5.1) L 09/22/16 06:00 Chloride 99 mmol/L (98-107) 09/22/16 06:00 Carbon Dioxide 34 mmol/L (21-32) H 09/22/16 06:00 Anion Gap 8 (8-16) 09/22/16 06:00 BUN 47 mg/dL (7-18) H 09/22/16 06:00 Creatinine 0.9 mg/dL (0.55-1.02) 09/22/16 06:00 Creat Clearance w eGFR > 60 (>60) 09/20/16 06:10 Calcium 9.0 mg/dL (8.5-10.1) 09/22/16 06:00 Total Bilirubin 4.2 mg/dL (0.2-1.0) H D 09/20/16 06:10 AST 10 U/L (15-37) L 09/20/16 06:10 ALT 10 U/L (12-78) L 09/20/16 06:10 Alkaline Phosphatase 143 U/L (45-117) H 09/20/16 06:10 Total Protein 4.5 g/dl (6.4-8.2) L 09/20/16 06:10 Albumin 2.4 g/dl (3.4-5.0) L 09/20/16 06:10 Medical Decision Making 81 year old female with a history of NIDDM, HTN, ovarian ca (s/p chemo in 2007 and 2011, s/p hysterectomy and bilateral oophrectomy), and anemia sent from [facility] for Hg of 6.9, now improved. 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 There is concern for patient's limited ability to move lower extremities and she reports ongoing fluid buildup. Patient reports this has been going and occuring since she has been in hospital. Ambulating now, but been having issues with fluid retention particularly in lower extremities B12 and folate normal PT/OT Continue medical mgmt Fall precautions Assistive device as needed, at bedside On lasix Would benefit from ambulation For placement to [place]
[2016-09-27 15:34] VITALS: PULSE 76
[2016-09-27] MEDS: POLYETHYLENE GLYCOL 3350 119 GM BTL PO SCH (16:44)
[2016-09-27 19:26] VITALS: BP 109/58; TEMP 97.7
== END 2016-09-27 19:43 | disposition hospice, inpatient (51) | DRG 840 ==
LOC: JER 09:14 → JERBED 12:37 → UNDOADMIN 12:43 → JERBED 12:43 → J4W 14:44 → J7W 08-28 12:29
PROVIDERS: ADMIT Internal Medicine; ATTEND Internal Medicine
PROC: 30233N1 Transfusion of Nonautologous Red Blood Cells into Peripheral Vein, Percutaneous Approach (ICD-10-PCS; principal; 2016-08-26)
PROC: 30233R1 Transfusion of Nonautologous Platelets into Peripheral Vein, Percutaneous Approach (ICD-10-PCS; 2016-08-26)
PROC: 02HV33Z Insertion of Infusion Device into Superior Vena Cava, Percutaneous Approach (ICD-10-PCS; 2016-09-22)
PROC: B518YZA Fluoroscopy of Superior Vena Cava using Other Contrast, Guidance (ICD-10-PCS; 2016-09-22)
DX: C96.2 Malignant mast cell neoplasm (principal); I50.33 Acute on chronic diastolic (congestive) heart failure; J96.01 Acute respiratory failure with hypoxia; D61.810 Antineoplastic chemotherapy induced pancytopenia; K92.2 Gastrointestinal hemorrhage, unspecified; E87.2 Acidosis; E46 Unspecified protein-calorie malnutrition; E11.9 Type 2 diabetes mellitus without complications; D64.9 Anemia, unspecified; D69.6 Thrombocytopenia, unspecified; Z85.43 Personal history of malignant neoplasm of ovary; E87.6 Hypokalemia; E83.42 Hypomagnesemia; D70.9 Neutropenia, unspecified; Q82.2 Congenital cutaneous mastocytosis; I11.0 Hypertensive heart disease with heart failure; I27.2 Other secondary pulmonary hypertension; R00.0 Tachycardia, unspecified; Z68.23 Body mass index [BMI] 23.0-23.9, adult; E87.70 Fluid overload, unspecified; H11.31 Conjunctival hemorrhage, right eye; E88.09 Other disorders of plasma-protein metabolism, not elsewhere classified; K59.00 Constipation, unspecified
CPT/HCPCS: 36415; 36430; 36511; 36569; 71010-TC; 71020-TC; 72100-TC; 74020-TC; 77001-TC; 80048; 80053; 80076; 81003; 82272; 82550; 82607; 82746; 83520; 83615; 83735; 83880; 84132; 84484; 84550; 85025; 85027; 85610; 86850; 86900; 86901; 86922; 87040; 87086; 93005; 93010; 93306-TC; 93970-TC; 94640; 96367; 97116-GP; 97162; 99285-25; C1751; J9025; P9034; P9038; P9058